=== PATIENT | female | born 1940 | race Caucasian/White ===

== ENCOUNTER 2017-04-26 15:20 | Outpatient (RCR) | payer MEDICARE ==
[2014-08-13 14:57] VITALS: Wt 98.6 kg
[2017-04-25 12:51] VITALS: BP 113/75
[2017-04-25 12:59] LABS: PLATELET COUNT, AUTOMATED 240 K/uL (150-450)
[~2017-04-26 15:20] MED LIST: ALPH50TA7 PO; BIPAP; BLOO-725 MC; CA P PO; CINN500C12 PO; DIPH-466 PO; DIPH25TA50 PO; EPIN0.3P14 IM; FAM20 PO; FAMO-67 PO; FLU180SY9 IM; FLU45SYR17 IM; FLU45SYR25 IM ONLY; FUR20 PO; FURO-45 PO; GLIM4TAB49 PO; GLIP1TAB PO; GLY5 PO; GLYB-108 PO; INSU100V24 SQ; LANC-648 MC; LEVI SQ; LEVI SUBQ; LIS10 PO; LIS20 PO; LISI-374 PO; LISI2.5T60 PO; LISI5TAB25 PO; LORA10TA2 PO; LOVA20TA99 PO; MULT-1124 PO; NOVOLOG SUBQ; NPH,100V12 SQ; NPH,100V2 SQ; OMEP-125 PO; OMEP-153 PO; PNEU0.5D3 IM; PRE5 PO; PREVACID; SITA100T PO; SITA100T9 PO; SYRI-1525 MC; TRA50 PO; TRAM-420 PO; VITA-131 PO; [UNRECOGNIZED DRUG - CODE] PO; [UNRECOGNIZED DRUG - CODE] PO; [UNRECOGNIZED DRUG - CODE] PO; [UNRECOGNIZED DRUG - CODE] PO; [UNRECOGNIZED DRUG - OTHER] SC
[2017-04-26 15:31] VITALS: BP 124/81
--- NOTE | 2017-04-26 19:25 | ONCOLOGY FOLLOW UP NOTE ---
EVENT DATE: April 26, 2017 DIAGNOSES 1. Secondary polycythemia. 2. Chronic kidney disease stage 3A. 3. Essential hypertension. 4. Type 2 diabetes. 5. Obstructive sleep apnea on BiPAP. CHIEF COMPLAINT Patient is here today for followup of her polycythemia. HEMATOLOGY HISTORY The patient is a 76-year-old female, with multiple medical problems including stage 3A chronic kidney disease likely due to hypertensive nephrosclerosis superimposed on diabetic kidney disease. She has also hypertension, type 2 diabetes, and obstructive sleep apnea on nocturnal BiPAP. The patient has been followed by Dr. Kailash Velásquez for her kidney disease, and the patient was found lately on her labs to have a hemoglobin of 20.1, hematocrit of 61.8, white count 11,000, and platelet count of 219,000. The patient denies any constitutional symptoms. Erythropoietin level is normal at 22 and JAK2 mutation analysis came back negative. HISTORY OF PRESENT ILLNESS Patient is here today for followup of her secondary polycythemia. She is doing fine currently, except for mild dry cough. Other than that she is really doing very well. PAST MEDICAL HISTORY 1. Stage 3 chronic kidney disease. 2. Hypertension. 3. Type 2 diabetes. 4. Obstructive sleep apnea. 5. Hypercholesterolemia. PAST SURGICAL HISTORY 1. Tubal ligation. 2. Appendectomy. 3. Surgical drainage for infection of the right lower extremity. FAMILY HISTORY Maternal great aunt with colon cancer. She has a granddaughter with leukemia. SOCIAL HISTORY The patient is with 4 children. 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 She has a glass of wine once a month and denies any abuse of tobacco or illicit drugs. She has never smoked. CURRENT MEDICATIONS 1. Lisinopril 5 mg daily. 2. Aspirin 81 mg daily. 3. Lasix 20 mg daily. 4. Glyburide/metformin 5/500 mg 2 tablets p.o. twice a day. 5. Insulin detemir (Levemir) 100 units injected into the skin nightly at bedtime. 6. Lovastatin 20 mg at bedtime. 7. Multivitamins. 8. Omeprazole 20 mg every morning. 9. Tramadol 50 mg p.r.n. pain as needed. ALLERGIES SHELLFISH causes anaphylaxis, and SULFA causes swelling. REVIEW OF SYSTEMS CONSTITUTIONAL: No appetite or weight change. No fever, chills or sweating. No recent infection. HEENT: Ears: No tinnitus or hearing problem. Nose: No nasal discharge or epistaxis. Throat: No sore throat or mouth ulcers. Eyes: No diplopia or visual changes. RESPIRATORY: Patient has a dry cough. CARDIOVASCULAR: No chest pain, orthopnea, or paroxysmal nocturnal dyspnea (PND) . No edema. No palpitations. GASTROINTESTINAL: No nausea or vomiting. No diarrhea or constipation. No change in bowel movements. No heartburn or swallowing difficulties. No abdominal pain. No jaundice. No hematemesis, melena or rectal bleeding. GENITOURINARY: No hematuria or dysuria. MUSCULOSKELETAL: She has pain in her hands. NEUROLOGICAL: No tingling or numbness in the hands or feet. No headaches or convulsions. HEMATOLOGIC/LYMPHATIC: No bleeding. She bruises easily. No weakness or fatigue. No enlarged lymph nodes. SKIN: No skin rash or lumps. PSYCHIATRIC: No anxiety or depression. PHYSICAL EXAMINATION GENERAL: Looks stable. Well-developed, well-nourished, and in no acute distress. VITAL SIGNS: Blood pressure 124/81, pulse 101 per minute, respirations 18 per minute, temperature 98.2, pulse ox 94% on room air. HEENT: Head: Atraumatic. No sinus tenderness to palpation. Eyes: No icterus or conjunctivitis. Mouth and throat: No oral thrush or mucositis. NECK: Supple. No cervical or supraclavicular lymphadenopathy. LUNGS: Clear to auscultation and percussion bilaterally. HEART: Regular rate and rhythm. No gallops, murmurs, clicks or rubs. ABDOMEN: Soft and lax. No tenderness. No hepatosplenomegaly. No masses. EXTREMITIES: Bilateral leg edema. LYMPHATICS: No peripheral lymphadenopathy. NEUROLOGICAL: Conscious, alert and oriented times three. No focal motor or sensory deficits. PSYCHIATRIC: Mood and affect appear normal. SKIN: No skin rash, bruise or purpuric eruption. DIAGNOSTIC DATA CBC showed a white count of 12,000, hemoglobin 19, hematocrit 57.6, platelet count 240,000. ASSESSMENT 1. Secondary erythrocytosis given the JAK2 mutation analysis for [id number] mutation and Exon 12 mutation came back negative, and her erythropoietin level was normal at 22. Patient started BiPAP machine for her sleep apnea. Her current hematocrit is 57.6. I am planning to phlebotomize 500 mL of blood today. I am planning to check her blood count every month, and I will proceed with phlebotomy if her hematocrit is above 55%. I will see her again in three months with CBC. 2. Chronic kidney disease stage 3A due to hypertension and diabetes. 3. Essential hypertension. 4. Type 2 diabetes mellitus. 5. Obstructive sleep apnea on BiPAP. PLAN 1. Phlebotomize 500 mL of blood if hematocrit is above 55%. 2. CBC to be checked monthly. 3. Patient to return in three months with CBC. 4. Patient to contact us for any new concern or complaints. ELI
[2017-05-08] MEDS ORDERED: ASPI-1471 PO (21:13)
[2017-05-08] MEDS ORDERED: TRAM-420 PO ×2 (21:13→21:56)
[2017-05-08] MEDS ORDERED: ONDA4TAB PO (21:56)
[2017-05-08] MEDS ORDERED: OXYC-865 PO (21:56)
[2017-05-14] MEDS ORDERED: CIPR-214 PO (03:04)
[2017-05-15] MEDS ORDERED: LEVI SUBQ (14:27)
[2017-05-15] MEDS ORDERED: ONDA4TAB PO (14:54)
[2017-06-05] MEDS ORDERED: FURO-45 PO (13:46)
[2017-06-05] MEDS ORDERED: PANT40TA65 PO (13:46)
[2017-06-05] MEDS ORDERED: LANI SUBQ (13:46)
[2017-06-05] MEDS ORDERED: PREPH PR (13:46)
[2017-06-05] MEDS ORDERED: MELA3TAB31 PO (13:46)
[2017-06-05] MEDS ORDERED: DIPH-464 PO (13:46)
[2017-06-05] MEDS ORDERED: ACET-2043 PO (13:46)
[2017-06-05] MEDS ORDERED: POTA20TA94 PO (13:46)
[2017-06-28] MEDS ORDERED: ACET-2007 PO (07:37)
[2017-06-28] MEDS ORDERED: INSU100I30 SUBQ (07:37)
[2017-06-28] MEDS ORDERED: FURO80TA70 PO (07:37)
[2017-06-28] MEDS ORDERED: CHOL4PAC16 PO (07:37)
[2017-06-28] MEDS ORDERED: ASPI-870 CHEW (07:37)
[2017-06-28] MEDS ORDERED: INSU100I28 SQ (07:46)
[2017-06-28] MEDS ORDERED: POTA20TA94 PO (07:46)
[2017-07-01] MEDS ORDERED: PEN1DIS. MC (12:06)
== END 2017-06-28 09:56 | disposition home or self-care (01) ==
LOC: ONC 15:20
PROVIDERS: ATTEND Internal Medicine Hematology
DX: D75.1 Secondary polycythemia (principal); I12.9 Hypertensive chronic kidney disease with stage 1 through stage 4 chronic kidney disease, or unspecified chronic kidney disease; E11.22 Type 2 diabetes mellitus with diabetic chronic kidney disease; N18.3 Chronic kidney disease, stage 3 (moderate); G47.33 Obstructive sleep apnea (adult) (pediatric); E78.00 Pure hypercholesterolemia, unspecified; Z79.4 Long term (current) use of insulin; Z79.82 Long term (current) use of aspirin; Z79.899 Other long term (current) drug therapy; Z99.89 Dependence on other enabling machines and devices; R05 Cough
CPT/HCPCS: 36415; 85025; 99195; G0463; 99212

== ENCOUNTER 2017-05-08 20:16 | Emergency (ER) | payer MEDICARE ==
[2014-08-13 14:57] VITALS: Wt 90.7 kg
[~2017-05-08 20:16] MED LIST changes: -ASPI-1471 PO; -CIPR-214 PO; -ONDA4TAB PO; -OXYC-865 PO
--- NOTE | 2017-05-08 20:21 | ER Report ---
History and Physical Time Seen By MD: 20:20 HPI/ROS CHIEF COMPLAINT: ill 5 days HISTORY OF PRESENT ILLNESS: 77-year-old female brought in by ambulance complaining of back pain, vomiting and flulike symptoms for 5 days. She describes body aches charley horses up and down her spine and around her abdomen for 5 days. She had some intermittent fevers at home. She had a dry cough. Today she began vomiting, having 2 episodes of vomiting. She denies shortness of breath or productive cough. EMS noted a pulse ox of 89% and placed her on 2 L.. Patient denies dysuria. Patient states she did receive a flu vaccine this season. She has a list of chronic medical problems. She was recently seen in oncology clinic. Patient is a type II diabetic, insulin required. She reports her sugars have been good. REVIEW OF SYSTEMS: Respiratory: No cough, no dyspnea. Cardiovascular: No chest pain, no palpitations. Gastrointestinal: As above Musculoskeletal: As above Allergies: Coded Allergies: Shellfish (Unverified Allergy, Intermediate, SWELLING WITH SHRIMP, 11/11/14 ) Sulfa (Sulfonamide Antibiotics) (Verified Allergy, Intermediate, hives, 12/16) [place] And Derivatives (Verified Allergy, Unknown, HIVES, 11/11/14) lactose (Verified Adverse Reaction, Intermediate, rash, 11/18/14) Home Meds Active Scripts Tramadol Hcl (TRAMADOL HCL) 50 Mg Tablet, 1 TAB PO Q6H Y for PAIN, #30 MG TAKE ONE TO TWO TABLETS BY MOUTH EVERY FOUR TO SIX HOURS NEEDED Prov:MINO WHEELER DO 05/08/17 Ondansetron (ZOFRAN ODT) 4 Mg Tab.rapdis, 4 MG PO every 6 hours Y for NAUSEA/ VOMITING, #10 TAB TAKE 1 TABLET BY MOUTH EVERY 12 HOURS Prov:MINO WHEELER DO 05/08/17 Oxycodone Hcl/Acetaminophen (PERCOCET 5-325 MG TABLET) 1 Each Tablet, 1 EACH PO Q4-6H Y for PAIN, #12 Prov:MINO WHEELER DO 05/08/17 Insulin NPH Human Isophane (Humulin N) 100 Unit/Ml Vial, 25 UNITS SQ QHS, #3 VIAL 3 Refills Prov:SHARIF FUENTES MD 04/24/17 Insulin Lispro (HUMALOG) 100 Unit/1 Ml Vial, 18 UNIT SQ QID, #6 VIAL 3 Refills Inject 18 units subcutaneously prior to each meal and with large snack. Prov:VON CRUZ PHARMD 04/15/17 Glimepiride (AMARYL) 4 Mg Tablet, 1 TAB PO QDAY, #90 TAB 3 Refills Prov:SHARIF FUENTES MD 10/02/16 Lisinopril (LISINOPRIL) 5 Mg Tablet, 1 TAB PO QDAY, #90 TAB 4 Refills Prov:SHARIF FUENTES MD 09/11/16 Furosemide (FUROSEMIDE) 20 Mg Tablet, 1 TAB PO DAILY, #90 TAB 4 Refills Prov:SHARIF FUENTES MD 09/11/16 Lovastatin (LOVASTATIN) 20 Mg Tablet, 1 TAB PO QDAY, #90 TAB 4 Refills Prov:SHARIF FUENTES MD 09/11/16 Blood Sugar Diagnostic (CONTOUR) 1 Each Strip, 100 EACH MC Q30D, #100 STRIP 12 Refills Use to test blood sugars twice daily Prov:SHARIF FUENTES MD 04/23/16 Syringe & Needle,Insulin,1 Ml (INSULIN SYRINGE) 1 Each Disp.syrin, 1 EACH MC DAILY, #100 11 Refills Use to inject insulin twice daily Prov:SHARIF FUENTES MD 01/10/16 Lancets (BD ULTRA-FINE) 1 Each Each, 1 EACH MC DAILY, #100 12 Refills Use twice daily for insulin injections Prov:SHARIF FUENTES MD 10/04/15 Reported Medications Tramadol Hcl (TRAMADOL HCL) 50 Mg Tablet, 50-100 MG PO TID Y for PAIN, TAB 05/08/17 Aspirin (ASPIR 81) 81 Mg Tablet.dr, 81 MG PO QDAY, TAB 05/08/17 Ca Phos/Cranberry/Milk Thistle (LIVER-KIDNEY CLEANSER CAP) 1 Each Capsule, 1 EACH PO DAILY, CAPSULE 09/28/16 Vit A,C & E/Lutein/Minerals (VISION VITAMINS TABLET) 1 Each Tablet, 1 EACH PO DAILY 09/28/16 Bipap Home (BIPAP HOME) Inha, HS 09/07/15 Diphenhydramine Hcl (DIPHENHIST) 25 Mg Tablet, 1 TAB PO BID 11/24/13 Multivitamin (DAILY VITAMIN FORMULA) 1 Each Tablet, 1 TAB PO DAILY 9/23/14 Discontinued Reported Medications Omeprazole (OMEPRAZOLE) 20 Mg Capsule., 1 CAP PO QDAY 11/24/13 Past Medical/Surgical History PAST MEDICAL HISTORY 1. Stage 3 chronic kidney disease. 2. Hypertension. 3. Type 2 diabetes. 4. Obstructive sleep apnea. 5. Hypercholesterolemia. PAST SURGICAL HISTORY 1. Tubal ligation. 2. Appendectomy. 3. Surgical drainage for infection of the right lower extremity. Reviewed Nurses Notes: Yes Old Medical Records Reviewed: Yes Hx Smoking: No Smoking Status: Never Smoker Exposure to Second Hand Smoke?: Yes Hx Substance Use Disorder: No Hx Alcohol Use: Yes Constitutional Vital Sign - Last 24 Hours 05/08/17 05/08/17 05/08/17 05/08/17 20:21 20:21 20:21 20:30 Temp 99.5 Pulse 107 Resp 16 B/P (MAP) 148/79 148/79 (102) 136/69 (91) Pulse Ox 90 O2 Delivery Nasal Cannula O2 Flow Rate 1.0 05/08/17 05/08/17 05/08/17 05/08/17 20:31 20:46 21:00 21:01 Pulse 103 102 Resp 11 38 13 B/P (MAP) 152/72 (98) Pulse Ox 95 05/08/17 05/08/17 05/08/17 05/08/17 21:16 21:30 21:31 21:36 Pulse 99 102 99 Resp 15 20 11 B/P (MAP) 149/72 (97) Pulse Ox 95 94 96 05/08/17 05/08/17 05/08/17 05/08/17 21:41 21:46 21:51 21:56 Pulse 99 101 100 101 Resp 15 14 10 14 Pulse Ox 95 95 95 93 05/08/17 05/08/17 05/08/17 05/08/17 22:00 22:01 22:06 22:11 Pulse 99 100 Resp 9 12 16 B/P (MAP) 140/82 (101) Pulse Ox 93 91 05/08/17 05/08/17 22:16 22:22 Resp 39 Pulse Ox 91 O2 Delivery Room Air Physical Exam General Appearance: The patient is alert, has no immediate need for airway protection and no current signs of toxicity. Vital signs stable, low-grade fever 99 5 HEENT: Pupils equal and round no injection. TMs normal, oropharynx with dry mucous membranes, no erythema or exudate Respiratory: Chest is non tender, lungs are clear to auscultation. No wheezing or rails Cardiac: regular rate and rhythm, no murmur Gastrointestinal: Abdomen is soft and non tender, no masses, bowel sounds normal. Musculoskeletal: Neck: Neck is supple and non tender. No lymphadenopathy, no JVD Extremities have full range of motion and are non tender. No edema, no calf tenderness Skin: No rashes or lesions. DIFFERENTIAL DIAGNOSIS: After history and physical exam differential diagnosis was considered for adult fever including but not limited to viral syndromes including influenza, urinary tract infection, pneumonia and sepsis. Medical Decision Making Data Points Result Diagram: 05/08/17204105/08/172041 Laboratory Hematology Test 05/08/17 00:00 05/08/17 20:42 05/08/17 20:56 Urine Color Camila Urine Clarity Slightly-cloudy Urine pH 5.0 pH (4.8-9.5) Urine Specific [place] 1.032 Urine Protein 100 mg/dL (NEGATIVE) Urine Glucose (UA) Negative mg/dL (NEGATIVE) Urine Ketones 80 mg/dL (NEGATIVE) Urine Blood Negative (NEGATIVE) Urine Nitrite Negative (NEGATIVE) Urine Bilirubin Small (NEGATIVE) Urine Urobilinogen 4.0 mg/dL (0.2-1.9) Urine Leukocyte Esterase Trace (NEGATIVE) Urine RBC <1 /HPF (0-2/HPF) Urine WBC 15 /HPF (0-5/HPF) Urine Squamous Epithelial Cells Many /LPF (</=FEW) Urine Bacteria Negative /HPF (NONE-FEW) Urine Hyaline Casts Many /LPF (NONE-FEW) Urine Mucus Few /HPF (NONE-FEW) Red Blood Count 5.36 M/uL (4.17-5.56) Mean Corpuscular Volume 84.7 fL (80.0-96.0) Mean Corpuscular Hemoglobin 28.7 pg (26.0-33.0) Mean Corpuscular Hemoglobin Concent 33.9 g/dL (32.0-36.0) Red Cell Distribution Width 16.0 % (11.5-14.5) Mean Platelet Volume 8.1 fL (7.2-11.1) Neutrophils (%) (Auto) 84.5 % (39.4-72.5) Lymphocytes (%) (Auto) 7.0 % (17.6-49.6) Monocytes (%) (Auto) 7.6 % (4.1-12.4) Eosinophils (%) (Auto) 0.2 % (0.4-6.7) Basophils (%) (Auto) 0.7 % (0.3-1.4) Nucleated RBC Relative Count (auto) 0.0 /100WBC Neutrophils # (Auto) 13.6 K/uL (2.0-7.4) Lymphocytes # (Auto) 1.1 K/uL (1.3-3.6) Monocytes # (Auto) 1.2 K/uL (0.3-1.0) Eosinophils # (Auto) 0.0 K/uL (0.0-0.5) Basophils # (Auto) 0.1 K/uL (0.0-0.1) Nucleated RBC Absolute Count (auto) 0.00 K/uL Sodium Level 136 mmol/L (137-145) Potassium Level 4.0 mmol/L (3.5-5.0) Chloride Level 97 mmol/L (98-107) Carbon Dioxide Level 22 mmol/L (22-31) Blood Urea Nitrogen 11 mg/dl (7-18) Creatinine 0.70 mg/dl (0.52-1.04) Glomerular Filtration Rate Calc > 60.0 Random Glucose 163 mg/dl (75-110) Lactate 1.6 mmol/L (0.7-2.1) Calcium Level 9.2 mg/dl (8.4-10.2) Total Bilirubin 1.1 mg/dl (0.2-1.3) Aspartate Amino Transf (AST/SGOT) 23 U/L (0-35) Alanine Aminotransferase (ALT/SGPT) 38 U/L (0-56) Alkaline Phosphatase 128 U/L (0-126) Troponin I < 0.012 ng/ml Total Protein 6.7 gm/dl (6.3-8.2) Albumin 3.3 g/dl (3.5-5.0) Influenza Virus Type A (PCR) Negative (NEGATIVE) Influenza Virus Type B (PCR) Negative (NEGATIVE) Chemistry Test 05/08/17 00:00 05/08/17 20:42 05/08/17 20:56 Urine Color Camila Urine Clarity Slightly-cloudy Urine pH 5.0 pH (4.8-9.5) Urine Specific [place] 1.032 Urine Protein 100 mg/dL (NEGATIVE) Urine Glucose (UA) Negative mg/dL (NEGATIVE) Urine Ketones 80 mg/dL (NEGATIVE) Urine Blood Negative (NEGATIVE) Urine Nitrite Negative (NEGATIVE) Urine Bilirubin Small (NEGATIVE) Urine Urobilinogen 4.0 mg/dL (0.2-1.9) Urine Leukocyte Esterase Trace (NEGATIVE) Urine RBC <1 /HPF (0-2/HPF) Urine WBC 15 /HPF (0-5/HPF) Urine Squamous Epithelial Cells Many /LPF (</=FEW) Urine Bacteria Negative /HPF (NONE-FEW) Urine Hyaline Casts Many /LPF (NONE-FEW) Urine Mucus Few /HPF (NONE-FEW) White Blood Count 16.1 k/uL (4.5-11.0) Red Blood Count 5.36 M/uL (4.17-5.56) Hemoglobin 15.4 g/dL (12.0-16.0) Hematocrit 45.4 % (34.0-47.0) Mean Corpuscular Volume 84.7 fL (80.0-96.0) Mean Corpuscular Hemoglobin 28.7 pg (26.0-33.0) Mean Corpuscular Hemoglobin Concent 33.9 g/dL (32.0-36.0) Red Cell Distribution Width 16.0 % (11.5-14.5) Platelet Count 254 K/uL (150-450) Mean Platelet Volume 8.1 fL (7.2-11.1) Neutrophils (%) (Auto) 84.5 % (39.4-72.5) Lymphocytes (%) (Auto) 7.0 % (17.6-49.6) Monocytes (%) (Auto) 7.6 % (4.1-12.4) Eosinophils (%) (Auto) 0.2 % (0.4-6.7) Basophils (%) (Auto) 0.7 % (0.3-1.4) Nucleated RBC Relative Count (auto) 0.0 /100WBC Neutrophils # (Auto) 13.6 K/uL (2.0-7.4) Lymphocytes # (Auto) 1.1 K/uL (1.3-3.6) Monocytes # (Auto) 1.2 K/uL (0.3-1.0) Eosinophils # (Auto) 0.0 K/uL (0.0-0.5) Basophils # (Auto) 0.1 K/uL (0.0-0.1) Nucleated RBC Absolute Count (auto) 0.00 K/uL Glomerular Filtration Rate Calc > 60.0 Lactate 1.6 mmol/L (0.7-2.1) Calcium Level 9.2 mg/dl (8.4-10.2) Total Bilirubin 1.1 mg/dl (0.2-1.3) Aspartate Amino Transf (AST/SGOT) 23 U/L (0-35) Alanine Aminotransferase (ALT/SGPT) 38 U/L (0-56) Alkaline Phosphatase 128 U/L (0-126) Troponin I < 0.012 ng/ml Total Protein 6.7 gm/dl (6.3-8.2) Albumin 3.3 g/dl (3.5-5.0) Influenza Virus Type A (PCR) Negative (NEGATIVE) Influenza Virus Type B (PCR) Negative (NEGATIVE) Urinalysis Test 05/08/17 00:00 Urine Color Camila Urine Clarity Slightly-cloudy Urine pH 5.0 pH (4.8-9.5) Urine Specific [place] 1.032 Urine Protein 100 mg/dL (NEGATIVE) Urine Glucose (UA) Negative mg/dL (NEGATIVE) Urine Ketones 80 mg/dL (NEGATIVE) Urine Blood Negative (NEGATIVE) Urine Nitrite Negative (NEGATIVE) Urine Bilirubin Small (NEGATIVE) Urine Urobilinogen 4.0 mg/dL (0.2-1.9) Urine Leukocyte Esterase Trace (NEGATIVE) Urine RBC <1 /HPF (0-2/HPF) Urine WBC 15 /HPF (0-5/HPF) Urine Squamous Epithelial Cells Many /LPF (</=FEW) Urine Bacteria Negative /HPF (NONE-FEW) Urine Hyaline Casts Many /LPF (NONE-FEW) Urine Mucus Few /HPF (NONE-FEW) Microbiology Microbiology Date/Time Source Procedure Growth Status 05/08/17 00:00 Clean Catch Midstream Ur Urine Culture - Preliminary Gram Negative Jonn Resulted EKG/Imaging EKG Interpretation 12 lead EK Rhythm: Sinus tachycardia, rate 104 [place]: Right axis deviation QRS: normal ST segments: normal, no evidence of ischemia or dysrhythmia, no old EKGs for comparison Imaging X-ray: Two-view chest x-ray was obtained. I viewed the images myself on the PACS system. My interpretation of the images is: No infiltrate, no effusion, normal mediastinum. The radiologist interpretation had no clinically significant variation from this interpretation. ED Course/Re-evaluation Clinical Indication for ER IV: Hydration, IV Access ED Course Patient was admitted to an examination room. H&P was done. The differential diagnoses was considered. Patient with vomiting after viral symptoms for 4-5 days. She is treated with IV fluids and Zofran. Her workup is negative. Chest x-ray, urinalysis shows some mild urinary tract symptoms. White blood cell counts mildly elevated. Rapid influenza was negative. Her lactate was negative, so no evidence of sepsis. Patient be discharged home on Zofran and Keflex for urinary tract infection. A urinary cultures ordered. Patient was given Percocet for back pain pain. Patient was also given a prescription for tramadol for other pain relief. She is advised to not mix the tramadol and Percocetseparated by at least 4 hours. Decision to Disposition Date: May 08, 2017 Decision to Disposition Time: 21:53 Depart Departure Latest Vital Signs Vital Signs Date Time Temp Pulse Resp B/P (MAP) Pulse Ox O2 Delivery O2 Flow Rate FiO2 05/08/17 22:22 91 Room Air 05/08/17 22:16 39 05/08/17 22:11 100 05/08/17 22:00 140/82 (101) 05/08/17 20:21 1.0 05/08/17 20:21 99.5 Impression: Primary Impression: Vomiting Additional Impressions: Urinary tract infection Leukocytosis Condition: Improved Disposition: HOME OR SELF-CARE Referrals: SHARIF FUENTES MD (PCP) New Scripts Tramadol Hcl (TRAMADOL HCL) 50 Mg Tablet 1 TAB PO Q6H Y for PAIN, #30 MG TAKE ONE TO TWO TABLETS BY MOUTH EVERY FOUR TO SIX HOURS NEEDED Prov: MINO WHEELER DO 05/08/17 Ondansetron (ZOFRAN ODT) 4 Mg Tab.rapdis 4 MG PO every 6 hours Y for NAUSEA/VOMITING, #10 TAB TAKE 1 TABLET BY MOUTH EVERY 12 HOURS Prov: MINO WHEELER DO 05/08/17 Oxycodone Hcl/Acetaminophen (PERCOCET 5-325 MG TABLET) 1 Each Tablet 1 EACH PO Q4-6H Y for PAIN, #12 Prov: MINO WHEELER DO 05/08/17 Patient Instructions: Acute Nausea and Vomiting (ED), Urinary Tract Infection in Women (ED) Additional Instructions: Follow-up with your primary care if unimproved in 2-4 days Problem Qualifiers Primary Impression: Vomiting Vomiting type: unspecified Vomiting Intractability: unspecified Nausea presence: unspecified Qualified Codes: R11.10 - Vomiting, unspecified Additional Impressions: Urinary tract infection Urinary tract infection type: acute cystitis Hematuria presence: without hematuria Qualified Codes: N30.00 - Acute cystitis without hematuria Leukocytosis Leukocytosis type: unspecified Qualified Codes: D72.829 - Elevated white blood cell count, unspecified MINO WHEELER DO May 08, 2017 20:21
[2017-05-08] MEDS ORDERED: NS(*) 0.9% 1000 ML BAG 1,000 ML IV ONE (20:45)
[2017-05-08] MEDS ORDERED: ONDANSETRON 4 MG/2 ML VIAL IVP ONE (20:45)
[2017-05-08 20:54] LABS: PLATELET COUNT, AUTOMATED 254 K/uL (150-450)
[2017-05-08] MEDS ORDERED: ASPI-1471 PO (21:13)
[2017-05-08] MEDS ORDERED: TRAM-420 PO ×2 (21:13→21:56)
[2017-05-08] MEDS ORDERED: fentaNYL CITR 100 MCG/2 ML AMP IVP ONE (21:30)
--- NOTE | 2017-05-08 21:30 | EKG ---
FACILITY: [facility] [place] PATIENT NAME: JOSE ROBERTO MARTINO : [id number] MR: [id number] V: [id number] EXAM DATE: ORDERING PHYSICIAN: MINO WHEELER TECHNOLOGIST: AUGIE Test Reason : CARDIAC Blood Pressure : / mmHG Vent. Rate : 104 BPM Atrial Rate : 104 BPM P-R Int : 194 ms QRS Dur : 108 ms QT Int : 372 ms P-R-T Axes : 014 270 063 degrees QTc Int : 489 ms Sinus tachycardia Decreased R wave progression through precordial leads Right superior axis deviation Abnormal ECG No previous ECGs available Confirmed by FAITH ORTIZ ([id number]) on 05/09/2017 6:02:30 AM Referred By: Confirmed By:FAITH ORTIZ
--- NOTE | 2017-05-08 21:37 | RADIOLOGY IMAGING REPORT ---
FACILITY: [facility] PATIENT NAME: Brandy Kathleen : 1940 MR: [id number] V: [id number] EXAM DATE: ORDERING PHYSICIAN: MINO WHEELER TECHNOLOGIST: Location: [facility] [place] Patient: Brandy Kathleen : 1940 Visit/Account:[id number] Date of Sevice: 05/08/2017 CHEST: Indication: Fever. Technique: Frontal and lateral views were obtained. Comparison: 08/12/2014 Skeletal and soft tissue structures: There are chronic degenerative changes in the shoulders. There i s a chronic compression deformity of T12 vertebral body. No acute skeletal deformity is identified. Heart and mediastinum: Within normal limits. Lung amato: Well-expanded and clear. No focal or diffuse opacities. Pleural spaces: Unremarkable. Impression: No acute process or significant change. Report Dictated By: Germán Mcclure MD at 05/08/2017 9:31 PM Report E-Signed By: Germán Mcclure MD at 05/08/2017 9:33 PM WSN:[id number]
[2017-05-08] MEDS ORDERED: ONDANSETRON 4 MG ODT TH SL ONE (21:55)
[2017-05-08] MEDS ORDERED: oxyCODONE/ACETAMIN 5/325MG TH 2 TAB/BOTTLE PO ONE (21:55)
[2017-05-08] MEDS ORDERED: CEPHALEXIN MONO 500 MG CAP PO ONE (21:55)
[2017-05-08] MEDS ORDERED: OXYC-865 PO (21:56)
[2017-05-08] MEDS ORDERED: ONDA4TAB PO (21:56)
[2017-05-08 22:00] VITALS: BP 140/82
== END 2017-05-08 22:23 | disposition home or self-care (01) ==
LOC: ER 20:28
DX: N30.00 Acute cystitis without hematuria (principal); D72.829 Elevated white blood cell count, unspecified; R00.0 Tachycardia, unspecified; R94.31 Abnormal electrocardiogram [ECG] [EKG]
CPT/HCPCS: 71046; 81001; 83605; 84484; 85025; 87088; 87502; 93005; 96361; 96374; 96375; 99284; A9270; J2405; J3010; J7030; Q0162; 82040; 82247; 82310; 82374; 82435; 82565; 82947; 84075; 84132; 84155; 84295; 84450; 84460; 84520; 87077; 87186; S0119

== ENCOUNTER → 2017-05-08 | Outpatient (CLI) | payer MEDICARE ==
[~2017-05-08] MED LIST changes: +ASPI-1471 PO; +CIPR-214 PO; +ONDA4TAB PO; +OXYC-865 PO
[2017-05-14 16:32] VITALS: BMI 31.9
== END ==
LOC: AMB 20:05
PROVIDERS: ATTEND Nurse Practitioner
DX: R06.00 Dyspnea, unspecified (principal); R09.02 Hypoxemia
CPT/HCPCS: A0425; A0429

== ENCOUNTER 2017-05-13 17:29 | Inpatient (IN) | payer MEDICARE ==
[~2017-05-13] VITALS: Ht 165.1 cm; Wt 108.0 kg
[2017-05-13] VITALS (8 sets, daily range): BP systolic 94–148; BP diastolic 69–106
[~2017-05-13 17:29] MED LIST changes: -CIPR-214 PO
--- NOTE | 2017-05-13 18:06 | ER Report ---
History and Physical Time Seen By MD: 17:58 Hx. of Stated Complaint: patient has abdominal pain, low blood sugar and pain in her lungs she has a hard time breathing HPI/ROS CHIEF COMPLAINT: Abdominal pain HISTORY OF PRESENT ILLNESS: 77-year-old female patient presents to the emergency room with complaint of abdominal pain. Patient states that she has been having pain for several days. She was seen in the emergency room approximately 5 days ago. She was told she had a urinary tract infection at that time. She is discharged home, however did not get a prescription for antibiotics. She did not because up until Saturday. She states that she has been feeling worse today, she states that her abdominal pain has worsened. She denies having any fevers or chills. She states that she's been taking the medication as prescribed. Patient denies any nausea or vomiting. REVIEW OF SYSTEMS: Respiratory: No cough, no dyspnea. Cardiovascular: No chest pain, no palpitations. Gastrointestinal: As noted above Musculoskeletal: No back pain. Allergies: Coded Allergies: Shellfish (Verified Allergy, Intermediate, SWELLING WITH SHRIMP, 05/13/17) Sulfa (Sulfonamide Antibiotics) (Verified Allergy, Intermediate, hives, 12/16) [place] And Derivatives (Verified Allergy, Unknown, HIVES, 11/11/14) lactose (Verified Adverse Reaction, Intermediate, rash, 11/18/14) Home Meds Active Scripts Tramadol Hcl (TRAMADOL HCL) 50 Mg Tablet, 1 TAB PO Q6H Y for PAIN, #30 MG TAKE ONE TO TWO TABLETS BY MOUTH EVERY FOUR TO SIX HOURS NEEDED Prov:MINO WHEELER DO 05/08/17 Ondansetron (ZOFRAN ODT) 4 Mg Tab.rapdis, 4 MG PO every 6 hours Y for NAUSEA/ VOMITING, #10 TAB TAKE 1 TABLET BY MOUTH EVERY 12 HOURS Prov:MINO WHEELER DO 05/08/17 Oxycodone Hcl/Acetaminophen (PERCOCET 5-325 MG TABLET) 1 Each Tablet, 1 EACH PO Q4-6H Y for PAIN, #12 Prov:MINO WHEELER DO 05/08/17 Insulin NPH Human Isophane (Humulin N) 100 Unit/Ml Vial, 25 UNITS SQ QHS, #3 VIAL 3 Refills Prov:SHARIF FUENTES MD 04/24/17 Insulin Lispro (HUMALOG) 100 Unit/1 Ml Vial, 18 UNIT SQ QID, #6 VIAL 3 Refills Inject 18 units subcutaneously prior to each meal and with large snack. Prov:VON CRUZ PHARMD 04/15/17 Glimepiride (AMARYL) 4 Mg Tablet, 1 TAB PO QDAY, #90 TAB 3 Refills Prov:SHARIF FUENTES MD 10/02/16 Lisinopril (LISINOPRIL) 5 Mg Tablet, 1 TAB PO QDAY, #90 TAB 4 Refills Prov:SHARIF FUENTES MD 09/11/16 Furosemide (FUROSEMIDE) 20 Mg Tablet, 1 TAB PO DAILY, #90 TAB 4 Refills Prov:SHARIF FUENTES MD 09/11/16 Lovastatin (LOVASTATIN) 20 Mg Tablet, 1 TAB PO QDAY, #90 TAB 4 Refills Prov:SHARIF FUENTES MD 09/11/16 Blood Sugar Diagnostic (CONTOUR) 1 Each Strip, 100 EACH MC Q30D, #100 STRIP 12 Refills Use to test blood sugars twice daily Prov:SHARIF FUENTES MD 04/23/16 Syringe & Needle,Insulin,1 Ml (INSULIN SYRINGE) 1 Each Disp.syrin, 1 EACH MC DAILY, #100 11 Refills Use to inject insulin twice daily Prov:SHARIF FUENTES MD 01/10/16 Lancets (BD ULTRA-FINE) 1 Each Each, 1 EACH MC DAILY, #100 12 Refills Use twice daily for insulin injections Prov:SHARIF FUENTES MD 10/04/15 Reported Medications Tramadol Hcl (TRAMADOL HCL) 50 Mg Tablet, 50-100 MG PO TID Y for PAIN, TAB 05/08/17 Aspirin (ASPIR 81) 81 Mg Tablet.dr, 81 MG PO QDAY, TAB 05/08/17 Ca Phos/Cranberry/Milk Thistle (LIVER-KIDNEY CLEANSER CAP) 1 Each Capsule, 1 EACH PO DAILY, CAPSULE 09/28/16 Vit A,C & E/Lutein/Minerals (VISION VITAMINS TABLET) 1 Each Tablet, 1 EACH PO DAILY 09/28/16 Bipap Home (BIPAP HOME) Inha, HS 09/07/15 Diphenhydramine Hcl (DIPHENHIST) 25 Mg Tablet, 1 TAB PO BID 11/24/13 Multivitamin (DAILY VITAMIN FORMULA) 1 Each Tablet, 1 TAB PO DAILY 11/24/13 Discontinued Reported Medications Omeprazole (OMEPRAZOLE) 20 Mg Capsule., 1 CAP PO QDAY 11/24/13 Past Medical/Surgical History Patient has a past medical history of phlebitis, hypertension, hyperlipidemia, reflux, frequent UTI, arthritis, diabetes, alcohol use, depression. Patient has surgical history of appendectomy, tubal ligation, carpal tunnel release, tonsillectomy, bilateral cataract surgery. Reviewed Nurses Notes: Yes Hx Smoking: No Smoking Status: Never Smoker Exposure to Second Hand Smoke?: Yes Hx Substance Use Disorder: No Hx Alcohol Use: Yes Constitutional Vital Sign - Last 24 Hours 05/13/17 05/13/17 05/13/17 05/13/17 17:29 17:30 17:32 18:00 Temp 97.6 Pulse ??? 108 Resp 18 B/P (MAP) 100/64 (76) 100/64 102/61 (75) Pulse Ox 100 O2 Delivery Nasal Cannula 05/13/17 18:30 B/P (MAP) 99/61 (74) Physical Exam General Appearance: The patient is alert, has no immediate need for airway protection and no current signs of toxicity. Patient does seem very vague with responses to questions. Respiratory: Chest is non tender, lungs are clear to auscultation. Cardiac: regular rate and rhythm Gastrointestinal: Abdomen is soft and tender in bilateral upper quadrants, lower quadrants, no masses, bowel sounds normal. Musculoskeletal: Neck: Neck is supple and non tender. Extremities have full range of motion and are non tender. Skin: No rashes or lesions. DIFFERENTIAL DIAGNOSIS: After history and physical exam differential diagnosis was considered for urinary tract infection, sepsis, ischemic bowel Medical Decision Making Data Points Result Diagram: 05/13/17 1739 05/13/17 1739 Laboratory Hematology Test 05/13/17 17:39 05/13/17 18:44 05/13/17 20:12 Red Blood Count 6.90 M/uL (4.17-5.56) Mean Corpuscular Volume 85.6 fL (80.0-96.0) Mean Corpuscular Hemoglobin 27.7 pg (26.0-33.0) Mean Corpuscular Hemoglobin Concent 32.3 g/dL (32.0-36.0) Red Cell Distribution Width 16.4 % (11.5-14.5) Mean Platelet Volume 8.3 fL (7.2-11.1) Neutrophils (%) (Auto) 86.1 % (39.4-72.5) Lymphocytes (%) (Auto) 6.9 % (17.6-49.6) Monocytes (%) (Auto) 6.7 % (4.1-12.4) Eosinophils (%) (Auto) 0.0 % (0.4-6.7) Basophils (%) (Auto) 0.3 % (0.3-1.4) Nucleated RBC Relative Count (auto) 0.4 /100WBC Neutrophils # (Auto) 16.1 K/uL (2.0-7.4) Lymphocytes # (Auto) 1.3 K/uL (1.3-3.6) Monocytes # (Auto) 1.2 K/uL (0.3-1.0) Eosinophils # (Auto) 0.0 K/uL (0.0-0.5) Basophils # (Auto) 0.1 K/uL (0.0-0.1) Nucleated RBC Absolute Count (auto) 0.07 K/uL Sodium Level 135 mmol/L (137-145) Potassium Level 5.0 mmol/L (3.5-5.0) Chloride Level 95 mmol/L (98-107) Carbon Dioxide Level 19 mmol/L (22-31) Blood Urea Nitrogen 59 mg/dl (7-18) Creatinine 2.00 mg/dl (0.52-1.04) Glomerular Filtration Rate Calc 24.0 Random Glucose 173 mg/dl (75-110) Calcium Level 9.3 mg/dl (8.4-10.2) Total Bilirubin 0.9 mg/dl (0.2-1.3) Aspartate Amino Transf (AST/SGOT) 142 U/L (0-35) Alanine Aminotransferase (ALT/SGPT) 369 U/L (0-56) Alkaline Phosphatase 193 U/L (0-126) Total Protein 6.8 gm/dl (6.3-8.2) Albumin 3.2 g/dl (3.5-5.0) Amylase Level 34 U/L (0-110) Lipase 197 U/L (23-300) Lactate 4.3 mmol/L (0.7-2.1) Chemistry Test 05/13/17 17:39 3/12/18 18:44 05/13/17 20:12 White Blood Count 18.7 k/uL (4.5-11.0) Red Blood Count 6.90 M/uL (4.17-5.56) Hemoglobin 19.1 g/dL (12.0-16.0) Hematocrit 59.1 % (34.0-47.0) Mean Corpuscular Volume 85.6 fL (80.0-96.0) Mean Corpuscular Hemoglobin 27.7 pg (26.0-33.0) Mean Corpuscular Hemoglobin Concent 32.3 g/dL (32.0-36.0) Red Cell Distribution Width 16.4 % (11.5-14.5) Platelet Count 346 K/uL (150-450) Mean Platelet Volume 8.3 fL (7.2-11.1) Neutrophils (%) (Auto) 86.1 % (39.4-72.5) Lymphocytes (%) (Auto) 6.9 % (17.6-49.6) Monocytes (%) (Auto) 6.7 % (4.1-12.4) Eosinophils (%) (Auto) 0.0 % (0.4-6.7) Basophils (%) (Auto) 0.3 % (0.3-1.4) Nucleated RBC Relative Count (auto) 0.4 /100WBC Neutrophils # (Auto) 16.1 K/uL (2.0-7.4) Lymphocytes # (Auto) 1.3 K/uL (1.3-3.6) Monocytes # (Auto) 1.2 K/uL (0.3-1.0) Eosinophils # (Auto) 0.0 K/uL (0.0-0.5) Basophils # (Auto) 0.1 K/uL (0.0-0.1) Nucleated RBC Absolute Count (auto) 0.07 K/uL Glomerular Filtration Rate Calc 24.0 Calcium Level 9.3 mg/dl (8.4-10.2) Total Bilirubin 0.9 mg/dl (0.2-1.3) Aspartate Amino Transf (AST/SGOT) 142 U/L (0-35) Alanine Aminotransferase (ALT/SGPT) 369 U/L (0-56) Alkaline Phosphatase 193 U/L (0-126) Total Protein 6.8 gm/dl (6.3-8.2) Albumin 3.2 g/dl (3.5-5.0) Amylase Level 34 U/L (0-110) Lipase 197 U/L (23-300) Lactate 4.3 mmol/L (0.7-2.1) Urinalysis Test 05/13/17 20:12 EKG/Imaging Imaging EXAMINATION: CT abdomen and pelvis without IV contrast HISTORY: Abdominal pain. TECHNIQUE: Axial CT images of the abdomen and pelvis were obtained without IV contrast, with coronal and sagittal 2D reconstructed images. One of the following dose optimization techniques was utilized in the performance of this exam: Automated exposure control; adjustment of the mA and/ or kV according to the patient's size; or use of an iterative reconstruction technique. Specific details can be referenced in the facility's radiology CT exam operational policy. COMPARISON: None. FINDINGS: Evaluation of the solid and viscus parenchymal organs is limited without the benefit of IV contrast. Image quality is also degraded by respiratory motion artifact. Liver: Grossly unremarkable by noncontrast CT imaging. Gallbladder and bile ducts: The gallbladder is distended and hydropic in appearance, measuring 5 cm in diameter and approximately 10 cm in length. There is thin curvilinear calcification along the wall of the gallbladder compatible with a "porcelain gallbladder." No bile duct dilatation. Spleen: Normal spleen size, measuring 9.5 cm in length. Pancreas: Negative. Adrenal glands: Negative. Kidneys: Normal size and morphology of both kidneys. No urinary calculi or hydronephrosis. Bowel and peritoneum: The small bowel and colon are normal in caliber. No bowel obstruction. The bowel is not well evaluated by noncontrast CT imaging. There is suggestion of possible wall thickening involving nondistended loops of small bowel in the lower abdomen and pelvis. Small volume of ascites throughout the abdomen and pelvis, with diffuse mesenteric edema. No pneumatosis or portal venous gas. No free intraperitoneal air. Small hiatal hernia. Pelvic structures: Small uterine fibroids. No large adnexal cyst in the pelvis.: Lymph node assessment: Negative. Vessels: Scattered vascular calcifications. Normal caliber abdominal aorta. Musculoskeletal: Multilevel degenerative changes throughout the spine. There is mild chronic appearing wedging of T12 and L3. No acute osseous findings. Body wall: Negative. Lung bases: Negative. IMPRESSION: 1. Technically limited exam due to the lack of IV contrast and motion artifact. 2. Small volume of ascites throughout the abdomen and pelvis, with associated mesenteric edema. 3. The small bowel and colon are normal in caliber. There is suggestion of likely wall thickening involving nondilated small bowel loops in the lower abdomen and pelvis. This is nonspecific and could be infectious, inflammatory, or ischemic in nature or could relate to underlying systemic illness or liver disease. 4. The gallbladder is significantly distended and hydropic in appearance. 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 Report Dictated By: Dima Ross MD at 05/13/2017 7:11 PM Report E-Signed By: Dima Ross MD at 05/13/2017 7:30 PM ED Course/Re-evaluation ED Course Patient was admitted to examine, history and physical were obtained. Differential diagnoses were considered. On examination patient has tenderness to the abdomen. Patient does seem vague in response to questions. A CBC, CMP, amylase, lipase, urinalysis obtained. Patient had an elevated white count of 18, 000, lactate was done which was 4.3, liver enzymes were slightly elevated. Patient had a creatinine of 2 and a BUN of 59. 5 days ago and those were checked in the emergency room she had a creatinine of 0.[address] scan of abdomen and pelvis was done without contrast which showed ascites, mesenteric edema, porcelain gallbladder. I discussed case with Dr. Mata, hospitalist. He did agree to accept the patient for admission with diagnosis of urinary tract infection sepsis. Patient's blood pressure here in the emergency room was 109/68, the last time she was seen in emergency room she was 140 over 80s. Patient will be admitted to ICU. Decision to Disposition Date: May 13, 2017 Decision to Disposition Time: 20:15 Depart Departure Latest Vital Signs Vital Signs Date Time Temp Pulse Resp B/P (MAP) Pulse Ox O2 Delivery O2 Flow Rate FiO2 05/13/17 18:30 99/61 (74) 05/13/17 17:32 97.6 108 18 100 Nasal Cannula Impression: Primary Impression: Urinary tract infection Additional Impression: Sepsis Condition: Condition Unchanged Disposition: Admitted from ER Referrals: SHARIF FUENTES MD (PCP) Problem Qualifiers Primary Impression: Urinary tract infection Urinary tract infection type: acute cystitis Hematuria presence: without hematuria Qualified Codes: N30.00 - Acute cystitis without hematuria Additional Impression: Sepsis Sepsis type: sepsis due to unspecified organism Qualified Codes: A41.9 - Sepsis, unspecified organism MARILYN SANCHEZ May 13, 2017 18:06
[2017-05-13] MEDS ORDERED: NS(*) 0.9% 500 ML BAG 500 ML IV ONE (18:21)
[2017-05-13 18:37] LABS: PLATELET COUNT, AUTOMATED 346 K/uL (150-450)
[2017-05-13] MEDS ORDERED: IOPAMIDOL 76% 100 ML INFUS BTL 0 ML ONE (18:40)
[2017-05-13] MEDS ORDERED: EMS LR(*) 1000 ML BAG 1,000 ML IV ONE (18:55)
[2017-05-13] MEDS ORDERED: fentaNYL CITR 100 MCG/2 ML AMP IVP ONE (19:25)
--- NOTE | 2017-05-13 19:35 | RADIOLOGY IMAGING REPORT ---
FACILITY: [facility] PATIENT NAME: Brandy Kathleen : 1940 MR: [id number] V: [id number] EXAM DATE: ORDERING PHYSICIAN: MARILYN SANCHEZ TECHNOLOGIST: Location: [facility] [place] Patient: Brandy Kathleen : 1940 Visit/Account:[id number] Date of Sevice: 05/13/2017 EXAMINATION: CT abdomen and pelvis without IV contrast HISTORY: Abdominal pain. TECHNIQUE: Axial CT images of the abdomen and pelvis were obtained without IV contrast, with melo l and sagittal 2D reconstructed images. One of the following dose optimization techniques was utilized in the performance of this exam: Autom ated exposure control; adjustment of the mA and/or kV according to the patient's size; or use of an i terative reconstruction technique. Specific details can be referenced in the facility's radiology C T exam operational policy. COMPARISON: None. FINDINGS: Evaluation of the solid and viscus parenchymal organs is limited without the benefit of IV contrast. Image quality is also degraded by respiratory motion artifact. Liver: Grossly unremarkable by noncontrast CT imaging. Gallbladder and bile ducts: The gallbladder is distended and hydropic in appearance, measuring 5 cm in diameter and approximately 10 cm in length. There is thin curvilinear calcification along the wall of the gallbladder compatible with a "porcelain gallbladder." No bile duct dilatation. Spleen: Normal spleen size, measuring 9.5 cm in length. Pancreas: Negative. Adrenal glands: Negative. Kidneys: Normal size and morphology of both kidneys. No urinary calculi or hydronephrosis. Bowel and peritoneum: The small bowel and colon are normal in caliber. No bowel obstruction. The bow el is not well evaluated by noncontrast CT imaging. There is suggestion of possible wall thickening i nvolving nondistended loops of small bowel in the lower abdomen and pelvis. Small volume of ascites t hroughout the abdomen and pelvis, with diffuse mesenteric edema. No pneumatosis or portal venous gas. No free intraperitoneal air. Small hiatal hernia. Pelvic structures: Small uterine fibroids. No large adnexal cyst in the pelvis.: Lymph node assessment: Negative. Vessels: Scattered vascular calcifications. Normal caliber abdominal aorta. Musculoskeletal: Multilevel degenerative changes throughout the spine. There is mild chronic appear ing wedging of T12 and L3. No acute osseous findings. Body wall: Negative. Lung bases: Negative. IMPRESSION: 1. Technically limited exam due to the lack of IV contrast and motion artifact. 2. Small volume of ascites throughout the abdomen and pelvis, with associated mesenteric edema. 3. The small bowel and colon are normal in caliber. There is suggestion of likely wall thickening inv olving nondilated small bowel loops in the lower abdomen and pelvis. This is nonspecific and could be infectious, inflammatory, or ischemic in nature or could relate to underlying systemic illness or li darian disease. 4. The gallbladder is significantly distended and hydropic in appearance. There is calcification phoebe g the gallbladder wall compatible with a "porcelain gallbladder." If there is clinical concern for ac jacky gallbladder disease, follow-up ultrasound or HIDA scan could be performed. Report Dictated By: Dima Ross MD at 05/13/2017 7:11 PM Report E-Signed By: Dima Ross MD at 05/13/2017 7:30 PM [id number]
[2017-05-13] MEDS ORDERED: HYDROCORTISONE 100 MG/2 ML IVP ONE (20:20)
[2017-05-13] MEDS ORDERED: cefTRIAXone(*) 2 GM VIAL 2 GM in NS(*) 0.9% 100 ML ADDVANT BAG 100 ML IVPB ONE (20:20)
[2017-05-13] MEDS ORDERED: FLUSH 10 ML SYR IVP PRN (21:40)
[2017-05-13] MEDS ORDERED: ACETAMINOPHEN 325 MG TAB PO PRN (21:40)
[2017-05-13] MEDS ORDERED: PROMETHAZINE 25 MG/ML 1 ML AMP IVP PRN (21:50)
[2017-05-13] MEDS: NS(*) 0.9% 1000 ML BAG 1,000 ML IV PRN (21:58)
[2017-05-13] MEDS: HYDROmorphone HCL 2 MG/ML SDV IVP PRN ×2 (21:59→23:13)
--- NOTE | 2017-05-13 22:19 | History & Physical ---
History of Present Illness Chief Complaint Abdominal pain History of Present Illness 77yo female with PMHx significant for type 2 DM, HTN, SARI on BiPAP. She reports onset of diffuse abdominal discomfort approximately a week ago. She also had dysuria, frequency, fevers, chills, sweats, poor appetite, N/V. She was evaluated in the ER and found to have an acute UTI. She was placed on oral ciprofloxacin, but had difficulty obtaining the prescription. It sounds as if she did finally get the antibiotic a few days later and took at least a couple of doses over the weekend. Her symptoms became much worse early today. Her initial urine culture has grown E. coli, which is relatively sensitive to most antibiotics. She was evaluated again in the ER and found to have elevated WBC count, elevated lactate, hypotension, dehydration, acute renal insufficiency, and ongoing UTI. She had CT scan of abdomen, which showed small volume ascites, mesenteric edema, possible intestinal wall thickening, porcelain gallbladder. She was recommended for admission. History Problems: (1) Type 2 diabetes mellitus Status: Chronic (2) Essential hypertension Onset Date: 11/18/2013 Status: Chronic (3) GERD (gastroesophageal reflux disease) Status: Chronic (4) Chronic kidney disease, stage II (mild) Status: Chronic (5) SARI treated with BiPAP Status: Chronic (6) Mixed hyperlipidemia Status: Chronic (7) Polycythemia Status: Chronic (8) History of tubal ligation Status: Resolved (9) History of appendectomy Status: Resolved (10) Recurrent urinary tract infection Status: Chronic Home Meds Active Scripts Tramadol Hcl (TRAMADOL HCL) 50 Mg Tablet, 1 TAB PO Q6H Y for PAIN, #30 MG TAKE ONE TO TWO TABLETS BY MOUTH EVERY FOUR TO SIX HOURS NEEDED Prov:MINO WHEELER DO 05/08/17 Ondansetron (ZOFRAN ODT) 4 Mg Tab.rapdis, 4 MG PO every 6 hours Y for NAUSEA/ VOMITING, #10 TAB TAKE 1 TABLET BY MOUTH EVERY 12 HOURS Prov:MINO WHEELER DO 05/08/17 Oxycodone Hcl/Acetaminophen (PERCOCET 5-325 MG TABLET) 1 Each Tablet, 1 EACH PO Q4-6H Y for PAIN, #12 Prov:MINO WHEELER DO 05/08/17 Insulin NPH Human Isophane (Humulin N) 100 Unit/Ml Vial, 25 UNITS SQ QHS, #3 VIAL 3 Refills Prov:SHARIF FUENTES MD 04/24/17 Insulin Lispro (HUMALOG) 100 Unit/1 Ml Vial, 18 UNIT SQ QID, #6 VIAL 3 Refills Inject 18 units subcutaneously prior to each meal and with large snack. Prov:VON CRUZ PHARMD 04/15/17 Glimepiride (AMARYL) 4 Mg Tablet, 1 TAB PO QDAY, #90 TAB 3 Refills Prov:SHARIF FUENTES MD 10/02/16 Lisinopril (LISINOPRIL) 5 Mg Tablet, 1 TAB PO QDAY, #90 TAB 4 Refills Prov:SHARIF FUENTES MD 09/11/16 Furosemide (FUROSEMIDE) 20 Mg Tablet, 1 TAB PO DAILY, #90 TAB 4 Refills Prov:SHARIF FUENTES MD 09/11/16 Lovastatin (LOVASTATIN) 20 Mg Tablet, 1 TAB PO QDAY, #90 TAB 4 Refills Prov:SHARIF FUENTES MD 09/11/16 Blood Sugar Diagnostic (CONTOUR) 1 Each Strip, 100 EACH MC Q30D, #100 STRIP 12 Refills Use to test blood sugars twice daily Prov:SHARIF FUENTES MD 04/23/16 Syringe & Needle,Insulin,1 Ml (INSULIN SYRINGE) 1 Each Disp.syrin, 1 EACH MC DAILY, #100 11 Refills Use to inject insulin twice daily Prov:SHARIF FUENTES MD 01/10/16 Lancets (BD ULTRA-FINE) 1 Each Each, 1 EACH MC DAILY, #100 12 Refills Use twice daily for insulin injections Prov:SHARIF FUENTES MD 10/04/15 Reported Medications Tramadol Hcl (TRAMADOL HCL) 50 Mg Tablet, 50-100 MG PO TID Y for PAIN, TAB 05/08/17 Aspirin (ASPIR 81) 81 Mg Tablet.dr, 81 MG PO QDAY, TAB 05/08/17 Ca Phos/Cranberry/Milk Thistle (LIVER-KIDNEY CLEANSER CAP) 1 Each Capsule, 1 EACH PO DAILY, CAPSULE 09/28/16 Vit A,C & E/Lutein/Minerals (VISION VITAMINS TABLET) 1 Each Tablet, 1 EACH PO DAILY 09/28/16 Bipap Home (BIPAP HOME) Inha, HS 09/07/15 Diphenhydramine Hcl (DIPHENHIST) 25 Mg Tablet, 1 TAB PO BID 11/24/13 Multivitamin (DAILY VITAMIN FORMULA) 1 Each Tablet, 1 TAB PO DAILY 11/24/13 Discontinued Reported Medications Omeprazole (OMEPRAZOLE) 20 Mg Capsule., 1 CAP PO QDAY 11/24/13 Allergies: Coded Allergies: Shellfish (Verified Allergy, Intermediate, SWELLING WITH SHRIMP, 05/13/17) Sulfa (Sulfonamide Antibiotics) (Verified Allergy, Intermediate, hives, 12/16) [place] And Derivatives (Verified Allergy, Unknown, HIVES, 11/11/14) lactose (Verified Adverse Reaction, Intermediate, rash, 11/18/14) Patient History: FH: [place] (myocardial infarction) PATERNAL GRANDFATHER (PGGF) MATERNAL UNCLE, , Age:50's - 60 BROTHER, , Age:73, Onset:72 FH: colon cancer PATERNAL AUNT, , Age:70 FH: congestive heart failure FH: coronary artery disease HALF-BROTHER, Age:64 HALF-BROTHER, Age:68 FH: diabetes mellitus BROTHER, , Age:73 FH: glaucoma MOTHER, , Age:83 FHx: stroke MOTHER, , Age:83 Pacemaker BROTHER, , Age:73 Stent HALF-BROTHER, Age:64 HALF-BROTHER, Age:68 Hx Smoking: No Smoking Status: Never Smoker Exposure to Second Hand Smoke?: Yes Caffeine Intake: Tea, Soda Caffeine/Cups Per Day: OCC-TEA, 8OZ SODA QDAY Hx Alcohol Use: Yes Hx Substance Use Disorder: No Review of Systems Constitutional: Fever, Chills Neurological: Weakness Eyes: No Vision Change ENT: No Hearing Loss Cardiovascular: No Chest Pain, No Palpitations Respiratory: Shortness of Breath Gastrointestinal: Nausea, Vomiting, No Diarrhea, No Hematemesis, No Hematochezia, No Melena, Abdominal Pain Genitourinary: Dysuria Musculoskeletal: Pain Exam Vital Signs Vital Signs Date Time Temp Pulse Resp B/P (MAP) Pulse Ox O2 Delivery O2 Flow Rate FiO2 05/13/17 20:00 109/68 (82) 05/13/17 19:50 93 100 05/13/17 17:32 97.6 18 Nasal Cannula General Appearance: Alert, Awake Neuro: Other (no focal motor deficits) Eyes: PERRLA ENT: Oropharynx Clear, Other (mucosa dry) Neck: No Masses Cardiovascular: Other (Fairly regular with distant tones no obvious murmur) Respiratory: Other (Essentially clear no rales or wheezes noted) Chest: No Tenderness GI: Other (obese/soft, but with reported tenderness diffusely/no guarding noted /BS present) : No CVA Tenderness Lymph: No Adenopathy Extremities: Warm, Perfused Integumentary: Skin Intact without Lesion / Mass Medical Decision Making Data Points Result Diagram: 05/13/17 1739 05/13/17 173 Item Value Date Time Lipase 197 U/L 05/13/17 1739 Amylase Level 34 U/L 05/13/17 1739 Albumin 3.2 g/dl L 05/13/17 1739 Total Protein 6.8 gm/dl 05/13/17 1739 Alkaline Phosphatase 193 U/L H 05/13/17 1739 Alanine Aminotransferase (ALT/SGPT) 369 U/L H 05/13/17 1739 Aspartate Amino Transf (AST/SGOT) 142 U/L H 05/13/17 1739 Total Bilirubin 0.9 mg/dl 05/13/17 1739 Calcium Level 9.3 mg/dl 05/13/17 1739 Lactate 4.3 mmol/L *H 05/13/17 1844 Urine Color Camila 05/08/17 0000 Urine Clarity Slightly-cloudy 05/08/17 0000 Urine pH 5.0 pH 05/08/17 0000 Urine Specific [place] 1.032 05/08/17 0000 Urine Protein 100 mg/dL 05/08/17 0000 Urine Glucose (UA) Negative mg/dL 05/08/17 Urine Ketones 80 mg/dL H 05/08/17 0000 Urine Blood Negative 05/08/17 Urine Nitrite Negative 05/08/17 0000 Urine Bilirubin Small 05/08/17 Urine Urobilinogen 4.0 mg/dL H 05/08/17 0000 Urine Leukocyte Esterase Trace H 05/08/17 Urine RBC <1 /HPF 05/08/17 Urine WBC 15 /HPF 05/08/17 0000 Urine Squamous Epithelial Cells Many /LPF H 05/08/17 0000 Urine Bacteria Negative /HPF 05/08/17 Urine Hyaline Casts Many /LPF H 05/08/17 Urine Mucus Few /HPF 05/08/17 0000 Urine Mucus Few /HPF 05/13/172011 Urine Hyaline Casts Many /LPF H 05/13/172011 Urine Bacteria Negative /HPF 05/13/172011 Urine Squamous Epithelial Cells Many /LPF H 05/13/172011 Urine WBC 2 /HPF 05/13/172011 Urine RBC <1 /HPF 05/13/172011 Urine Leukocyte Esterase Negative 05/13/172011 Urine Urobilinogen 2.0 mg/dL 05/13/172011 Urine Bilirubin Negative 05/13/172011 Urine Nitrite Negative 05/13/172011 Urine Blood Negative 05/13/172011 Urine Ketones Trace mg/dL 05/13/172011 Urine Glucose (UA) Negative mg/dL 05/13/172011 Urine Protein Negative mg/dL 05/13/172011 Urine Specific [place] 1.020 05/13/172011 Urine pH 5.0 pH 05/13/172011 Urine Clarity Slightly-cloudy 05/13/172011 Urine Color Yellow 05/13/172011 Influenza Virus Type B (PCR) Negative 05/08/172055 Influenza Virus Type A (PCR) Negative 05/08/17 205 White Blood Count 18.7 k/uL H 05/13/17 1739 Hemoglobin 19.1 g/dL H 05/13/17 1739 Hematocrit 59.1 % H 05/13/17 1739 Platelet Count 346 K/uL 05/13/17 1739 EKG / Imaging Imaging PATIENT NAME: Brandy Kathleen : 1940 MR: [id number] V: [id number] EXAM DATE: ORDERING PHYSICIAN: MARILYN SANCHEZ TECHNOLOGIST: [place] [facility] [place]: Brandy Kathleen : 1940 Visit/Account:[id number] Date of Sevice: 05/13/2017 EXAMINATION: CT abdomen and pelvis without IV contrast HISTORY: Abdominal pain. TECHNIQUE: Axial CT images of the abdomen and pelvis were obtained without IV contrast, with coronal and sagittal 2D reconstructed images. One of the following dose optimization techniques was utilized in the performance of this exam: Automated exposure control; adjustment of the mA and/ or kV according to the patient's size; or use of an iterative reconstruction technique. Specific details can be referenced in the facility's radiology CT exam operational policy. COMPARISON: None. FINDINGS: Evaluation of the solid and viscus parenchymal organs is limited without the benefit of IV contrast. Image quality is also degraded by respiratory motion artifact. Liver: Grossly unremarkable by noncontrast CT imaging. Gallbladder and bile ducts: The gallbladder is distended and hydropic in appearance, measuring 5 cm in diameter and approximately 10 cm in length. There is thin curvilinear calcification along the wall of the gallbladder compatible with a "porcelain gallbladder." No bile duct dilatation. Spleen: Normal spleen size, measuring 9.5 cm in length. Pancreas: Negative. Adrenal glands: Negative. Kidneys: Normal size and morphology of both kidneys. No urinary calculi or hydronephrosis. Bowel and peritoneum: The small bowel and colon are normal in caliber. No bowel obstruction. The bowel is not well evaluated by noncontrast CT imaging. There is suggestion of possible wall thickening involving nondistended loops of small bowel in the lower abdomen and pelvis. Small volume of ascites throughout the abdomen and pelvis, with diffuse mesenteric edema. No pneumatosis or portal venous gas. No free intraperitoneal air. Small hiatal hernia. Pelvic structures: Small uterine fibroids. No large adnexal cyst in the pelvis.: Lymph node assessment: Negative. Vessels: Scattered vascular calcifications. Normal caliber abdominal aorta. Musculoskeletal: Multilevel degenerative changes throughout the spine. There is mild chronic appearing wedging of T12 and L3. No acute osseous findings. Body wall: Negative. Lung bases: Negative. IMPRESSION: 1. Technically limited exam due to the lack of IV contrast and motion artifact. 2. Small volume of ascites throughout the abdomen and pelvis, with associated mesenteric edema. 3. The small bowel and colon are normal in caliber. There is suggestion of likely wall thickening involving nondilated small bowel loops in the lower abdomen and pelvis. This is nonspecific and could be infectious, inflammatory, or ischemic in nature or could relate to underlying systemic illness or liver disease. 4. The gallbladder is significantly distended and hydropic in appearance. 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 Report Dictated By: Dima Ross MD at 05/13/2017 7:11 PM Report E-Signed By: Dima Ross MD at 05/13/2017 7:30 PM WSN:[id number] PATIENT NAME: Brandy Kathleen : 1940 MR: [id number] V: [id number] EXAM DATE: ORDERING PHYSICIAN: MINO WHEELER TECHNOLOGIST: [place] [facility] [place] Patient: Brandy Kathleen : 1940 Visit/Account:[id number] Date of Sevice: 05/08/2017 CHEST: Indication: Fever. Technique: Frontal and lateral views were obtained. Comparison: 08/12/2014 Skeletal and soft tissue structures: There are chronic degenerative changes in the shoulders. There is a chronic compression deformity of T12 vertebral body. No acute skeletal deformity is identified. Heart and mediastinum: Within normal limits. Lung aamto: Well-expanded and clear. No focal or diffuse opacities. Pleural spaces: Unremarkable. Impression: No acute process or significant change. Report Dictated By: Germán Mcclure MD at 05/08/2017 9:31 PM Report E-Signed By: Germán Mcclure MD at 05/08/2017 9:33 PM WSN:[id number] Assessment and Plan Problems: (1) Urinary tract infection Status: Acute Assessment & Plan: She has an acute UTI with hypotension, acute renal insufficiency, elevation of LFTs, elevated lactate. It appears she may be septic. Will admit to the ICU. She has been started on IV Rocephin for coverage of the E. coli cultured on her last visit. Repeat cultures have been obtained. Will continue aggressive IV fluids. Will give stress dose IV steroids as well. Watch closely. (2) Type 2 diabetes mellitus Status: Chronic Assessment & Plan: ADA diet, monitor glucoses, use SSI as needed. Will hold her usual glimepiride and NPH for now. Will restart when she is eating more normally. (3) Acute renal failure Status: Acute Assessment & Plan: It appears she has a component of dehydration along with the acute infection. Will give aggressive IV fluids. Watch UOP, labs. (4) SARI treated with BiPAP Status: Chronic Assessment & Plan: Will continue her usual BiPAP. (5) Porcelain gallbladder Status: Chronic Assessment & Plan: She may have had acute/chronic cholecystitis. Will need to consider further work-up (due to slight increased risk of gallbladder malignancy ) when her other acute problems resolve. Copies to: SHARIF FUENTES MD Venous Thromboembolism Antithrombotics Is Pt On Any Antithrombotics?: Yes Exam Sepsis Risk: No Definite Risk Problem Qualifiers (1) Urinary tract infection: Urinary tract infection type: acute cystitis Hematuria presence: without hematuria Qualified Codes: N30.00 - Acute cystitis without hematuria FAITH ORTIZ MD May 13, 2017 22:19
[2017-05-13] MEDS: INSULIN HUM LISPRO 100 UN/ML 3 ML VIAL SUBQ PRN (22:47)
[2017-05-14] VITALS (69 sets, daily range): BP systolic 89–167; BP diastolic 32–107; Ht 165.1 cm; Wt 108.0 kg
[2017-05-14] MEDS: HYDROmorphone HCL 2 MG/ML SDV IVP PRN ×6 (00:48→11:48)
[2017-05-14] MEDS ORDERED: CIPR-214 PO (03:04)
[2017-05-14 05:29] LABS: PLATELET COUNT, AUTOMATED 236 K/uL (150-450)
[2017-05-14] MEDS: NS(*) 0.9% 1000 ML BAG 1,000 ML IV PRN ×3 (06:09→23:16)
--- NOTE | 2017-05-14 07:25 | RADIOLOGY IMAGING REPORT ---
[place] [facility] [place] NAME: Brandy Kathleen : 1940 MR: [id number] V: [id number] EXAM DATE: ORDERING PHYSICIAN: FAITH ORTIZ TECHNOLOGIST: Location: [facility] Patient: Brandy Kathleen : 1940 Visit/Account:[id number] Date of Sevice: 05/14/2017 ABDOMEN/PELVIS W/O CONTRAST HISTORY: Questionable ischemic/infarcted gut. TECHNIQUE: CT abdomen and pelvis without intravenous contrast. One of the following dose optimization techniques was utilized in the performance of this exam: Autom ated exposure control; adjustment of the mA and/or kV according to the patient's size; or use of an i terative reconstruction technique. Specific details can be referenced in the facility's radiology C T exam operational policy. CONTRAST: None. Please note, lack of IV contrast limits evaluation of solid organs. COMPARISON: May 13, 2017. FINDINGS: Visualized lung bases: Negative. Hepatobiliary: The gallbladder is distended, unchanged since prior exam with scattered calcification s of the gallbladder wall. No definitive cholelithiasis or gallbladder wall thickening. Spleen: Negative. Adrenals: Nonspecific thickening. Right adrenal gland is unremarkable. Of the left adrenal gland, un changed Pancreas: Negative. Kidneys/: Subserosal calcified fibroid extending posteriorly off of the uterine fundus. Additional intramural fibroid within the posterior lower uterine segment. Otherwise negative. GI: Mild descending colon diverticulosis without evidence for diverticulitis. Moderate circumferenti al wall thickening within small bowel loops of the lower abdomen with borderline dilatation, measurin g up to 3.2 cm, increased since prior exam. The terminal ileum is decompressed. No visualized pneumat osis. No abrupt transition point. Small hiatal hernia. Vessels/spaces/nodes: Moderate mesenteric edema, similar to prior exam. There is small to moderate v olume ascites, increased since prior exam. No significant calcified atherosclerosis within the mesent shaw arteries. Mild calcified atherosclerosis within the infrarenal abdominal aorta. Bones/soft tissues: Post surgical changes within the ventral abdominal midline without gross complic ation. Mild chronic appearing wedging of the T12 and L3 vertebral bodies, unchanged. IMPRESSION: 1. There is increased nonspecific small bowel wall thickening within the lower abdomen with now mild dilatation measuring up to 3.2 cm. The terminal ileum is decompressed. There is no visualized abrupt transition point. No visualized pneumatosis. Findings are nonspecific however likely infectious/infla mmatory in etiology, cannot completely exclude developing ischemic bowel however limited evaluation w ithout IV contrast. There is no significant calcified atherosclerosis within the mesenteric arteries. 2. Small to moderate volume ascites, increased since prior exam. Moderate mesenteric edema, not signi ficantly changed since prior exam. 3. Persistent gallbladder distention, grossly unchanged since prior exam, without visualized cholelit hiasis or gallbladder wall thickening. Again, if there is concern for acute gallbladder disease, foll ow-up HIDA scan could be performed. 4. Additional incidental/chronic findings, as above. Report Dictated By: Uziel Marley MD at 05/14/2017 7:09 AM Report E-Signed By: Uziel Marley MD at 05/14/2017 7:20 AM WSN:[id number]
[2017-05-14] MEDS: INSULIN HUM LISPRO 100 UN/ML 3 ML VIAL SUBQ PRN ×4 (08:37→23:49)
[2017-05-14] MEDS: HYDROCORTISONE 100 MG/2 ML IVP SCH ×4 (08:38→20:46)
--- NOTE | 2017-05-14 08:49 | EKG ---
FACILITY: [facility] - [place] PATIENT NAME: JOSE ROBERTO MARTINO : [id number] MR: [id number] V: [id number] EXAM DATE: ORDERING PHYSICIAN: TK ORTIZ TECHNOLOGIST: Zoran Test Reason : Blood Pressure : / mmHG Vent. Rate : 071 BPM Atrial Rate : 071 BPM P-R Int : 152 ms QRS Dur : 098 ms QT Int : 460 ms P-R-T Axes : 058 261 034 degrees QTc Int : 499 ms Normal sinus rhythm Extreme left axis deviation Non- specific T wave flattening throughout. Slow R wave progression probably due to lead placement. When compared with ECG of 08-MAY-2017 20:23, T wave changes are more prominent. Confirmed by ASPEN DE LA CRUZ ([id number]) on 05/14/2017 10:23:59 AM Referred By: Confirmed By:ASPEN DE LA CRUZ
[2017-05-14] MEDS ORDERED: ENOXAPARIN 40 MG/0.4ML SYR SC SCH (09:00)
--- NOTE | 2017-05-14 09:28 | RADIOLOGY IMAGING REPORT ---
FACILITY: [facility] PATIENT NAME: Brandy Kathleen : 1940 MR: [id number] V: [id number] EXAM DATE: ORDERING PHYSICIAN: TK ORTIZ TECHNOLOGIST: Location: [facility] [place] Patient: Brandy Kathleen : 1940 Visit/Account:[id number] Date of Sevice: 05/14/2017 EXAMINATION: Chest radiograph HISTORY: Preoperative COMPARISON: May 08, 2017 FINDINGS: The cardiac silhouette is normal in size. No pneumothorax. Minimal new left midlung subsegmental at electasis. Mild patchy new left basilar retrocardiac opacification. No acute osseous abnormality. IMPRESSION: Mild new left basilar retrocardiac opacification is favored to represent atelectasis. New left midlung subsegmental atelectasis. Report Dictated By: Uziel Fraia MD at 05/14/2017 9:21 AM Report E-Signed By: Uziel Faria MD at 05/14/2017 9:22 AM WSN:[id number]
[2017-05-14 09:51] LABS: INR 1.54
[2017-05-14] MEDS ORDERED: metroNIDAZOLE* 500MG/100ML BAG 100 ML IVPB SCH (10:00)
[2017-05-14] MEDS: CEFEPIME HCL 2 GM VIAL IVP SCH ×2 (10:46→20:47)
[2017-05-14] MEDS: metroNIDAZOLE* 500MG/100ML BAG 100 ML IVPB SCH ×3 (11:00→23:11)
[2017-05-14] MEDS ORDERED: NORMOSOL R SOLN(*) 1000 ML BAG 1,000 ML IV ONE (11:05)
[2017-05-14] MEDS ORDERED: fentaNYL CITR 250 MCG/5 ML AMP ONE (11:08)
[2017-05-14] MEDS ORDERED: ROPIVACAINE 0.5% 20 ML VIAL ONE (11:09)
[2017-05-14] MEDS ORDERED: MIDAZOLAM 2 MG/2 ML VIAL IVP PRN (11:10)
[2017-05-14] MEDS ORDERED: FAMOTIDINE(*) 20MG/50ML PREMIX 50 ML IVPB ONE (11:35)
[2017-05-14] MEDS ORDERED: PROPOFOL EMUL(*) 10MG/ML 20 ML 20 ML ONE (11:47)
[2017-05-14] MEDS ORDERED: LIDOCAINE MPF 1% 5 ML VIAL ONE (11:47)
--- NOTE | 2017-05-14 12:10 | General Surgery Consultation ---
History of Present Illness Requesting Physician Dr. Nidia Mata, Hospitalist Service Reason for Consult Severe abdominal pain Chief Complaint Abdominal pain History of Present Illness 77-year-old gentleman admitted to the hospitalist service in the ICU where she was thought to have a UTI with sepsis however overnight her lactate is been increasing and a repeat CT scan has revealed small bowel inflammation. Her creatinine is elevated so no IV contrast could be given. Because of the severity of her pain it is thought that she potentially has ischemic bowel, especially as her lactate increases. There is also potential concern for cholecystitis. She is unable to provide a history to me as she has received significant amounts of narcotics for pain control due to the severity of her pain. Most of this history has been obtained from the hospitalist and nursing. History Problems: (1) Type 2 diabetes mellitus Status: Chronic (2) Recurrent urinary tract infection Status: Chronic (3) Porcelain gallbladder Status: Chronic (4) Essential hypertension Onset Date: 11/18/2013 Status: Chronic (5) GERD (gastroesophageal reflux disease) Status: Chronic (6) Chronic kidney disease, stage II (mild) Status: Chronic (7) SARI treated with BiPAP Status: Chronic (8) Mixed hyperlipidemia Status: Chronic (9) Polycythemia Status: Chronic (10) History of appendectomy Status: Resolved (11) History of tubal ligation Status: Resolved (12) FH: diabetes mellitus (13) FH: glaucoma (14) FH: coronary artery disease (15) FHx: stroke (16) FH: SD (myocardial infarction) (17) Family history of pacemaker (18) Family history of stent Home Meds Active Scripts Tramadol Hcl (TRAMADOL HCL) 50 Mg Tablet, 1 TAB PO Q6H Y for PAIN, #30 MG TAKE ONE TO TWO TABLETS BY MOUTH EVERY FOUR TO SIX HOURS NEEDED Prov:MINO WHEELER DO 05/08/17 Ondansetron (ZOFRAN ODT) 4 Mg Tab.rapdis, 4 MG PO every 6 hours Y for NAUSEA/ VOMITING, #10 TAB TAKE 1 TABLET BY MOUTH EVERY 12 HOURS Prov:MINO WHEELER DO 05/08/17 Oxycodone Hcl/Acetaminophen (PERCOCET 5-325 MG TABLET) 1 Each Tablet, 1 EACH PO Q4-6H Y for PAIN, #12 Prov:MINO WHEELER DO 05/08/17 Insulin NPH Human Isophane (Humulin N) 100 Unit/Ml Vial, 25 UNITS SQ QHS, #3 VIAL 3 Refills Prov:SHARIF FUENTES MD 04/24/17 Insulin Lispro (HUMALOG) 100 Unit/1 Ml Vial, 18 UNIT SQ QID, #6 VIAL 3 Refills Inject 18 units subcutaneously prior to each meal and with large snack. Prov:VON CRUZ PHARMD 04/15/17 Glimepiride (AMARYL) 4 Mg Tablet, 1 TAB PO QDAY, #90 TAB 3 Refills Prov:SHARIF FUENTES MD 10/02/16 Lisinopril (LISINOPRIL) 5 Mg Tablet, 1 TAB PO QDAY, #90 TAB 4 Refills Prov:SHARIF FUENTES MD 09/11/16 Furosemide (FUROSEMIDE) 20 Mg Tablet, 1 TAB PO DAILY, #90 TAB 4 Refills Prov:HSARIF FUENTES MD 09/11/16 Lovastatin (LOVASTATIN) 20 Mg Tablet, 1 TAB PO QDAY, #90 TAB 4 Refills Prov:SHARIF FUENTES MD 09/11/16 Blood Sugar Diagnostic (CONTOUR) 1 Each Strip, 100 EACH MC Q30D, #100 STRIP 12 Refills Use to test blood sugars twice daily Prov:SHARIF FUENTES MD 04/23/16 Syringe & Needle,Insulin,1 Ml (INSULIN SYRINGE) 1 Each Disp.syrin, 1 EACH MC DAILY, #100 11 Refills Use to inject insulin twice daily Prov:SHARIF FUENTES MD 01/10/16 Lancets (BD ULTRA-FINE) 1 Each Each, 1 EACH MC DAILY, #100 12 Refills Use twice daily for insulin injections Prov:SHARIF FUENTES MD 10/04/15 Reported Medications Ciprofloxacin Hcl (CIPROFLOXACIN HCL) 500 Mg Tablet, PO Q12H, #14 TAB 05/14/17 Aspirin (ASPIR 81) 81 Mg Tablet.dr, 81 MG PO QDAY, TAB 05/08/17 Ca Phos/Cranberry/Milk Thistle (LIVER-KIDNEY CLEANSER CAP) 1 Each Capsule, 1 EACH PO DAILY, CAPSULE 09/28/16 Vit A,C & E/Lutein/Minerals (VISION VITAMINS TABLET) 1 Each Tablet, 1 EACH PO DAILY 09/28/16 Bipap Home (BIPAP HOME) Inha, HS 09/07/15 Diphenhydramine Hcl (DIPHENHIST) 25 Mg Tablet, 1 TAB PO BID 11/24/13 Multivitamin (DAILY VITAMIN FORMULA) 1 Each Tablet, 1 TAB PO DAILY 11/24/13 Discontinued Reported Medications Tramadol Hcl (TRAMADOL HCL) 50 Mg Tablet, 50-100 MG PO TID Y for PAIN, TAB 05/08/17 Omeprazole (OMEPRAZOLE) 20 Mg Capsule.dr, 1 CAP PO QDAY 11/24/13 Allergies: Coded Allergies: Shellfish (Verified Allergy, Intermediate, SWELLING WITH SHRIMP, 05/13/17) Sulfa (Sulfonamide Antibiotics) (Verified Allergy, Intermediate, hives, 12/16) [place] And Derivatives (Verified Allergy, Unknown, HIVES, 11/11/14) lactose (Verified Adverse Reaction, Intermediate, rash, 11/18/14) Family History: FH: SD (myocardial infarction) PATERNAL GRANDFATHER (PGGF) MATERNAL UNCLE, , Age:50's - 60 BROTHER, , Age:73, Onset:72 FH: colon cancer PATERNAL AUNT, , Age:70 FH: congestive heart failure FH: coronary artery disease HALF-BROTHER, Age:64 HALF-BROTHER, Age:68 FH: diabetes mellitus BROTHER, , Age:73 FH: glaucoma MOTHER, , Age:83 FHx: stroke MOTHER, , Age:83 Pacemaker BROTHER, , Age:73 Stent HALF-BROTHER, Age:64 HALF-BROTHER, Age:68 Review of Systems All Systems Reviewed/Normal: Yes, Except as Noted Gastrointestinal: Abdominal Pain Exam Vital Signs Vital Signs Date Time Temp Pulse Resp B/P (MAP) Pulse Ox O2 Delivery O2 Flow Rate FiO2 05/14/17 11:45 97.2 74 14 147/72 (97) 94 Nasal Cannula 1.0 General Appearance: Other (awake but somewhat sedate. Mumbles when I ask her questions, indecipherable) GI: Other (soft, mildly distended, it's hard to say if there is any tenderness to palpation because there is barely any response when I palpate even deeply.) Extremities: Warm, Perfused Medical Decision Making Data Points Result Diagram: 05/14/17 0567 05/14/17 0920 Assessment and Plan Problems: (1) Abdominal pain Assessment & Plan: 05/14/17: Patient is very ill. Apparently has very severe abdominal pain although not apparent to me today due to the amount of narcotics that she is received but her lactate is going up in spite of improving blood pressure, heart rate, and overall clinical status. She potentially has cholecystitis, ischemic or dying intestines, or both. I recommended that we start with laparoscopy to inspect her gallbladder and small intestines and then if there is obviously something to be dealt with then will convert to an open midline laparotomy incision with small intestinal resection and/or cholecystectomy. I have discussed this with her daughter who agrees with this plan. She provides consent over the telephone since the patient cannot provide consent given her current condition. The patient is DO NOT RESUSCITATE/DO NOT INTUBATE but does wish to proceed with surgery according to the hospitalist who spoke with her last night about this possibility and the daughter agrees with this as well. If she goes into cardiac arrest or has cardiac or pulmonary arrest issues after surgery then she does not wish any aggressive measures to be taken. We'll proceed with surgery this morning. (2) Sepsis Status: Acute Central Venous Access Medical Necessity for Access: Hemodynamic Monitoring, IV Access, Medication Administration Condition Critical Time Spent: < 30 min Venous Thromboembolism Antithrombotics Is Pt On Any Antithrombotics?: Yes Problem Qualifiers (1) Abdominal pain: Abdominal location: generalized Qualified Codes: R10.84 - Generalized abdominal pain (2) Sepsis: Sepsis type: sepsis due to unspecified organism Qualified Codes: A41.9 - Sepsis, unspecified organism YARY TRIPLETT MD May 14, 2017 12:09
[2017-05-14] MEDS ORDERED: NS(*) 0.9% 500 ML BAG 500 ML ONE (12:11)
[2017-05-14] MEDS ORDERED: ePHEDrine 25 MG/5 ML DISP.SYR IVP ONE (12:17)
[2017-05-14] MEDS ORDERED: PHENYLEPHRINE 10 MG/1 ML VIAL ONE (12:18)
[2017-05-14] MEDS ORDERED: IOPAMIDOL 61% 75 ML INFUS BTL 0 ML ONE (12:38)
[2017-05-14] MEDS ORDERED: ONDANSETRON 4 MG/2 ML VIAL ONE (12:54)
--- NOTE | 2017-05-14 13:56 | Hospitalist Progress Note ---
Subjective Progress Notes Subjective The patient continues to have severe abdominal pain. Physical Exam Vital Signs Date Time Temp Pulse Resp B/P (MAP) Pulse Ox O2 Delivery O2 Flow Rate FiO2 05/14/17 11:45 97.2 74 14 147/72 (97) 94 Nasal Cannula 1.0 Intake and Output 05/15/17 07:00 Intake Total 50 ml Output Total 170 ml Balance -120 ml IV Total 50 ml Output Urine Total 170 ml General Appearance: Alert, Awake, Other (In obvious pain. Can not hold still in the bed. Holding her abdomen.) Neuro: No Gross deficits Eyes: PERRLA Cardiovascular: Regular Rate and Rhythm Respiratory: Clear to Auscultation (Anteriorly.) GI: Other (Soft, nondistended. Not particularly tender to palpation. BS absent. ) Psych: Appropriate Mood & Affect Result Diagram: 05/14/1752405/14/17919 Assessment and Plan Problems: (1) Abdominal pain Status: Acute Assessment & Plan: The patient continues to have severe abdominal pain with persistent elevated lactate. CT shows small bowel wall thickening which has worsened since her initial CT and also worsening ascites. She also has a distended gallbladder. Dr. Gracia has been consulted and plans to take the patient for an exploratory laparoscopy with possible laparotomy if needed. The patient is DO NOT RESUSCITATE/DO NOT INTUBATE but does wish to proceed with surgery according to Dr. Jocelyn Ortiz who spoke with her last night about this possibility and the daughter agrees with this as well. If she goes into cardiac arrest or has cardiac or pulmonary arrest issues after surgery then she does not wish any aggressive measures to be taken. (2) Lactic acidosis Status: Acute Assessment & Plan: Persistent despite fluid resuscitation. See above. (3) Urinary tract infection Status: Acute Assessment & Plan: The patient was admitted with an acute UTI with hypotension , acute renal insufficiency, elevation of LFTs, elevated lactate. She appeared to be septic. She was admitted to the ICU. She was started on IV Rocephin for coverage of the E. coli cultured on her last visit. Repeat cultures were obtained. She was given aggressive IV fluids and stress dose IV steroids as well. Today her IV antibiotics were changed based on other comorbidities to cefepime and Flagyl. (4) Type 2 diabetes mellitus Status: Chronic Assessment & Plan: ADA diet, monitor glucoses, use SSI as needed. Will hold her usual glimepiride and NPH for now. Will restart when she is eating more normally. (5) Acute renal failure Status: Acute Assessment & Plan: It appears she has a component of dehydration along with the acute infection. Will give aggressive IV fluids. Watch UOP, labs. (6) SARI treated with BiPAP Status: Chronic Assessment & Plan: Will continue her usual BiPAP. (7) Porcelain gallbladder Status: Chronic Assessment & Plan: She may have had acute/chronic cholecystitis. Repeat CT unchanged. She does have elevation of her LFTs. Dr. Gracia has been consulted. See above. Central Venous Access Medical Necessity for Access: Hemodynamic Monitoring, IV Access, Medication Administration Time Spent on Plan of Care: < 30 min Exam Sepsis Risk: Severe Sepsis Risk Problem Qualifiers (1) Abdominal pain: Abdominal location: generalized Qualified Codes: R10.84 - Generalized abdominal pain (2) Urinary tract infection: Urinary tract infection type: acute cystitis Hematuria presence: without hematuria Qualified Codes: N30.00 - Acute cystitis without hematuria TK ORTIZ MD May 14, 2017 13:56
[2017-05-14] MEDS ORDERED: MIDAZOLAM 2 MG/2 ML VIAL ONE (14:13)
--- NOTE | 2017-05-14 16:10 | Post Operative Progress Note ---
Post Operative Progress Note Date: May 14, 2017 Time: 15:53 Surgeon: Samia Dictation number: [id number] Anesthesia: GETA by Dr. King Pre-Op Diagnosis: Ischemic enteritis on CT Porcelain gallbladder on CT Sepsis Post-Op Diagnosis: NEIL Findings: Long infarcted portion of small intestine from 100cm distal to ligament of Treitz to 15 cm proximal to terminal ileum. Very hydropic gallbladder with large stone impacted in neck Procedure(s): Exploratory laparoscopy Laparotomy Small bowel resection Cholecystectomy Central line placement Specimen Removed:(May be N/A): 1) 145cm of small intestine 2) GB and contents Complications: None Fluids: See anesthesia record Estimated Blood Loss: 100mL Date OP Note Dictated: May 14, 2017 Time OP Note Dictated: 15:56 YARY TRIPLETT MD May 14, 2017 16:10
[2017-05-14] MEDS: PROPOFOL(*)1000 MG/100 ML VIAL 100 ML IV PRN (16:18)
--- NOTE | 2017-05-14 16:39 | RADIOLOGY IMAGING REPORT ---
FACILITY: [facility] [place] PATIENT NAME: Brandy Kathleen : 1940 MR: [id number] V: [id number] EXAM DATE: ORDERING PHYSICIAN: YARY TRIPLETT TECHNOLOGIST: Location: [facility] Patient: Brandy Kathleen : 1940 Visit/Account:[id number] Date of Sevice: 05/14/2017 Exam type: CHEST SINGLE AP History: Intubated, Right IJ central line placement, laparotomy Comparison: May 14, 2017 at 8:46 AM. Findings: Is an endotracheal tube in place the distal tip projects between the clavicles and dennys. An NG/OG tube is also noted distal tip projects in the left upper quadrant abdomen. There is a right IJ vel ter the distal tip projects over the SVC/right atrium. There is increasing airspace consolidation in the left lower lobe with air bronchograms now evident. Mild blunting left costophrenic angle may be secondary to small left pleural effusion. There is no evidence of overt pulmonary edema. The cardiac silhouette appears unchanged IMPRESSION: 1. Support lines and tubes as described Increasing airspace consolidation left lower lobe with air bronchograms now evident. The findings ar e consistent with infiltrate and/or atelectasis. Report Dictated By: Aggie Felix MD at 05/14/2017 4:33 PM Report E-Signed By: Aggie Felix MD at 05/14/2017 4:36 PM WSN:[email or web address]
[2017-05-14] MEDS ORDERED: IV BOLUS 500 ML IVSOL IV ONE (16:55)
--- NOTE | 2017-05-14 17:02 | Miscellaneous Provider Note ---
Miscellaneous Provider Note Note Patient returned from surgery after resection of ischemic small bowel and gallbladder. She received 5 liters of fluid during the procedure. Currently she has good urine output. BP and HR were stable during the procedure. A central line and OG tube were placed and the patient will remain on mechanical ventilation for now. Dr. Gracia will start TPN in am. Will continue fluids at 150cc/hr. Repeat CMP and lactate at 2200. ABGs ordered for 1710. CVP measurement pending. Will place patient on propofol for sedation and adjust as needed. TK ORTIZ MD May 14, 2017 17:02
[2017-05-14] MEDS: MORPHINE 4 MG/ML SDV IVP PRN (18:13)
[2017-05-14] MEDS ORDERED: cefTRIAXone 2 GM VIAL IVP SCH (20:00)
[2017-05-14] MEDS: ORAL SUCTION/CHLORHX/SWAB KIT MT SCH (20:47)
[2017-05-15] VITALS (44 sets, daily range): BP systolic 81–156; BP diastolic 33–88
[2017-05-15] MEDS: PROPOFOL(*)1000 MG/100 ML VIAL 100 ML IV PRN (00:23)
[2017-05-15] MEDS ORDERED: IV BOLUS 500 ML IVSOL IV ONE ×2 (03:00→06:00)
[2017-05-15] MEDS: NS(*) 0.9% 1000 ML BAG 1,000 ML IV PRN ×2 (04:00→08:20)
[2017-05-15] MEDS: metroNIDAZOLE* 500MG/100ML BAG 100 ML IVPB SCH ×4 (04:25→22:44)
[2017-05-15] MEDS: MORPHINE 4 MG/ML SDV IVP PRN ×2 (04:53→08:59)
[2017-05-15 05:49] LABS: PLATELET COUNT, AUTOMATED 134 K/uL (150-450)
[2017-05-15] MEDS: INSULIN HUM LISPRO 100 UN/ML 3 ML VIAL SUBQ PRN ×4 (06:53→23:53)
--- NOTE | 2017-05-15 07:06 | General Surgery Progress Note ---
Subjective Progress Notes Subjective intubated/sedated Physical Exam Vital Signs Date Time Temp Pulse Resp B/P (MAP) Pulse Ox O2 Delivery O2 Flow Rate FiO2 05/15/17 06:00 70 05/15/17 05:55 12 05/15/17 05:55 45.0 05/15/17 05:55 95 Mechanical Ventilator 05/15/17 01:45 107/53 (71) 05/15/17 01:30 99.4 05/14/17 11:45 1.0 General Appearance: Afebrile, Other (Intubated/sedated) GI: Other (Soft) Extremities: Warm, Perfused Result Diagram: 05/15/17 0534 05/15/1734 Assessment and Plan Problems: (1) Abdominal pain Status: Acute Assessment & Plan: 05/14/17: Patient is very ill. Apparently has very severe abdominal pain although not apparent to me today due to the amount of narcotics that she is received but her lactate is going up in spite of improving blood pressure, heart rate, and overall clinical status. She potentially has cholecystitis, ischemic or dying intestines, or both. I recommended that we start with laparoscopy to inspect her gallbladder and small intestines and then if there is obviously something to be dealt with then will convert to an open midline laparotomy incision with small intestinal resection and/or cholecystectomy. I have discussed this with her daughter who agrees with this plan. She provides consent over the telephone since the patient cannot provide consent given her current condition. The patient is DO NOT RESUSCITATE/DO NOT INTUBATE but does wish to proceed with surgery according to the hospitalist who spoke with her last night about this possibility and the daughter agrees with this as well. If she goes into cardiac arrest or has cardiac or pulmonary arrest issues after surgery then she does not wish any aggressive measures to be taken. We'll proceed with surgery this morning. 05/15/17: POD#1 s/p ex lap, extensive small bowel resection (145cm; approximately 110cm remaining), cholecystectomy. Stable overnight. Labs improving. No fevers. OK to wake up today and extubate if possible. May remove NG tube at time of extubation. Will start TPN today. Hold lovenox today and resume tomorrow. Continue abx for 48 hours after surgery. 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 After she wakes up and intestinal function resumes, will advance diet and then will need to see how her nutrition is over time. She is also at high risk of anastomotic leak due to appearance of proximal bowel used in anastomosis but I could have not removed any further bowel without ensuring chronic long-term malnutrition. (2) Sepsis Status: Resolved Central Venous Access Medical Necessity for Access: Hemodynamic Monitoring, IV Access, Medication Administration Condition Critical Time Spent: < 30 min Exam Sepsis Risk: Severe Sepsis Risk Problem Qualifiers (1) Abdominal pain: Abdominal location: generalized Qualified Codes: R10.84 - Generalized abdominal pain (2) Sepsis: Sepsis type: sepsis due to unspecified organism Qualified Codes: A41.9 - Sepsis, unspecified organism YARY TRIPLETT MD May 15, 2017 07:06
[2017-05-15] MEDS: ACETAMINOPHEN(*)1000 MG/100 ML 100 ML IVPB PRN ×3 (08:18→20:02)
[2017-05-15] MEDS: HYDROCORTISONE 100 MG/2 ML IVP SCH ×2 (08:19→20:54)
[2017-05-15] MEDS: ORAL SUCTION/CHLORHX/SWAB KIT MT SCH (08:20)
[2017-05-15] MEDS: PANTOPRAZOLE SOD 40 MG IV VIAL IVP SCH (08:20)
--- NOTE | 2017-05-15 08:39 | RADIOLOGY IMAGING REPORT ---
FACILITY: [facility] PATIENT NAME: Brandy Kathleen : 1940 MR: [id number] V: [id number] EXAM DATE: [id number] ORDERING PHYSICIAN: TK ORTIZ TECHNOLOGIST: Location: [facility] [place] Patient: Brandy Kathleen : 1940 Visit/Account:[id number] Date of Sevice: 05/15/2017 Exam type: CHEST SINGLE AP History: Ventilated Comparison: May 14, 2017 at 4:04 PM. Findings: The endotracheal tube the right IJ catheter and the NG/OG tube appear unchanged. Slightly better aer ation the left lung base of the patchy airspace consolidation air bronchograms do persist. There is slight increase in patchy airspace consolidation right lung base. There is no evidence of overt pulm onary edema. The cardiac silhouette appears unchanged. IMPRESSION: 1. Support lines and tubes as described Slight improvement of the patchy airspace consolidation left lung base although some patchy consolida tion air bronchograms do persist. There is slight increase in the patchy airspace consolidation righ t lung base. These findings are consistent with infiltrates and/or atelectasis Report Dictated By: Aggie Felix MD at 05/15/2017 8:32 AM Report E-Signed By: Aggie Felix MD at 05/15/2017 8:34 AM WSN:[email or web address]
[2017-05-15] MEDS: CEFEPIME HCL 2 GM VIAL IVP SCH ×2 (09:17→20:55)
[2017-05-15] MEDS: HYDROmorphone HCL 2 MG/ML SDV IVP PRN ×6 (11:05→23:49)
[2017-05-15] MEDS ORDERED: LIDOCAINE/SOD BICARB 8.4% SYR ID ONE (11:10)
[2017-05-15] MEDS ORDERED: NORMOSOL R SOLN(*) 1000 ML BAG 1,000 ML IV PRN (11:10)
[2017-05-15] MEDS ORDERED: FAMOTIDINE 20 MG/50 ML PREMIX IVPB ONE (11:10)
--- NOTE | 2017-05-15 11:25 | Hospitalist Progress Note ---
Subjective Progress Notes Subjective This patient was admitted for sepsis and was found to have ischemic gut. She underwent bowel resection yesterday. Patient Complains of: Cardiovascular: No: Chest Pain Respiratory: No: Shortness of Breath Physical Exam Vital Signs Date Time Temp Pulse Resp B/P (MAP) Pulse Ox O2 Delivery O2 Flow Rate FiO2 05/15/17 10:49 93 Oxy Mask 6.0 05/15/17 10:48 74 05/15/17 10:34 16 05/15/17 10:30 132/66 (88) 45.0 05/15/17 09:30 98.8 Intake and Output 05/16/17 07:00 Intake Total 1525.7 ml Output Total 190 ml Balance 1335.7 ml IV Total 1525.7 ml Output Urine Total 180 ml Gastric Drainage Total 10 ml Neuro: No Gross deficits Eyes: PERRLA Cardiovascular: Regular Rate and Rhythm Respiratory: Other (Bilateral breath sounds present.) Extremities: Edema Integumentary: No Cyanosis Result Diagram: 05/15/17 0534 05/15/17 0534 Item Value Date Time Arterial Blood pH 7.41 05/15/17 0530 Arterial Blood Partial Pressure CO2 33 mmHg 05/15/17 0530 Arterial Blood Partial Pressure O2 78 mmHg 05/15/17 0530 Arterial Blood HCO3 21 mmol/L 05/15/17 0530 Item Value Date Time Blood Culture - Preliminary Resulted 05/13/171916 Blood NO GROWTH AFTER 2 DAYS, REINCUBATED Blood Culture - Preliminary Resulted 05/13/17 191 Blood NO GROWTH AFTER 2 DAYS, REINCUBATED Urine Culture - Preliminary Resulted 05/13/17 0000 Cath Urine NO GROWTH AFTER 1 DAY, REINCUBATED Imaging Chest x-ray reviewed. Assessment and Plan Problems: (1) Small bowel infarction Assessment & Plan: She was found to have an infarcted small bowel and underwent resection with Dr. Gracia on 05/14/17. Please see surgical notes for management. (2) Porcelain gallbladder Status: Chronic Assessment & Plan: Dr. Gracia performed a cholecystectomy during her surgery. (3) Urinary tract infection Status: Acute Assessment & Plan: She was admitted for a urinary infection. She was initially on treatment with ceftriaxone, but was placed on cefepime and metronidazole after surgery. Her urine culture has been negative. (4) Septic shock Assessment & Plan: She did present with hypothermia, hypotension, and an elevated WBC. She also had an elevated lactate. Her blood pressure improved with IV fluids and she has been improving after surgery. Her blood cultures have been negative. She remains on stress dose hydrocortisone. (5) Acute respiratory failure Assessment & Plan: She did remain intubated after surgery. She was able to tolerate CPAP this morning and we extubated today. (6) Acute renal failure Status: Acute Assessment & Plan: She does have an elevated creatinine, which has been stable. (7) Type 2 diabetes mellitus Status: Chronic Assessment & Plan: She is on chronic treatment with glimepiride and NPH. She is currently on sliding scale level #2. 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 Central Venous Access Medical Necessity for Access: Hemodynamic Monitoring, IV Access, Medication Administration Exam Sepsis Risk: No Definite Risk Problem Qualifiers (1) Urinary tract infection: Urinary tract infection type: acute cystitis Hematuria presence: without hematuria Qualified Codes: N30.00 - Acute cystitis without hematuria YARY RAI DO May 15, 2017 11:25
--- NOTE | 2017-05-15 12:17 | Medical Nutrition Therapy ---
Nutrition Anthropometrics Height (Inches): 65.00 Height (Calculated Centimeters: [phone] Weight (Pounds): 213 Weight (Calculated Kilograms): 96.615 BMI Calculated: 31.95 Homero Nutrition Score: Adequate Homero Nutrition Risk Score: 16 Dietary Referral Nutrition Risk Factors: Diff. Swallowing Nutrition Risk Comment: Physical Findings Physical Appearance: Obese BMI 30-39 Skin Appearance Skin Appearance: Edema Edema Location Modifier: Edema Location: Generalized Type of Edema: Degree of Edema: Gastrointestinal Symptoms GI Symtoms: Tube Present: NG Bowel Sounds: Recent Bowel Pattern: Stool Characteristics: Nutrition/Food History Decreased Appetite Nutritional Diagnosis Nutritional Risk Acuity 1: TPN/PPN, GI Obstruction Nutritional Risk Acuity 2: Sepsis Past Medical History: T2DM, GERD, CKD Nutritional Acuity: 1-High Nutrition Diagnosis: Altered GI Function Nutrition Etiology: Physiological Causes Nutrition Problem/Etiology/Sym: Altered Gastrointestinal (GI) Function related to decreased functional length of the GI tract d/t bowel resection AEB dx of infarcted portion of small intestine and possible need for oysterman TPN. Energy Requirement: 2170 ([place]-St Jeor: Actual BW X 1.5) Protein Requirement: 77 (Actual BW Kg X .8) Fluid Requirement: 2170 Diet Type: TPN/PPN Nutrition Intervention: Incr diet as tolerated, Check glucose Nutritional Support Current Enteral / Parental: TPN Rate: 75mL/hr Clinimix 4.25/25 and 250mL Intralipid 20%/day Current Calories: 1836 Current Protein: 76 Current Lipids Calories: 500 Total Current Calories: 2336 Nutrition Monitoring & Eval Nutrition Goals: Eat 50-100% Meal RD Patient Assessment Time: [address] Assessment Type: RD Assessment Patient Nutrition Acuity: 1-High Follow Up Date: May 16, 2017 Nutritional Comment: Pt admitted for abdominal pain and UTI. Underwent surgery 05/14 for extensive small bowel resection and cholecystectomy. Hopefully extubate today. TPN started with Clinimix 4.25%-25% at 75mL/hr and Intralipid 20% 250mL/day. Pt also receiving varying amounts of propofol for sedation. At current rate of TPN, pt receiving 2336 Kcal and 76 grams protein per 24 hrs. This provides 108% of estimated Kcal needs and 99% of estimated protein needs. MD notes pt may require oysterman TPN. Alb 1.6, High AST/ALT, Glu 220, High BUN/Creat. Monitor for tolerance and diet progression. BRIGIDA MARCUS May 15, 2017 12:17
[2017-05-15] MEDS ORDERED: LEVI SUBQ (14:27)
[2017-05-15] MEDS ORDERED: ONDA4TAB PO (14:54)
[2017-05-15] MEDS: FAT EMULSION 20% 250 ML BAG 250 ML IVPB SCH (15:52)
[2017-05-15] MEDS ORDERED: [UNRECOGNIZED DRUG - OTHER] IV ONE (16:00)
[2017-05-15] MEDS ORDERED: NS(*) 0.9% 1000 ML BAG 1,000 ML IV PRN (17:37)
[2017-05-15] MEDS: LORazepam 2 MG/ML VIAL IVP PRN (20:20)
[2017-05-15] MEDS ORDERED: LORazepam 2 MG/ML VIAL ONE (20:27)
--- NOTE | 2017-05-15 22:30 | OPERATIVE REPORT 1 ---
EVENT DATE: May 14, 2017 SURGEON: Ricardo Gracia MD ANESTHESIOLOGIST: Ricardo King MD ANESTHESIA: General endotracheal anesthesia. PREOPERATIVE DIAGNOSES 1. Ischemic enteritis on CT. 2. 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 3. Sepsis. POSTOPERATIVE DIAGNOSES 1. Gangrenous small bowel 2. Cholelithiasis with porcelain gallbladder 3. Sepsis. PROCEDURES PERFORMED 1. Diagnostic laparoscopy. 2. Laparotomy. 3. Small bowel resection. 4. Cholecystectomy. 5. Central line placement. COMPLICATIONS None. CONDITION Stable. BLOOD LOSS 100 mL SPECIMENS 1. Small intestine 145 cm. 2. Gallbladder and contents. INDICATIONS This is a 77-year-old female who was admitted through the hospitalist service to the intensive care unit with sepsis that initially was thought to be urosepsis. She was having increasingly worsening abdominal pain, pain out of proportion, and her lactate levels were increasing in spite of improving vital signs, including blood pressures and heart rate with resuscitation. A repeat CT scan this morning revealed segments of inflamed small intestine in addition to the repeated finding of a porcelain gallbladder with a gallstone on CT scan. I was consulted urgently and examined her and examined the CT scans, and I added her to the operating schedule for an emergent surgery. DESCRIPTION OF PROCEDURE The patient was brought to the operating room and placed supine on the operating table. General endotracheal anesthesia was administered, and her right neck, shoulder, and jawline were prepped and draped in a sterile fashion. With the patient in Trendelenburg and using the ultrasound, I identified the right internal jugular vein and was able to access it with one stick with the access needle and then threaded the wire through the needle into the internal jugular vein and removed the needle. I made a stab incision in the neck, used the dilator to dilate the track, and then threaded the triple-lumen catheter over the wire. All the ports had been previously flushed. I removed the wire and placed the buff cap on the end of one of the ports of the triple lumen. The other two ports already had the caps on them. I then aspirated blood through each port and flushed them easily with normal saline. I then sewed the catheter to the skin, cleaned and dried her skin, and placed a dressing over the skin incision where the catheter entered the skin. It was at about 16 cm at the skin. Next, her abdomen was prepped and draped in a sterile fashion. Timeout was completed. I injected 0.5% ropivacaine plain into the left subcostal skin and made a transverse 5 mm incision. I used the Veress needle hooked up to the insufflation and accessed the peritoneal cavity through this. I insufflated the peritoneal cavity to a pressure of 15 mmHg. After this was done, the camera was inserted into a 5 mm optical trocar and focused. It then was advanced through the fascia and muscle layers into the insufflated peritoneal cavity without any problems and under direct visualization. I then stuck a 5 mm , 30-degree angled scope through this port and immediately identified intestines. At this point, I removed the camera and port, anesthetized the skin in the midline, and made a vertical midline incision. I dissected through the subcutaneous fat and identified the midline fascia. I made a vertical incision in the midline fascia. I made a hole in the peritoneum with my finger and then placed my hand under the abdominal wall and opened the fascia and peritoneum along the entire length of the skin incision. I then pulled the small intestine into the wound and ran it from the ligament of Treitz to the terminal ileum. There was about 100 cm of fairly healthy-looking small intestine from the ligament of Treitz to the proximal end of the ischemic bowel. Even part of that distal 100 cm was mildly ischemic-looking, but there were palpable pulses in the mesentery, and it did pink up over time. The distal 15 cm of the ileum right before the ileocecal valve looked well perfused and normal color. I measured the ischemic and infarcted portion, that is, the portion of the small bowel that would need to be removed, and it was about 145 cm. This was most of her small intestine. I called the patient's daughter, whom I had been in contact with preoperatively, and explained the situation that I was not certain that she was going to have enough small intestine to absorb enough nutrients and could have a short bowel syndrome if she survived the surgery and recovery from surgery. After discussing the options of just making the patient comfort care versus completing the operation by resecting the infarcted and obvious ischemic portions of her bowel and seeing how she recovered, the daughter indicated that her mother, the patient, would have wanted to do everything possible and would not have wanted to make herself comfort care at this point. I got off the phone and scrubbed back in and proceeded to resect the small intestine. I used the TAMMY stapler with blue loads and identified portions proximal and distal to the infarcted and ischemic portion of the bowel. I made holes in the mesentery and then divided the bowel with the TAMMY stapler at both of these points. Again, the proximal portion was not completely pink and had serositis, but if I would have continued to where it was obviously normal small intestine, then she would have definitely not had enough small bowel to support life. After the proximal and distal portions of the small bowel were divided, I used the Harmonic scalpel and divided the mesentery and connected these areas. The small bowel was then measured again once it was ex vivo, and it was measured to be 145 cm. It was then placed in a specimen container and sent to Pathology. I then laid the two staple lines together. I used bowel clamps to prevent soilage, then made enterotomies, and then used another TAMMY stapler with a blue load and created a [id number] functional end-to-end small bowel to small bowel anastomosis. I then closed the conjoined enterotomy with running 4-0 Monocryl sutures, and then I oversewed the entire staple and suture line with interrupted 3-0 silk Lembert sutures. It appeared to be a good anastomosis. It was wide open. The proximal portion of the small bowel again was a little darker than the distal portion, but the divided small bowel and when I made the enterotomies to facilitate the anastomosis, both sides did bleed. I then placed the small bowel back in the patient's abdomen. I did extend the midline incision somewhat cephalad and palpated the gallbladder which had a large gallstone in the neck, and so I proceeded to perform a cholecystectomy. I took the gallbladder down from the gallbladder fossa from the top down and it down until I identified the infundibulum. I clamped the cystic artery and ligated it with a 3-0 silk free tie and then clamped the cystic duct proximally and distally, divided between clamps, removed the gallbladder from the abdomen, and then ligated the cystic duct with a single 2-0 silk suture. There was some oozing from the gallbladder fossa which was easily controlled with electrocautery, and then I irrigated the patient's entire abdomen including left and right upper quadrants and down in the pelvis with a total of 5 L of warm normal saline. When this was done, all of the irrigation fluid was clear, and there was no evidence of bleeding anywhere in her abdomen. I made sure I removed all the irrigation fluid from all quadrants of her abdomen. I then reinspected the anastomosis, and it laid quite naturally with no tension, but again, that proximal portion was just slightly darker in color than the distal portion of the anastomosis, but it looked like they both had good blood flow. I then placed the greater omentum overlying the viscera and then closed the midline fascia with running 0 looped PDS sutures, and then the skin was closed with christianne. I closed the little 5 mm port incision with a single staple. I then dressed her abdominal incision with a Prevena wound VAC dressing. She was then transported intubated and on the ventilator to the intensive care unit. Her vitals were stable at the end of this case with blood pressures in the 130s and 140s systolic and heart rate down in the 70s. MTDD
[2017-05-16] VITALS (48 sets, daily range): BP systolic 98–188; BP diastolic 49–100
[2017-05-16] MEDS: LORazepam 2 MG/ML VIAL IVP PRN ×4 (02:16→22:39)
[2017-05-16] MEDS: HYDROmorphone HCL 2 MG/ML SDV IVP PRN ×7 (02:17→21:26)
[2017-05-16] MEDS: metroNIDAZOLE* 500MG/100ML BAG 100 ML IVPB SCH ×4 (05:20→22:38)
[2017-05-16 05:29] LABS: PLATELET COUNT, AUTOMATED 95 K/uL (150-450)
[2017-05-16] MEDS: INSULIN HUM LISPRO 100 UN/ML 3 ML VIAL SUBQ PRN ×4 (06:28→23:51)
--- NOTE | 2017-05-16 07:17 | General Surgery Progress Note ---
Subjective Progress Notes Subjective Not answering questions, sleeping throughout interaction inspite of attempt to answer questions. Apparently very fidgety and pulling on lines/tubes overnight so given dilaudid and ativan. Physical Exam Vital Signs Date Time Temp Pulse Resp B/P (MAP) Pulse Ox O2 Delivery O2 Flow Rate FiO2 05/16/17 06:30 66 13 126/61 (82) 96 05/16/17 06:00 98.0 Oxy Mask 2.0 05/15/17 11:30 General Appearance: No Acute Distress, Afebrile GI: Other (Soft, prevena vac dressing is in place with good vacuum seal) Extremities: Warm, Perfused, Edema Result Diagram: 05/16/1751605/16/17516 Assessment and Plan Problems: (1) Abdominal pain Status: Acute Assessment & Plan: 05/14/17: Patient is very ill. Apparently has very severe abdominal pain although not apparent to me today due to the amount of narcotics that she is received but her lactate is going up in spite of improving blood pressure, heart rate, and overall clinical status. She potentially has cholecystitis, ischemic or dying intestines, or both. I recommended that we start with laparoscopy to inspect her gallbladder and small intestines and then if there is obviously something to be dealt with then will convert to an open midline laparotomy incision with small intestinal resection and/or cholecystectomy. I have discussed this with her daughter who agrees with this plan. She provides consent over the telephone since the patient cannot provide consent given her current condition. The patient is DO NOT RESUSCITATE/DO NOT INTUBATE but does wish to proceed with surgery according to the hospitalist who spoke with her last night about this possibility and the daughter agrees with this as well. If she goes into cardiac arrest or has cardiac or pulmonary arrest issues after surgery then she does not wish any aggressive measures to be taken. We'll proceed with surgery this morning. 05/15/17: POD#1 s/p ex lap, extensive small bowel resection (145cm; approximately 110cm remaining), cholecystectomy. Stable overnight. Labs improving. No fevers. OK to wake up today and extubate if possible. May remove NG tube at time of extubation. Will start TPN today. Hold lovenox today and resume tomorrow. Continue abx for 48 hours after surgery. 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 After she wakes up and intestinal function resumes, will advance diet and then will need to see how her nutrition is over time. She is also at high risk of anastomotic leak due to appearance of proximal bowel used in anastomosis but I could have not removed any further bowel without ensuring chronic long-term malnutrition. 05/16/17: POD#2. Extubated yesterday. Vitals look good, no fevers. TPN started. Will see if steroids can be stopped. Stop abx today. Will start PT/ OT today as patient tolerates. Continue NPO until signs of bowel function. (2) Sepsis Status: Resolved Central Venous Access Medical Necessity for Access: Hemodynamic Monitoring, IV Access, Medication Administration Condition Stable Time Spent: < 30 min Exam Sepsis Risk: No Definite Risk Problem Qualifiers (1) Abdominal pain: Abdominal location: generalized Qualified Codes: R10.84 - Generalized abdominal pain (2) Sepsis: Sepsis type: sepsis due to unspecified organism Qualified Codes: A41.9 - Sepsis, unspecified organism YARY TRIPLETT MD May 16, 2017 07:17
[2017-05-16] MEDS: ACETAMINOPHEN(*)1000 MG/100 ML 100 ML IVPB PRN ×3 (08:55→21:57)
[2017-05-16] MEDS: PANTOPRAZOLE SOD 40 MG IV VIAL IVP SCH (08:59)
[2017-05-16] MEDS: CEFEPIME HCL 2 GM VIAL IVP SCH ×2 (09:02→21:16)
[2017-05-16] MEDS: OLANZapine ZYDIS ODT 5MG TABDP PO PRN ×3 (09:25→21:33)
[2017-05-16] MEDS: [UNRECOGNIZED DRUG - OTHER] IV SCH (09:58)
--- NOTE | 2017-05-16 12:18 | Medical Nutrition Therapy ---
Nutrition Anthropometrics Height (Inches): 65.00 Height (Calculated Centimeters: 165.245886 Weight (Pounds): 226 Weight (Calculated Kilograms): 102.654 BMI Calculated: 31.95 Homero Nutrition Score: Adequate Homero Nutrition Risk Score: 15 Dietary Referral Nutrition Risk Factors: Diff. Swallowing Nutrition Risk Comment: Physical Findings Physical Appearance: Obese BMI 30-39 Skin Appearance Skin Appearance: Edema Edema Location Modifier: Edema Location: Generalized Type of Edema: Degree of Edema: Gastrointestinal Symptoms GI Symtoms: Tube Present: NG Bowel Sounds: Recent Bowel Pattern: Stool Characteristics: Nutritional Diagnosis Nutritional Risk Acuity 1: TPN/PPN, GI Obstruction Past Medical History: T2DM, GERD, CKD Nutritional Acuity: 1-High Nutrition Diagnosis: Altered GI Function Nutrition Etiology: Physiological Causes Nutrition Problem/Etiology/Sym: Altered Gastrointestinal (GI) Function related to decreased functional length of the GI tract d/t bowel resection AEB dx of infarcted portion of small intestine and possible need for snf TPN. Energy Requirement: 2170 (Duval-St Jeor: Actual BW X 1.5) Protein Requirement: 77 (Actual BW Kg X .8) Fluid Requirement: 2170 Diet Type: TPN/PPN Nutrition Intervention: Incr diet as tolerated, Check glucose Nutritional Support Current Enteral / Parental: TPN Rate: 75mL/hr Clinimix 4.25/25 and 250mL Intralipid 20%/day Current Calories: 1836 Current Protein: 76 Current Lipids Calories: 275 Total Current Calories: 2111 Nutrition Monitoring & Eval RD Patient Assessment Time: [address] Assessment Type: RD Re-Assessment Patient Nutrition Acuity: 1-High Follow Up Date: May 19, 2017 Nutritional Comment: Pt admitted for abdominal pain and UTI. Underwent surgery 05/14 for extensive small bowel resection and cholecystectomy. Hopefully extubate today. TPN started with Clinimix 4.25%-25% at 75mL/hr and Intralipid 20% 250mL/day. Pt also receiving varying amounts of propofol for sedation. At current rate of TPN, pt receiving 2336 Kcal and 76 grams protein per 24 hrs. This provides 108% of estimated Kcal needs and 99% of estimated protein needs. notes pt may require snf TPN. Alb 1.6, High AST/ALT, Glu 220, High BUN/Creat. Monitor for tolerance and diet progression. 05/16 Pt cont on TPN at 75ml/hr plus 12 hrs interlipid which provided 275 kcal. Recalculated kcal intake. TPN is meeting 97% est kcal, 100% est protein needs. Pt is no longer on propofol. BG cont elevated 200-300's. Alb 1.9. Will cont to monitor. ANGIE FARRELL May 16, 2017 12:18
--- NOTE | 2017-05-16 12:58 | Hospitalist Progress Note ---
Subjective Progress Notes Subjective Not following commands for staff, but gets periodically agitated. Ativan helped o/n. Physical Exam Vital Signs Date Time Temp Pulse Resp B/P (MAP) Pulse Ox O2 Delivery O2 Flow Rate FiO2 05/16/17 11:52 100 Oxy Mask 4.0 05/16/17 11:49 62 05/16/17 11:30 8 139/73 (95) 05/16/17 11:00 98.2 05/15/17 11:30 Intake and Output 05/17/17 07:00 Intake Total 257 ml Output Total 445 ml Balance -188 ml IV Total 257 ml Output Urine Total 445 ml General Appearance: Other (Eyes closed. Periodically groaning. Breathing comfortably.) Neuro: Other (Not following commands. Opens eyes to voice.) Cardiovascular: Regular Rate and Rhythm Respiratory: Clear to Auscultation GI: Other (BS normal. soft) Result Diagram: 05/16/1751605/16/17 0517 Assessment and Plan Problems: (1) Septic shock Status: Acute Assessment & Plan: She did present with hypothermia, hypotension, and an elevated WBC. She also had an elevated lactate. Her blood pressure improved with IV fluids and she has been improving after surgery. Her blood cultures have been negative. Will stop stress dose hydrocortisone. She is diffusely edematous secondary to volume resuscitation. Will diuresis when BP stable. (2) Small bowel infarction Assessment & Plan: She was found to have an infarcted small bowel and underwent resection with Dr. Gracia on 05/14/17. Please see surgical notes for management. On TPN and lipids. (3) Porcelain gallbladder Status: Chronic Assessment & Plan: Dr. Gracia performed a cholecystectomy during her surgery. (4) Urinary tract infection Status: Acute Assessment & Plan: She was admitted for a urinary infection. She was initially on treatment with ceftriaxone, but was placed on cefepime and metronidazole after surgery. Her urine culture has been negative. (5) Acute respiratory failure Assessment & Plan: She did remain intubated after surgery and was extubated successfully on 05/15. (6) Acute renal failure Status: Acute Assessment & Plan: She presented with an elevated creatinine, which has been steadily decreasing. (7) Type 2 diabetes mellitus Status: Chronic Assessment & Plan: She is on chronic treatment with glimepiride and NPH. She is currently on sliding scale level #2. 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 Central Venous Access Medical Necessity for Access: Hemodynamic Monitoring, IV Access, Medication Administration Exam Sepsis Risk: No Definite Risk Problem Qualifiers (1) Urinary tract infection: Urinary tract infection type: acute cystitis Hematuria presence: without hematuria Qualified Codes: N30.00 - Acute cystitis without hematuria KAILEE GARCIA MD May 16, 2017 12:58
[2017-05-16] MEDS: FAT EMULSION 20% 250 ML BAG 250 ML IVPB SCH (15:15)
[2017-05-16] MEDS ORDERED: [UNRECOGNIZED DRUG - OTHER] IV SCH (16:00)
[2017-05-17] VITALS (48 sets, daily range): BP systolic 119–224; BP diastolic 59–104
[2017-05-17] MEDS: [UNRECOGNIZED DRUG - OTHER] IV SCH (01:38)
[2017-05-17] MEDS: HYDROmorphone HCL 2 MG/ML SDV IVP PRN ×8 (02:49→23:32)
[2017-05-17] MEDS: LORazepam 2 MG/ML VIAL IVP PRN ×2 (03:20→22:34)
[2017-05-17] MEDS: metroNIDAZOLE* 500MG/100ML BAG 100 ML IVPB SCH ×4 (04:37→22:25)
[2017-05-17 05:51] LABS: PLATELET COUNT, AUTOMATED 74 K/uL (150-450)
[2017-05-17] MEDS: INSULIN HUM LISPRO 100 UN/ML 3 ML VIAL SUBQ PRN ×4 (06:17→23:32)
[2017-05-17] MEDS: ACETAMINOPHEN(*)1000 MG/100 ML 100 ML IVPB PRN (06:44)
--- NOTE | 2017-05-17 08:00 | General Surgery Progress Note ---
Subjective Progress Notes Subjective Pt dilerius. Won't answer questions; only moans. Physical Exam Vital Signs Date Time Temp Pulse Resp B/P (MAP) Pulse Ox O2 Delivery O2 Flow Rate FiO2 05/17/17 06:00 97.9 66 12 119/64 (82) 98 Oxy Mask 2.0 05/15/17 11:30 General Appearance: Awake, Afebrile GI: Other (Soft, prevena vac is in place with good vacuum seal.) Extremities: Warm, Perfused Result Diagram: 05/17/17 0535 05/17/17 0535 Assessment and Plan Problems: (1) Abdominal pain Status: Acute Assessment & Plan: 05/14/17: Patient is very ill. Apparently has very severe abdominal pain although not apparent to me today due to the amount of narcotics that she is received but her lactate is going up in spite of improving blood pressure, heart rate, and overall clinical status. She potentially has cholecystitis, ischemic or dying intestines, or both. I recommended that we start with laparoscopy to inspect her gallbladder and small intestines and then if there is obviously something to be dealt with then will convert to an open midline laparotomy incision with small intestinal resection and/or cholecystectomy. I have discussed this with her daughter who agrees with this plan. She provides consent over the telephone since the patient cannot provide consent given her current condition. The patient is DO NOT RESUSCITATE/DO NOT INTUBATE but does wish to proceed with surgery according to the hospitalist who spoke with her last night about this possibility and the daughter agrees with this as well. If she goes into cardiac arrest or has cardiac or pulmonary arrest issues after surgery then she does not wish any aggressive measures to be taken. We'll proceed with surgery this morning. 05/15/17: POD#1 s/p ex lap, extensive small bowel resection (145cm; approximately 110cm remaining), cholecystectomy. Stable overnight. Labs improving. No fevers. OK to wake up today and extubate if possible. May remove NG tube at time of extubation. Will start TPN today. Hold lovenox today and resume tomorrow. Continue abx for 48 hours after surgery. 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 After she wakes up and intestinal function resumes, will advance diet and then will need to see how her nutrition is over time. She is also at high risk of anastomotic leak due to appearance of proximal bowel used in anastomosis but I could have not removed any further bowel without ensuring chronic long-term malnutrition. 05/16/17: POD#2. Extubated yesterday. Vitals look good, no fevers. TPN started. Will see if steroids can be stopped. Stop abx today. Will start PT/ OT today as patient tolerates. Continue NPO until signs of bowel function. 05/17/17: POD#3. Stable. Vitals and labs all look good. Pt delirius. Continue TPN until bowel function returns. Will increase insulin in TPN. (2) Sepsis Status: Resolved Central Venous Access Medical Necessity for Access: Hemodynamic Monitoring, IV Access, Medication Administration Condition Stable. Time Spent: < 30 min Exam Sepsis Risk: No Definite Risk Problem Qualifiers (1) Abdominal pain: Abdominal location: generalized Qualified Codes: R10.84 - Generalized abdominal pain (2) Sepsis: Sepsis type: sepsis due to unspecified organism Qualified Codes: A41.9 - Sepsis, unspecified organism YARY TRIPLETT MD May 17, 2017 08:00
--- NOTE | 2017-05-17 09:26 | Hospitalist Progress Note ---
Subjective Progress Notes Subjective She moans almost continuously. She does not respond to verbal stimuli. She does not follow any commands. No fever. BPs stable. Physical Exam Vital Signs Date Time Temp Pulse Resp B/P (MAP) Pulse Ox O2 Delivery O2 Flow Rate FiO2 05/17/17 07:15 95 Oxy Mask 3.0 05/17/17 06:00 97.9 66 12 119/64 (82) 05/15/17 11:30 General Appearance: Other (she moans frequently, especially to any stimuli) Neuro: Other (she does move all four extremities) Eyes: Other (she prefers to keep eyes closed) Cardiovascular: Other (Regular with distant tones) Respiratory: Other (poor effort, but fairly clear) GI: Other (slightly distended, but fairly soft with active BS) Extremities: Warm, Perfused, Edema Result Diagram: 05/17/17 0535 05/17/17 0535 Assessment and Plan Problems: (1) Septic shock Status: Acute Assessment & Plan: She did present with hypothermia, hypotension, and an elevated WBC. She also had an elevated lactate. Her blood pressure improved with IV fluids and she has been improving after surgery. Her blood cultures have been negative. We did stop stress dose hydrocortisone. She is diffusely edematous secondary to volume resuscitation. May try diuresis as her BP tolerates. Her mental status has not improved following surgery. Will get CT scan of her brain to see if any abnormalities. Will try to limit any [employer] affecting medications. (2) Small bowel infarction Assessment & Plan: She was found to have an infarcted small bowel and underwent resection with Dr. Gracia on 05/14/17. Please see surgical notes for management. She is currently on TPN and lipids. (3) Porcelain gallbladder Status: Chronic Assessment & Plan: Dr. Gracia performed a cholecystectomy during her surgery. (4) Urinary tract infection Status: Acute Assessment & Plan: She was admitted for a urinary infection. She was initially on treatment with ceftriaxone, but was placed on cefepime and metronidazole after surgery. Her urine culture on this admission has been negative. The culture done on 05/08/17 is growing a fairly sensitive E. coli. (5) Acute respiratory failure Assessment & Plan: She did remain intubated after surgery and was extubated successfully on 05/15. (6) Acute renal failure Status: Acute Assessment & Plan: She presented with an elevated creatinine, which has been steadily decreasing. (7) Type 2 diabetes mellitus Status: Chronic Assessment & Plan: She is on chronic treatment with glimepiride and NPH (which are on hold). She is currently on sliding scale level #2. 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 Central Venous Access Medical Necessity for Access: Hemodynamic Monitoring, IV Access, Medication Administration Exam Sepsis Risk: No Definite Risk Problem Qualifiers (1) Urinary tract infection: Urinary tract infection type: acute cystitis Hematuria presence: without hematuria Qualified Codes: N30.00 - Acute cystitis without hematuria FAITH ORTIZ MD May 17, 2017 09:26
[2017-05-17] MEDS: CEFEPIME HCL 2 GM VIAL IVP SCH ×2 (09:31→20:35)
[2017-05-17] MEDS: PANTOPRAZOLE SOD 40 MG IV VIAL IVP SCH (09:46)
[2017-05-17] MEDS: [UNRECOGNIZED DRUG - OTHER] IV SCH (11:15)
--- NOTE | 2017-05-17 11:28 | RADIOLOGY IMAGING REPORT ---
FACILITY: [facility] PATIENT NAME: Brandy Kathleen : 1940 MR: [id number] V: [id number] EXAM DATE: ORDERING PHYSICIAN: FAITH ORTIZ TECHNOLOGIST: Location: [facility] [place] Patient: Brandy Kathleen : 1940 Visit/Account:[id number] Date of Sevice: 05/17/2017 EXAMINATION: Head CT without intravenous contrast HISTORY: Mental status change TECHNIQUE: Contiguous axial images were obtained from the skull base to the vertex without intraven ous contrast. Sagittal and coronal reformatted images are also submitted. COMPARISON: Head CT August 12, 2014 FINDINGS: Brain volume: There is moderate diffuse central and cortical atrophy present Ventricles: As above Acute ischemic changes: None. Hemorrhage: None. Masses / edema: None. Estrada-white: Negative. White matter: Normal. Vessels: There are calcifications in the carotid siphon and in both vertebral arteries Extra-axial: Negative. Calvarium / scalp: Negative. Skull base / visualized face: Negative. Visualized sinuses / orbits: Negative. IMPRESSION: There is moderate diffuse central cortical atrophy Calcifications in the carotid siphons and both vertebral arteries If patient's symptoms persist MR the brain may be helpful Report Dictated By: Aggie Felix MD at 05/17/2017 11:19 AM Report E-Signed By: Aggie Felix MD at 05/17/2017 11:24 AM WSN:[id number]
[2017-05-17] MEDS: NS(*) 0.9% 1000 ML BAG 1,000 ML IV PRN (12:55)
[2017-05-17] MEDS: FAT EMULSION 20% 250 ML BAG 250 ML IVPB SCH (16:06)
[2017-05-18] VITALS (46 sets, daily range): BP systolic 94–212; BP diastolic 48–178
[2017-05-18] MEDS: [UNRECOGNIZED DRUG - OTHER] IV SCH ×2 (00:40→14:14)
[2017-05-18] MEDS: HYDROmorphone HCL 2 MG/ML SDV IVP PRN ×6 (03:18→19:46)
[2017-05-18] MEDS: LORazepam 2 MG/ML VIAL IVP PRN ×2 (03:28→21:35)
[2017-05-18] MEDS: metroNIDAZOLE* 500MG/100ML BAG 100 ML IVPB SCH ×4 (04:21→22:37)
[2017-05-18] MEDS: ACETAMINOPHEN(*)1000 MG/100 ML 100 ML IVPB PRN ×2 (05:25→21:22)
[2017-05-18 05:35] LABS: PLATELET COUNT, AUTOMATED 67 K/uL (150-450)
[2017-05-18] MEDS: INSULIN HUM LISPRO 100 UN/ML 3 ML VIAL SUBQ PRN ×3 (06:00→18:13)
--- NOTE | 2017-05-18 07:58 | Hospitalist Progress Note ---
Subjective Progress Notes Subjective Still requiring Ativan for agitation with Dilaudid for perceived pain. Not having much affect with groaning. Didn't sleep last night. Physical Exam Vital Signs Date Time Temp Pulse Resp B/P (MAP) Pulse Ox O2 Delivery O2 Flow Rate FiO2 05/18/17 06:00 98.8 80 11 170/71 (104) 98 Oxy Mask 2.0 05/15/17 11:30 General Appearance: Other (Groaning, breathing comfortably) Neuro: Other (Not following commands. Eyes closed.) Cardiovascular: Regular Rate and Rhythm Respiratory: Clear to Auscultation GI: Other (Soft, BS present, wound vac in place) Extremities: Edema (Trace pitting in hands and ankles) Result Diagram: 05/18/17 0453 05/18/17 0453 Assessment and Plan Problems: (1) Septic shock Status: Acute Assessment & Plan: She did present with hypothermia, hypotension, and an elevated WBC. She also had an elevated lactate. Her blood pressure improved with IV fluids and she has been improving after surgery. Her blood cultures have been negative. We did stop stress dose hydrocortisone. She is diffusely edematous secondary to volume resuscitation. Starting scheduled Lasix. Giving one dose of KCL. (2) Delirium Status: Acute Assessment & Plan: Her mental status has not improved following surgery. CT scan of her brain without any obvious abnormalities. Will try to limit Ativan. Will give a dose of Zyprexa and repeat once today, if needed. Try to get her to sleep tonight. 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 Gracia on 05/14/17. Please see surgical notes for management. She is currently on TPN and lipids. (4) Porcelain gallbladder Status: Chronic Assessment & Plan: Dr. Gracia performed a cholecystectomy during her surgery. (5) Urinary tract infection Status: Acute Assessment & Plan: She was admitted for a urinary infection. She was initially on treatment with ceftriaxone, but was placed on cefepime and metronidazole after surgery. Her urine culture on this admission has been negative. The culture done on 05/08/17 is growing a fairly sensitive E. coli. (6) Acute respiratory failure Assessment & Plan: She did remain intubated after surgery and was extubated successfully on 05/15. (7) Acute renal failure Status: Acute Assessment & Plan: She presented with an elevated creatinine, which has been steadily decreasing. (8) Type 2 diabetes mellitus Status: Chronic Assessment & Plan: She is on chronic treatment with glimepiride and NPH (which are on hold). Glucose high secondary to the TPN so will add Lantus. She is currently on sliding scale level #3. 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 Central Venous Access Medical Necessity for Access: Hemodynamic Monitoring, IV Access, Medication Administration Exam Sepsis Risk: No Definite Risk Problem Qualifiers (1) Urinary tract infection: Urinary tract infection type: acute cystitis Hematuria presence: without hematuria Qualified Codes: N30.00 - Acute cystitis without hematuria KAILEE GARCIA MD May 18, 2017 07:58
--- NOTE | 2017-05-18 08:23 | General Surgery Progress Note ---
Subjective Progress Notes Subjective moaning delirious no fevers Patient Complains of: Neurological: Confusion Physical Exam Vital Signs Date Time Temp Pulse Resp B/P (MAP) Pulse Ox O2 Delivery O2 Flow Rate FiO2 05/18/17 06:00 98.8 80 11 170/71 (104) 98 Oxy Mask 2.0 05/15/17 11:30 General Appearance: Other (oriented x0) Cardiovascular: Regular Rate and Rhythm Respiratory: No Respiratory Distress GI: Other (Provena dressing in place, soft, mild tenderness, no guarding or rebound. ) : Other (kapoor) Extremities: Warm, Edema Result Diagram: 05/18/17 0453 05/18/17 0453 Monitor Interpretation: Normal Sinus Rhythm Assessment and Plan Problems: (1) Abdominal pain Status: Acute Assessment & Plan: 05/14/17: Patient is very ill. Apparently has very severe abdominal pain although not apparent to me today due to the amount of narcotics that she is received but her lactate is going up in spite of improving blood pressure, heart rate, and overall clinical status. She potentially has cholecystitis, ischemic or dying intestines, or both. I recommended that we start with laparoscopy to inspect her gallbladder and small intestines and then if there is obviously something to be dealt with then will convert to an open midline laparotomy incision with small intestinal resection and/or cholecystectomy. I have discussed this with her daughter who agrees with this plan. She provides consent over the telephone since the patient cannot provide consent given her current condition. The patient is DO NOT RESUSCITATE/DO NOT INTUBATE but does wish to proceed with surgery according to the hospitalist who spoke with her last night about this possibility and the daughter agrees with this as well. If she goes into cardiac arrest or has cardiac or pulmonary arrest issues after surgery then she does not wish any aggressive measures to be taken. We'll proceed with surgery this morning. 05/15/17: POD#1 s/p ex lap, extensive small bowel resection (145cm; approximately 110cm remaining), cholecystectomy. Stable overnight. Labs improving. No fevers. OK to wake up today and extubate if possible. May remove NG tube at time of extubation. Will start TPN today. Hold lovenox today and resume tomorrow. Continue abx for 48 hours after surgery. 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 After she wakes up and intestinal function resumes, will advance diet and then will need to see how her nutrition is over time. She is also at high risk of anastomotic leak due to appearance of proximal bowel used in anastomosis but I could have not removed any further bowel without ensuring chronic long-term malnutrition. 05/16/17: POD#2. Extubated yesterday. Vitals look good, no fevers. TPN started. Will see if steroids can be stopped. Stop abx today. Will start PT/ OT today as patient tolerates. Continue NPO until signs of bowel function. 05/17/17: POD#3. Stable. Vitals and labs all look good. Pt delirius. Continue TPN until bowel function returns. Will increase insulin in TPN. 05/18/17: POD#4. Delirium persists. She does not sleep but moans all night. Discussed measures to mitigate ICU delirium with ICU nurse and Dr. Membreno ( minimize benzos, zyprexa at night, open windows during day and quiet at night, treat pain with non-narcotic measures). Vitals OK, afebrile. Her WBC increased to 13k. Her abx (flagyl and cefepime) continue. Possible sources of infection include intraabdominal abscess vs. PICC line infection. Will send blood cultures if fever spike. Will scan abd tomorrow if WBC continues to rise. Had small bm yesterday, but with delirium we will not be able to start diet. Continue TPN. Adding lantus for hyperglycemia. Pt remains in ICU. (2) Sepsis Status: Resolved Central Venous Access Medical Necessity for Access: Hemodynamic Monitoring, IV Access, Medication Administration Time Spent: < 30 min Exam Sepsis Risk: No Definite Risk Problem Qualifiers (1) Abdominal pain: Abdominal location: generalized Qualified Codes: R10.84 - Generalized abdominal pain (2) Sepsis: Sepsis type: sepsis due to unspecified organism Qualified Codes: A41.9 - Sepsis, unspecified organism MISAEL OROSCO MD May 18, 2017 08:22
[2017-05-18] MEDS ORDERED: OLANZapine ZYDIS ODT 5MG TABDP PO ONE ×2 (08:30→10:45)
[2017-05-18] MEDS: FUROSEMIDE 20 MG/2 ML VIAL IVP SCH ×2 (08:33→16:17)
[2017-05-18] MEDS: PANTOPRAZOLE SOD 40 MG IV VIAL IVP SCH (08:37)
[2017-05-18] MEDS: KCL (*) 20 MEQ/100 ML PREMIX 100 ML IV SCH ×2 (08:51→10:58)
[2017-05-18] MEDS: CEFEPIME HCL 2 GM VIAL IVP SCH ×2 (08:52→20:36)
[2017-05-18] MEDS ORDERED: INSULIN GLARGINE 100 U/ML 3 ML PEN SUBQ SCH (09:00)
[2017-05-18] MEDS: DEXMEDETOMIDINE IN 0.9 % NACL 100 ML IV PRN ×2 (13:02→22:38)
[2017-05-18] MEDS: FAT EMULSION 20% 250 ML BAG 250 ML IVPB SCH (16:13)
--- NOTE | 2017-05-18 23:37 | Miscellaneous Provider Note ---
Miscellaneous Provider Note Note 2 doses of Zyprexa a 5mg each didn't affect the patient's agitation. Precedex drip was started and for most of the day it seemed to minimize the groaning and agitation. However, tonight she was very restless and non directable. She was given a dose of Ativan. Will continue the Precedex and Dilaudid. KAILEE GARCIA MD May 18, 2017 23:37
[2017-05-19] VITALS (48 sets, daily range): BP systolic 107–226; BP diastolic 50–104
[2017-05-19] MEDS: INSULIN GLARGINE 100 U/ML 3 ML PEN SUBQ SCH ×3 (00:11→20:57)
[2017-05-19] MEDS: INSULIN HUM LISPRO 100 UN/ML 3 ML VIAL SUBQ PRN ×5 (00:14→23:44)
[2017-05-19] MEDS: HYDROmorphone HCL 2 MG/ML SDV IVP PRN ×4 (03:45→16:18)
[2017-05-19] MEDS: NS(*) 0.9% 1000 ML BAG 1,000 ML IV PRN (03:48)
[2017-05-19] MEDS: [UNRECOGNIZED DRUG - OTHER] IV SCH (03:48)
[2017-05-19] MEDS: metroNIDAZOLE* 500MG/100ML BAG 100 ML IVPB SCH (04:44)
[2017-05-19 05:48] LABS: PLATELET COUNT, AUTOMATED 64 K/uL (150-450)
[2017-05-19] MEDS: DEXMEDETOMIDINE IN 0.9 % NACL 100 ML IV PRN ×2 (05:57→12:29)
[2017-05-19] MEDS: FUROSEMIDE 20 MG/2 ML VIAL IVP SCH ×2 (08:39→14:02)
[2017-05-19] MEDS: PANTOPRAZOLE SOD 40 MG IV VIAL IVP SCH (08:43)
--- NOTE | 2017-05-19 09:00 | General Surgery Progress Note ---
Subjective Progress Notes Subjective delirium continues, now on precedex gtt had large BM yesterday no fevers Physical Exam Vital Signs Date Time Temp Pulse Resp B/P (MAP) Pulse Ox O2 Delivery O2 Flow Rate FiO2 05/19/17 06:00 97.6 76 8 167/76 (106) 96 Room Air 05/19/17 04:00 2.0 05/15/17 11:30 General Appearance: Other (sedated) Cardiovascular: Regular Rate and Rhythm Respiratory: No Respiratory Distress GI: Soft and Non-Tender, Other (Provena dressing in place) Extremities: Soft and Non Tender, Warm, Edema Result Diagram: 05/19/1751705/19/17517 Monitor Interpretation: Normal Sinus Rhythm Assessment and Plan Problems: (1) Abdominal pain Status: Acute Assessment & Plan: 05/14/17: Patient is very ill. Apparently has very severe abdominal pain although not apparent to me today due to the amount of narcotics that she is received but her lactate is going up in spite of improving blood pressure, heart rate, and overall clinical status. She potentially has cholecystitis, ischemic or dying intestines, or both. I recommended that we start with laparoscopy to inspect her gallbladder and small intestines and then if there is obviously something to be dealt with then will convert to an open midline laparotomy incision with small intestinal resection and/or cholecystectomy. I have discussed this with her daughter who agrees with this plan. She provides consent over the telephone since the patient cannot provide consent given her current condition. The patient is DO NOT RESUSCITATE/DO NOT INTUBATE but does wish to proceed with surgery according to the hospitalist who spoke with her last night about this possibility and the daughter agrees with this as well. If she goes into cardiac arrest or has cardiac or pulmonary arrest issues after surgery then she does not wish any aggressive measures to be taken. We'll proceed with surgery this morning. 05/15/17: POD#1 s/p ex lap, extensive small bowel resection (145cm; approximately 110cm remaining), cholecystectomy. Stable overnight. Labs improving. No fevers. OK to wake up today and extubate if possible. May remove NG tube at time of extubation. Will start TPN today. Hold lovenox today and resume tomorrow. Continue abx for 48 hours after surgery. 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 After she wakes up and intestinal function resumes, will advance diet and then will need to see how her nutrition is over time. She is also at high risk of anastomotic leak due to appearance of proximal bowel used in anastomosis but I could have not removed any further bowel without ensuring chronic long-term malnutrition. 05/16/17: POD#2. Extubated yesterday. Vitals look good, no fevers. TPN started. Will see if steroids can be stopped. Stop abx today. Will start PT/ OT today as patient tolerates. Continue NPO until signs of bowel function. 18: POD#3. Stable. Vitals and labs all look good. Pt delirius. Continue TPN until bowel function returns. Will increase insulin in TPN. 05/18/17: POD#4. Delirium persists. She does not sleep but moans all night. Discussed measures to mitigate ICU delirium with ICU nurse and Dr. Membreno ( minimize benzos, zyprexa at night, open windows during day and quiet at night, treat pain with non-narcotic measures). Vitals OK, afebrile. Her WBC increased to 13k. Her abx (flagyl and cefepime) continue. Possible sources of infection include intraabdominal abscess vs. PICC line infection. Will send blood cultures if fever spike. Will scan abd tomorrow if WBC continues to rise. Had small bm yesterday, but with delirium we will not be able to start diet. Continue TPN. Adding lantus for hyperglycemia. Pt remains in ICU. 05/19/17: POD#5 Delirium not responsive to Olanzipine, was on Precedex gtt overnight. She does not respond to external stimuli. Vitals good, afebrile, having bowel movements. Her WBC drifted down to 11.5k. Rest of her labs are ok. Stopped abx. No obvious source of infections to be driving delirium. Would recommend culturing blood if spikes fevers as she has a PICC in place with TPN. Continue ongoing care in ICU. (2) Sepsis Status: Resolved Central Venous Access Medical Necessity for Access: Hemodynamic Monitoring, IV Access, Medication Administration Time Spent: < 30 min Exam Sepsis Risk: No Definite Risk Problem Qualifiers (1) Abdominal pain: Abdominal location: generalized Qualified Codes: R10.84 - Generalized abdominal pain (2) Sepsis: Sepsis type: sepsis due to unspecified organism Qualified Codes: A41.9 - Sepsis, unspecified organism MISAEL OROSCO MD May 19, 2017 09:00
--- NOTE | 2017-05-19 10:39 | Medical Nutrition Therapy ---
Nutrition Anthropometrics Height (Inches): 65.00 Height (Calculated Centimeters: 165.861448 Weight (Pounds): 226 Weight (Calculated Kilograms): 102.512 BMI Calculated: 31.95 Homero Nutrition Score: Adequate Homero Nutrition Risk Score: 13 Dietary Referral Nutrition Risk Factors: Diff. Swallowing Nutrition Risk Comment: Nutritional Diagnosis Nutritional Risk Acuity 1: TPN/PPN, GI Obstruction Past Medical History: T2DM, GERD, CKD Nutritional Acuity: 1-High Nutrition Diagnosis: Altered GI Function Nutrition Etiology: Physiological Causes Nutrition Problem/Etiology/Sym: Altered Gastrointestinal (GI) Function related to decreased functional length of the GI tract d/t bowel resection AEB dx of infarcted portion of small intestine and possible need for fpc TPN. Energy Requirement: 2170 (Frio-St Jeor: Actual BW X 1.5) Protein Requirement: 77 (Actual BW Kg X .8) Fluid Requirement: 2170 Diet Type: TPN/PPN Nutrition Intervention: Incr diet as tolerated, Check glucose Nutritional Support Current Enteral / Parental: TPN Rate: 75mL/hr Clinimix 4.25/25 and 250mL Intralipid 20%/day Current Calories: 1836 Current Protein: 76 Current Lipids Calories: 275 Total Current Calories: 2111 Nutrition Monitoring & Eval RD Patient Assessment Time: [address] Assessment Type: RD Re-Assessment Patient Nutrition Acuity: 1-High Follow Up Date: May 22, 2017 Nutritional Comment: Pt admitted for abdominal pain and UTI. Underwent surgery 05/14 for extensive small bowel resection and cholecystectomy. Hopefully extubate today. TPN started with Clinimix 4.25%-25% at 75mL/hr and Intralipid 20% 250mL/day. Pt also receiving varying amounts of propofol for sedation. At current rate of TPN, pt receiving 2336 Kcal and 76 grams protein per 24 hrs. This provides 108% of estimated Kcal needs and 99% of estimated protein needs. MD notes pt may require fpc TPN. Alb 1.6, High AST/ALT, Glu 220, High BUN/Creat. Monitor for tolerance and diet progression. 05/16 Pt cont on TPN at 75ml/hr plus 12 hrs interlipid which provided 275 kcal. Recalculated kcal intake. TPN is meeting 97% est kcal, 100% est protein needs. Pt is no longer on propofol. BG cont elevated 200-300's. Alb 1.9. Will cont to monitor. 05/18 Pt cont on TPN which is meeting nutr needs. BG cont elevated in 300's. Alb 1.7. Wt stabilzed at 226# past 3 days. Up 34# from admit. Will cont to monitor ANGIE FARRELL May 19, 2017 10:39
--- NOTE | 2017-05-19 10:50 | Hospitalist Progress Note ---
Subjective Progress Notes Subjective This patient underwent bowel resection and cholecystectomy last week. She has remained semi conscious since. Patient Complains of: Cardiovascular: No: Chest Pain Respiratory: No: Shortness of Breath Physical Exam Vital Signs Date Time Temp Pulse Resp B/P (MAP) Pulse Ox O2 Delivery O2 Flow Rate FiO2 05/19/17 07:40 95 Oxy Mask 2.0 05/19/17 06:00 97.6 76 8 167/76 (106) 05/15/17 11:30 Intake and Output 05/20/17 07:00 Output Total 250 ml Balance -250 ml Output Urine Total 250 ml Neuro: No Gross deficits Eyes: PERRLA Cardiovascular: Regular Rate and Rhythm Respiratory: Clear to Auscultation GI: Soft and Non-Tender Extremities: Edema Integumentary: No Cyanosis Result Diagram: 05/19/1751705/19/17517 Item Value Date Time Blood Culture - Final Complete 05/13/171916 Blood NO GROWTH AFTER FIVE DAYS. ONLY PEDIA... Blood Culture - Final Complete 05/13/171911 Blood NO GROWTH AFTER 5 DAYS IN BOTH THE AE... Urine Culture - Final Complete 05/13/17 0000 Cath Urine NO GROWTH AFTER 2 DAYS Monitor Interpretation: Normal Sinus Rhythm Assessment and Plan Problems: (1) Septic shock Status: Acute Assessment & Plan: She did present with hypothermia, hypotension, and an elevated WBC. She also had an elevated lactate. Her blood pressure improved with IV fluids and she has been improving after surgery. Her blood cultures have been negative. We did stop stress dose hydrocortisone. She is diffusely edematous and her weight remains elevated secondary to volume resuscitation. She has been started on scheduled Lasix. (2) Delirium Status: Acute Assessment & Plan: Her mental status has not improved following surgery. CT scan of her brain is without any obvious abnormalities. She is currently receiving a Precedex infusion and lorazepam. 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 Gracia on 05/14/17. Please see surgical notes for management. She is currently on TPN and lipids. (4) Porcelain gallbladder Status: Chronic Assessment & Plan: Dr. Gracia performed a cholecystectomy during her surgery. (5) Urinary tract infection Status: Acute Assessment & Plan: She was admitted for a urinary infection. She was initially on treatment with ceftriaxone, but was placed on cefepime and metronidazole after surgery. Her urine culture on this admission has been negative. The culture done on 05/08/17 is growing a fairly sensitive E. coli. (6) Acute respiratory failure Assessment & Plan: She did remain intubated after surgery and was extubated successfully on 05/15. (7) Acute renal failure Status: Acute Assessment & Plan: She presented with an elevated creatinine, which has now returned to normal. (8) Type 2 diabetes mellitus Status: Chronic Assessment & Plan: She is on chronic treatment with glimepiride and NPH (which are on hold). Her glucose has been high secondary to the TPN . Lantus has been started and the insulin has been increased in her TPN. She is also on sliding scale level #3. 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 Central Venous Access Medical Necessity for Access: Hemodynamic Monitoring, IV Access, Medication Administration Exam Sepsis Risk: No Definite Risk Problem Qualifiers (1) Urinary tract infection: Urinary tract infection type: acute cystitis Hematuria presence: without hematuria Qualified Codes: N30.00 - Acute cystitis without hematuria YARY RAI DO May 19, 2017 10:50
[2017-05-19] MEDS: [UNRECOGNIZED DRUG - OTHER] IV SCH (16:18)
[2017-05-19] MEDS: FAT EMULSION 20% 250 ML BAG 250 ML IVPB SCH (16:18)
[2017-05-19] MEDS: ACETAMINOPHEN(*)1000 MG/100 ML 100 ML IVPB PRN ×2 (16:41→22:35)
[2017-05-19] MEDS: LORazepam 2 MG/ML VIAL IVP PRN ×3 (17:22→19:50)
[2017-05-19] MEDS ORDERED: HALOPERIDOL LACT 5 MG/ML VIAL IM ONE ×4 (20:10→21:40)
[2017-05-20] VITALS (44 sets, daily range): BP systolic 96–232; BP diastolic 42–117
[2017-05-20] MEDS ORDERED: HALOPERIDOL LACT 5 MG/ML VIAL IM SCH ×3 (04:00→10:00)
[2017-05-20 05:06] LABS: PLATELET COUNT, AUTOMATED 99 K/uL (150-450)
[2017-05-20] MEDS: INSULIN HUM LISPRO 100 UN/ML 3 ML VIAL SUBQ PRN ×3 (05:45→18:15)
[2017-05-20] MEDS: [UNRECOGNIZED DRUG - OTHER] IV SCH ×2 (05:45→19:42)
[2017-05-20] MEDS: HYDROmorphone HCL 2 MG/ML SDV IVP PRN ×7 (07:30→21:36)
[2017-05-20] MEDS ORDERED: KCL (*) 20 MEQ/100 ML PREMIX 100 ML IV ONE (08:00)
--- NOTE | 2017-05-20 08:42 | General Surgery Progress Note ---
Subjective Progress Notes Subjective Pt moans, incoherent, no speech, I cannot elicit any complaints. Physical Exam Vital Signs Date Time Temp Pulse Resp B/P (MAP) Pulse Ox O2 Delivery O2 Flow Rate FiO2 05/20/17 05:35 101 05/20/17 04:04 91 Room Air 05/20/17 04:00 99.6 67 211/93 (132) 05/19/17 18:00 1.0 Intake and Output 05/21/17 07:00 Intake Total 23.4 ml Balance 23.4 ml IV Total 23.4 ml General Appearance: Other (Doesn't respond to questions, just constant moaning , doesn't localize) GI: Other (Soft, prevena vac dressing removed, incision looks good, no erythema or drainage. I can't tell if she has an TTP, she just moans without any increase to palpation anywhere.) Extremities: Warm, Perfused Result Diagram: 05/20/17 0450 05/20/17 0450 Monitor Interpretation: Normal Sinus Rhythm Assessment and Plan Problems: (1) Abdominal pain Status: Acute Assessment & Plan: 05/14/17: Patient is very ill. Apparently has very severe abdominal pain although not apparent to me today due to the amount of narcotics that she is received but her lactate is going up in spite of improving blood pressure, heart rate, and overall clinical status. She potentially has cholecystitis, ischemic or dying intestines, or both. I recommended that we start with laparoscopy to inspect her gallbladder and small intestines and then if there is obviously something to be dealt with then will convert to an open midline laparotomy incision with small intestinal resection and/or cholecystectomy. I have discussed this with her daughter who agrees with this plan. She provides consent over the telephone since the patient cannot provide consent given her current condition. The patient is DO NOT RESUSCITATE/DO NOT INTUBATE but does wish to proceed with surgery according to the hospitalist who spoke with her last night about this possibility and the daughter agrees with this as well. If she goes into cardiac arrest or has cardiac or pulmonary arrest issues after surgery then she does not wish any aggressive measures to be taken. We'll proceed with surgery this morning. 05/15/17: POD#1 s/p ex lap, extensive small bowel resection (145cm; approximately 110cm remaining), cholecystectomy. Stable overnight. Labs improving. No fevers. OK to wake up today and extubate if possible. May remove NG tube at time of extubation. Will start TPN today. Hold lovenox today and resume tomorrow. Continue abx for 48 hours after surgery. 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 After she wakes up and intestinal function resumes, will advance diet and then will need to see how her nutrition is over time. She is also at high risk of anastomotic leak due to appearance of proximal bowel used in anastomosis but I could have not removed any further bowel without ensuring chronic long-term malnutrition. 05/16/17: POD#2. Extubated yesterday. Vitals look good, no fevers. TPN started. Will see if steroids can be stopped. Stop abx today. Will start PT/ OT today as patient tolerates. Continue NPO until signs of bowel function. 05/17/17: POD#3. Stable. Vitals and labs all look good. Pt delirius. Continue TPN until bowel function returns. Will increase insulin in TPN. 05/18/17: POD#4. Delirium persists. She does not sleep but moans all night. Discussed measures to mitigate ICU delirium with ICU nurse and Dr. Membreno ( minimize benzos, zyprexa at night, open windows during day and quiet at night, treat pain with non-narcotic measures). Vitals OK, afebrile. Her WBC increased to 13k. Her abx (flagyl and cefepime) continue. Possible sources of infection include intraabdominal abscess vs. PICC line infection. Will send blood cultures if fever spike. Will scan abd tomorrow if WBC continues to rise. Had small bm yesterday, but with delirium we will not be able to start diet. Continue TPN. Adding lantus for hyperglycemia. Pt remains in ICU. 05/19/17: POD#5 Delirium not responsive to Olanzipine, was on Precedex gtt overnight. She does not respond to external stimuli. Vitals good, afebrile, having bowel movements. Her WBC drifted down to 11.5k. Rest of her labs are ok. Stopped abx. No obvious source of infections to be driving delirium. Would recommend culturing blood if spikes fevers as she has a PICC in place with TPN. Continue ongoing care in ICU. 05/20/17: POD#6. Continued delirium. Now having mild fevers and WBC is increasing. Blood and urine cx pending. If no other source, will need to repeat CT of abdomen/pelvis. Pt is at risk for further ischemic small bowel and anastomotic leak. Abx stopped yesterday. Will check cultures later today, if no source of infection identified will get CT abd/pelvis later today vs tomorrow. (2) Sepsis Status: Resolved Central Venous Access Medical Necessity for Access: Hemodynamic Monitoring, IV Access, Medication Administration Condition Critical Time Spent: < 30 min Exam Sepsis Risk: No Definite Risk Problem Qualifiers (1) Abdominal pain: Abdominal location: generalized Qualified Codes: R10.84 - Generalized abdominal pain (2) Sepsis: Sepsis type: sepsis due to unspecified organism Qualified Codes: A41.9 - Sepsis, unspecified organism YARY TRIPLETT MD May 20, 2017 08:42
[2017-05-20] MEDS: PANTOPRAZOLE SOD 40 MG IV VIAL IVP SCH (09:14)
[2017-05-20] MEDS: INSULIN GLARGINE 100 U/ML 3 ML PEN SUBQ SCH ×2 (09:34→21:13)
[2017-05-20] MEDS: HALOPERIDOL LACT 5 MG/ML VIAL IM SCH ×3 (10:55→22:00)
--- NOTE | 2017-05-20 12:23 | Hospitalist Progress Note ---
Subjective Progress Notes Subjective The patient continues to moan. She does state she is having abdominal pain. She says the pain medication helps some. Physical Exam Vital Signs Date Time Temp Pulse Resp B/P (MAP) Pulse Ox O2 Delivery O2 Flow Rate FiO2 05/20/17 05:35 101 05/20/17 04:04 91 Room Air 05/20/17 04:00 99.6 67 211/93 (132) 05/19/17 18:00 1.0 Intake and Output 05/21/17 07:00 Intake Total 123.4 ml Output Total 440 ml Balance -316.6 ml IV Total 123.4 ml Output Urine Total 440 ml General Appearance: Awake, Other (Constantly moaning.) Neuro: Other (Able to answer questions appropriately.) Cardiovascular: Regular Rate and Rhythm Respiratory: Clear to Auscultation (L lung. R lung with decreased BS in the base.) GI: Other (Soft, BS+. Tender R mid abdomen with some guarding. Wound vac in place over incision.) Extremities: Warm, Perfused Psych: Other (Difficult to assess. ) Result Diagram: 05/20/17 0450 05/20/17 0450 Monitor Interpretation: Normal Sinus Rhythm Assessment and Plan Problems: (1) Septic shock Status: Acute Assessment & Plan: She did present with hypothermia, hypotension, and an elevated WBC. She also had an elevated lactate. Her blood pressure improved with IV fluids and she has been improving after surgery. Her blood cultures have been negative. We did stop stress dose hydrocortisone. She is diffusely edematous and her weight remains elevated secondary to volume resuscitation. She was started on scheduled Lasix. Her sodium is elevated today and her BUN is increasing. Will hold Lasix today and monitor. She has developed low grade fever overnight with an increase in her WBC today. Will repeat blood cultures, UA and CXR. (2) Delirium Status: Acute Assessment & Plan: Her mental status has not improved following surgery. CT scan of her brain is without any obvious abnormalities. She is currently receiving lorazepam prn. She was started on Haldol as well. 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 Gracia on 05/14/17. Please see surgical notes for management. She is currently on TPN and lipids. Dr. Gracia plans to repeat CT of abdomen/pelvis if other labs/CXR do not reveal a cause for her increased WBC and fever. (4) Porcelain gallbladder Status: Chronic Assessment & Plan: Dr. Gracia performed a cholecystectomy during her surgery. (5) Urinary tract infection Status: Acute Assessment & Plan: She was admitted for a urinary infection. She was initially on treatment with ceftriaxone, but was placed on cefepime and metronidazole after surgery. Her urine culture on this admission has been negative. The culture done on 05/08/17 is growing a fairly sensitive E. coli. (6) Acute respiratory failure Assessment & Plan: She did remain intubated after surgery and was extubated successfully on 05/15. (7) Acute renal failure Status: Acute Assessment & Plan: She presented with an elevated creatinine, which has now returned to normal. (8) Type 2 diabetes mellitus Status: Chronic Assessment & Plan: She is on chronic treatment with glimepiride and NPH (which are on hold). Her glucose has been high secondary to the TPN . Lantus has been started and the insulin has been increased in her TPN. She is also on sliding scale level #3. 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 Central Venous Access Medical Necessity for Access: Hemodynamic Monitoring, IV Access, Medication Administration Time Spent on Plan of Care: < 30 min Exam Sepsis Risk: No Definite Risk Problem Qualifiers (1) Urinary tract infection: Urinary tract infection type: acute cystitis Hematuria presence: without hematuria Qualified Codes: N30.00 - Acute cystitis without hematuria TK ORTIZ MD May 20, 2017 12:22
--- NOTE | 2017-05-20 13:11 | RADIOLOGY IMAGING REPORT ---
FACILITY: [facility] PATIENT NAME: Brandy Kathleen : 1940 MR: [id number] V: [id number] EXAM DATE: ORDERING PHYSICIAN: TK ORTIZ TECHNOLOGIST: Location: [facility] [place] Patient: Brandy Kathleen : 1940 Visit/Account:[id number] Date of Sevice: 05/20/2017 CHEST SINGLE AP Indication: Tear. Comparison: 05/15/2017 Findings: In the interval, the patient has been extubated. Nasogastric tube has been removed. Right internal jugular central line has been placed. There are bilateral perihilar and infrahilar interstitial and airspace opacities seen. These are inc reasing on the right when compared to the prior study. These are marginally improved on the left whe n compared to the prior. Superimposed pneumonia/infection cannot be excluded. No pneumothorax or pleural effusion. Heart size is borderline enlarged. Atherosclerotic calcifications seen within the aortic arch. IMPRESSION: 1. Bilateral perihilar and infrahilar interstitial and airspace opacities mildly increased on the ri ght and minimally improved on the left. Possibility of evolving right-sided pneumonia should be cons idered. 2. Atherosclerotic aorta. Report Dictated By: Yoshi Roque at 05/20/2017 12:59 PM Report E-Signed By: Yoshi Roque at 05/20/2017 1:06 PM WSN:[email or web address]
[2017-05-20] MEDS: FAT EMULSION 20% 250 ML BAG 250 ML IVPB SCH (15:58)
[2017-05-20] MEDS: NS(*) 0.9% 1000 ML BAG 1,000 ML IV PRN (15:58)
--- NOTE | 2017-05-20 19:44 | Miscellaneous Provider Note ---
Miscellaneous Provider Note Note CXR shows worsening R sided perihilar infiltrate compared with previous CXR. Radiologist states possible evolving R sided pneumonia. She had been on cefepime and Flagyl until yesterday. Will place her on Zosyn to cover potential Pseudomonas. TK ORTIZ MD May 20, 2017 19:44
[2017-05-20] MEDS: PIPERACILLIN/TAZO*3.375GM VIAL 3.375 GM in NS(*) 0.9% 100 ML ADDVANT BAG 100 ML IVPB SCH (20:54)
[2017-05-20] MEDS: ACETAMINOPHEN(*)1000 MG/100 ML 100 ML IVPB PRN (22:41)
[2017-05-21] VITALS (24 sets, daily range): BP systolic 90–181; BP diastolic 44–158
[2017-05-21] MEDS: INSULIN HUM LISPRO 100 UN/ML 3 ML VIAL SUBQ PRN ×3 (00:20→17:59)
[2017-05-21] MEDS: HYDROmorphone HCL 2 MG/ML SDV IVP PRN ×8 (00:20→23:55)
[2017-05-21] MEDS: PIPERACILLIN/TAZO*3.375GM VIAL 3.375 GM in NS(*) 0.9% 100 ML ADDVANT BAG 100 ML IVPB SCH ×4 (02:03→19:25)
[2017-05-21] MEDS: HALOPERIDOL LACT 5 MG/ML VIAL IM SCH (04:00)
[2017-05-21 05:11] LABS: PLATELET COUNT, AUTOMATED 116 K/uL (150-450)
[2017-05-21] MEDS: ACETAMINOPHEN(*)1000 MG/100 ML 100 ML IVPB PRN ×2 (05:41→23:54)
[2017-05-21] MEDS ORDERED: DEXTROSE 10% IV SCH (06:45)
--- NOTE | 2017-05-21 08:31 | General Surgery Progress Note ---
Subjective Progress Notes Subjective Pt without complaints this morning. Her mental status has cleared up remarkably over the last 24 hours. No pain at the moment. She did pull out her central line overnight. She knows she's in the [facility] ICU and that she had surgery. Physical Exam Vital Signs Date Time Temp Pulse Resp B/P (MAP) Pulse Ox O2 Delivery O2 Flow Rate FiO2 05/21/17 08:00 99.0 92 17 141/67 (91) 92 Oxy Mask 2.0 Intake and Output 05/22/17 07:00 Output Total 80 ml Balance -80 ml Output Urine Total 80 ml General Appearance: Alert, Awake, No Acute Distress, Afebrile GI: Soft and Non-Tender (Benign abdominal exam. Midline incision looks good, no erythema or drainage.) Extremities: Warm, Perfused Result Diagram: 05/21/17 0455 05/21/17 045 Monitor Interpretation: Normal Sinus Rhythm Assessment and Plan Problems: (1) Abdominal pain Status: Acute Assessment & Plan: 05/14/17: Patient is very ill. Apparently has very severe abdominal pain although not apparent to me today due to the amount of narcotics that she is received but her lactate is going up in spite of improving blood pressure, heart rate, and overall clinical status. She potentially has cholecystitis, ischemic or dying intestines, or both. I recommended that we start with laparoscopy to inspect her gallbladder and small intestines and then if there is obviously something to be dealt with then will convert to an open midline laparotomy incision with small intestinal resection and/or cholecystectomy. I have discussed this with her daughter who agrees with this plan. She provides consent over the telephone since the patient cannot provide consent given her current condition. The patient is DO NOT RESUSCITATE/DO NOT INTUBATE but does wish to proceed with surgery according to the hospitalist who spoke with her last night about this possibility and the daughter agrees with this as well. If she goes into cardiac arrest or has cardiac or pulmonary arrest issues after surgery then she does not wish any aggressive measures to be taken. We'll proceed with surgery this morning. 05/15/17: POD#1 s/p ex lap, extensive small bowel resection (145cm; approximately 110cm remaining), cholecystectomy. Stable overnight. Labs improving. No fevers. OK to wake up today and extubate if possible. May remove NG tube at time of extubation. Will start TPN today. Hold lovenox today and resume tomorrow. Continue abx for 48 hours after surgery. 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 After she wakes up and intestinal function resumes, will advance diet and then will need to see how her nutrition is over time. She is also at high risk of anastomotic leak due to appearance of proximal bowel used in anastomosis but I could have not removed any further bowel without ensuring chronic long-term malnutrition. 05/16/17: POD#2. Extubated yesterday. Vitals look good, no fevers. TPN started. Will see if steroids can be stopped. Stop abx today. Will start PT/ OT today as patient tolerates. Continue NPO until signs of bowel function. 05/17/17: POD#3. Stable. Vitals and labs all look good. Pt delirius. Continue TPN until bowel function returns. Will increase insulin in TPN. 05/18/17: POD#4. Delirium persists. She does not sleep but moans all night. Discussed measures to mitigate ICU delirium with ICU nurse and Dr. Membreno ( minimize benzos, zyprexa at night, open windows during day and quiet at night, treat pain with non-narcotic measures). Vitals OK, afebrile. Her WBC increased to 13k. Her abx (flagyl and cefepime) continue. Possible sources of infection include intraabdominal abscess vs. PICC line infection. Will send blood cultures if fever spike. Will scan abd tomorrow if WBC continues to rise. Had small bm yesterday, but with delirium we will not be able to start diet. Continue TPN. Adding lantus for hyperglycemia. Pt remains in ICU. 05/19/17: POD#5 Delirium not responsive to Olanzipine, was on Precedex gtt overnight. She does not respond to external stimuli. Vitals good, afebrile, having bowel movements. Her WBC drifted down to 11.5k. Rest of her labs are ok. Stopped abx. No obvious source of infections to be driving delirium. Would recommend culturing blood if spikes fevers as she has a PICC in place with TPN. Continue ongoing care in ICU. 05/20/17: POD#6. Continued delirium. Now having mild fevers and WBC is increasing. Blood and urine cx pending. If no other source, will need to repeat CT of abdomen/pelvis. Pt is at risk for further ischemic small bowel and anastomotic leak. Abx stopped yesterday. Will check cultures later today, if no source of infection identified will get CT abd/pelvis later today vs tomorrow. 05/21/17: POD#7. Delirium is much better this morning. Abdominal exam is benign. WBC is coming down on IV abx. Still with mild fevers to 99F. Will need to reestablish IV access today. Will stop TPN and get a swallow eval and, if OK, start clear diet today. (2) Sepsis Status: Resolved Central Venous Access Medical Necessity for Access: Hemodynamic Monitoring, IV Access, Medication Administration Condition Stable. Time Spent: < 30 min Exam Sepsis Risk: No Definite Risk Problem Qualifiers (1) Abdominal pain: Abdominal location: generalized Qualified Codes: R10.84 - Generalized abdominal pain (2) Sepsis: Sepsis type: sepsis due to unspecified organism Qualified Codes: A41.9 - Sepsis, unspecified organism YARY TRIPLETT MD May 21, 2017 08:31
--- NOTE | 2017-05-21 09:07 | Procedure Note ---
Central Line Procedure Note Indication for Central Line: IV medications Consent Signed: Yes Central Line Lumen: Triple Central Line Procedure: Chlorhexidine Prep, Sterile Drapes Applied, Sterile Dressing Applied Central Line Position: L Internal Jugular Anesthesia Used: 1% Lidocaine CC's of Anesthesia: 5 Complications: None Central Line Post Position: Sutured, Confirmed Blood Return, Position Confirmed w/CXR YARY TRIPLETT MD May 21, 2017 09:07
--- NOTE | 2017-05-21 09:31 | RADIOLOGY IMAGING REPORT ---
FACILITY: [facility] - [place] PATIENT NAME: Brandy Kathleen : 1940 MR: [id number] V: [id number] EXAM DATE: ORDERING PHYSICIAN: YARY TRIPLETT TECHNOLOGIST: Location: [facility] - [place] Patient: Brandy Kathleen : 1940 Visit/Account:[id number] Date of Sevice: 05/21/2017 Technique: CHEST SINGLE AP HISTORY: central line placement Comparison studies: Chest radiograph May 20, 2017 FINDINGS: Present is a left-sided central venous catheter with the tip overlying the right atrium. N o pneumothorax. There remains central vascular congestion and low lung volumes. The cardiac silhoue tte is unchanged. IMPRESSION: 1. Left-sided central venous catheter tip overlying the right atrium. 2. No significant change otherwise allowing for degree of inspiration. Report Dictated By: Cesar Ron DO at 05/21/2017 9:24 AM Report E-Signed By: Cesar Ron DO at 05/21/2017 9:27 AM WSN:[email or web address]
[2017-05-21] MEDS: PANTOPRAZOLE SOD 40 MG IV VIAL IVP SCH (09:42)
[2017-05-21] MEDS ORDERED: [UNRECOGNIZED DRUG - OTHER] IV ONE (10:00)
--- NOTE | 2017-05-21 10:06 | RADIOLOGY IMAGING REPORT ---
FACILITY: [facility] - [place] PATIENT NAME: Brandy Kathleen : 1940 MR: [id number] V: [id number] EXAM DATE: ORDERING PHYSICIAN: YARY TRIPLETT TECHNOLOGIST: Location: [facility] [place] Patient: Brandy Kathleen : 1940 Visit/Account:[id number] Date of Sevice: 05/21/2017 Technique: CHEST SINGLE AP HISTORY: Repositioning of the central venous catheter Comparison studies: Chest radiograph 05/21/2017 FINDINGS: The left-sided central venous catheter tip overlies the cavoatrial junction. Central vascu lar congestion and left midlung opacities are unchanged. No pneumothorax. The cardiac silhouette is unchanged. IMPRESSION: 1. Left-sided central venous catheter tip overlying the cavoatrial junction. No pneumothorax. 2. No significant change otherwise. Report Dictated By: Cesar Ron DO at 05/21/2017 10:00 AM Report E-Signed By: Cesar Ron DO at 05/21/2017 10:01 AM WSN:[email or web address]
[2017-05-21] MEDS ORDERED: HALOPERIDOL LACT 5 MG/ML VIAL IM PRN (12:00)
--- NOTE | 2017-05-21 12:39 | SWALLOW EVALUATION ---
SPEECH THERAPY ASSESSMENT Type of Assessment: Initial Swallow Post Intubation Patient: Brandy Kathleen : 1940 Evaluation Date: 05-21-17 PREVIOUS LEVEL OF FUNCTION Primary Medical Diagnosis: Abdominal Pain Prior Level of Function: NICK Medical Complications/Past Medical History: GERD, See chart for details Pain Scale (0-10): 0 with swallow COGNITION/COMMUNICATION LOC: conscious, somnolent Cognitive-Linguistic Deficits: responds to 1step verbal commands Cognitive- Linguistic deficits impact swallow function/safety, or response to therapy: No Functional Communication Deficits: medical status Functional Communication Deficits impact swallow function/safety, or response to therapy: Yes COMMUNICATIVE TASKS -intact communication modes: speech, gestures -written: not yes assessed Responds to his/her name Y Communicates about pain or discomfort Y Communicates hunger or thirst Y SPEECH Largely intact VOICE Hoarse DYSPHAGIA Pt has TPN Dysphagia Risk Evaluation Protocol (DREP): Liquids: Thin liquids by spoon approx 1/2 tsp: Passed. Foods: Pureed Foods by spoon approx 1/2 tsp: : Passed Mechanical Soft: Fail. Pt level of consciousness increases risk with this consistency. Will reassess Functional Oral Intake Scale (FOIS) : Level 4: Total oral intake of a single consistency ASSESSMENT SUMMARY: Dysphagia Risk Evaluation Protocol (DREP): Liquids: Thin liquids by spoon approx 1/2 tsp: Passed. Foods: Pureed Foods by spoon approx 1/2 tsp: : Passed Mechanical Soft: Fail. Pt level of consciousness increases risk with this consistency. Will reassess Functional Oral Intake Scale (FOIS) : Level 4: Total oral intake of a single consistency RECOMMENDATION Diet Modification: Thin liquids from spoon and dysphagia 1 diet. Precautions: Limit bolus size to 1/2tsp ST will reassess for diet upgrade PLAN OF CARE Short Term Goals 1. Pt. will receive diet/liquid consistency trials to advance diet to regular food consistency & thin liquids without s/s of dysphagia. Long-Term Goals The patient consume regular food and liquid diet without s/s of dysphagia. Prognosis: very good. No previous dysphagia Thank you for this referral. Please call [phone] (inpatient rehab) or [phone] (outpatient rehab) to contact the [facility]. Yahaira Mahoney M.S., [facility] Speech Therapist [place]
--- NOTE | 2017-05-21 13:12 | Hospitalist Progress Note ---
Subjective Progress Notes Subjective The patient is without complaints. She accidently removed her central line overnight. Physical Exam Vital Signs Date Time Temp Pulse Resp B/P (MAP) Pulse Ox O2 Delivery O2 Flow Rate FiO2 05/21/17 12:38 87 05/21/17 12:00 27 129/65 (86) 96 Nasal Cannula 2.0 05/21/17 11:00 99.5 Intake and Output 05/22/17 07:00 Intake Total 120 ml Output Total 250 ml Balance -130 ml IV Total 120 ml Output Urine Total 250 ml General Appearance: Alert, Awake, No Acute Distress Neuro: No Gross deficits (But confused to place and events.) Cardiovascular: Regular Rate and Rhythm Respiratory: Clear to Auscultation Extremities: Edema (2+ pitting in arms/legs/feet/hands) Result Diagram: 05/21/17 0455 05/21/17 0455 Monitor Interpretation: Normal Sinus Rhythm Assessment and Plan Problems: (1) Septic shock Status: Acute Assessment & Plan: She did present with hypothermia, hypotension, and an elevated WBC. She also had an elevated lactate. Her blood pressure improved with IV fluids and she has been improving after surgery. Her blood cultures have been negative. We did stop stress dose hydrocortisone. She is diffusely edematous and her weight remains elevated secondary to volume resuscitation. She was started on scheduled Lasix. Her sodium is elevated today and her BUN is increasing. Will continue to hold Lasix today and monitor. She has developed low grade fever with an increase in her WBC, so Zosyn started. CXR with a possible right sided pneumonia. UA with hematuria. Repeat blood cultures pending. (2) Delirium Status: Acute Assessment & Plan: Her mental status is starting to improve after surgery. She had a prolonged intractable delirium. CT scan of her brain was without any obvious abnormalities. She was started on Haldol and now will be prn. Will place on melatonin. 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 Gracia on 05/14/17. Please see surgical notes for management. She is currently on TPN and lipids. Dr. Gracia plans to repeat CT of abdomen/pelvis if other labs/CXR do not reveal a cause for her increased WBC and fever. (4) Porcelain gallbladder Status: Chronic Assessment & Plan: Dr. Gracia performed a cholecystectomy during her surgery. (5) Urinary tract infection Status: Resolved Assessment & Plan: She was admitted for a urinary infection. She was initially on treatment with ceftriaxone, but was placed on cefepime and metronidazole after surgery. Her urine culture on this admission has been negative. The culture done on 05/08/17 is growing a fairly sensitive E. coli. (6) Acute respiratory failure Assessment & Plan: She did remain intubated after surgery and was extubated successfully on 05/15. (7) Acute renal failure Status: Acute Assessment & Plan: She presented with an elevated creatinine, which has now returned to normal. (8) Type 2 diabetes mellitus Status: Chronic Assessment & Plan: She is on chronic treatment with glimepiride and NPH (which are on hold). Her glucose has been high secondary to the TPN . Lantus was started and the insulin had been increased in her TPN. Lantus stopped now that TPN is stopped. She is also on sliding scale level #3. 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 Central Venous Access Medical Necessity for Access: Hemodynamic Monitoring, IV Access, Medication Administration Exam Sepsis Risk: No Definite Risk Problem Qualifiers (1) Urinary tract infection: Urinary tract infection type: acute cystitis Hematuria presence: without hematuria Qualified Codes: N30.00 - Acute cystitis without hematuria KAILEE GARCIA MD May 21, 2017 13:12
[2017-05-21] MEDS ORDERED: KETOROLAC 30 MG/ML VIAL IVP PRN (15:20)
[2017-05-21] MEDS: KETOROLAC 15 MG/ML VIAL IVP PRN (19:36)
[2017-05-21] MEDS: MELATONIN 3 MG TAB PO SCH (20:31)
[2017-05-22] VITALS (24 sets, daily range): BP systolic 74–147; BP diastolic 44–88
[2017-05-22] MEDS: INSULIN HUM LISPRO 100 UN/ML 3 ML VIAL SUBQ PRN ×5 (01:10→20:29)
[2017-05-22] MEDS: PIPERACILLIN/TAZO*3.375GM VIAL 3.375 GM in NS(*) 0.9% 100 ML ADDVANT BAG 100 ML IVPB SCH ×4 (01:16→20:29)
[2017-05-22] MEDS: KETOROLAC 15 MG/ML VIAL IVP PRN (03:39)
[2017-05-22 05:45] LABS: PLATELET COUNT, AUTOMATED 126 K/uL (150-450)
--- NOTE | 2017-05-22 07:26 | General Surgery Progress Note ---
Subjective Progress Notes Subjective No complaints right now. No pain. Much more alert and communicative this morning. Physical Exam Vital Signs Date Time Temp Pulse Resp B/P (MAP) Pulse Ox O2 Delivery O2 Flow Rate FiO2 05/22/17 07:17 99 Nasal Cannula 2.0 05/22/17 07:13 83 05/22/17 07:00 99.4 23 103/53 (70) Intake and Output 05/23/17 07:00 Output Total 50 ml Balance -50 ml Output Urine Total 50 ml General Appearance: Alert, Awake, No Acute Distress, Afebrile GI: Soft and Non-Tender (Incision is healing well without erythema or drainage) Extremities: Warm, Perfused Result Diagram: 05/22/1751705/22/17517 Monitor Interpretation: Normal Sinus Rhythm Assessment and Plan Problems: (1) Abdominal pain Status: Acute Assessment & Plan: 05/14/17: Patient is very ill. Apparently has very severe abdominal pain although not apparent to me today due to the amount of narcotics that she is received but her lactate is going up in spite of improving blood pressure, heart rate, and overall clinical status. She potentially has cholecystitis, ischemic or dying intestines, or both. I recommended that we start with laparoscopy to inspect her gallbladder and small intestines and then if there is obviously something to be dealt with then will convert to an open midline laparotomy incision with small intestinal resection and/or cholecystectomy. I have discussed this with her daughter who agrees with this plan. She provides consent over the telephone since the patient cannot provide consent given her current condition. The patient is DO NOT RESUSCITATE/DO NOT INTUBATE but does wish to proceed with surgery according to the hospitalist who spoke with her last night about this possibility and the daughter agrees with this as well. If she goes into cardiac arrest or has cardiac or pulmonary arrest issues after surgery then she does not wish any aggressive measures to be taken. We'll proceed with surgery this morning. 05/15/17: POD#1 s/p ex lap, extensive small bowel resection (145cm; approximately 110cm remaining), cholecystectomy. Stable overnight. Labs improving. No fevers. OK to wake up today and extubate if possible. May remove NG tube at time of extubation. Will start TPN today. Hold lovenox today and resume tomorrow. Continue abx for 48 hours after surgery. 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 After she wakes up and intestinal function resumes, will advance diet and then will need to see how her nutrition is over time. She is also at high risk of anastomotic leak due to appearance of proximal bowel used in anastomosis but I could have not removed any further bowel without ensuring chronic long-term malnutrition. 05/16/17: POD#2. Extubated yesterday. Vitals look good, no fevers. TPN started. Will see if steroids can be stopped. Stop abx today. Will start PT/ OT today as patient tolerates. Continue NPO until signs of bowel function. 05/17/17: POD#3. Stable. Vitals and labs all look good. Pt delirius. Continue TPN until bowel function returns. Will increase insulin in TPN. 05/18/17: POD#4. Delirium persists. She does not sleep but moans all night. Discussed measures to mitigate ICU delirium with ICU nurse and Dr. Membreno ( minimize benzos, zyprexa at night, open windows during day and quiet at night, treat pain with non-narcotic measures). Vitals OK, afebrile. Her WBC increased to 13k. Her abx (flagyl and cefepime) continue. Possible sources of infection include intraabdominal abscess vs. PICC line infection. Will send blood cultures if fever spike. Will scan abd tomorrow if WBC continues to rise. Had small bm yesterday, but with delirium we will not be able to start diet. Continue TPN. Adding lantus for hyperglycemia. Pt remains in ICU. 05/19/17: POD#5 Delirium not responsive to Olanzipine, was on Precedex gtt overnight. She does not respond to external stimuli. Vitals good, afebrile, having bowel movements. Her WBC drifted down to 11.5k. Rest of her labs are ok. Stopped abx. No obvious source of infections to be driving delirium. Would recommend culturing blood if spikes fevers as she has a PICC in place with TPN. Continue ongoing care in ICU. 05/20/17: POD#6. Continued delirium. Now having mild fevers and WBC is increasing. Blood and urine cx pending. If no other source, will need to repeat CT of abdomen/pelvis. Pt is at risk for further ischemic small bowel and anastomotic leak. Abx stopped yesterday. Will check cultures later today, if no source of infection identified will get CT abd/pelvis later today vs tomorrow. 05/21/17: POD#7. Delirium is much better this morning. Abdominal exam is benign. WBC is coming down on IV abx. Still with mild fevers to 99F. Will need to reestablish IV access today. Will stop TPN and get a swallow eval and, if OK, start clear diet today. 05/22/17: POD#8. Much more lucid. Seems comfortable. Abdominal exam is benign. WBC continues to decline on Zosyn. Still having mild temps to 99F. Will start dysphagia 1 diet today. Will likely develop diarrhea and so may need to make efforts at slowing down bowels if becomes significant. (2) Sepsis Status: Resolved Central Venous Access Medical Necessity for Access: Hemodynamic Monitoring, IV Access, Medication Administration Condition Guarded Time Spent: < 30 min Exam Sepsis Risk: Severe Sepsis Risk Problem Qualifiers (1) Abdominal pain: Abdominal location: generalized Qualified Codes: R10.84 - Generalized abdominal pain (2) Sepsis: Sepsis type: sepsis due to unspecified organism Qualified Codes: A41.9 - Sepsis, unspecified organism YARY TRIPLETT MD May 22, 2017 07:26
--- NOTE | 2017-05-22 08:53 | Hospitalist Progress Note ---
Subjective Progress Notes Subjective She reports pain is improved. She states she is hungry and has an appetite. Physical Exam Vital Signs Date Time Temp Pulse Resp B/P (MAP) Pulse Ox O2 Delivery O2 Flow Rate FiO2 05/22/17 07:17 99 Nasal Cannula 2.0 05/22/17 07:13 83 05/22/17 07:00 99.4 23 103/53 (70) Intake and Output 05/23/17 07:00 Intake Total 250 ml Output Total 50 ml Balance 200 ml Intake Oral 250 ml Output Urine Total 50 ml General Appearance: Alert, Awake Cardiovascular: Regular Rate and Rhythm Respiratory: Clear to Auscultation GI: Other (Soft/incision appears to be healing well/BS present) Extremities: Warm, Perfused, Edema (1+ dependent) Result Diagram: 05/22/17 0518 05/22/17 0518 Monitor Interpretation: Normal Sinus Rhythm Assessment and Plan Problems: (1) Septic shock Status: Acute Assessment & Plan: She did present with hypothermia, hypotension, and an elevated WBC. She also had an elevated lactate. Her blood pressure improved with IV fluids and she has been improving after surgery. Her blood cultures have been negative. We did stop stress dose hydrocortisone. She is diffusely edematous and her weight remains elevated secondary to volume resuscitation. She was started on scheduled Lasix. Her sodium is elevated today and her BUN is increasing. Will continue to hold Lasix today and monitor. She developed low grade fever with an increase in her WBC, so Zosyn was started. CXR with a possible right sided pneumonia. UA with hematuria. Repeat blood cultures negative thus far. (2) Delirium Status: Acute Assessment & Plan: Her mental status is much improved. She had a prolonged intractable delirium. CT scan of her brain was without any obvious abnormalities. Will try to minimize all medications. 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 Gracia on 05/14/17. Please see surgical notes for management. She is currently on TPN and lipids. Dr. Gracia is following closely. (4) Porcelain gallbladder Status: Chronic Assessment & Plan: Dr. Gracia performed a cholecystectomy during her surgery. (5) Urinary tract infection Status: Resolved Assessment & Plan: She was admitted for a urinary infection. She was initially on treatment with ceftriaxone, but was placed on cefepime and metronidazole after surgery. Her urine culture on this admission has been negative. The culture done on 05/08/17 did grow a fairly sensitive E. coli. (6) Acute respiratory failure Assessment & Plan: She did remain intubated after surgery and was extubated successfully on 05/15. (7) Acute renal failure Status: Acute Assessment & Plan: She presented with an elevated creatinine, which has now returned to normal. (8) Type 2 diabetes mellitus Status: Chronic Assessment & Plan: She is on chronic treatment with glimepiride and NPH (which are on hold). Her glucose has been high secondary to the TPN. She is also on sliding scale level #3. 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 Central Venous Access Medical Necessity for Access: Hemodynamic Monitoring, IV Access, Medication Administration Exam Sepsis Risk: Severe Sepsis Risk Problem Qualifiers (1) Urinary tract infection: Urinary tract infection type: acute cystitis Hematuria presence: without hematuria Qualified Codes: N30.00 - Acute cystitis without hematuria FAITH ORTIZ MD May 22, 2017 08:53
[2017-05-22] MEDS: PANTOPRAZOLE SOD 40 MG TABEC PO SCH (09:10)
[2017-05-22] MEDS ORDERED: [UNRECOGNIZED DRUG - OTHER] IV SCH (10:00)
--- NOTE | 2017-05-22 11:13 | Medical Nutrition Therapy ---
Nutrition Anthropometrics Height (Inches): 65.00 Height (Calculated Centimeters: 165.509629 Weight (Pounds): 235 Weight (Calculated Kilograms): 106.679 BMI Calculated: 31.95 Homero Nutrition Score: Adequate Homero Nutrition Risk Score: 15 Dietary Referral Nutrition Risk Factors: Diff. Swallowing Nutrition Risk Comment: Nutritional Diagnosis Nutritional Risk Acuity 2: GI Malabsorption (most of small bowel removed) Past Medical History: T2DM, GERD, CKD Nutritional Acuity: 2-Moderate Nutrition Diagnosis: Altered GI Function Nutrition Etiology: Physiological Causes Nutrition Problem/Etiology/Sym: Altered Gastrointestinal (GI) Function related to decreased functional length of the GI tract d/t bowel resection AEB dx of infarcted portion of small intestine and possible need for alf TPN. Energy Requirement: 2170 ([place]-St Jeor: Actual BW X 1.5) Protein Requirement: 77 (Actual BW Kg X .8) Fluid Requirement: 2170 Diet Type: TPN/PPN Nutrition Intervention: Incr diet as tolerated, Check glucose Nutrition Monitoring & Eval Nutrition Goals: Eat 50-100% Meal RD Patient Assessment Time: [address] Assessment Type: RD Re-Assessment Patient Nutrition Acuity: 1-High Follow Up Date: May 24, 2017 Nutritional Comment: Pt admitted for abdominal pain and UTI. Underwent surgery 05/14 for extensive small bowel resection and cholecystectomy. Hopefully extubate today. TPN started with Clinimix 4.25%-25% at 75mL/hr and Intralipid 20% 250mL/day. Pt also receiving varying amounts of propofol for sedation. At current rate of TPN, pt receiving 2336 Kcal and 76 grams protein per 24 hrs. This provides 108% of estimated Kcal needs and 99% of estimated protein needs. notes pt may require intermediate frame tender TPN. Alb 1.6, High AST/ALT, Glu 220, High BUN/Creat. Monitor for tolerance and diet progression. 05/16 Pt cont on TPN at 75ml/hr plus 12 hrs interlipid which provided 275 kcal. Recalculated kcal intake. TPN is meeting 97% est kcal, 100% est protein needs. Pt is no longer on propofol. BG cont elevated 200-300's. Alb 1.9. Will cont to monitor. 05/18 Pt cont on TPN which is meeting nutr needs. BG cont elevated in 300's. Alb 1.7. Wt stabilzed at 226# past 3 days. Up 34# from admit. Will cont to monitor 05/22 TPN d/mac[address]. ST provided evaluation and recommend Dyspagia 1 diet with thin liquid not larger that 1/2 tsp per bolus. Concerned that pt will get tired and not be able to eat enough kcal to meet nutr needs. Dr Gracia expressed concerns with possible diarrhea r/t short gut. Pt may need an elemental enteral product to meet nutr needs. Will monitor intake to determine if intake adequate. ANGIE FARRELL May 22, 2017 11:13
[2017-05-22] MEDS: ACETAMINOPHEN(*)1000 MG/100 ML 100 ML IVPB PRN (11:45)
--- NOTE | 2017-05-22 13:06 | RADIOLOGY IMAGING REPORT ---
FACILITY: [facility] PATIENT NAME: Brandy Kathleen : 1940 MR: [id number] V: [id number] EXAM DATE: ORDERING PHYSICIAN: FAITH ORTIZ TECHNOLOGIST: Location: [facility] Patient: Brandy Kathleen : 1940 Visit/Account:[id number] Date of Sevice: 05/22/2017 Single view of the chest Indication: Increased shortness of breath, tachypnea. Comparison: X-ray examination chest May 21, 2017 Findings: There are low volumes. Heart is enlarged. Central vascular crowding is noted. Findings indicative of venous congestion and mild interstitial edema. No definite effusion. Linear type atelectasis is noted within the vibha bilaterally. Stable appearance left-sided central line terminating in central aspect superior vena cava. IMPRESSION: 1. Low volumes with perihilar atelectasis. 2. No significant change with cardiomegaly and mild CHF Report Dictated By: Ty Fierro MD at 05/22/2017 1:00 PM Report E-Signed By: Ty Fierro MD at 05/22/2017 1:02 PM WSN:[id number]
[2017-05-22] MEDS: MELATONIN 3 MG TAB PO SCH (20:29)
[2017-05-23] VITALS (24 sets, daily range): BP systolic 86–142; BP diastolic 42–96
[2017-05-23] MEDS: HYDROmorphone HCL 2 MG/ML SDV IVP PRN (00:50)
[2017-05-23] MEDS: PIPERACILLIN/TAZO*3.375GM VIAL 3.375 GM in NS(*) 0.9% 100 ML ADDVANT BAG 100 ML IVPB SCH ×4 (01:30→20:35)
[2017-05-23 05:48] LABS: PLATELET COUNT, AUTOMATED 142 K/uL (150-450)
--- NOTE | 2017-05-23 07:13 | General Surgery Progress Note ---
Subjective Progress Notes Subjective Pt without complaints. No pain. Seems to be tolerating dysphagia 3 diet. Physical Exam Vital Signs Date Time Temp Pulse Resp B/P (MAP) Pulse Ox O2 Delivery O2 Flow Rate FiO2 05/23/17 06:00 97.8 76 20 112/57 (75) 97 Nasal Cannula 1.0 General Appearance: Alert, Awake, No Acute Distress, Afebrile GI: Soft and Non-Tender (incision looks good without erythema or drainage.) Extremities: Warm, Perfused Result Diagram: 05/23/17 0530 05/23/17 0530 Monitor Interpretation: Normal Sinus Rhythm Assessment and Plan Problems: (1) Abdominal pain Status: Acute Assessment & Plan: 05/14/17: Patient is very ill. Apparently has very severe abdominal pain although not apparent to me today due to the amount of narcotics that she is received but her lactate is going up in spite of improving blood pressure, heart rate, and overall clinical status. She potentially has cholecystitis, ischemic or dying intestines, or both. I recommended that we start with laparoscopy to inspect her gallbladder and small intestines and then if there is obviously something to be dealt with then will convert to an open midline laparotomy incision with small intestinal resection and/or cholecystectomy. I have discussed this with her daughter who agrees with this plan. She provides consent over the telephone since the patient cannot provide consent given her current condition. The patient is DO NOT RESUSCITATE/DO NOT INTUBATE but does wish to proceed with surgery according to the hospitalist who spoke with her last night about this possibility and the daughter agrees with this as well. If she goes into cardiac arrest or has cardiac or pulmonary arrest issues after surgery then she does not wish any aggressive measures to be taken. We'll proceed with surgery this morning. 05/15/17: POD#1 s/p ex lap, extensive small bowel resection (145cm; approximately 110cm remaining), cholecystectomy. Stable overnight. Labs improving. No fevers. OK to wake up today and extubate if possible. May remove NG tube at time of extubation. Will start TPN today. Hold lovenox today and resume tomorrow. Continue abx for 48 hours after surgery. 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 After she wakes up and intestinal function resumes, will advance diet and then will need to see how her nutrition is over time. She is also at high risk of anastomotic leak due to appearance of proximal bowel used in anastomosis but I could have not removed any further bowel without ensuring chronic long-term malnutrition. 05/16/17: POD#2. Extubated yesterday. Vitals look good, no fevers. TPN started. Will see if steroids can be stopped. Stop abx today. Will start PT/ OT today as patient tolerates. Continue NPO until signs of bowel function. 05/17/17: POD#3. Stable. Vitals and labs all look good. Pt delirius. Continue TPN until bowel function returns. Will increase insulin in TPN. 05/18/17: POD#4. Delirium persists. She does not sleep but moans all night. Discussed measures to mitigate ICU delirium with ICU nurse and Dr. Membreno ( minimize benzos, zyprexa at night, open windows during day and quiet at night, treat pain with non-narcotic measures). Vitals OK, afebrile. Her WBC increased to 13k. Her abx (flagyl and cefepime) continue. Possible sources of infection include intraabdominal abscess vs. PICC line infection. Will send blood cultures if fever spike. Will scan abd tomorrow if WBC continues to rise. Had small bm yesterday, but with delirium we will not be able to start diet. Continue TPN. Adding lantus for hyperglycemia. Pt remains in ICU. 05/19/17: POD#5 Delirium not responsive to Olanzipine, was on Precedex gtt overnight. She does not respond to external stimuli. Vitals good, afebrile, having bowel movements. Her WBC drifted down to 11.5k. Rest of her labs are ok. Stopped abx. No obvious source of infections to be driving delirium. Would recommend culturing blood if spikes fevers as she has a PICC in place with TPN. Continue ongoing care in ICU. 05/20/17: POD#6. Continued delirium. Now having mild fevers and WBC is increasing. Blood and urine cx pending. If no other source, will need to repeat CT of abdomen/pelvis. Pt is at risk for further ischemic small bowel and anastomotic leak. Abx stopped yesterday. Will check cultures later today, if no source of infection identified will get CT abd/pelvis later today vs tomorrow. 05/21/17: POD#7. Delirium is much better this morning. Abdominal exam is benign. WBC is coming down on IV abx. Still with mild fevers to 99F. Will need to reestablish IV access today. Will stop TPN and get a swallow eval and, if OK, start clear diet today. 05/22/17: POD#8. Much more lucid. Seems comfortable. Abdominal exam is benign. WBC continues to decline on Zosyn. Still having mild temps to 99F. Will start dysphagia 1 diet today. Will likely develop diarrhea and so may need to make efforts at slowing down bowels if becomes significant. 05/23/17: POD#9. Doing well. WBC coming down. Abdominal exam is benign. Afebrile. Continue with dysphagia 3 diet. Will follow BMs, if too extreme then will make efforts to slow them down. Pt seems to be improving. (2) Sepsis Status: Resolved Central Venous Access Medical Necessity for Access: Hemodynamic Monitoring, IV Access, Medication Administration Condition Stable. Time Spent: < 30 min Exam Sepsis Risk: Severe Sepsis Risk Problem Qualifiers (1) Abdominal pain: Abdominal location: generalized Qualified Codes: R10.84 - Generalized abdominal pain (2) Sepsis: Sepsis type: sepsis due to unspecified organism Qualified Codes: A41.9 - Sepsis, unspecified organism YARY TRIPLETT MD May 23, 2017 07:13
[2017-05-23] MEDS: INSULIN HUM LISPRO 100 UN/ML 3 ML VIAL SUBQ PRN ×4 (08:03→21:24)
[2017-05-23] MEDS: PANTOPRAZOLE SOD 40 MG TABEC PO SCH (09:19)
--- NOTE | 2017-05-23 10:36 | Hospitalist Progress Note ---
Subjective Progress Notes Subjective This patient was admitted for bowel infarction and porcelain gallbladder. She had no acute events overnight. Patient Complains of: Cardiovascular: No: Chest Pain Respiratory: No: Shortness of Breath Physical Exam Vital Signs Date Time Temp Pulse Resp B/P (MAP) Pulse Ox O2 Delivery O2 Flow Rate FiO2 05/23/17 10:00 99.4 28 90/50 (63) 97 Nasal Cannula 1.0 05/23/17 09:41 90 Intake and Output 05/24/17 07:00 Intake Total 500 ml Output Total 160 ml Balance 340 ml Intake Oral 500 ml Output Urine Total 160 ml # Bowel Movements 1 Neuro: No Gross deficits Cardiovascular: Regular Rate and Rhythm, Other (IJ easily compressible by ultrasound.) Respiratory: Clear to Auscultation Extremities: Edema Integumentary: No Cyanosis Result Diagram: 05/23/17 0530 05/23/17 0530 Monitor Interpretation: Normal Sinus Rhythm Assessment and Plan Problems: (1) Septic shock Status: Acute Assessment & Plan: She did present with hypothermia, hypotension, and an elevated WBC. She also had an elevated lactate. Her blood pressure improved with IV fluids and she has been improving after surgery. Her blood cultures have been negative. We did stop stress dose hydrocortisone. (2) Delirium Status: Acute Assessment & Plan: She had a prolonged intractable delirium. A CT scan of her brain was without any obvious abnormalities. Her mental status is much improved. 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 Gracia on 05/14/17. Please see surgical notes for management. (4) Porcelain gallbladder Status: Chronic Assessment & Plan: Dr. Gracia performed a cholecystectomy during her surgery. (5) Urinary tract infection Status: Resolved Assessment & Plan: She was admitted for a urinary infection. She was initially on treatment with ceftriaxone, but was placed on cefepime and metronidazole after surgery. Her urine culture on this admission has been negative. The culture done on 05/08/17 did grow a fairly sensitive E. coli. (6) Acute respiratory failure Assessment & Plan: She did remain intubated after surgery and was extubated successfully on 05/15. (7) Acute renal failure Status: Acute Assessment & Plan: She presented with an elevated creatinine, which has now returned to normal. (8) Type 2 diabetes mellitus Status: Chronic Assessment & Plan: She is on chronic treatment with glimepiride and NPH (which are on hold). Her glucose has been under better control since stopping the TPN. She does remain on sliding scale level #3. 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 Central Venous Access Medical Necessity for Access: Hemodynamic Monitoring, IV Access, Medication Administration Exam Sepsis Risk: No Definite Risk Problem Qualifiers (1) Urinary tract infection: Urinary tract infection type: acute cystitis Hematuria presence: without hematuria Qualified Codes: N30.00 - Acute cystitis without hematuria YARY RAI DO May 23, 2017 10:36
--- NOTE | 2017-05-23 11:08 | Medical Nutrition Therapy ---
Nutrition Anthropometrics Height (Inches): 65.00 Height (Calculated Centimeters: 165.272518 Weight (Pounds): 242 Weight (Calculated Kilograms): 109.769 BMI Calculated: 31.95 Homero Nutrition Score: Adequate Homero Nutrition Risk Score: 16 Dietary Referral Nutrition Risk Factors: Diff. Swallowing Nutrition Risk Comment: Physical Findings Physical Appearance: Obese BMI 30-39 Skin Appearance Skin Appearance: Edema Edema Location Modifier: Both Edema Location: Arm Type of Edema: Degree of Edema: 2+ Gastrointestinal Symptoms GI Symtoms: Tube Present: Bowel Sounds: Recent Bowel Pattern: Stool Characteristics: Nutritional Diagnosis Nutritional Risk Acuity 2: GI Malabsorption (most of small bowel removed) Past Medical History: T2DM, GERD, CKD Nutritional Acuity: 2-Moderate Nutrition Diagnosis: Altered GI Function Nutrition Etiology: Physiological Causes Nutrition Problem/Etiology/Sym: Altered Gastrointestinal (GI) Function related to decreased functional length of the GI tract d/t bowel resection AEB dx of infarcted portion of small intestine and possible need for group home TPN. Energy Requirement: 2170 (Rozet-St Jeor: Actual BW X 1.5) Protein Requirement: 77 (Actual BW Kg X .8) Fluid Requirement: 2170 Diet Type: Dysphagia Stage 3 Nutrition Intervention: Cont diet as ordered, Encourage intake Additional Diet Restrictions: CHOP MEAT, PROVIDE SOFT, MOIST FOODS Nutritional Support Current Enteral / Parental: TPN Rate: 75mL/hr Clinimix 4.25/25 and 250mL Intralipid 20%/day Current Calories: 1836 Current Protein: 76 Current Lipids Calories: 275 Total Current Calories: 2111 Recommended Enteral / Parental: Tube Feeding Recommended Tube Feeding Formu: Specialty Formula (Vivonex 1 giuseppe) Recommended Rate: final rate of 90ml/hr Recommended Duration: 24 Recommended Calories: 2160 Recommended Protein: 83 Nutrition Monitoring & Eval Nutrition Follow-Up: Fair Intake RD Patient Assessment Time: [address] Assessment Type: RD Re-Assessment Patient Nutrition Acuity: 2-Moderate Follow Up Date: May 27, 2017 Nutritional Comment: Pt admitted for abdominal pain and UTI. Underwent surgery 05/14 for extensive small bowel resection and cholecystectomy. Hopefully extubate today. TPN started with Clinimix 4.25%-25% at 75mL/hr and Intralipid 20% 250mL/day. Pt also receiving varying amounts of propofol for sedation. At current rate of TPN, pt receiving 2336 Kcal and 76 grams protein per 24 hrs. This provides 108% of estimated Kcal needs and 99% of estimated protein needs. notes pt may require intermediate frame tender TPN. Alb 1.6, High AST/ALT, Glu 220, High BUN/Creat. Monitor for tolerance and diet progression. 05/16 Pt cont on TPN at 75ml/hr plus 12 hrs interlipid which provided 275 kcal. Recalculated kcal intake. TPN is meeting 97% est kcal, 100% est protein needs. Pt is no longer on propofol. BG cont elevated 200-300's. Alb 1.9. Will cont to monitor. 05/18 Pt cont on TPN which is meeting nutr needs. BG cont elevated in 300's. Alb 1.7. Wt stabilzed at 226# past 3 days. Up 34# from admit. Will cont to monitor 05/22 TPN d/macie. ST provided evaluation and recommend Dyspagia 1 diet with thin liquid not larger that 1/2 tsp per bolus. Concerned that pt will get tired and not be able to eat enough kcal to meet nutr needs. Dr Triplett expressed concerns with possible diarrhea r/t short gut. Pt may need an elemental enteral product to meet nutr needs. Will monitor intake to determine if intake adequate. 05/23 Diet advanced to Dysphagia 3 which pt ate 100% this morning. Pt cont loose/liquid stools. Concern if pt is absorbing nutritents in foods. Recommend elemental enteral nutriton product if pt will accept it and if pt cont loose stools. Vivonex 1 giuseppe at 90ml/hr will meet 100% of nutr needs. Recommend initiate at a slow rate r/t osmolality of 630. Will cont to monitor Copies To Copies to: YARY TRIPLETT MD, BETH May 23, 2017 11:08
[2017-05-23] MEDS ORDERED: valACYclovir HCL 500 MG TAB PO SCH (13:30)
[2017-05-23] MEDS: valACYclovir HCL 500 MG TAB PO SCH ×2 (13:36→21:23)
[2017-05-23] MEDS ORDERED: NS(*) 0.9% 500 ML BAG 500 ML ONE (14:08)
--- NOTE | 2017-05-23 17:35 | SLP DISCHARGE NOTE ---
SPEECH THERAPY DISCHARGE SUMMARY Discharge from ST 05-23-2017 CURRENT DIET: Recommend Advance diet to NICK SPEECH THERAPY NEED: No further ST recommended at this time. DYSPHAGIA/SWALLOW Swallow Function: Patient has functional and safe swallow. Patient successful with NICK Pills: Pills as tolerated Self-Feed: Patient can self-feed . MTDD
--- NOTE | 2017-05-23 17:46 | SLP PLAN OF CARE ---
charting error. Please disregard MTDD
[2017-05-23] MEDS: MELATONIN 3 MG TAB PO SCH (21:23)
[2017-05-23] MEDS: KETOROLAC 15 MG/ML VIAL IVP PRN (23:14)
[2017-05-24] VITALS (15 sets, daily range): BP systolic 92–132; BP diastolic 39–80
[2017-05-24] MEDS: PIPERACILLIN/TAZO*3.375GM VIAL 3.375 GM in NS(*) 0.9% 100 ML ADDVANT BAG 100 ML IVPB SCH ×3 (01:35→13:36)
[2017-05-24] MEDS: valACYclovir HCL 500 MG TAB PO SCH ×2 (06:13→13:36)
[2017-05-24 06:28] LABS: PLATELET COUNT, AUTOMATED 149 K/uL (150-450)
[2017-05-24] MEDS: INSULIN HUM LISPRO 100 UN/ML 3 ML VIAL SUBQ PRN ×2 (08:02→12:03)
--- NOTE | 2017-05-24 08:03 | General Surgery Progress Note ---
Subjective Progress Notes Subjective No complaints. No pain. Tolerating diet. Seems very happy this morning. Physical Exam Vital Signs Date Time Temp Pulse Resp B/P (MAP) Pulse Ox O2 Delivery O2 Flow Rate FiO2 05/24/17 07:15 96 Nasal Cannula 1.0 05/24/17 07:00 83 24 95/80 (85) 05/24/17 04:00 98.2 General Appearance: Alert, Awake, No Acute Distress, Afebrile Neuro: No Gross deficits Eyes: PERRLA GI: Soft and Non-Tender (Incision looks good, no erythema or drainage.) Extremities: Warm, Perfused Result Diagram: 05/24/1752505/24/17525 Monitor Interpretation: Normal Sinus Rhythm Assessment and Plan Problems: (1) Abdominal pain Status: Acute Assessment & Plan: 05/14/17: Patient is very ill. Apparently has very severe abdominal pain although not apparent to me today due to the amount of narcotics that she is received but her lactate is going up in spite of improving blood pressure, heart rate, and overall clinical status. She potentially has cholecystitis, ischemic or dying intestines, or both. I recommended that we start with laparoscopy to inspect her gallbladder and small intestines and then if there is obviously something to be dealt with then will convert to an open midline laparotomy incision with small intestinal resection and/or cholecystectomy. I have discussed this with her daughter who agrees with this plan. She provides consent over the telephone since the patient cannot provide consent given her current condition. The patient is DO NOT RESUSCITATE/DO NOT INTUBATE but does wish to proceed with surgery according to the hospitalist who spoke with her last night about this possibility and the daughter agrees with this as well. If she goes into cardiac arrest or has cardiac or pulmonary arrest issues after surgery then she does not wish any aggressive measures to be taken. We'll proceed with surgery this morning. 05/15/17: POD#1 s/p ex lap, extensive small bowel resection (145cm; approximately 110cm remaining), cholecystectomy. Stable overnight. Labs improving. No fevers. OK to wake up today and extubate if possible. May remove NG tube at time of extubation. Will start TPN today. Hold lovenox today and resume tomorrow. Continue abx for 48 hours after surgery. 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 After she wakes up and intestinal function resumes, will advance diet and then will need to see how her nutrition is over time. She is also at high risk of anastomotic leak due to appearance of proximal bowel used in anastomosis but I could have not removed any further bowel without ensuring chronic long-term malnutrition. 05/16/17: POD#2. Extubated yesterday. Vitals look good, no fevers. TPN started. Will see if steroids can be stopped. Stop abx today. Will start PT/ OT today as patient tolerates. Continue NPO until signs of bowel function. 05/17/17: POD#3. Stable. Vitals and labs all look good. Pt delirius. Continue TPN until bowel function returns. Will increase insulin in TPN. 05/18/17: POD#4. Delirium persists. She does not sleep but moans all night. Discussed measures to mitigate ICU delirium with ICU nurse and Dr. Membreno ( minimize benzos, zyprexa at night, open windows during day and quiet at night, treat pain with non-narcotic measures). Vitals OK, afebrile. Her WBC increased to 13k. Her abx (flagyl and cefepime) continue. Possible sources of infection include intraabdominal abscess vs. PICC line infection. Will send blood cultures if fever spike. Will scan abd tomorrow if WBC continues to rise. Had small bm yesterday, but with delirium we will not be able to start diet. Continue TPN. Adding lantus for hyperglycemia. Pt remains in ICU. 05/19/17: POD#5 Delirium not responsive to Olanzipine, was on Precedex gtt overnight. She does not respond to external stimuli. Vitals good, afebrile, having bowel movements. Her WBC drifted down to 11.5k. Rest of her labs are ok. Stopped abx. No obvious source of infections to be driving delirium. Would recommend culturing blood if spikes fevers as she has a PICC in place with TPN. Continue ongoing care in ICU. 05/20/17: POD#6. Continued delirium. Now having mild fevers and WBC is increasing. Blood and urine cx pending. If no other source, will need to repeat CT of abdomen/pelvis. Pt is at risk for further ischemic small bowel and anastomotic leak. Abx stopped yesterday. Will check cultures later today, if no source of infection identified will get CT abd/pelvis later today vs tomorrow. 05/21/17: POD#7. Delirium is much better this morning. Abdominal exam is benign. WBC is coming down on IV abx. Still with mild fevers to 99F. Will need to reestablish IV access today. Will stop TPN and get a swallow eval and, if OK, start clear diet today. 05/22/17: POD#8. Much more lucid. Seems comfortable. Abdominal exam is benign. WBC continues to decline on Zosyn. Still having mild temps to 99F. Will start dysphagia 1 diet today. Will likely develop diarrhea and so may need to make efforts at slowing down bowels if becomes significant. 05/23/17: POD#9. Doing well. WBC coming down. Abdominal exam is benign. Afebrile. Continue with dysphagia 3 diet. Will follow BMs, if too extreme then will make efforts to slow them down. Pt seems to be improving. 05/24/17: POD#10. Doing well. Tolerating regular diet. Afebrile. WBC normal this morning. Abdominal exam is benign. Continue diet, follow BMs. OK to transfer to Med/Surg from surgical standpoint. Continue PT/OT, pulmonary hygiene, etc. (2) Sepsis Status: Resolved Central Venous Access Medical Necessity for Access: Hemodynamic Monitoring, IV Access, Medication Administration Condition Stable. Time Spent: < 30 min Exam Sepsis Risk: No Definite Risk Problem Qualifiers (1) Abdominal pain: Abdominal location: generalized Qualified Codes: R10.84 - Generalized abdominal pain (2) Sepsis: Sepsis type: sepsis due to unspecified organism Qualified Codes: A41.9 - Sepsis, unspecified organism YARY TRIPLETT MD May 24, 2017 08:03
[2017-05-24] MEDS: PANTOPRAZOLE SOD 40 MG TABEC PO SCH (09:17)
--- NOTE | 2017-05-24 13:17 | Hospitalist Depart ---
Discharge Summary Reason for Hosp/Final Diag: (1) Septic shock Status: Acute Hospital Course & Plan: She did present with hypothermia, hypotension, and an elevated WBC. She also had an elevated lactate. She was found to have ischemic bowel. Her blood pressure improved with IV fluids and she improved after surgery. She was treated with IV hydrocortisone which was later discontinued. Her blood cultures were negative. (2) Ischemia, bowel Status: Acute Hospital Course & Plan: The patient continued to have elevation of her lactate and abdominal pain after starting treatment for her UTI. Dr. Gracia performed an exploratory laparotomy and found ischemic small bowel which was resected. (3) Delirium Status: Acute Hospital Course & Plan: She had a prolonged intractable delirium. A CT scan of her brain was without any obvious abnormalities. Her mental status normalized. (4) Small bowel infarction Hospital Course & Plan: She was found to have an infarcted small bowel and underwent resection with Dr. Gracia on 05/14/17. Please see surgical notes for management. (5) Porcelain gallbladder Status: Chronic Hospital Course & Plan: Dr. Gracia performed a cholecystectomy. (6) Urinary tract infection Status: Resolved Hospital Course & Plan: She was admitted for a urinary infection. She was initially on treatment with ceftriaxone, but was placed on cefepime and metronidazole after it was discovered that she also had ischemic gut. The culture done on 05/08/17 (as an outpatient) did grow a fairly sensitive E. coli. (7) Acute respiratory failure Hospital Course & Plan: She did remain intubated after surgery and was extubated successfully on 05/15. (8) Acute renal failure Status: Acute Hospital Course & Plan: She presented with an elevated creatinine, which normalized. (9) Type 2 diabetes mellitus Status: Chronic Hospital Course & Plan: She was on chronic treatment with glimepiride and NPH and these were held. She required multiple dosing while on sliding scale 3 and Lantus was added. (10) SARI treated with BiPAP Status: Chronic Hospital Course & Plan: She was placed on BiPAP at night. Departure Weight (Pounds): 238 Weight (Ounces): 3.0 Result Diagram: 05/24/1752505/24/17525 Item Value Date Time Lactate 4.3 mmol/L *H 05/13/17 1844 Lactate 4.9 mmol/L *H 3/12/18 2208 Lactate 5.9 mmol/L *H 05/14/17 0130 Lactate 6.1 mmol/L *H 05/14/17 0525 Lactate 4.3 mmol/L *H 05/14/17 0920 Lactate 1.7 mmol/L 05/14/17 2200 Amylase Level 34 U/L 05/13/17 1739 Lipase 197 U/L 05/13/17 1739 Sodium Level 135 mmol/L L 05/13/17 1739 Potassium Level 5.0 mmol/L 05/13/17 1739 Chloride Level 95 mmol/L L 05/13/17 1739 Carbon Dioxide Level 19 mmol/L L 05/13/17 1739 Blood Urea Nitrogen 59 mg/dl H 05/13/17 1739 Creatinine 2.00 mg/dl H 05/13/17 1739 Glomerular Filtration Rate Calc 24.0 05/13/17 1739 Random Glucose 173 mg/dl H 05/13/17 1739 Calcium Level 9.3 mg/dl 05/13/17 1739 Total Bilirubin 0.9 mg/dl 05/13/17 1739 Aspartate Amino Transf (AST/SGOT) 142 U/L H 05/13/17 1739 Alanine Aminotransferase (ALT/SGPT) 369 U/L H 05/13/17 1739 Alkaline Phosphatase 193 U/L H 05/13/17 1739 Total Protein 6.8 gm/dl 05/13/17 1739 Albumin 3.2 g/dl L 05/13/17 1739 White Blood Count 18.7 k/uL H 05/13/17 1739 Red Blood Count 6.90 M/uL H 05/13/17 1739 Hemoglobin 19.1 g/dL H 05/13/17 1739 Hematocrit 59.1 % H 05/13/17 1739 Mean Corpuscular Volume 85.6 fL 05/13/17 1739 Mean Corpuscular Hemoglobin 27.7 pg 05/13/17 1739 Mean Corpuscular Hemoglobin Concent 32.3 g/dL 05/13/17 1739 Red Cell Distribution Width 16.4 % H 05/13/17 1739 Platelet Count 346 K/uL 05/13/17 1739 Mean Platelet Volume 8.3 fL 05/13/17 1739 Neutrophils (%) (Auto) 86.1 % H 05/13/17 1739 Lymphocytes (%) (Auto) 6.9 % L 05/13/17 1739 Monocytes (%) (Auto) 6.7 % 05/13/17 1739 Eosinophils (%) (Auto) 0.0 % L 05/13/17 1739 Basophils (%) (Auto) 0.3 % 05/13/17 1739 Nucleated RBC Relative Count (auto) 0.4 /100WBC 05/13/17 1739 Neutrophils # (Auto) 16.1 K/uL H 05/13/17 1739 Lymphocytes # (Auto) 1.3 K/uL 05/13/17 1739 Monocytes # (Auto) 1.2 K/uL H 05/13/17 1739 Eosinophils # (Auto) 0.0 K/uL 05/13/17 1739 Basophils # (Auto) 0.1 K/uL 05/13/17 1739 Nucleated RBC Absolute Count (auto) 0.07 K/uL 05/13/17 1739 Urine Color Yellow 05/13/172011 Urine Clarity Slightly-cloudy 05/13/172011 Urine pH 5.0 pH 05/13/172011 Urine Specific [place] 1.020 05/13/172011 Urine Protein Negative mg/dL 05/13/172011 Urine Glucose (UA) Negative mg/dL 05/13/172011 Urine Ketones Trace mg/dL 05/13/172011 Urine Blood Negative 05/13/172011 Urine Nitrite Negative 05/13/172011 Urine Bilirubin Negative 05/13/172011 Urine Urobilinogen 2.0 mg/dL 05/13/172011 Urine Leukocyte Esterase Negative 05/13/172011 Urine RBC <1 /HPF 05/13/172011 Urine WBC 2 /HPF 05/13/17 2012 Urine Squamous Epithelial Cells Many /LPF H 05/13/172011 Urine Bacteria Negative /HPF 05/13/172011 Urine Hyaline Casts Many /LPF H 05/13/172011 Urine Mucus Few /HPF 05/13/172011 All urine and blood cultures obtained on the medical floor were negative. Imaging FACILITY: [facility] [place] PATIENT NAME: Brandy Kathleen : 1940 MR: [id number] V: [id number] EXAM DATE: ORDERING PHYSICIAN: FAITH ORTIZ TECHNOLOGIST: [place] [facility] [place] Patient: Brandy Kathleen : 1940 Visit/Account:[id number] Date of Sevice: 05/14/2017 ABDOMEN/PELVIS W/O CONTRAST HISTORY: Questionable ischemic/infarcted gut. TECHNIQUE: CT abdomen and pelvis without intravenous contrast. One of the following dose optimization techniques was utilized in the performance of this exam: Automated exposure control; adjustment of the mA and/ or kV according to the patient's size; or use of an iterative reconstruction technique. Specific details can be referenced in the facility's radiology CT exam operational policy. CONTRAST: None. Please note, lack of IV contrast limits evaluation of solid organs. COMPARISON: May 13, 2017. FINDINGS: Visualized lung bases: Negative. Hepatobiliary: The gallbladder is distended, unchanged since prior exam with scattered calcifications of the gallbladder wall. No definitive cholelithiasis or gallbladder wall thickening. Spleen: Negative. Adrenals: Nonspecific thickening. Right adrenal gland is unremarkable. Of the left adrenal gland, unchanged Pancreas: Negative. Kidneys/: Subserosal calcified fibroid extending posteriorly off of the uterine fundus. Additional intramural fibroid within the posterior lower uterine segment. Otherwise negative. GI: Mild descending colon diverticulosis without evidence for diverticulitis. Moderate circumferential wall thickening within small bowel loops of the lower abdomen with borderline dilatation, measuring up to 3.2 cm, increased since prior exam. The terminal ileum is decompressed. No visualized pneumatosis. No abrupt transition point. Small hiatal hernia. Vessels/spaces/nodes: Moderate mesenteric edema, similar to prior exam. There is small to moderate volume ascites, increased since prior exam. No significant calcified atherosclerosis within the mesenteric arteries. Mild calcified atherosclerosis within the infrarenal abdominal aorta. Bones/soft tissues: Post surgical changes within the ventral abdominal midline without gross complication. Mild chronic appearing wedging of the T12 and L3 vertebral bodies, unchanged. IMPRESSION: 1. There is increased nonspecific small bowel wall thickening within the lower abdomen with now mild dilatation measuring up to 3.2 cm. The terminal ileum is decompressed. There is no visualized abrupt transition point. No visualized pneumatosis. Findings are nonspecific however likely infectious/inflammatory in etiology, cannot completely exclude developing ischemic bowel however limited evaluation without IV contrast. There is no significant calcified atherosclerosis within the mesenteric arteries. 2. Small to moderate volume ascites, increased since prior exam. Moderate mesenteric edema, not significantly changed since prior exam. 3. Persistent gallbladder distention, grossly unchanged since prior exam, without visualized cholelithiasis or gallbladder wall thickening. Again, if there is concern for acute gallbladder disease, follow-up HIDA scan could be performed. 4. Additional incidental/chronic findings, as above. Report Dictated By: Uziel Marley MD at 05/14/2017 7:09 AM Report E-Signed By: Uziel Marley MD at 05/14/2017 7:20 AM WSN:[id number] FACILITY: [facility] [place] PATIENT NAME: Brandy Kathleen : 1940 MR: [id number] V: [id number] EXAM DATE: [id number] ORDERING PHYSICIAN: FAITH ORTIZ TECHNOLOGIST: Location[place] [facility] [place] Patient: Brandy Kathleen : 1940 Visit/Account:[id number] Date of Sevice: 05/17/2017 EXAMINATION: Head CT without intravenous contrast HISTORY: Mental status change TECHNIQUE: Contiguous axial images were obtained from the skull base to the vertex without intravenous contrast. Sagittal and coronal reformatted images are also submitted. COMPARISON: Head CT August 12, 2014 FINDINGS: Brain volume: There is moderate diffuse central and cortical atrophy present Ventricles: As above Acute ischemic changes: None. Hemorrhage: None. Masses / edema: None. Estrada-white: Negative. White matter: Normal. Vessels: There are calcifications in the carotid siphon and in both vertebral arteries Extra-axial: Negative. Calvarium / scalp: Negative. Skull base / visualized face: Negative. Visualized sinuses / orbits: Negative. IMPRESSION: There is moderate diffuse central cortical atrophy Calcifications in the carotid siphons and both vertebral arteries If patient's symptoms persist MR the brain may be helpful Report Dictated By: Aggie Felix MD at 05/17/2017 11:19 AM Report E-Signed By: Aggie Felix MD at 05/17/2017 11:24 AM WSN:[email or web address] FACILITY: [facility] [place] PATIENT NAME: Brandy Kathleen : 1940 MR: [id number] V: [id number] EXAM DATE: [id number] ORDERING PHYSICIAN: FAITH ORTIZ TECHNOLOGIST: Location: [facility] [place] Patient: Brandy Kathleen : 1940 Visit/Account:[id number] Date of Sevice: 05/22/2017 Single view of the chest Indication: Increased shortness of breath, tachypnea. Comparison: X-ray examination chest May 21, 2017 Findings: There are low volumes. Heart is enlarged. Central vascular crowding is noted. Findings indicative of venous congestion and mild interstitial edema. No definite effusion. Linear type atelectasis is noted within the vibha bilaterally. Stable appearance left-sided central line terminating in central aspect superior vena cava. IMPRESSION: 1. Low volumes with perihilar atelectasis. 2. No significant change with cardiomegaly and mild CHF Report Dictated By: Ty Fierro MD at 05/22/2017 1:00 PM Report E-Signed By: Ty Fierro MD at 05/22/2017 1:02 PM WSN:[id number] Condition: Improved Discharge: [facility] PT/OT Follow Up For: PT Evaluation and Treat, OT Evaluation and Treat Time Spent: < 30 min Discharge Instructions Home Meds Active Scripts Tramadol Hcl (TRAMADOL HCL) 50 Mg Tablet, 1 TAB PO Q6H Y for PAIN, #30 MG TAKE ONE TO TWO TABLETS BY MOUTH EVERY FOUR TO SIX HOURS NEEDED Prov:MINO WHEELER DO 05/08/17 Oxycodone Hcl/Acetaminophen (PERCOCET 5-325 MG TABLET) 1 Each Tablet, 1 EACH PO Q4-6H Y for PAIN, #12 Prov:MINO WHEELER DO 05/08/17 Insulin NPH Human Isophane (Humulin N) 100 Unit/Ml Vial, 25 UNITS SQ QHS, #3 VIAL 3 Refills Prov:SHARIF FUENTES MD 04/24/17 Insulin Lispro (HUMALOG) 100 Unit/1 Ml Vial, 18 UNIT SQ QID, #6 VIAL 3 Refills Inject 18 units subcutaneously prior to each meal and with large snack. Prov:VON CRUZ PHARMD 04/15/17 Glimepiride (AMARYL) 4 Mg Tablet, 1 TAB PO QDAY, #90 TAB 3 Refills Prov:SHARIF FUENTES MD 10/02/16 Lisinopril (LISINOPRIL) 5 Mg Tablet, 1 TAB PO QDAY, #90 TAB 4 Refills Prov:SHARIF FUENTES MD 09/11/16 Furosemide (FUROSEMIDE) 20 Mg Tablet, 1 TAB PO DAILY, #90 TAB 4 Refills Prov:SHARIF FUENTES MD 09/11/16 Lovastatin (LOVASTATIN) 20 Mg Tablet, 1 TAB PO QDAY, #90 TAB 4 Refills Prov:SHARIF FUENTES MD 09/11/16 Blood Sugar Diagnostic (CONTOUR) 1 Each Strip, 100 EACH MC Q30D, #100 STRIP 12 Refills Use to test blood sugars twice daily Prov:SHARIF FUENTES MD 04/23/16 Syringe & Needle,Insulin,1 Ml (INSULIN SYRINGE) 1 Each Disp.syrin, 1 EACH MC DAILY, #100 11 Refills Use to inject insulin twice daily Prov:SHARIF FUENTES MD 01/10/16 Lancets (BD ULTRA-FINE) 1 Each Each, 1 EACH MC DAILY, #100 12 Refills Use twice daily for insulin injections Prov:SHARIF FUENTES MD 10/04/15 Reported Medications Ondansetron (ZOFRAN ODT) 4 Mg Tab.rapdis, 4 MG PO Q12H Y for NAUSEA, TAB.MARQUIS 05/15/17 Ciprofloxacin Hcl (CIPROFLOXACIN HCL) 500 Mg Tablet, 500 MG PO Q12H, #14 TAB 05/14/17 Aspirin (ASPIR 81) 81 Mg Tablet.dr, 81 MG PO QDAY, TAB 05/08/17 Ca Phos/Cranberry/Milk Thistle (LIVER-KIDNEY CLEANSER CAP) 1 Each Capsule, 1 EACH PO DAILY, CAPSULE 09/28/16 Vit A,C & E/Lutein/Minerals (VISION VITAMINS TABLET) 1 Each Tablet, 1 EACH PO DAILY 09/28/16 Bipap Home (BIPAP HOME) Inha, HS 09/07/15 Diphenhydramine Hcl (DIPHENHIST) 25 Mg Tablet, 1 TAB PO BID 11/24/13 Multivitamin (DAILY VITAMIN FORMULA) 1 Each Tablet, 1 TAB PO DAILY 11/24/13 Diet: Diabetic Activity: As Tolerated Copies to: SHARIF FUENTES MD Venous Thromboembolism Antithrombotics Is Pt On Any Antithrombotics?: Yes Problem Qualifiers (1) Urinary tract infection: Urinary tract infection type: acute cystitis Hematuria presence: without hematuria Qualified Codes: N30.00 - Acute cystitis without hematuria TK ORTIZ MD May 24, 2017 13:16
[2017-05-24] MEDS ORDERED: INSULIN GLARGINE 100 U/ML 3 ML PEN SUBQ SCH (21:00)
== END 2017-05-24 13:50 | DRG 853 ==
LOC: ER 17:40 → ICU 20:28
PROVIDERS: ADMIT Internal Medicine; ATTEND Internal Medicine
PROC: 5A0935Z Assistance with Respiratory Ventilation, Less than 24 Consecutive Hours (ICD-10-PCS; 2017-05-14)
PROC: 0DB80ZZ Excision of Small Intestine, Open Approach (ICD-10-PCS; principal; 2017-05-14 12:07)
PROC: 0FT40ZZ Resection of Gallbladder, Open Approach (ICD-10-PCS; 2017-05-14 12:07)
PROC: 02HV33Z Insertion of Infusion Device into Superior Vena Cava, Percutaneous Approach (ICD-10-PCS; 2017-05-14 12:07)
PROC: B548ZZA Ultrasonography of Superior Vena Cava, Guidance (ICD-10-PCS; 2017-05-14 12:07)
PROC: 02HV33Z Insertion of Infusion Device into Superior Vena Cava, Percutaneous Approach (ICD-10-PCS; 2017-05-21)
DX: A41.9 Sepsis, unspecified organism (principal); R65.21 Severe sepsis with septic shock; K55.022 Diffuse acute infarction of small intestine; J96.00 Acute respiratory failure, unspecified whether with hypoxia or hypercapnia; N30.00 Acute cystitis without hematuria; N17.9 Acute kidney failure, unspecified; F05 Delirium due to known physiological condition; K80.20 Calculus of gallbladder without cholecystitis without obstruction; B96.20 Unspecified Escherichia coli [E. coli] as the cause of diseases classified elsewhere; G47.33 Obstructive sleep apnea (adult) (pediatric); E73.9 Lactose intolerance, unspecified; K21.9 Gastro-esophageal reflux disease without esophagitis; F32.9 Major depressive disorder, single episode, unspecified; E11.22 Type 2 diabetes mellitus with diabetic chronic kidney disease; I12.9 Hypertensive chronic kidney disease with stage 1 through stage 4 chronic kidney disease, or unspecified chronic kidney disease; N18.2 Chronic kidney disease, stage 2 (mild); E78.2 Mixed hyperlipidemia; D75.1 Secondary polycythemia; Z88.2 Allergy status to sulfonamides; Z91.013 Allergy to seafood; Z79.4 Long term (current) use of insulin; Z99.81 Dependence on supplemental oxygen; Z66 Do not resuscitate
CPT/HCPCS: 36415; 36416; 36600; 70450; 71045; 74176; 76942; 81001; 82040; 82150; 82247; 82248; 82310; 82374; 82435; 82565; 82803; 82947; 82948; 83605; 83690; 84075; 84132; 84155; 84295; 84450; 84460; 84520; 85025; 85610; 85730; 86850; 86900; 86901; 87040; 87088; 88304; 88307; 93005; 94002; 94003; 94770; 96361; 96365; 96375; 97162; 97166; 99285; A4353; B4164; C9113; J0131; J0692; J0696; J1170; J1630; J1644; J1650; J1720; J1815; J1885; J1940; J2001; J2060; J2250; J2270; J2370; J2405; J2543; J2704; J2795; J3010; J3480; J3490; J7030; J7040; J7050; J7120; Q9967

== ENCOUNTER → 2017-05-13 | Outpatient (CLI) | payer MEDICARE ==
[~2017-05-13] MED LIST changes: +ASPI-1471 PO; +CIPR-214 PO; +ONDA4TAB PO; +OXYC-865 PO
[2017-05-14 16:32] VITALS: BMI 31.9
== END ==
LOC: AMB 17:03
PROVIDERS: ATTEND Nurse Practitioner
DX: R07.9 Chest pain, unspecified (principal); R41.0 Disorientation, unspecified; R60.0 Localized edema; R06.00 Dyspnea, unspecified
CPT/HCPCS: A0425; A0427

== ENCOUNTER 2017-05-24 15:03 | Inpatient (IN) | payer MEDICARE ==
[~2017-05-24] VITALS: Ht 165.1 cm; Wt 112.3 kg
[~2017-05-24 15:03] MED LIST changes: +CIPR-214 PO
[2017-05-24] MEDS ORDERED: FLUSH 10 ML SYR IVP PRN (15:20)
[2017-05-24] MEDS ORDERED: HYDROmorphone HCL 2 MG/ML SDV IVP PRN (15:20)
[2017-05-24] MEDS ORDERED: KETOROLAC 15 MG/ML VIAL IVP PRN (15:20)
--- NOTE | 2017-05-24 16:00 | OT ECF NOTE ---
Type of Note: Initial Note Primary Medical Diagnosis: Generalized Weakness s/p hospital admission for UTI and bowel resection 05/14/17. Occupational Therapy Evaluation Date: 05/24/17 SUBJECTIVE: Prior Hospitalization: [facility] 05/13/17 thru 05/24/17 Prior Level of Function: Independent with all ADLs/IADLs. 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 Psychosocial Support: Supportive family Pain Scale (0-10): None reported at time of evaluation OBJECTIVE: Strength: MMT: Right Left Shoulder Flexion 4/5 4/5 Elbow Flexion 4/5 4/5 Wrist Extension 4/5 4/5 Eyeglass Lens Grinder 4/5 4/5 (5= normal, 4= good, 3= fair, 2= poor, 1= trace) ROM: Both upper extremities, Minimally limited Functional Transfer: Assistive Device: Front wheeled walker, Gait belt Transfer Ability: CGA ADL: Upper body dressing: Assistive device: Upper body dressing ability: Lower body dressing: Assistive device: Will benefit from LB AE education Lower body dressing ability: Moderate assistance Toileting: Assistive device: Toileting ability: N/T Grooming/hygiene: Assistive device: Grooming ability: N/T Bathing: Assistive device: Pt reports she has a special way that she climbs into the bathtub for baths. Will benefit from addressing this transfer prior to d/c home. Bathing ability: N/T Standardized Assessment: Jeannette Index of Activities of Daily Livin/20 at initial evaluation () ASSESSMENT: Aimee presents to [facility] requiring CGA for ambulation and assist for ADLs secondary to decreased activity tolerance and recent hospital admission. At [facility], she was (I) with all ADLs/IADLs. She will benefit from skilled OT services to improve activity tolerance and (I) with ADLs/IADLs. Problem List/Current Limitations: Decreased activity tolerance Decreased strength Generalized weakness Short Term Goals: 1) Pt will be Mod (I) UB/LB dressing. 2) Pt will be Mod (I) bathing. 3) Pt will be Mod (I) toileting. 4) Pt will be Independent grooming/hygiene. 5) Pt Jeannette Index of ADLs score will improve by 2 points. Jail Goals: Return home with services Patient Goals: Return home Rehabilitation Prognosis: Good Barriers to Discharge: None at this time PLAN: The patient will benefit from skilled occupational therapy services 5 times per week for 2 weeks including: Ther ex ADL training Safety training Ther act IADL training Transfer training Adaptive equip training Bed mobility Energy conservation Thank you for this referral. If you have any questions, concerns, or comments about this report or plan, please contact me at . Kay Allen MS, OTR/L Occupational Therapist [facility]
[2017-05-24 16:11] VITALS: BP 145/68
--- NOTE | 2017-05-24 16:22 | Consultant Pharmacy Review ---
Software Development Test Engineer Review Medication Review Do All Mecications have a Diag: No (Unable to find indication for Valtrex) Beers Criteria Medication 2015 Sliding Scale Insulin: Slidin Scale Insulin (Diabetes) Proton Pump Inhibitors: Pantoprazole (GERD) Other General Cautions Lexicomp Interaction Analysis A = No known interaction C = Monitor therapy X = Avoid combination B = No action needed D = Consider therapy modification Drugs in this analysis: Acetaminophen; Dilaudid; HumaLOG; Lantus; Melatonin; Protonix; Valtrex; Zosyn * Drug-Drug Interactions C HumaLOG (Hypoglycemia-Associated Agents) Lantus (Antidiabetic Agents) C HumaLOG (Hypoglycemia-Associated Agents) Lantus (Hypoglycemia-Associated Agents) B Acetaminophen Dilaudid (Opioid Analgesics) Pneumococcal Vaccine HX Pneumo Vac (Taeczyl12): Yes (73) Comments Regarding the Review Patient is a candidate for the Pneumovax 23 vaccine. Please re-evaluate Dilaudid use in 2 weeks. URSZULA VALDIVIA May 24, 2017 16:22
[2017-05-24] MEDS: INSULIN HUM LISPRO 100 UN/ML 3 ML VIAL SUBQ PRN ×2 (16:59→20:30)
[2017-05-24 19:20] VITALS: Ht 165.1 cm; Wt 112.3 kg
--- NOTE | 2017-05-24 19:34 | Medical Nutrition Therapy ---
Nutrition Anthropometrics Height (Inches): 65.00 Height (Calculated Centimeters: 165.751547 Weight (Pounds): 238 Weight (Calculated Kilograms): 108.040 BMI Calculated: 39.60 Homero Nutrition Score: Homero Nutrition Risk Score: Dietary Referral Nutrition Risk Factors: Diff. Swallowing Nutrition Risk Comment: Physical Findings Physical Appearance: Obese BMI 30-39 Skin Appearance Skin Appearance: Edema Edema Location Modifier: Both Edema Location: Upper Extremity Type of Edema: Degree of Edema: 2+ Gastrointestinal Symptoms GI Symtoms: Bloating Tube Present: Bowel Sounds: Recent Bowel Pattern: Stool Characteristics: Nutrition/Food History TPN/PPN Prior to Admit Nutritional Diagnosis Nutritional Risk Acuity 2: GI Malabsorption Nutritional Risk Acuity 3: Fair Appetite Past Medical History: T2DM, GERD, CKD Nutritional Acuity: 2-Moderate Nutrition Diagnosis: Altered GI Function Nutrition Etiology: Physiological Causes Nutrition Problem/Etiology/Sym: Altered Gastrointestinal (GI) Function related to decreased functional length of the GI tract d/t bowel resection AEB dx of infarcted portion of small intestine and possible malabsorption. Energy Requirement: 2024 ([place]-St Jeor: Actual BW X 1.53) Protein Requirement: 86 (Actual BW Kg X .8) Fluid Requirement: 2014 Diet Type: Diabetic Nutrition Intervention: Cont diet as ordered, Check glucose Nutrition Monitoring & Eval Nutrition Goals: Eat 75-100% Meal RD Patient Assessment Time: [address] Assessment Type: RD Assessment Patient Nutrition Acuity: 2-Moderate Follow Up Date: May 26, 2017 Nutritional Comment: Pt originally admitted 05/14/17 for abdominal pain and underwent surgery for extensive small bowel resection and cholecystectomy. Transferred to ECF for weakness and continued rehab. get tired and not be able to eat enough kcal to meet nutr needs. Since PO diet introduced on 05/22, concerns of diarrhea r/t short gut and possible need for elemental enteral product to meet nutr needs. Glu 250, Low H/H, Alb 1.9, Lipase 681. Lantus 15u q HS, Lispro SSI. Receiving NICK and consumed 50% of dinner meal in ECF this PM. Encourage intake, follow clinical progress, etc. BRIGIDA MARCUS May 24, 2017 19:34
[2017-05-24] MEDS: PIPERACILLIN/TAZO*3.375GM VIAL 3.375 GM in NS(*) 0.9% 100 ML ADDVANT BAG 100 ML IVPB SCH (20:00)
[2017-05-24] MEDS ORDERED: NS(*) 0.9% 500 ML BAG 500 ML IV PRN (20:05)
[2017-05-24] MEDS: INSULIN GLARGINE 100 U/ML 3 ML PEN SUBQ SCH (20:44)
[2017-05-24] MEDS: MELATONIN 3 MG TAB PO SCH (20:44)
[2017-05-24] MEDS: valACYclovir HCL 500 MG TAB PO SCH (22:00)
[2017-05-25] MEDS: PIPERACILLIN/TAZO*3.375GM VIAL 3.375 GM in NS(*) 0.9% 100 ML ADDVANT BAG 100 ML IVPB SCH ×4 (01:35→20:05)
[2017-05-25] MEDS: valACYclovir HCL 500 MG TAB PO SCH ×3 (05:36→22:00)
[2017-05-25 08:00] VITALS: BP 119/57
[2017-05-25] MEDS: PANTOPRAZOLE SOD 40 MG TABEC PO SCH (08:47)
[2017-05-25] MEDS: INSULIN HUM LISPRO 100 UN/ML 3 ML VIAL SUBQ PRN ×3 (08:48→20:52)
[2017-05-25] MEDS: diphenhydrAMINE 25 MG CAP PO SCH ×2 (10:30→20:51)
[2017-05-25] MEDS: PREPARATION H CREAM 27 GM TUBE PR PRN ×2 (10:30→19:09)
[2017-05-25 17:35] VITALS: BP 117/71
[2017-05-25] MEDS: MELATONIN 3 MG TAB PO SCH (20:51)
[2017-05-25] MEDS: INSULIN GLARGINE 100 U/ML 3 ML PEN SUBQ SCH (20:52)
[2017-05-26] MEDS: PREPARATION H CREAM 27 GM TUBE PR PRN ×3 (00:04→20:53)
[2017-05-26] MEDS: PIPERACILLIN/TAZO*3.375GM VIAL 3.375 GM in NS(*) 0.9% 100 ML ADDVANT BAG 100 ML IVPB SCH ×4 (02:30→19:24)
[2017-05-26] MEDS: valACYclovir HCL 500 MG TAB PO SCH ×3 (06:25→21:39)
[2017-05-26] MEDS ORDERED: WATER FOR INJ,STERILE 20 ML IVP ONE (09:00)
[2017-05-26] MEDS ORDERED: ALTEPLASE RECOMB 2 MG VIAL IVP ONE (09:00)
[2017-05-26 09:25] VITALS: BP 110/63
[2017-05-26] MEDS: PANTOPRAZOLE SOD 40 MG TABEC PO SCH (09:28)
[2017-05-26] MEDS: diphenhydrAMINE 25 MG CAP PO SCH ×2 (09:28→20:48)
[2017-05-26] MEDS: INSULIN HUM LISPRO 100 UN/ML 3 ML VIAL SUBQ PRN ×3 (09:30→20:48)
--- NOTE | 2017-05-26 11:40 | Medical Nutrition Therapy ---
Nutrition Anthropometrics Height (Inches): 65.00 Height (Calculated Centimeters: 165.669007 Weight (Pounds): 238 Weight (Calculated Kilograms): 108.040 BMI Calculated: 39.60 Homero Nutrition Score: Homero Nutrition Risk Score: Dietary Referral Nutrition Risk Factors: Diff. Swallowing Nutrition Risk Comment: Physical Findings Physical Appearance: Obese BMI 30-39 Skin Appearance Skin Appearance: Edema Edema Location Modifier: Both Edema Location: Upper Extremity Type of Edema: Degree of Edema: 1+ Gastrointestinal Symptoms GI Symtoms: Bloating, Change in Bowel Pattern Tube Present: Bowel Sounds: Recent Bowel Pattern: Stool Characteristics: Nutrition/Food History TPN/PPN Prior to Admit Nutritional Diagnosis Nutritional Risk Acuity 2: Pr Appetite > 3d, GI Malabsorption Nutritional Risk Acuity 3: Morbid Obesity Past Medical History: T2DM, GERD, CKD Nutritional Acuity: 2-Moderate Nutrition Diagnosis: Altered GI Function Nutrition Etiology: Physiological Causes Nutrition Problem/Etiology/Sym: Altered Gastrointestinal (GI) Function related to decreased functional length of the GI tract d/t bowel resection AEB dx of infarcted portion of small intestine and possible malabsorption. Energy Requirement: 2024 ([place]-St Jeor: Actual BW X 1.53) Protein Requirement: 86 (Actual BW Kg X .8) Fluid Requirement: 2015 Diet Type: Diabetic Nutrition Intervention: Cont diet as ordered, Check glucose Nutrition Monitoring & Eval RD Patient Assessment Time: [address] Assessment Type: RD Re-Assessment Patient Nutrition Acuity: 2-Moderate Follow Up Date: May 28, 2017 Nutritional Comment: Pt originally admitted 05/14/17 for abdominal pain and underwent surgery for extensive small bowel resection and cholecystectomy. Transferred to F for weakness and continued rehab. Since PO diet introduced on 05/22, concerns of diarrhea r/t short gut and possible need for elemental enteral product to meet nutr needs. Glu 250, Low H/H, Alb 1.9, Lipase 681. Lantus 15u q HS, Lispro SSI. Receiving NICK and consumed 50% of dinner meal in ECF this PM. Encourage intake, follow clinical progress, etc. 05/26 Glu 151. Appetite and intake decreased. Consumed 17% of meals on 05/25/17. May need to consider nutrition support if poor intake continues. Follow labs, intake, etc. BRIGIDA MARCUS May 26, 2017 11:40
[2017-05-26 16:45] VITALS: BP 128/55
[2017-05-26] MEDS: INSULIN GLARGINE 100 U/ML 3 ML PEN SUBQ SCH (20:47)
[2017-05-26] MEDS: MELATONIN 3 MG TAB PO SCH (20:48)
[2017-05-27] MEDS: PIPERACILLIN/TAZO*3.375GM VIAL 3.375 GM in NS(*) 0.9% 100 ML ADDVANT BAG 100 ML IVPB SCH ×4 (02:13→20:36)
[2017-05-27] MEDS: valACYclovir HCL 500 MG TAB PO SCH ×3 (05:34→21:23)
[2017-05-27] MEDS: ACETAMINOPHEN 500 MG TAB PO PRN (05:34)
[2017-05-27 07:40] VITALS: BP 139/68
--- NOTE | 2017-05-27 08:11 | General Surgery Progress Note ---
Subjective Progress Notes Subjective No complaints. No pain. Tolerating regular diet. Physical Exam Vital Signs Date Time Temp Pulse Resp B/P (MAP) Pulse Ox O2 Delivery O2 Flow Rate FiO2 05/26/17 21:39 Bi-PAP 05/26/17 16:45 97.4 86 20 128/55 (79) 95 2.0 General Appearance: Alert, Awake, No Acute Distress, Afebrile GI: Soft and Non-Tender (incision is healing well without erythema or drainage. [place] removed and steristrips applied to incision.) Extremities: Warm, Perfused Assessment and Plan Problems: (1) Small bowel infarction Status: Resolved Assessment & Plan: 05/27/17: POD#13 s/p ex-lap, small bowel resection, cholecystectomy. Pt is doing great. Vitals look good. Incision looks good. [place] removed today and steristrips applied to the incision. GI function seems to be good and BMs haven't been problematic in terms of frequency or consistency. Continue diet, PT/OT. (2) Porcelain gallbladder Status: Resolved Central Venous Access Medical Necessity for Access: Hemodynamic Monitoring, IV Access, Medication Administration Condition Stable. Time Spent: < 30 min YARY TRIPLETT MD May 27, 2017 08:11
[2017-05-27] MEDS: diphenhydrAMINE 25 MG CAP PO SCH ×2 (08:29→20:36)
[2017-05-27] MEDS: PANTOPRAZOLE SOD 40 MG TABEC PO SCH (08:29)
[2017-05-27] MEDS: PREPARATION H CREAM 27 GM TUBE PR PRN ×2 (09:27→19:40)
--- NOTE | 2017-05-27 12:04 | Miscellaneous Provider Note ---
Miscellaneous Provider Note Note Pt experienced serous drainage from lower abdominal incision when up and ambulating. Wound inspected, incision opened for about a cm. Fascia seems to be intact. Wound packed with 2x2 guaze. Will initiate wound care. Packing and overlying dressing to be changed daily, more often if needed. YARY TRIPLETT MD May 27, 2017 12:04
[2017-05-27 17:06] VITALS: BP 151/61
[2017-05-27] MEDS: INSULIN HUM LISPRO 100 UN/ML 3 ML VIAL SUBQ PRN (20:36)
[2017-05-27] MEDS: MELATONIN 3 MG TAB PO SCH (20:36)
[2017-05-27] MEDS: INSULIN GLARGINE 100 U/ML 3 ML PEN SUBQ SCH (20:37)
[2017-05-28] MEDS: PIPERACILLIN/TAZO*3.375GM VIAL 3.375 GM in NS(*) 0.9% 100 ML ADDVANT BAG 100 ML IVPB SCH ×4 (02:04→19:33)
[2017-05-28] MEDS: valACYclovir HCL 500 MG TAB PO SCH ×3 (06:34→21:17)
[2017-05-28 07:30] VITALS: BP 157/76
--- NOTE | 2017-05-28 09:12 | Medical Nutrition Therapy ---
Nutrition Anthropometrics Height (Inches): 65.00 Height (Calculated Centimeters: 165.028691 Weight (Pounds): 240 Weight (Calculated Kilograms): 108.862 BMI Calculated: 39.60 Homero Nutrition Score: Homero Nutrition Risk Score: Dietary Referral Nutrition Risk Factors: Diff. Swallowing Nutrition Risk Comment: Physical Findings Physical Appearance: Obese BMI 30-39 Skin Appearance Skin Appearance: Edema Edema Location Modifier: Both Edema Location: Upper Extremity Type of Edema: Degree of Edema: 1+ Gastrointestinal Symptoms GI Symtoms: Bloating, Change in Bowel Pattern Tube Present: Bowel Sounds: Recent Bowel Pattern: Stool Characteristics: Nutritional Diagnosis Nutritional Risk Acuity 2: Pr Appetite > 3d, GI Malabsorption Nutritional Risk Acuity 3: Morbid Obesity Past Medical History: T2DM, GERD, CKD Nutritional Acuity: 2-Moderate Nutrition Diagnosis: Altered GI Function Nutrition Etiology: Physiological Causes Nutrition Problem/Etiology/Sym: Altered Gastrointestinal (GI) Function related to decreased functional length of the GI tract d/t bowel resection AEB dx of infarcted portion of small intestine and possible malabsorption. Energy Requirement: 2024 ([place]-St Jeor: Actual BW X 1.53) Protein Requirement: 86 (Actual BW Kg X .8) Fluid Requirement: 2014 Diet Type: Diabetic Nutrition Intervention: Cont diet as ordered, Check glucose Nutrition Monitoring & Eval Nutrition Goals: Eat 75-100% Meal Nutrition Follow-Up: Fair Intake RD Patient Assessment Time: [address] Assessment Type: RD Re-Assessment Patient Nutrition Acuity: 2-Moderate Follow Up Date: Jun 04, 2017 Nutritional Comment: Pt originally admitted 05/14/17 for abdominal pain and underwent surgery for extensive small bowel resection and cholecystectomy. Transferred to [facility] for weakness and continued rehab. Since PO diet introduced on 05/22, concerns of diarrhea r/t short gut and possible need for elemental enteral product to meet nutr needs. Glu 250, Low H/H, Alb 1.9, Lipase 681. Lantus 15u q HS, Lispro SSI. Receiving NICK and consumed 50% of dinner meal in ECF this PM. Encourage intake, follow clinical progress, etc. 05/26 Glu 151. Appetite and intake decreased. Consumed 17% of meals on 05/25/17. May need to consider nutrition support if poor intake continues. Follow labs, intake, etc. 05/28 Pt eating 50% of small portions. BM are reported as loose to soft. BG 98- 168. Will cont to monitor and encourage intake. ANGIE FARRELL May 28, 2017 09:12
[2017-05-28] MEDS: diphenhydrAMINE 25 MG CAP PO SCH ×2 (09:18→21:13)
[2017-05-28] MEDS: PANTOPRAZOLE SOD 40 MG TABEC PO SCH (09:18)
[2017-05-28] MEDS: ACETAMINOPHEN 500 MG TAB PO PRN (09:18)
--- NOTE | 2017-05-28 09:47 | General Surgery Progress Note ---
Subjective Progress Notes Subjective Nursing staff from [facility] called me this morning and reported that the trying to remove the packing and were unable to, they felt like it was stuck in the wound. They changed it last night due to drainage. Drainage has been only serous. Patient has no complaints. Physical Exam Vital Signs Date Time Temp Pulse Resp B/P (MAP) Pulse Ox O2 Delivery O2 Flow Rate FiO2 05/28/17 07:30 93 Room Air 2.0 05/28/17 07:30 98.2 76 20 157/76 (103) Intake and Output 05/29/17 07:00 Intake Total 140 ml Balance 140 ml IV Total 140 ml General Appearance: Alert, Awake, No Acute Distress, Afebrile GI: Soft and Non-Tender (the incision is healing well for the most part. There is the 1 cm section on the infraumbilical portion that I opened yesterday. I remove the packing. There was some resistance but not too much. It came out with no problems. I repacked it with a fresh, clean, 2 x 2 but not tightly. It was then covered with 4x4 gauze and an ABD pad.) Extremities: Warm, Perfused Assessment and Plan Problems: (1) Small bowel infarction Status: Resolved Assessment & Plan: 05/27/17: POD#13 s/p ex-lap, small bowel resection, cholecystectomy. Pt is doing great. Vitals look good. Incision looks good. Karina removed today and steristrips applied to the incision. GI function seems to be good and BMs haven't been problematic in terms of frequency or consistency. Continue diet, PT/OT. 05/28/17: POD#14. Doing well. Had a seroma on the him from periumbilical portion of her wound which drained yesterday. Will continue wound care. Nursing instructed on how to pack it and to not pack it too tightly. Continue PT/OT, etc. path revealed necrotic small bowel but no other unexpected findings such as neoplasm. (2) Porcelain gallbladder Status: Resolved Assessment & Plan: Path revealed chronic cholecystitis but no evidence of neoplasm. Central Venous Access Medical Necessity for Access: Hemodynamic Monitoring, IV Access, Medication Administration Condition Stable. Time Spent: < 30 min YARY TRIPLETT MD May 28, 2017 09:47
[2017-05-28] MEDS ORDERED: NS(*) 0.9% 250 ML BAG 250 ML IVPB PRN (14:00)
--- NOTE | 2017-05-28 16:00 | PT ECF NOTE ---
Type of Note: Initial Note Primary Medical Diagnosis: Generalized Weakness s/p hospital admission for UTI and extensive small bowel resection 05/14/17. Physical Therapy Evaluation Date: 05/27/17 SUBJECTIVE: Prior Hospitalization: [facility] 05/13/17 thru 05/24/17 Prior Level of Function: Independent with all ADLs/IADLs. Has a cat "Nissa" Prior Living Status: Senior housing, Alone Community Services: No known needs Home Accessibility: Elevator, All needs on one level, Tub/shower combination Equipment Owned: None Medical Complications/Past Medical History: Type 2 DM, HTN, SARI-on Bipap Psychosocial Support: Supportive family Pain Scale (0-10): None reported at time of evaluation OBJECTIVE: Strength: Functional mobility indicates 4-/5 overall for B) LE with pt noting fatigue in LE's after ambulation x 160'. ROM: (please note any abnormalities) No limitations with B) LEs; recommending prevention of trunk rotation and abdominal strain, thus using log roll technique, in order to protect healing abdominal wall. Sensation: (please note any abnormalities) No paresthesias reported Other Neuro findings: n/a Bed Mobility: [id number] verbal cues to complete log roll technique to prevent dehiscence of wound; Nursing noted earlier today, after staple removal, that pt did experience a quick increase in serosanguinous drainage at distal wound. Assistive device: Bed rail Transfers: Verbal cues, SBA, CGA Assistive Device: Front wheeled walker Gait: Verbal cues, SBA, CGA Assistive device: Front wheeled walker Stairs: Not yet addressed; pt has elevator to access apartment, but would like to address platform step to simulate a curb in her environment. Assistive device: Timed Up and Go (>12 seconds indicated increased risk for falls): Not yet tested 10 meter walk test (0.6m/second cannot function independently): n/a Other Objective Measures: None at this time ASSESSMENT: Pt demos ability to complete greater distance with ambulation, as compared to medical unit, but continues to fatigue easily and requires encouragement to participate in increased mobility throughout the day. Pt would benefit from regular therapy intervention to address improved safety and abdominal protection strategies for bed mobility and transfer, while abdominal wall is healing. Additionally, pt will need to return to prior level of function in order to be able to return safely to her indep home environment. Abdominal binder applied today per Dr. Gracia's recommendation. Largest size currently available in-house is XXL, which is just barely large enough. Will order a XXL and hope to apply this later in the week as a more effective measure of protection. Problem List/Current Limitations: Decreased activity najma, Decreased strength , Decreased balance, Generalized weakness Short Term Goals: 1. Pt to demo proper log roll technique with indep for bed mobility 2. Pt to be modified indep for sit to/from stand transfers from a variety of surfaces 3. Pt to najma ambulation x 300' with least restrictive device, in order to return to community mobility of prior level of function 4. Pt to najma up/down one platform step with Modified indep to simulate curb in environment. Shop Foreman Goals: Pt to return to prior living environment with additional assistance as indicated Patient Goals: To return home to senior housing as before Rehabilitation Prognosis: Good Barriers for Discharge: Pt requires motivation to participate in mobility and is also experiencing some new drainage from abdominal wound. Protection of this healing area is paramount to efficient and safe discharge. PLAN: The patient will benefit from skilled physical therapy services 5 times per week for 2 weeks including: Therapeutic Activities Transfer Training, Gait Training, Stair Training, ADL's, Safety Training, Pt/ Caregiver Training, Bed Mobility Thank you for this referral. If you have any questions, concerns, or comments about this report or plan, please contact me at . H. Lucy Meehan, PT, MPT MTDD
[2017-05-28 17:35] VITALS: BP 145/75
[2017-05-28] MEDS: MELATONIN 3 MG TAB PO SCH (21:13)
[2017-05-28] MEDS: INSULIN GLARGINE 100 U/ML 3 ML PEN SUBQ SCH (21:14)
[2017-05-29] MEDS: PIPERACILLIN/TAZO*3.375GM VIAL 3.375 GM in NS(*) 0.9% 100 ML ADDVANT BAG 100 ML IVPB SCH ×4 (02:19→20:20)
[2017-05-29] MEDS: valACYclovir HCL 500 MG TAB PO SCH ×3 (06:16→21:18)
[2017-05-29] MEDS: ACETAMINOPHEN 500 MG TAB PO PRN (06:16)
[2017-05-29 07:30] VITALS: BP 146/64
[2017-05-29] MEDS: diphenhydrAMINE 25 MG CAP PO SCH ×2 (08:25→20:21)
[2017-05-29] MEDS: PANTOPRAZOLE SOD 40 MG TABEC PO SCH (08:25)
--- NOTE | 2017-05-29 10:13 | Hospitalist Progress Note ---
Physical Exam Vital Signs Date Time Temp Pulse Resp B/P (MAP) Pulse Ox O2 Delivery O2 Flow Rate FiO2 05/29/17 07:30 97.7 70 24 146/64 (91) 94 Nasal Cannula 1.5 Intake and Output 05/30/17 07:00 # Bowel Movements 1 Assessment and Plan Problems: (1) Generalized weakness Status: Acute Assessment & Plan: The patient was generally weak after her bout with sepsis and surgery for ischemic small bowel. She was transferred to [facility] for rehabilitation. She is working with PT and OT. (2) Ischemia, bowel Status: Acute Assessment & Plan: The patient was admitted with sepsis due to ischemic small bowel and UTI. She underwent resection of a large portion of her small bowel. Her sepsis resolved. She improved and was transferred to [facility] for ongoing rehabilitation. (3) Shingles Status: Acute Assessment & Plan: cleft. Improved. On valacyclovir. (4) Type 2 diabetes mellitus with hyperglycemia, with long-term current use of insulin Status: Chronic Assessment & Plan: She was on chronic treatment with glimepiride and NPH and these were held on admission. She required multiple dosing while on sliding scale 3 and Lantus was added. She is currently on Lantus 15u at HS plus SSI. She has had a few low am BS. Will decrease Lantus to 13u at HS. 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 (6) GERD (gastroesophageal reflux disease) Status: Chronic Assessment & Plan: Continue pantoprazole here. (7) Essential hypertension Onset Date: 11/18/2013 Status: Chronic Assessment & Plan: Currently on no treatment. Continue to monitor BPs. Central Venous Access Medical Necessity for Access: Hemodynamic Monitoring, IV Access, Medication Administration Time Spent on Plan of Care: < 30 min TK ORTIZ MD May 29, 2017 10:13
[2017-05-29 17:15] VITALS: BP 132/60
[2017-05-29] MEDS: MELATONIN 3 MG TAB PO SCH (20:21)
[2017-05-29] MEDS: INSULIN GLARGINE 100 U/ML 3 ML PEN SUBQ SCH (20:22)
[2017-05-30] MEDS: PIPERACILLIN/TAZO*3.375GM VIAL 3.375 GM in NS(*) 0.9% 100 ML ADDVANT BAG 100 ML IVPB SCH ×4 (02:02→19:34)
[2017-05-30] MEDS: ACETAMINOPHEN 500 MG TAB PO PRN (04:09)
[2017-05-30] MEDS: valACYclovir HCL 500 MG TAB PO SCH (06:09)
[2017-05-30 06:23] LABS: PLATELET COUNT, AUTOMATED 184 K/uL (150-450)
[2017-05-30 07:26] VITALS: BP 151/66
[2017-05-30] MEDS: PANTOPRAZOLE SOD 40 MG TABEC PO SCH (08:46)
[2017-05-30] MEDS: diphenhydrAMINE 25 MG CAP PO SCH ×2 (08:46→20:35)
[2017-05-30] MEDS: KCL (*) 20 MEQ/100 ML PREMIX 100 ML IV SCH ×2 (08:46→10:54)
[2017-05-30] MEDS: INSULIN HUM LISPRO 100 UN/ML 3 ML VIAL SUBQ PRN ×2 (12:19→20:41)
[2017-05-30 15:55] VITALS: BP 125/65
[2017-05-30] MEDS: MELATONIN 3 MG TAB PO SCH (20:35)
[2017-05-30] MEDS: INSULIN GLARGINE 100 U/ML 3 ML PEN SUBQ SCH (20:35)
[2017-05-31] MEDS: ACETAMINOPHEN 500 MG TAB PO PRN (01:32)
[2017-05-31] MEDS: PIPERACILLIN/TAZO*3.375GM VIAL 3.375 GM in NS(*) 0.9% 100 ML ADDVANT BAG 100 ML IVPB SCH ×4 (01:33→19:36)
[2017-05-31 07:30] VITALS: BP 148/72
[2017-05-31] MEDS: diphenhydrAMINE 25 MG CAP PO SCH ×2 (09:15→20:41)
[2017-05-31] MEDS: PANTOPRAZOLE SOD 40 MG TABEC PO SCH (09:15)
[2017-05-31] MEDS: INSULIN HUM LISPRO 100 UN/ML 3 ML VIAL SUBQ PRN ×3 (12:31→20:42)
[2017-05-31 15:55] VITALS: BP 154/82
[2017-05-31] MEDS: MELATONIN 3 MG TAB PO SCH (20:41)
[2017-05-31] MEDS: INSULIN GLARGINE 100 U/ML 3 ML PEN SUBQ SCH (20:41)
[2017-06-01 07:35] VITALS: BP 141/71
[2017-06-01] MEDS: diphenhydrAMINE 25 MG CAP PO SCH ×2 (08:26→20:42)
[2017-06-01] MEDS: PANTOPRAZOLE SOD 40 MG TABEC PO SCH (08:26)
[2017-06-01] MEDS: INSULIN HUM LISPRO 100 UN/ML 3 ML VIAL SUBQ PRN ×3 (08:26→20:43)
[2017-06-01] MEDS ORDERED: KCL (*) 20 MEQ/100 ML PREMIX 100 ML IV SCH ×2 (12:25→13:15)
[2017-06-01 16:52] VITALS: BP 125/75
[2017-06-01] MEDS: POTASSIUM CHL 20 MEQ TABCR PO SCH (17:12)
[2017-06-01] MEDS: MELATONIN 3 MG TAB PO SCH (20:42)
[2017-06-01] MEDS: INSULIN GLARGINE 100 U/ML 3 ML PEN SUBQ SCH (20:43)
[2017-06-02] MEDS: PREPARATION H CREAM 27 GM TUBE PR PRN (06:20)
[2017-06-02 07:30] VITALS: BP 140/70
[2017-06-02] MEDS: PANTOPRAZOLE SOD 40 MG TABEC PO SCH (08:38)
[2017-06-02] MEDS: POTASSIUM CHL 20 MEQ TABCR PO SCH ×2 (08:38→17:33)
[2017-06-02] MEDS: diphenhydrAMINE 25 MG CAP PO SCH ×2 (08:38→20:45)
[2017-06-02] MEDS: INSULIN HUM LISPRO 100 UN/ML 3 ML VIAL SUBQ PRN ×3 (12:19→20:46)
[2017-06-02 15:32] VITALS: BP 141/75
[2017-06-02] MEDS: MELATONIN 3 MG TAB PO SCH (20:45)
[2017-06-02] MEDS: INSULIN GLARGINE 100 U/ML 3 ML PEN SUBQ SCH (20:45)
[2017-06-02] MEDS: ACETAMINOPHEN 500 MG TAB PO PRN (23:52)
[2017-06-03 07:33] VITALS: BP 135/80
[2017-06-03] MEDS: PANTOPRAZOLE SOD 40 MG TABEC PO SCH (08:27)
[2017-06-03] MEDS: POTASSIUM CHL 20 MEQ TABCR PO SCH ×2 (08:27→17:50)
[2017-06-03] MEDS: diphenhydrAMINE 25 MG CAP PO SCH ×2 (08:27→20:37)
[2017-06-03] MEDS: FUROSEMIDE 20 MG TAB PO SCH (12:13)
[2017-06-03] MEDS: INSULIN HUM LISPRO 100 UN/ML 3 ML VIAL SUBQ PRN ×2 (12:13→20:38)
[2017-06-03 16:50] VITALS: BP 140/74
[2017-06-03] MEDS: MELATONIN 3 MG TAB PO SCH (20:37)
[2017-06-03] MEDS: INSULIN GLARGINE 100 U/ML 3 ML PEN SUBQ SCH (20:38)
[2017-06-04 08:45] VITALS: BP 138/60
[2017-06-04] MEDS: ACETAMINOPHEN 500 MG TAB PO PRN (08:47)
[2017-06-04] MEDS: POTASSIUM CHL 20 MEQ TABCR PO SCH ×2 (08:47→17:23)
--- NOTE | 2017-06-04 09:17 | Medical Nutrition Therapy ---
Nutrition Anthropometrics Height (Inches): 65.00 Height (Calculated Centimeters: 165.369762 Weight (Pounds): 247 Weight (Calculated Kilograms): 112.037 BMI Calculated: 39.60 Homero Nutrition Score: Homero Nutrition Risk Score: Dietary Referral Nutrition Risk Factors: Diff. Swallowing Nutrition Risk Comment: Nutritional Diagnosis Nutritional Risk Acuity 2: Pr Appetite > 3d, GI Malabsorption Nutritional Risk Acuity 3: Morbid Obesity Past Medical History: T2DM, GERD, CKD Nutritional Acuity: 2-Moderate Nutrition Diagnosis: Altered GI Function Nutrition Etiology: Physiological Causes Nutrition Problem/Etiology/Sym: Altered Gastrointestinal (GI) Function related to decreased functional length of the GI tract d/t bowel resection AEB dx of infarcted portion of small intestine and possible malabsorption. Energy Requirement: 2024 ([place]-St Jeor: Actual BW X 1.53) Protein Requirement: 86 (Actual BW Kg X .8) Fluid Requirement: 2014 Diet Type: Diabetic Nutrition Intervention: Cont diet as ordered, Check glucose Food Likes: switched to LS chicken noodle Additional Diet Restrictions: PUT PROTEIN POWDER IN APPROPRIATE FOODS& OFFER SF BOOST OR GLUCERNA Diet Comment To RSA: ALLERGIC: CIT[place]US, SHELLFISH, LACTOSE INTOLERANT Nutrition Monitoring & Eval Nutrition Goals: Eat 75-100% Meal Nutrition Follow-Up: Poor Intake RD Patient Assessment Time: [address] Assessment Type: RD Re-Assessment Patient Nutrition Acuity: 2-Moderate Follow Up Date: Jun 11, 2017 Nutritional Comment: Pt originally admitted 05/14/17 for abdominal pain and underwent surgery for extensive small bowel resection and cholecystectomy. Transferred to ECF for weakness and continued rehab. Since PO diet introduced on 05/22, concerns of diarrhea r/t short gut and possible need for elemental enteral product to meet nutr needs. Glu 250, Low H/H, Alb 1.9, Lipase 681. Lantus 15u q HS, Lispro SSI. Receiving NICK and consumed 50% of dinner meal in ECF this PM. Encourage intake, follow clinical progress, etc. 05/26 Glu 151. Appetite and intake decreased. Consumed 17% of meals on 05/25/17. May need to consider nutrition support if poor intake continues. Follow labs, intake, etc. 05/28 Pt eating 50% of small portions. BM are reported as loose to soft. BG 98- 168. Will cont to monitor and encourage intake. 4/3 Intake averaged 30% of small portions past 3 days. Wt is up 3.5% ( 9#) but pt having 2+ LE and 1+ UE edema. Nursing reporting loose stools. Pt may not be absorbing nuttrients of foods consumed. Pt currently has shingles which may be affecting intake. Will offer lactose free nutr supplments and put protein powder in appropriate foods. ANGIE FARRELL Jun 04, 2017 09:17
[2017-06-04] MEDS: PANTOPRAZOLE SOD 40 MG TABEC PO SCH (10:01)
[2017-06-04] MEDS: FUROSEMIDE 20 MG TAB PO SCH (10:01)
[2017-06-04] MEDS: diphenhydrAMINE 25 MG CAP PO SCH ×2 (10:01→20:49)
[2017-06-04] MEDS: INSULIN HUM LISPRO 100 UN/ML 3 ML VIAL SUBQ PRN (12:20)
[2017-06-04 16:10] VITALS: BP 137/68
[2017-06-04] MEDS: MELATONIN 3 MG TAB PO SCH (20:47)
[2017-06-04] MEDS: INSULIN GLARGINE 100 U/ML 3 ML PEN SUBQ SCH (20:50)
[2017-06-05] MEDS: diphenhydrAMINE 25 MG CAP PO SCH ×2 (08:50→20:43)
[2017-06-05] MEDS: POTASSIUM CHL 20 MEQ TABCR PO SCH ×2 (08:50→17:06)
[2017-06-05] MEDS: FUROSEMIDE 20 MG TAB PO SCH (08:50)
[2017-06-05] MEDS: PANTOPRAZOLE SOD 40 MG TABEC PO SCH (08:50)
[2017-06-05 10:05] VITALS: BP 132/69
--- NOTE | 2017-06-05 11:21 | General Surgery Progress Note ---
Subjective Progress Notes Subjective No complaints. No pain. Tolerating regular diet. No problems with diarrhea. Wound vac dressing changes occurring without problems. Physical Exam Vital Signs Date Time Temp Pulse Resp B/P (MAP) Pulse Ox O2 Delivery O2 Flow Rate FiO2 06/05/17 10:05 98.2 92 24 132/69 (90) 91 06/05/17 09:20 Nasal Cannula 2.0 Intake and Output 06/06/17 07:00 Intake Total 120 ml Balance 120 ml Intake Oral 120 ml General Appearance: Alert, Awake, No Acute Distress, Afebrile GI: Soft and Non-Tender (Wound vac is in place with good seal. Rest of incision looks good.) Extremities: Warm, Perfused Result Diagram: 06/02/17 0626 Assessment and Plan Problems: (1) Small bowel infarction Status: Resolved Assessment & Plan: 05/27/17: POD#13 s/p ex-lap, small bowel resection, cholecystectomy. Pt is doing great. Vitals look good. Incision looks good. [place] removed today and steristrips applied to the incision. GI function seems to be good and BMs haven't been problematic in terms of frequency or consistency. Continue diet, PT/OT. 05/28/17: POD#14. Doing well. Had a seroma on the him from periumbilical portion of her wound which drained yesterday. Will continue wound care. Nursing instructed on how to pack it and to not pack it too tightly. Continue PT/OT, etc. path revealed necrotic small bowel but no other unexpected findings such as neoplasm. 06/05/17: POD#22. Doing well. Plan is for d/c to home in 2 days with home health nursing for wound vac changes. Surgically, she is doing well and ready for d/c. I will see her back in my office on 06/17/17, at 9:30am. (2) Porcelain gallbladder Status: Resolved Assessment & Plan: Path revealed chronic cholecystitis but no evidence of neoplasm. Central Venous Access Medical Necessity for Access: Hemodynamic Monitoring, IV Access, Medication Administration Condition Stable Time Spent: < 30 min YARY TRIPLETT MD Jun 05, 2017 11:21
[2017-06-05] MEDS: INSULIN HUM LISPRO 100 UN/ML 3 ML VIAL SUBQ PRN ×3 (12:24→20:43)
[2017-06-05 13:43] LABS: PLATELET COUNT, AUTOMATED 179 K/uL (150-450)
[2017-06-05] MEDS ORDERED: ACET-2043 PO (13:46)
[2017-06-05] MEDS ORDERED: PREPH PR (13:46)
[2017-06-05] MEDS ORDERED: FURO-45 PO (13:46)
[2017-06-05] MEDS ORDERED: MELA3TAB31 PO (13:46)
[2017-06-05] MEDS ORDERED: PANT40TA65 PO (13:46)
[2017-06-05] MEDS ORDERED: LANI SUBQ (13:46)
[2017-06-05] MEDS ORDERED: POTA20TA94 PO (13:46)
[2017-06-05] MEDS ORDERED: DIPH-464 PO (13:46)
--- NOTE | 2017-06-05 13:51 | Hospitalist Depart ---
TK ORTIZ MD 06/05/17 4729: Discharge Summary Reason for Hosp/Final Diag: (1) Generalized weakness Status: Acute Hospital Course & Plan: The patient was generally weak after her bout with sepsis and surgery for ischemic small bowel. She was transferred to [facility] for rehabilitation. She worked with PT and OT. She was discharged with Home Health and ongoing PT. (2) Ischemia, bowel Status: Acute Hospital Course & Plan: The patient was admitted with sepsis due to ischemic small bowel and UTI. She underwent resection of a large portion of her small bowel. Her sepsis resolved. She improved and was transferred to [facility] for ongoing rehabilitation. She worked with PT and OT. She was discharged with ongoing therapy through Home Health. (3) Shingles Status: Acute Hospital Course & Plan: Ayanna cleft. Treated with valacyclovir and resolved. (4) Type 2 diabetes mellitus with hyperglycemia, with long-term current use of insulin Status: Chronic Hospital Course & Plan: She was on chronic treatment with glimepiride and NPH and these were discontinued on admission. She required multiple dosing while on sliding scale 3 and Lantus was added. She was discharged on Lantus 13u at . She will likely need to have her dose adjusted as an outpatient. (5) SARI treated with BiPAP Status: Chronic Hospital Course & Plan: She was continued on BiPAP at night. (6) GERD (gastroesophageal reflux disease) Status: Chronic Hospital Course & Plan: She was placed on pantoprazole 40mg daily. (7) Essential hypertension Onset Date: 11/18/2013 Status: Chronic Hospital Course & Plan: Blood pressures were reasonable off of lisinopril during her stay on ECF. She will be discharge on no medication. She may need to restart a small dose of CARROLL-I for renal protection at some point. (8) Hypokalemia Status: Acute Hospital Course & Plan: Potassium replaced orally (20meq bid). Will continue at discharge. (9) Hypomagnesemia Status: Acute Hospital Course & Plan: Given IV replacement while on ECF. Will need to be followed closely at least initially as an outpatient. Will repeat labs on Saturday , June 10. Departure Weight (Pounds): 247 Weight (Ounces): 7.0 Result Diagram: 06/05/17 1331 06/02/17 0626 Condition: Improved PT/OT Follow Up For: PT For Strengthening Home Health RN Follow Up For: Nursing Assessment Home Health SUPERVISOR SAMPLE Follow Up For: ADL Assistance Discharge Code Status: Full Code Time Spent: < 30 min Discharge Instructions Home Meds Active Scripts Potassium Chloride (POTASSIUM CHLORIDE) 20 Meq Tab.er.prt, 20 MEQ PO BIDBS, #60 TAB Prov:TK ORTIZ MD 06/05/17 Phe/Shark Liver Oil/Glycer/Pet (PREPARATION H CREAM) 27 Gm Cr, 0 GM FL PRN Y for HEMORRHOIDS, #1 TUBE Prov:TK ORTIZ MD 06/05/17 Pantoprazole Sodium (PANTOPRAZOLE SODIUM) 40 Mg Tablet.dr, 40 MG PO QDAY, #30 TAB Prov:TK ORTIZ MD 06/05/17 Melatonin (MELATONIN) 3 Mg Tablet, 3 MG PO QHS, #30 TAB Prov:TK ORTIZ MD 06/05/17 Insulin Glargine (LANTUS) 100 Unit/Ml Soln, 13 UNIT SUBQ HS, #1 VIAL 8 Refills Prov:TK ORTIZ MD 06/05/17 Furosemide (FUROSEMIDE) 20 Mg Tablet, 20 MG PO QDAY, #30 TAB Prov:TK ORTIZ MD 06/05/17 Diphenhydramine Hcl (DIPHENHYDRAMINE HCL) 25 Mg Capsule, 50 MG PO BID, #120 CAPSULE Prov:TK ORTIZ MD 06/05/17 Acetaminophen (ACETAMINOPHEN) 500 Mg Tablet, 500-1000 MG PO Q6H Y for FEVER/PAIN , #100 TAB Prov:TK ORTIZ MD 06/05/17 Furosemide (FUROSEMIDE) 20 Mg Tablet, 1 TAB PO DAILY, #90 TAB 4 Refills Prov:GEOVANNY NAPIER MD 09/11/16 Blood Sugar Diagnostic (CONTOUR) 1 Each Strip, 100 EACH MC Q30D, #100 STRIP 12 Refills Use to test blood sugars twice daily Prov:GEOVANNY NAPIER MD 04/23/16 Syringe & Needle,Insulin,1 Ml (INSULIN SYRINGE) 1 Each Disp.syrin, 1 EACH MC DAILY, #100 11 Refills Use to inject insulin twice daily Prov:GEOVANNY NAPIER MD 01/10/16 Lancets (BD ULTRA-FINE) 1 Each Each, 1 EACH MC DAILY, #100 12 Refills Use twice daily for insulin injections Prov:GEOVANNY NAPIER MD 10/04/15 Reported Medications Aspirin (ASPIR 81) 81 Mg Tablet.dr, 81 MG PO QDAY, TAB 05/08/17 Bipap Home (BIPAP HOME) Inha, HS 09/07/15 Discontinued Reported Medications Ondansetron (ZOFRAN ODT) 4 Mg Tab.rapdis, 4 MG PO Q12H Y for NAUSEA, TAB.MARQUIS 05/15/17 Ciprofloxacin Hcl (CIPROFLOXACIN HCL) 500 Mg Tablet, 500 MG PO Q12H, #14 TAB 05/14/17 Ca Phos/Cranberry/Milk Thistle (LIVER-KIDNEY CLEANSER CAP) 1 Each Capsule, 1 EACH PO DAILY, CAPSULE 09/28/16 Vit A,C & E/Lutein/Minerals (VISION VITAMINS TABLET) 1 Each Tablet, 1 EACH PO DAILY 09/28/16 Diphenhydramine Hcl (DIPHENHIST) 25 Mg Tablet, 1 TAB PO BID 11/24/13 Multivitamin (DAILY VITAMIN FORMULA) 1 Each Tablet, 1 TAB PO DAILY 11/24/13 Discontinued Scripts Tramadol Hcl (TRAMADOL HCL) 50 Mg Tablet, 1 TAB PO Q6H Y for PAIN, #30 MG TAKE ONE TO TWO TABLETS BY MOUTH EVERY FOUR TO SIX HOURS NEEDED Prov:MINO WHEELER DO 05/08/17 Oxycodone Hcl/Acetaminophen (PERCOCET 5-325 MG TABLET) 1 Each Tablet, 1 EACH PO Q4-6H Y for PAIN, #12 Prov:MINO WHEELER DO 05/08/17 Insulin NPH Human Isophane (Humulin N) 100 Unit/Ml Vial, 25 UNITS SQ QHS, #3 VIAL 3 Refills Prov:GEOVANNY NAPIER MD 04/24/17 Insulin Lispro 100 Un/Ml Vial (HUMALOG 100 U/ML VIAL) 100 Unit/1 Ml Vial, 18 UNIT SQ QID, #6 VIAL 3 Refills Inject 18 units subcutaneously prior to each meal and with large snack. Prov:VON CRUZ PHARMD 04/15/17 Glimepiride (AMARYL) 4 Mg Tablet, 1 TAB PO QDAY, #90 TAB 3 Refills Prov:GEOVANNY NAPIER MD 10/02/16 Lisinopril (LISINOPRIL) 5 Mg Tablet, 1 TAB PO QDAY, #90 TAB 4 Refills Prov:GEOVANNY NAPIER MD 09/11/16 Lovastatin (LOVASTATIN) 20 Mg Tablet, 1 TAB PO QDAY, #90 TAB 4 Refills Prov:GEOVANNY NAPIER MD 09/11/16 Follow up Referrals: General Surgery - In One Week @ Surgery, General with Yary Triplett Md Internal Medicine - In Two Weeks @ [facility]-Primary with Geovanny Napier Md Diet: Diabetic Special Instructions: Follow up with Dr. Triplett Saturday06/17/17 at 9:30am. To follow up with Dr. Napier the week of June 24. Copies to: GEOVANNY NAPIER MD; YARY TRIPLETT MD [id number] Certification Face to Face Home Health Certification Institutional Provider conducted the [id number] encounter. Electronic Undersigning Physician Certifies Home Health. I certify that the patient has been under my care and that I had a [id number] encounter that meets the physician [id number] encounter requirements with this patient. This patient is home-bound due to safety issues and continues to require assistance with ADL's. I certify that based on my findings, that Nursing, Aides and the following Home Health services are medically necessary: PT, OT Medical Necessity: Nursing, Rehab Date Face to Face Conducted: Jun 05, 2017 YARY RAI DO 06/09/17 1108: Discharge Summary Reason for Hosp/Final Diag: (1) Hypervolemia Hospital Course & Plan: She has developed increased edema and shortness of breath. She will be transferred to the medical floor for further evaluation. Departure Result Diagram: 06/05/17 1331 06/02/17 0626 Condition: No Change Discharge: Other Facility Discharge Instructions Home Meds Active Scripts Potassium Chloride (POTASSIUM CHLORIDE) 20 Meq Tab.er.prt, 20 MEQ PO BIDBS, #60 TAB Prov:TK ORTIZ MD 06/05/17 Phe/Shark Liver Oil/Glycer/Pet (PREPARATION H CREAM) 27 Gm Cr, 0 GM FL PRN Y for HEMORRHOIDS, #1 TUBE Prov:TK ORTIZ MD 06/05/17 Pantoprazole Sodium (PANTOPRAZOLE SODIUM) 40 Mg Tablet., 40 MG PO QDAY, #30 TAB Prov:TK ORTIZ MD 06/05/17 Melatonin (MELATONIN) 3 Mg Tablet, 3 MG PO QHS, #30 TAB Prov:TK ORTIZ MD 06/05/17 Insulin Glargine (LANTUS) 100 Unit/Ml Soln, 13 UNIT SUBQ HS, #1 VIAL 8 Refills Prov:TK ORTIZ MD 06/05/17 Furosemide (FUROSEMIDE) 20 Mg Tablet, 20 MG PO QDAY, #30 TAB Prov:TK ORTIZ MD 06/05/17 Diphenhydramine Hcl (DIPHENHYDRAMINE HCL) 25 Mg Capsule, 50 MG PO BID, #120 CAPSULE Prov:TK ORTIZ MD 06/05/17 Acetaminophen (ACETAMINOPHEN) 500 Mg Tablet, 500-1000 MG PO Q6H Y for FEVER/PAIN , #100 TAB Prov:TK ORTIZ MD 06/05/17 Furosemide (FUROSEMIDE) 20 Mg Tablet, 1 TAB PO DAILY, #90 TAB 4 Refills Prov:GEOVANNY NAPIER MD 09/11/16 Blood Sugar Diagnostic (CONTOUR) 1 Each Strip, 100 EACH MC Q30D, #100 STRIP 12 Refills Use to test blood sugars twice daily Prov:GEOVANNY NAPIER MD 04/23/16 Syringe & Needle,Insulin,1 Ml (INSULIN SYRINGE) 1 Each Disp.syrin, 1 EACH MC DAILY, #100 11 Refills Use to inject insulin twice daily Prov:GEOVANNY NAPIER MD 01/10/16 Lancets (BD ULTRA-FINE) 1 Each Each, 1 EACH MC DAILY, #100 12 Refills Use twice daily for insulin injections Prov:GEOVANNY NAPIER MD 10/04/15 Reported Medications Aspirin (ASPIR 81) 81 Mg Tablet.dr, 81 MG PO QDAY, TAB 05/08/17 Bipap Home (BIPAP HOME) Inha, HS 09/07/15 Discontinued Reported Medications Ondansetron (ZOFRAN ODT) 4 Mg Tab.rapdis, 4 MG PO Q12H Y for NAUSEA, TAB.MARQUIS 05/15/17 Ciprofloxacin Hcl (CIPROFLOXACIN HCL) 500 Mg Tablet, 500 MG PO Q12H, #14 TAB 05/14/17 Ca Phos/Cranberry/Milk Thistle (LIVER-KIDNEY CLEANSER CAP) 1 Each Capsule, 1 EACH PO DAILY, CAPSULE 09/28/16 Vit A,C & E/Lutein/Minerals (VISION VITAMINS TABLET) 1 Each Tablet, 1 EACH PO DAILY 09/28/16 Diphenhydramine Hcl (DIPHENHIST) 25 Mg Tablet, 1 TAB PO BID 11/24/13 Multivitamin (DAILY VITAMIN FORMULA) 1 Each Tablet, 1 TAB PO DAILY 11/24/13 Discontinued Scripts Tramadol Hcl (TRAMADOL HCL) 50 Mg Tablet, 1 TAB PO Q6H Y for PAIN, #30 MG TAKE ONE TO TWO TABLETS BY MOUTH EVERY FOUR TO SIX HOURS NEEDED Prov:MINO WHEELER DO 05/08/17 Oxycodone Hcl/Acetaminophen (PERCOCET 5-325 MG TABLET) 1 Each Tablet, 1 EACH PO Q4-6H Y for PAIN, #12 Prov:YUDITH WHEELERTaylor Barker DO 05/08/17 Insulin NPH Human Isophane (Humulin N) 100 Unit/Ml Vial, 25 UNITS SQ QHS, #3 VIAL 3 Refills Prov:GEOVANNY NAPIER MD 04/24/17 Insulin Lispro 100 Un/Ml Vial (HUMALOG 100 U/ML VIAL) 100 Unit/1 Ml Vial, 18 UNIT SQ QID, #6 VIAL 3 Refills Inject 18 units subcutaneously prior to each meal and with large snack. Prov:VON CRUZ PHARMD 04/15/17 Glimepiride (AMARYL) 4 Mg Tablet, 1 TAB PO QDAY, #90 TAB 3 Refills Prov:GEOVANNY NAPIER MD 10/02/16 Lisinopril (LISINOPRIL) 5 Mg Tablet, 1 TAB PO QDAY, #90 TAB 4 Refills Prov:GEOVANNY NAPIER MD 09/11/16 Lovastatin (LOVASTATIN) 20 Mg Tablet, 1 TAB PO QDAY, #90 TAB 4 Refills Prov:GEOVANNY NAPIER MD 09/11/16 Follow up Referrals: General Surgery - In One Week @ Surgery, General with Yary Triplett Md Internal Medicine - In Two Weeks @ [facility]-Primary with Geovanny Napier Md Diet: Regular Activity: As Tolerated Copies to: GEOVANNY NAPIER MD; YARY TRIPLETT MD Venous Thromboembolism Antithrombotics Is Pt On Any Antithrombotics?: No TK ORTIZ MD Jun 05, 2017 13:51 YARY RAI DO Jun 09, 2017 11:08
--- NOTE | 2017-06-05 13:56 | Hospitalist Progress Note ---
Subjective Progress Notes Subjective The patient is doing well. She has had some gas/bloating. Physical Exam Vital Signs Date Time Temp Pulse Resp B/P (MAP) Pulse Ox O2 Delivery O2 Flow Rate FiO2 06/05/17 10:05 98.2 92 24 132/69 (90) 91 06/05/17 09:20 Nasal Cannula 2.0 Intake and Output 06/06/17 07:00 Intake Total 120 ml Balance 120 ml Intake Oral 120 ml # Voids 1 General Appearance: Alert, Awake, No Acute Distress Neuro: No Gross deficits Eyes: PERRLA Neck: Other (Jugular line site healing well without redness or drainage.) Cardiovascular: Regular Rate and Rhythm Respiratory: Clear to Auscultation GI: Other (Distended, soft, nontender. Midline surgical wound with wound vac in place. Healing well.) Extremities: Warm, Perfused, Edema (2+) Integumentary: Other (Midline abdominal wound as above.) Psych: Alert & Oriented X3, Appropriate Mood & Affect Result Diagram: 06/05/17 1331 06/02/17 0626 Assessment and Plan Problems: (1) Generalized weakness Status: Acute Assessment & Plan: The patient was generally weak after her bout with sepsis and surgery for ischemic small bowel. She was transferred to [facility] for rehabilitation. She worked with PT and OT. She will tnetatively be discharged with Home Health and ongoing PT at the end of the week. (2) Ischemia, bowel Status: Acute Assessment & Plan: The patient was admitted with sepsis due to ischemic small bowel and UTI. She underwent resection of a large portion of her small bowel. Her sepsis resolved. She improved and was transferred to [facility] for ongoing rehabilitation. (3) Shingles Status: Acute Assessment & Plan: cleft. Treated with valacyclovir and resolved. (4) Type 2 diabetes mellitus with hyperglycemia, with long-term current use of insulin Status: Chronic Assessment & Plan: She was on chronic treatment with glimepiride and NPH and these were discontinued on admission. She required multiple dosing while on sliding scale 3 and Lantus was added. She is currently on Lantus 13u at plus SSI. 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 (6) GERD (gastroesophageal reflux disease) Status: Chronic Assessment & Plan: Continue pantoprazole here. (7) Essential hypertension Onset Date: 11/18/2013 Status: Chronic Assessment & Plan: Currently on no treatment. Continue to monitor BPs. (8) Hypomagnesemia Status: Acute Assessment & Plan: Magnesium low. Will recheck today and replace as needed. (9) Hypokalemia Status: Acute Assessment & Plan: Improved (3.5). Will repeat labs today. Central Venous Access Medical Necessity for Access: Hemodynamic Monitoring, IV Access, Medication Administration Time Spent on Plan of Care: < 30 min TK ORTIZ MD Jun 05, 2017 13:56
[2017-06-05] MEDS ORDERED: MAGNESIUM SUL* 4 GM/100 ML BAG 100 ML IVPB ONE (14:30)
[2017-06-05 19:35] VITALS: BP 140/72
[2017-06-05] MEDS: INSULIN GLARGINE 100 U/ML 3 ML PEN SUBQ SCH (20:42)
[2017-06-05] MEDS: MELATONIN 3 MG TAB PO SCH (20:43)
[2017-06-06 08:30] VITALS: BP 138/75
[2017-06-06] MEDS: diphenhydrAMINE 25 MG CAP PO SCH ×2 (08:40→20:45)
[2017-06-06] MEDS: POTASSIUM CHL 20 MEQ TABCR PO SCH ×3 (08:41→16:59)
[2017-06-06] MEDS: FUROSEMIDE 20 MG TAB PO SCH (08:41)
[2017-06-06] MEDS: PANTOPRAZOLE SOD 40 MG TABEC PO SCH (08:41)
[2017-06-06] MEDS ORDERED: MAGNESIUM SUL* 4 GM/100 ML BAG 100 ML IVPB ONE (09:00)
[2017-06-06] MEDS: INSULIN HUM LISPRO 100 UN/ML 3 ML VIAL SUBQ PRN ×3 (12:32→20:45)
[2017-06-06] MEDS: CALCIUM CARBONATE/VITAMIN D3 PO SCH (16:59)
[2017-06-06 18:01] VITALS: BP 144/80
[2017-06-06] MEDS: INSULIN GLARGINE 100 U/ML 3 ML PEN SUBQ SCH (20:45)
[2017-06-06] MEDS: MELATONIN 3 MG TAB PO SCH (20:45)
[2017-06-07] MEDS ORDERED: MAGNESIUM SUL* 4 GM/100 ML BAG 100 ML IVPB ONE (06:35)
[2017-06-07 08:30] VITALS: BP 149/72
[2017-06-07] MEDS: diphenhydrAMINE 25 MG CAP PO SCH ×2 (08:41→21:11)
[2017-06-07] MEDS: POTASSIUM CHL 20 MEQ TABCR PO SCH ×3 (08:41→16:35)
[2017-06-07] MEDS: PANTOPRAZOLE SOD 40 MG TABEC PO SCH (08:41)
[2017-06-07] MEDS: CALCIUM CARBONATE/VITAMIN D3 PO SCH ×2 (08:41→16:35)
[2017-06-07] MEDS: FUROSEMIDE 20 MG TAB PO SCH (08:42)
[2017-06-07] MEDS ORDERED: MAGNESIUM OXIDE 400 MG TAB PO ONE (09:40)
[2017-06-07] MEDS: INSULIN HUM LISPRO 100 UN/ML 3 ML VIAL SUBQ PRN ×3 (12:39→21:13)
[2017-06-07 15:34] VITALS: BP 145/80
[2017-06-07] MEDS: MELATONIN 3 MG TAB PO SCH (21:10)
[2017-06-07] MEDS: INSULIN GLARGINE 100 U/ML 3 ML PEN SUBQ SCH (21:12)
[2017-06-07 21:15] VITALS: BP 119/64
[2017-06-07] MEDS: ACETAMINOPHEN 500 MG TAB PO PRN (21:37)
[2017-06-07] MEDS ORDERED: NS(*) 0.9% 1000 ML BAG 1,000 ML IV PRN (22:20)
--- NOTE | 2017-06-07 22:25 | Miscellaneous Provider Note ---
Miscellaneous Provider Note Note Ms. Kathleen developed fever, cough, tachycardia, increased O2 requirement. Her exam is rather unremarkable other than tachycardia. Lungs are clear. Abdomen is somewhat distended, but soft with fairly normal bowel sounds. I suspect she could have another UTI vs. possible pneumonia. Will check lab (including CBC and UA with culture), CXR. Will start gentle IV fluids and IV Rocephin. Watch closely. FAITH ORTIZ MD Jun 07, 2017 22:24
--- NOTE | 2017-06-07 22:39 | RADIOLOGY IMAGING REPORT ---
FACILITY: [facility] [place] PATIENT NAME: Brandy Kathleen : 1940 MR: [id number] V: [id number] EXAM DATE: ORDERING PHYSICIAN: FAITH ORTIZ TECHNOLOGIST: Location: [facility] Patient: Brandy Kathleen : 1940 Visit/Account:[id number] Date of Sevice: 06/07/2017 CHEST SINGLE AP 06/07/2017 21:49 hours. HISTORY: Cough. Shortness of breath. Fever. COMPARISON: 05/22/2017 and studies dating to 08/12/2014. TECHNIQUE: Portable AP view of the chest. FINDINGS: Tubes/lines/hardware: None. Pulmonary: There is new right parahilar and right upper lobe patchy opacity. Left parahilar opacities have resolved. There is no pneumothorax or pleural effusion. There is stable mild elevation the righ t hemidiaphragm. Cardiomediastinal: Cardiac and mediastinal silhouettes are within normal limits. Bones/soft tissues: No acute osseous abnormality. There is mild degenerative change of the spine. The re is mild to moderate degenerative change of the acromioclavicular joints. There is mild degenerativ e change of the glenohumeral joints. The visible abdomen is normal. IMPRESSION: 1. New right upper lobe and right perihilar opacity, suspicious for pneumonia. Report Dictated By: Lisandra Flor at 06/07/2017 10:30 PM Report E-Signed By: Lisandra Flor at 06/07/2017 10:33 PM [id number]
[2017-06-07 22:54] LABS: PLATELET COUNT, AUTOMATED 152 K/uL (150-450)
[2017-06-07] MEDS: cefTRIAXone 1 GM VIAL IVP SCH (23:00)
[2017-06-08 02:00] VITALS: BP 118/72
[2017-06-08] MEDS: ACETAMINOPHEN 500 MG TAB PO PRN (03:47)
[2017-06-08 05:50] LABS: PLATELET COUNT, AUTOMATED 122 K/uL (150-450)
[2017-06-08] MEDS ORDERED: MAGNESIUM SUL* 4 GM/100 ML BAG 100 ML IVPB ONE (06:15)
[2017-06-08 07:45] VITALS: BP 118/66
[2017-06-08] MEDS: diphenhydrAMINE 25 MG CAP PO SCH ×2 (08:23→20:54)
[2017-06-08] MEDS: FUROSEMIDE 20 MG TAB PO SCH (08:23)
[2017-06-08] MEDS: CALCIUM CARBONATE/VITAMIN D3 PO SCH ×2 (08:23→17:10)
[2017-06-08] MEDS: PANTOPRAZOLE SOD 40 MG TABEC PO SCH (08:24)
[2017-06-08] MEDS: POTASSIUM CHL 20 MEQ TABCR PO SCH ×3 (08:24→17:10)
[2017-06-08 10:55] VITALS: BP 119/65
[2017-06-08 15:44] VITALS: BP 135/68
[2017-06-08] MEDS: INSULIN HUM LISPRO 100 UN/ML 3 ML VIAL SUBQ PRN ×2 (17:11→20:55)
[2017-06-08] MEDS ORDERED: NS(*) 0.9% 1000 ML BAG 1,000 ML IV ONE (19:00)
[2017-06-08] MEDS: MELATONIN 3 MG TAB PO SCH (20:54)
[2017-06-08] MEDS: INSULIN GLARGINE 100 U/ML 3 ML PEN SUBQ SCH (20:55)
[2017-06-08] MEDS: cefTRIAXone 1 GM VIAL IVP SCH (22:39)
[2017-06-09] MEDS: ACETAMINOPHEN 500 MG TAB PO PRN (05:59)
[2017-06-09 06:02] LABS: PLATELET COUNT, AUTOMATED 102 K/uL (150-450)
[2017-06-09] MEDS ORDERED: MAGNESIUM SUL* 4 GM/100 ML BAG 100 ML IVPB ONE ×2 (07:00→09:00)
[2017-06-09 07:25] VITALS: BP 109/62
[2017-06-09] MEDS ORDERED: POTASSIUM CHL 20 MEQ TABCR PO SCH (08:00)
[2017-06-09] MEDS: PANTOPRAZOLE SOD 40 MG TABEC PO SCH (08:31)
[2017-06-09] MEDS: FUROSEMIDE 20 MG TAB PO SCH (08:31)
[2017-06-09] MEDS: diphenhydrAMINE 25 MG CAP PO SCH (08:31)
[2017-06-09] MEDS: CALCIUM CARBONATE/VITAMIN D3 PO SCH (08:31)
[2017-06-09] MEDS: INSULIN HUM LISPRO 100 UN/ML 3 ML VIAL SUBQ PRN (08:32)
[2017-06-09 10:30] VITALS: BP 112/62
[2017-06-09] MEDS ORDERED: cefTRIAXone(*) 1 GM VIAL 1 GM in NS(*) 0.9% 100 ML ADDVANT BAG 100 ML IVP SCH (23:00)
--- NOTE | 2017-06-10 08:33 | OT ECF NOTE ---
Type of Note: Discharge Note Primary Medical Diagnosis: Generalized Weakness s/p hospital admission for UTI and bowel resection 05/14/17. Occupational Therapy Evaluation Date: 05/24/17 SUBJECTIVE: Prior Hospitalization: [facility] 05/13/17 thru 05/24/17 Prior Level of Function: Independent with all ADLs/IADLs. 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 Psychosocial Support: Supportive family Pain Scale (0-10): None reported at time of evaluation OBJECTIVE: Strength: MMT: Right Left Shoulder Flexion 4/5 4/5 Elbow Flexion 4/5 4/5 Wrist Extension 4/5 4/5 Development Writer 4/5 4/5 (5= normal, 4= good, 3= fair, 2= poor, 1= trace) ROM: Both upper extremities, Minimally limited Functional Transfer: Assistive Device: Front wheeled walker, Gait belt Transfer Ability: CGA ADL: Upper body dressing: Assistive device: Upper body dressing ability: Lower body dressing: Assistive device: Will benefit from LB AE education Lower body dressing ability: Moderate assistance Toileting: Assistive device: Toileting ability: N/T Grooming/hygiene: Assistive device: Grooming ability: N/T Bathing: Assistive device: Pt reports she has a special way that she climbs into the bathtub for baths. Will benefit from addressing this transfer prior to d/c home. Bathing ability: N/T Standardized Assessment: Jeannette Index of Activities of Daily Livin/20 at initial evaluation () ASSESSMENT: Aimee presented to [facility] requiring CGA for ambulation and assist for ADLs secondary to decreased activity tolerance and recent hospital admission. She was transferred to med/surg on 06/09/17 for skilled medical care. Problem List/Current Limitations: Decreased activity tolerance Decreased strength Generalized weakness Short Term Goals: 1) Pt will be Mod (I) UB/LB dressing. Progressing towards. 2) Pt will be Mod (I) bathing. Progressing towards. 3) Pt will be Mod (I) toileting. Progressing towards. 4) Pt will be Independent grooming/hygiene. Progressing towards. 5) Pt Jeannette Index of ADLs score will improve by 2 points. Progressing towards. [facility] Goals: Return home with services Patient Goals: Return home Rehabilitation Prognosis: Good Barriers to Discharge: None at this time PLAN: The patient was transferred to med/surg on 06/09/17 for skilled medical care. Thank you for this referral. If you have any questions, concerns, or comments about this report or plan, please contact me at . Kay Allen MS, OTR/L Occupational Therapist [facility]
--- NOTE | 2017-06-10 11:48 | PT ECF NOTE ---
Type of Note: Discharge Summary Primary Medical Diagnosis: Generalized Weakness s/p hospital admission for UTI and extensive small bowel resection 05/14/17. Physical Therapy Evaluation Date: 05/27/17 Physical Therapy Discharge Date: 06/10/17 SUBJECTIVE: Prior Hospitalization: [facility] 05/13/17 thru 05/24/17 Prior Level of Function: Independent with all ADLs/IADLs. 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 She demonstrated the ability to manage O2 and wound vac tubing with minimal verbal cues. She did continue to fatigue quickly, but demonstrated the ability to use 4WW as a seat, safely. She was transferred from [facility] to [facility] medical/surgical floor on 06/09/17 d/t acute medical needs. Her wound vac dressing was changed on with good granulation tissue present and a decrease in wound size. PT services were discharged upon transfer. Problem List/Current Limitations: Decreased activity najma, Decreased strength , Decreased balance, Generalized weakness Short Term Goals: (partially met) 1. Pt to demo proper log roll technique with indep for bed mobility 2. Pt to be modified indep for sit to/from stand transfers from a variety of surfaces 3. Pt to najma ambulation x 300' with least restrictive device, in order to return to community mobility of prior level of function 4. Pt to najma up/down one platform step with Modified indep to simulate curb in environment. Wool Sampler Goals: Pt to return to prior living environment with additional assistance as indicated Patient Goals: To return home to senior housing as before Rehabilitation Prognosis: Good PLAN: The patient was transferred from [facility] to [facility] medical/surgical floor d/t acute medical needs. Thank you for this referral. If you have any questions, concerns, or comments about this report or plan, please contact me at . Eryn King, PT, DPT [facility]
== END 2017-06-09 11:30 | disposition short-term general hospital (02) | DRG 949 ==
LOC: ECF 15:03
PROVIDERS: ADMIT Internal Medicine; ATTEND Internal Medicine
PROC: 5A09357 Assistance with Respiratory Ventilation, Less than 24 Consecutive Hours, Continuous Positive Airway Pressure (ICD-10-PCS; principal; 2017-05-24)
DX: Z48.815 Encounter for surgical aftercare following surgery on the digestive system (principal); L76.34 Postprocedural seroma of skin and subcutaneous tissue following other procedure; B02.9 Zoster without complications; E11.65 Type 2 diabetes mellitus with hyperglycemia; G47.33 Obstructive sleep apnea (adult) (pediatric); K21.9 Gastro-esophageal reflux disease without esophagitis; I10 Essential (primary) hypertension; R53.1 Weakness; E87.6 Hypokalemia; E83.42 Hypomagnesemia; Z97.4 Presence of external hearing-aid; E87.70 Fluid overload, unspecified; E73.9 Lactose intolerance, unspecified; R00.0 Tachycardia, unspecified; Z66 Do not resuscitate; Y83.8 Other surgical procedures as the cause of abnormal reaction of the patient, or of later complication, without mention of misadventure at the time of the procedure; Y73.3 Surgical instruments, materials and gastroenterology and urology devices (including sutures) associated with adverse incidents; Z91.040 Latex allergy status; Z91.013 Allergy to seafood
CPT/HCPCS: 36415; 36416; 71045; 81001; 82040; 82247; 82310; 82374; 82435; 82565; 82947; 82948; 83735; 84075; 84100; 84132; 84155; 84295; 84450; 84460; 84520; 85025; 87077; 87088; 87186; 97161; 97165; 97605; J0696; J1815; J2543; J2997; J3475; J3480; J7030; J7050; Q0163

== ENCOUNTER 2017-06-09 11:30 | Inpatient (IN) | payer MEDICARE ==
[2017-05-24 19:20] VITALS: Ht 165.1 cm; Wt 114.3 kg
[~2017-06-09] VITALS: Ht 165.1 cm; Wt 114.3 kg
[~2017-06-09 11:30] MED LIST changes: +ACET-2043 PO; +DIPH-464 PO; +LANI SUBQ; +MELA3TAB31 PO; +PANT40TA65 PO; +POTA20TA94 PO; +PREPH PR
[2017-06-09] MEDS ORDERED: INFLUENZA VIRUS VAC 0.5 ML SYR IM ONLY ONE (12:20)
[2017-06-09 12:22] VITALS: BP 117/72
[2017-06-09] MEDS ORDERED: FUROSEMIDE 40 MG/4 ML VIAL IVP ONE (12:45)
--- NOTE | 2017-06-09 13:07 | RADIOLOGY IMAGING REPORT ---
FACILITY: [facility] - [place], [place] PATIENT NAME: Brandy Kathleen : 1940 MR: [id number] V: [id number] EXAM DATE: ORDERING PHYSICIAN: YARY RAI TECHNOLOGIST: Location: [facility] Patient: Brandy Kathleen : 1940 Visit/Account:[id number] Date of Sevice: 06/09/2017 CHEST SINGLE AP History: Follow-up pneumonia FINDINGS: Comparison studies: 06/07/2017 Tubes and Lines: None. Lungs and pleura: Again seen are interstitial opacities in the right upper lobe which do not appear significantly changed. Interval development of streaky discoid opacities left lung base. Mediastinum: normal. Cardiac silhouette: normal . Osseous structures: Unremarkable for age . IMPRESSION: Right upper lobe pneumonia unchanged. Developing left basilar atelectasis favored although very early left lower lobe pneumonic process not excluded. Report Dictated By: Eulalio Mckeon MD at 06/09/2017 1:01 PM Report E-Signed By: Eulalio Mckeon MD at 06/09/2017 1:03 PM [id number]
--- NOTE | 2017-06-09 13:11 | History & Physical ---
History of Present Illness Chief Complaint Shortness of breath History of Present Illness This patient was on extended care recovering from a bowel resection and cholecystectomy. She has been complaining of increased shortness of breath and edema. History Problems: (1) Type 2 diabetes mellitus Status: Chronic (2) Acute respiratory failure (3) Septic shock Status: Acute (4) Shingles Status: Chronic (5) Ischemia, bowel Status: Chronic (6) Obstructive sleep apnea Status: Chronic (7) Essential hypertension Onset Date: 11/18/2013 Status: Chronic (8) History of appendectomy Status: Resolved (9) History of tubal ligation Status: Resolved Home Meds Active Scripts Potassium Chloride (POTASSIUM CHLORIDE) 20 Meq Tab.er.prt, 20 MEQ PO BIDBS, #60 TAB Prov:TK ORTIZ MD 06/05/17 Phe/Shark Liver Oil/Glycer/Pet (PREPARATION H CREAM) 27 Gm Cr, 0 GM OR PRN Y for HEMORRHOIDS, #1 TUBE Prov:TK ORTIZ MD 06/05/17 Pantoprazole Sodium (PANTOPRAZOLE SODIUM) 40 Mg Tablet.dr, 40 MG PO QDAY, #30 TAB Prov:TK ORTIZ MD 06/05/17 Melatonin (MELATONIN) 3 Mg Tablet, 3 MG PO QHS, #30 TAB Prov:KT ORTIZ MD 06/05/17 Insulin Glargine (LANTUS) 100 Unit/Ml Soln, 13 UNIT SUBQ HS, #1 VIAL 8 Refills Prov:TK ORTIZ MD 06/05/17 Furosemide (FUROSEMIDE) 20 Mg Tablet, 20 MG PO QDAY, #30 TAB Prov:TK ORTIZ MD 06/05/17 Diphenhydramine Hcl (DIPHENHYDRAMINE HCL) 25 Mg Capsule, 50 MG PO BID, #120 CAPSULE Prov:TK ORTIZ MD 06/05/17 Acetaminophen (ACETAMINOPHEN) 500 Mg Tablet, 500-1000 MG PO Q6H Y for FEVER/PAIN , #100 TAB Prov:TK ORTIZ MD 06/05/17 Furosemide (FUROSEMIDE) 20 Mg Tablet, 1 TAB PO DAILY, #90 TAB 4 Refills Prov:SHARIF FUENTES MD 09/11/16 Blood Sugar Diagnostic (CONTOUR) 1 Each Strip, 100 EACH MC Q30D, #100 STRIP 12 Refills Use to test blood sugars twice daily Prov:SHARIF FUENTES MD 04/23/16 Syringe & Needle,Insulin,1 Ml (INSULIN SYRINGE) 1 Each Disp.syrin, 1 EACH MC DAILY, #100 11 Refills Use to inject insulin twice daily Prov:SHARIF FUENTES MD 01/10/16 Lancets (BD ULTRA-FINE) 1 Each Each, 1 EACH MC DAILY, #100 12 Refills Use twice daily for insulin injections Prov:SHARIF FUENTES MD 10/04/15 Reported Medications Aspirin (ASPIR 81) 81 Mg Tablet.dr, 81 MG PO QDAY, TAB 05/08/17 Bipap Home (BIPAP HOME) Inha, HS 09/07/15 Discontinued Reported Medications Ondansetron (ZOFRAN ODT) 4 Mg Tab.rapdis, 4 MG PO Q12H Y for NAUSEA, TAB.MARQUIS 05/15/17 Ciprofloxacin Hcl (CIPROFLOXACIN HCL) 500 Mg Tablet, 500 MG PO Q12H, #14 TAB 05/14/17 Ca Phos/Cranberry/Milk Thistle (LIVER-KIDNEY CLEANSER CAP) 1 Each Capsule, 1 EACH PO DAILY, CAPSULE 09/28/16 Vit A,C & E/Lutein/Minerals (VISION VITAMINS TABLET) 1 Each Tablet, 1 EACH PO DAILY 09/28/16 Diphenhydramine Hcl (DIPHENHIST) 25 Mg Tablet, 1 TAB PO BID 11/24/13 Multivitamin (DAILY VITAMIN FORMULA) 1 Each Tablet, 1 TAB PO DAILY 11/24/13 Discontinued Scripts Tramadol Hcl (TRAMADOL HCL) 50 Mg Tablet, 1 TAB PO Q6H Y for PAIN, #30 MG TAKE ONE TO TWO TABLETS BY MOUTH EVERY FOUR TO SIX HOURS NEEDED Prov:MINO WHEELER DO 05/08/17 Oxycodone Hcl/Acetaminophen (PERCOCET 5-325 MG TABLET) 1 Each Tablet, 1 EACH PO Q4-6H Y for PAIN, #12 Prov:MINO WHEELER DO 05/08/17 Insulin NPH Human Isophane (Humulin N) 100 Unit/Ml Vial, 25 UNITS SQ QHS, #3 VIAL 3 Refills Prov:SHARIF FUENTES MD 04/24/17 Insulin Lispro 100 Un/Ml Vial (HUMALOG 100 U/ML VIAL) 100 Unit/1 Ml Vial, 18 UNIT SQ QID, #6 VIAL 3 Refills Inject 18 units subcutaneously prior to each meal and with large snack. Prov:VON CRUZD 04/15/17 Glimepiride (AMARYL) 4 Mg Tablet, 1 TAB PO QDAY, #90 TAB 3 Refills Prov:SHARIF FUENTES MD 10/02/16 Lisinopril (LISINOPRIL) 5 Mg Tablet, 1 TAB PO QDAY, #90 TAB 4 Refills Prov:SHARIF FUENTES MD 09/11/16 Lovastatin (LOVASTATIN) 20 Mg Tablet, 1 TAB PO QDAY, #90 TAB 4 Refills Prov:SHARIF FUENTES MD 09/11/16 Allergies: Coded Allergies: Shellfish (Verified Allergy, Intermediate, SWELLING WITH SHRIMP, 05/13/17) Sulfa (Sulfonamide Antibiotics) (Verified Allergy, Intermediate, hives, 12/16) Greenbrier And Derivatives (Verified Allergy, Unknown, HIVES, 11/11/14) lactose (Verified Adverse Reaction, Intermediate, rash, 11/18/14) Patient History: FH: HI (myocardial infarction) PATERNAL GRANDFATHER (PGGF) MATERNAL UNCLE, , Age:50's - 60 BROTHER, , Age:73, Onset:72 FH: colon cancer PATERNAL AUNT, , Age:70 FH: congestive heart failure FH: coronary artery disease HALF-BROTHER, Age:64 HALF-BROTHER, Age:68 FH: diabetes mellitus BROTHER, , Age:73 FH: glaucoma MOTHER, , Age:83 FHx: stroke MOTHER, , Age:83 Pacemaker BROTHER, , Age:73 Stent HALF-BROTHER, Age:64 HALF-BROTHER, Age:68 Hx Smoking: No Smoking Status: Never Smoker Exposure to Second Hand Smoke?: Yes Caffeine Intake: Tea, Soda Caffeine/Cups Per Day: OCC-TEA, 8OZ SODA QDAY Hx Alcohol Use: No Hx Substance Use Disorder: No Review of Systems All Systems Reviewed/Normal: Yes, Except as Noted Respiratory: Shortness of Breath Exam Vital Signs Vital Signs Date Time Temp Pulse Resp B/P (MAP) Pulse Ox O2 Delivery O2 Flow Rate FiO2 06/09/17 12:22 98.7 84 16 117/72 (87) 97 Nasal Cannula 3.5 Neuro: No Gross deficits Eyes: PERRLA Cardiovascular: Regular Rate and Rhythm, Other (Tense edema in lower extremities.) Respiratory: Clear to Auscultation Extremities: Edema Integumentary: No Cyanosis Medical Decision Making EKG / Imaging Imaging Chest x-ray reviewed. Assessment and Plan Problems: (1) Hypervolemia Assessment & Plan: She did complain of increased shortness of breath and edema while on extended care. Her records indicate that she has had 22Kg of weight gain since her initial admission. She also has tense pitting edema to the lower extremities. Her last echocardiogram showed a preserved ejection fraction , but dates back to 2006. She has been started on IV Lasix. A repeat echocardiogram and daily weights have been ordered. (2) Type 2 diabetes mellitus Status: Chronic Assessment & Plan: She is on chronic treatment with Lantus and sliding scale level #3. (3) Bacterial pneumonia Assessment & Plan: She had a low grade temperature on 06/07 and her x-ray suggested a right upper lobe infiltrate. She was started on ceftriaxone for this. She has since been afebrile and her WBC has been normal. Cultures are not available. The ceftriaxone has been discontinued. (4) Asymptomatic bacteriuria Assessment & Plan: Her urinalysis from 06/07 was negative for leukocytes and was contaminated. The culture is growing a gram negative jayne, but this is likely contamination. Ceftriaxone has been discontinued as above. Central Venous Access Medical Necessity for Access: Hemodynamic Monitoring, IV Access, Medication Administration Venous Thromboembolism Antithrombotics Is Pt On Any Antithrombotics?: No Exam Sepsis Risk: No Definite Risk YARY RAI DO Jun 09, 2017 13:11
[2017-06-09 15:07] VITALS: BP 127/80
[2017-06-09] MEDS: INSULIN HUM LISPRO 100 UN/ML 3 ML VIAL SUBQ PRN ×2 (17:01→21:31)
[2017-06-09 19:28] VITALS: BP 122/59
[2017-06-09] MEDS: INSULIN GLARGINE 100 U/ML 3 ML PEN SUBQ SCH (21:31)
[2017-06-10 02:42] VITALS: BP 130/68
[2017-06-10 06:39] LABS: PLATELET COUNT, AUTOMATED 101 K/uL (150-450)
[2017-06-10 07:08] VITALS: BP 138/76
[2017-06-10] MEDS: ACETAMINOPHEN 325 MG TAB PO PRN ×2 (07:14→20:20)
[2017-06-10] MEDS: INSULIN HUM LISPRO 100 UN/ML 3 ML VIAL SUBQ PRN ×4 (07:15→20:18)
[2017-06-10] MEDS: POTASSIUM CHL 20 MEQ TABCR PO SCH (08:15)
[2017-06-10] MEDS ORDERED: NS(*) 0.9% 250 ML BAG 250 ML ONE (10:18)
[2017-06-10] MEDS: cefTRIAXone(*) 1 GM VIAL 1 GM in NS(*) 0.9% 100 ML ADDVANT BAG 100 ML IVPB SCH (10:20)
[2017-06-10 10:42] VITALS: BP 140/64
[2017-06-10 15:03] VITALS: BP 126/67
[2017-06-10] MEDS ORDERED: MAGNESIUM SUL* 4 GM/100 ML BAG 100 ML IVPB ONE (16:55)
--- NOTE | 2017-06-10 17:09 | Hospitalist Progress Note ---
Subjective Progress Notes Subjective The patient denies new complaints. She continues to have a cough. Physical Exam Vital Signs Date Time Temp Pulse Resp B/P (MAP) Pulse Ox O2 Delivery O2 Flow Rate FiO2 06/10/17 15:03 98.3 97 16 126/67 (86) 96 Nasal Cannula 3.5 Intake and Output 06/11/17 07:00 Intake Total 460 ml Balance 460 ml Intake Oral 360 ml IV Total 100 ml # Voids 1 # Bowel Movements 1 General Appearance: Alert, Awake, No Acute Distress, Afebrile Neuro: No Gross deficits Eyes: PERRLA Cardiovascular: Regular Rate and Rhythm Respiratory: Clear to Auscultation (Anteriorly.) GI: Soft and Non-Tender, Other (Wound vac in place lower abdomen.) Extremities: Warm, Perfused, Edema (Skin is tense due to edema. No obvious breakdown.) Integumentary: Other (Midline abdominal wound.) Psych: Alert & Oriented X3, Appropriate Mood & Affect Result Diagram: 06/10/1763206/10/17632 Item Value Date Time Calcium Level 7.8 mg/dl L 06/10/17632 Magnesium Level 1.4 mg/dl L 06/10/17632 Assessment and Plan Problems: (1) Hypervolemia Assessment & Plan: She did complain of increased shortness of breath and edema while on extended care. Her records indicate that she has had 22Kg of weight gain since her initial admission. She also has tense pitting edema to the lower extremities. Her last echocardiogram showed a preserved ejection fraction , but dates back to 2006. She has been started on IV Lasix. A repeat echocardiogram and daily weights have been ordered. She has an extremely low albumin and a prealbumin has been ordered. (2) Type 2 diabetes mellitus Status: Chronic Assessment & Plan: She is on chronic treatment with Lantus and sliding scale level #3. (3) Bacterial pneumonia Assessment & Plan: She had a low grade temperature on 06/07 and her x-ray suggested a right upper lobe infiltrate. Her oxygen requirements also increased. She was started on ceftriaxone for this. She has since been afebrile and her WBC has been normal. Cultures are not available. CXR today continues to show a right upper lobe pneumonia and she is still coughing with increased O2 requirements. Will continue ceftriaxone. (4) Asymptomatic bacteriuria Assessment & Plan: Her urinalysis from 06/07 was negative for leukocytes and was contaminated. The culture is growing a gram negative jayne, but this is likely contamination as it is less than 100,000 colonies per HPF. (5) Protein malnutrition Status: Acute Assessment & Plan: Due to ischemic bowel and removal of nearly her entire small bowel. A prealbumin has been ordered. (6) Hypomagnesemia Status: Acute Assessment & Plan: She is likely not absorbing magnesium from her diet due to removal of most of her small bowel. Will continue to monitor and replace as needed. (7) Hypokalemia Status: Acute Assessment & Plan: She is doing well on oral potassium replacement. Will continue. Central Venous Access Medical Necessity for Access: Hemodynamic Monitoring, IV Access, Medication Administration Exam Sepsis Risk: No Definite Risk TK ORTIZ MD Jun 10, 2017 17:09
[2017-06-10 18:33] VITALS: BP 170/80
[2017-06-10] MEDS: INSULIN GLARGINE 100 U/ML 3 ML PEN SUBQ SCH (20:18)
[2017-06-11] VITALS (9 sets, daily range): BP systolic 108–155; BP diastolic 62–90
[2017-06-11] MEDS ORDERED: DILTIAZEM HCL* 100 MG ADDVIAL 100 MG in NS(*) 0.9% 100 ML ADDVANT BAG 100 ML IV SCH (02:10)
[2017-06-11] MEDS ORDERED: DILTIAZEM 5 MG/ML 5ML IVPUSH IVP ONE (02:10)
--- NOTE | 2017-06-11 02:20 | EKG ---
FACILITY: [facility] PATIENT NAME: JOSE ROBERTO MARTINO : [id number] MR: [id number] V: [id number] EXAM DATE: ORDERING PHYSICIAN: MOISES DE LA CRUZ TECHNOLOGIST: AUGIE Test Reason : IRR. H.R. Blood Pressure : / mmHG Vent. Rate : 156 BPM Atrial Rate : 150 BPM P-R Int : 000 ms QRS Dur : 094 ms QT Int : 258 ms P-R-T Axes : 000 -53 089 degrees QTc Int : 415 ms Atrial fibrillation with RVR Left axis deviation Abnormal ECG Confirmed by ASPEN DE LA CRUZ ([id number]) on 06/11/2017 6:10:54 AM Referred By: Confirmed By:ASPEN DE LA CRUZ
[2017-06-11] MEDS ORDERED: NS(*) 0.9% 500 ML BAG 500 ML ONE (02:23)
[2017-06-11] MEDS ORDERED: NS(*) 0.9% 100 ML ADDVANT BAG 100 ML ONE (02:25)
[2017-06-11] MEDS ORDERED: DILTIAZEM HCL 100 MG ONE (02:25)
[2017-06-11] MEDS: ACETAMINOPHEN 325 MG TAB PO PRN ×3 (03:26→20:28)
[2017-06-11 06:29] LABS: PLATELET COUNT, AUTOMATED 107 K/uL (150-450)
[2017-06-11] MEDS ORDERED: cefTRIAXone(*) 1 GM VIAL 1 GM in NS(*) 0.9% 100 ML ADDVANT BAG 100 ML IVPB SCH (09:00)
[2017-06-11] MEDS: POTASSIUM CHL 20 MEQ TABCR PO SCH (09:26)
[2017-06-11] MEDS ORDERED: MAGNESIUM SUL* 4 GM/100 ML BAG 100 ML IVPB ONE (10:30)
[2017-06-11] MEDS ORDERED: LIDOCAINE/SOD BICARB 8.4% SYR ID ONE (10:50)
[2017-06-11] MEDS: cefTRIAXone(*) 1 GM VIAL 1 GM in NS(*) 0.9% 100 ML ADDVANT BAG 100 ML IVPB SCH (11:17)
--- NOTE | 2017-06-11 11:47 | Hospitalist Progress Note ---
Subjective Progress Notes Subjective She reports "OK". No fever. WBC count normal. Physical Exam Vital Signs Date Time Temp Pulse Resp B/P (MAP) Pulse Ox O2 Delivery O2 Flow Rate FiO2 06/11/17 10:59 91 06/11/17 07:25 93 Nasal Cannula 3.5 06/11/17 07:24 98.2 17 133/69 (90) Intake and Output 06/12/17 07:00 Intake Total 213.4 ml Balance 213.4 ml IV Total 213.4 ml General Appearance: Alert, Awake Cardiovascular: Regular Rate and Rhythm Respiratory: Other (fairly clear) GI: Other (obese/soft/wound vac in place) Extremities: Warm, Perfused, Edema (diffusely) Psych: Alert & Oriented X3 Result Diagram: 06/11/17 0622 06/11/17 0534 Item Value Date Time Albumin 1.8 g/dl L 06/11/17 0534 Total Protein 4.5 gm/dl L 06/11/17 0534 Alkaline Phosphatase 96 U/L 06/11/17 0534 Alanine Aminotransferase (ALT/SGPT) 23 U/L 06/11/17 0534 Aspartate Amino Transf (AST/SGOT) 20 U/L 06/11/17 0534 Total Bilirubin 0.4 mg/dl 06/11/17 0534 Magnesium Level 1.6 mg/dl L 06/11/17 0534 Calcium Level 8.1 mg/dl L 06/11/17 0534 Assessment and Plan Problems: (1) Hypervolemia Assessment & Plan: She did complain of increased shortness of breath and edema while on extended care. Her records indicate that she has had 22Kg of weight gain since her initial admission. She also has tense pitting edema to the lower extremities. Her last echocardiogram showed a preserved ejection fraction , but dates back to 2006. She has been started on IV Lasix. Repeat echocardiogram (preliminary) shows preserved EF. She has an extremely low albumin/total protein, which is most likely the cause of the anasarca. A prealbumin has been ordered. We will work with dietary on increasing her protein intake to see if we can support her nutrition. We could use TPN, but this would entail quite a bit of fluid to get decent protein amounts. (2) Type 2 diabetes mellitus Status: Chronic Assessment & Plan: She is on chronic treatment with Lantus and sliding scale level #3. (3) Bacterial pneumonia Assessment & Plan: She had a low grade temperature on 06/07 and her x-ray suggested a right upper lobe infiltrate. Her oxygen requirements also increased. She was started on ceftriaxone for this. She has since been afebrile and her WBC has been normal. Cultures are not available. CXR continues to show a right upper lobe pneumonia and she is still coughing with increased O2 requirements. Will continue ceftriaxone. (4) Asymptomatic bacteriuria Assessment & Plan: Her urinalysis from 06/07 was negative for leukocytes and was contaminated. The culture is growing Klebsiella, but this may be contamination as it is less than 100,000 colonies per HPF. It is sensitive to the Rocephin. (5) Protein malnutrition Status: Acute Assessment & Plan: Due to ischemic bowel and removal of nearly her entire small bowel. A prealbumin has been ordered. Working with dietary on protein intake. (6) Hypomagnesemia Status: Acute Assessment & Plan: She is likely not absorbing magnesium from her diet due to removal of most of her small bowel. Will continue to monitor and replace as needed. (7) Hypokalemia Status: Acute Assessment & Plan: She is doing well on oral potassium replacement. Will continue. Central Venous Access Medical Necessity for Access: Hemodynamic Monitoring, IV Access, Medication Administration Exam Sepsis Risk: No Definite Risk FAITH ORTIZ MD Jun 11, 2017 11:47
[2017-06-11] MEDS: INSULIN HUM LISPRO 100 UN/ML 3 ML VIAL SUBQ PRN ×3 (12:26→20:27)
--- NOTE | 2017-06-11 14:51 | Medical Nutrition Therapy ---
Nutrition Anthropometrics Height (Inches): 65 Weight (Pounds): 257 Weight (Calculated Kilograms): 116.573 BMI Calculated: 39.60 Hx Weight Gain: Yes (Wt on 05/13/17 was 192 lbs ) Homero Nutrition Score: Probably Inadequate Homero Nutrition Risk Score: 15 Dietary Referral Nutrition Risk Factors: Diff. Swallowing Nutrition Risk Comment: Nutritional Diagnosis Nutritional Risk Acuity 2: GI Malabsorption Nutritional Risk Acuity 3: Morbid Obesity Past Medical History: T2DM, GERD, CKD Nutritional Acuity: 2-Moderate Nutrition Diagnosis: Increased Nutrient Needs Nutrition Etiology: Malabsorption/Intolerance Nutrition Problem/Etiology/Sym: decreased length of GI tract causing decreased ability to absorb nutrients. Energy Requirement: 1940 (kcal/day (22 kcal/kg) - Miffln St. Jeor AF 1.2, IF 1.2 calculted with usua body weight of 87 kg) Protein Requirement: 104 (g protein/day (1.2 g/kg of usual body weight of 87 kg )) Fluid Requirement: 2175 (mL/day (30 mL/kg of usual body weight of 87 kg)) Diet Type: Diabetic Nutrition Intervention: Cont diet as ordered, Encourage intake Additional Diet Restrictions: NEEDS SOFT MOIST FOODS Diet Comment To RSA: ENCOURAGE PROTEIN INTAKE. PROVIDE NUTRITION SUPPLEMENT ON EACH TRAY. Nutrition Monitoring & Eval Nutrition Goals: Eat 75-100% Meal Nutrition Follow-Up: Fair Intake Nutrition Monitoring: Increased protein intake to meet 75-100% of estimated need. RD Patient Assessment Time: [address] Assessment Type: RD Assessment Patient Nutrition Acuity: 2-Moderate Follow Up Date: Jun 13, 2017 Nutritional Comment: 06/11 Pt admitted with hypervolemia and bacterial pneumonia. During rounding physician encouraged pt to increase protein intake in order to increase albumin levels. RD and medical underwriter reviewed high protein options with patient. Linoleum Layer Apprentice performed nutrtion focused physicial exam on pt. Pt does not qualify for malnutrition diagnosis though pt has some temporal wasting with significant edema. RD ordered a supplement on each meal tray. Pt ammenable to consume protein supplement as well as ordering a protein on each tray. Linoleum Layer Apprentice and RD provided physician information on elemental tube feeding option possible to increase protein intake. Tube feed not appropriate at this time. Tube feed likely not a viable option due to the need for placement of NG tube with limited acceptance by pt. Monitor and encourage increased protein intake. Linoleum Layer Apprentice and RD remain available PRN. WILLARD KIM Jun 11, 2017 11:22
[2017-06-11] MEDS: INSULIN GLARGINE 100 U/ML 3 ML PEN SUBQ SCH (20:27)
--- NOTE | 2017-06-11 21:21 | RADIOLOGY IMAGING REPORT ---
FACILITY: [facility] PATIENT NAME: JOSE ROBERTO MARTINO : [id number] MR: [id number] V: [id number] EXAM DATE: ORDERING PHYSICIAN: YARY RAI TECHNOLOGIST: Maryjo Mora EXAMINATION:TWO-DIMENSIONAL ECHOCARDIOGRAPH REASON:EDEMA 2D Measurements (normal values in centimeters) LV endLV endRV endVent.LV PostAorticLeftPercent DiastolicSystolicDiastolicSeptumWallRootAtriumShortening (3.5-5.7)(0.9-2.6)(0.6-1.1)(0.6-1.1)(2.0-3.7)(1.9-4.0)(25-35%) [id number]% STROKE VOLUME: 61 ESTIMATED EJECTION FRACTION:67% PARASTERNAL LONG AXIS: Overall left ventricular systolic function appears to be normal. Right ventricle appears to be borderline enlarged. Chamber sizes appear to be normal. Right ventricle appears to contract normally with a TAPSE measured at 1.8. The aortic valve & mitral valve both appear to open normally. Color examination revealed a trace of mitral insufficiency in this view. Color examination of the aortic valve was unremarkable. Borderline left ventricular thickening is noted. Mild prolapse of the posterior leaflet of the mitral valve is noted. Color examination of the tricuspid valve reveals a mild amount of tricuspid insufficiency. PARASTERNAL SHORT AXIS: Overall left ventricular systolic function appears to be normal. No specific wall motion abnormalities are noted. Borderline left ventricular thickening is noted. Aortic valve is trileaflet in configuration & appears to open normally. Trace of pulmonic insufficiency is noted. Incidental note is made of a pleural effusion as well as ascites. APICAL FOUR AND TWO CHAMBER: Normal left ventricular ejection fraction. Aortic valve area & mitral valve area both calculated within normal ranges at 2.7 & 4.9cm2 respectively. The left atrial & right atrial volumes are measured within normal ranges at 19 & 11ml/m2. The tricuspid regurgitation Vmax measured 2.63 m/sec. Doppler examination of the mitral valve in diastole does reveal the A wave > E wave. The IVC is enlarged at 2.07cm. SUBCOSTAL VIEW: OVERALL IMPRESSION: 1. Normal left ventricular ejection fraction of 67% with a mild decrease in diastolic function. 2. Borderline enlargement of the right ventricle with the other chamber sizes being normal. There is borderline concentric left ventricular thickening noted. No evidence for any outflow tract obstruction. No specific wall motion abnormalities are noted. 3. A trileaflet aortic valve with no abnormalities. 4. Very small prolapse of the posterior leaflet of the mitral valve with a trace of mitral insufficiency & no mitral stenosis. 5. A mild amount of tricuspid insufficiency with estimated right ventricular systolic pressures of 43mm Hg which does include an estimated right atrial pressure of 15mm Hg which is elevated. 6. A trace of pulmonic insufficiency present. 7. There is incidental note made of a pleural effusion as well as ascites. 8. There is minimal mitral annular calcification. 9. Report was called to Hospitalist. Dictated by: Daisy Gutiérrez M.D. on 06/11/2017 at 8:35 Transcribed by: JEN on 06/11/2017 at 11:44 Approved by: Daisy Gutiérrez M.D. on 06/11/2017 at 21:20 [facility]
[2017-06-12 06:13] LABS: PLATELET COUNT, AUTOMATED 103 K/uL (150-450)
[2017-06-12 07:44] VITALS: BP 139/68
[2017-06-12] MEDS: POTASSIUM CHL 20 MEQ TABCR PO SCH (08:31)
[2017-06-12] MEDS: INSULIN HUM LISPRO 100 UN/ML 3 ML VIAL SUBQ PRN ×4 (08:32→20:59)
[2017-06-12] MEDS: cefTRIAXone(*) 1 GM VIAL 1 GM in NS(*) 0.9% 100 ML ADDVANT BAG 100 ML IVPB SCH (10:11)
[2017-06-12] MEDS: FUROSEMIDE 40 MG/4 ML VIAL IVP SCH ×3 (10:13→18:22)
--- NOTE | 2017-06-12 11:16 | Hospitalist Progress Note ---
Subjective Progress Notes Subjective This patient was admitted for hypervolemia. She had no acute changes overnight. Patient Complains of: Cardiovascular: No: Chest Pain Respiratory: Shortness of Breath Physical Exam Vital Signs Date Time Temp Pulse Resp B/P (MAP) Pulse Ox O2 Delivery O2 Flow Rate FiO2 06/12/17 07:44 98.0 85 20 139/68 (91) 94 Nasal Cannula 06/12/17 07:38 4.0 Intake and Output 06/13/17 07:00 # Voids 1 # Bowel Movements 1 Cardiovascular: Regular Rate and Rhythm Respiratory: Clear to Auscultation Extremities: Edema Result Diagram: 06/12/1760706/12/17607 Assessment and Plan Problems: (1) Hypervolemia Assessment & Plan: She did complain of increased shortness of breath and edema while on extended care. Her records indicated that she has had 22Kg of weight gain since her initial admission. She also has tense pitting edema to the lower extremities. An echocardiogram has shown a preserved ejection fraction at 67%. Her weight gain has now increased to nearly 30kg. We are starting aggressive diuresis and have also encourage higher protein intake. (2) Type 2 diabetes mellitus Status: Chronic Assessment & Plan: She is on chronic treatment with Lantus and sliding scale level #3. (3) Bacterial pneumonia Assessment & Plan: She had a low grade temperature on 06/07 and her x-ray suggested a right upper lobe infiltrate. She is on ceftriaxone for this. (4) Asymptomatic bacteriuria Assessment & Plan: Her urinalysis from 06/07 was negative for leukocytes and was contaminated. The culture is growing Klebsiella, but this may be contamination as it is less than 100,000 colonies per HPF. It is sensitive to the Rocephin. (5) Protein malnutrition Status: Acute Assessment & Plan: Due to ischemic bowel and removal of nearly her entire small bowel. A prealbumin has been ordered. Working with dietary on protein intake. (6) Hypomagnesemia Status: Acute Assessment & Plan: She is likely not absorbing magnesium from her diet due to removal of most of her small bowel. Will continue to monitor and replace as needed. (7) Hypokalemia Status: Acute Assessment & Plan: She is doing well on oral potassium replacement. Will continue. Central Venous Access Medical Necessity for Access: Hemodynamic Monitoring, IV Access, Medication Administration Exam Sepsis Risk: No Definite Risk YARY RAI DO Jun 12, 2017 11:16
[2017-06-12 11:19] VITALS: BP 152/77
[2017-06-12 19:22] VITALS: BP 144/77
[2017-06-12] MEDS: INSULIN GLARGINE 100 U/ML 3 ML PEN SUBQ SCH (20:59)
[2017-06-13] VITALS (7 sets, daily range): BP systolic 127–152; BP diastolic 71–94
[2017-06-13] MEDS: INSULIN HUM LISPRO 100 UN/ML 3 ML VIAL SUBQ PRN ×4 (08:01→20:53)
[2017-06-13] MEDS ORDERED: FUROSEMIDE 40 MG/4 ML VIAL IVP SCH ×2 (09:45→14:00)
[2017-06-13] MEDS: POTASSIUM CHL 20 MEQ TABCR PO SCH ×3 (09:48→20:52)
[2017-06-13] MEDS ORDERED: MAGNESIUM SUL* 4 GM/100 ML BAG 100 ML IVPB ONE ×2 (10:00→10:30)
[2017-06-13] MEDS: cefTRIAXone(*) 1 GM VIAL 1 GM in NS(*) 0.9% 100 ML ADDVANT BAG 100 ML IVPB SCH (10:47)
--- NOTE | 2017-06-13 13:42 | Medical Nutrition Therapy ---
Nutrition Anthropometrics Height (Inches): 65 Weight (Pounds): 253 Weight (Calculated Kilograms): 114.872 BMI Calculated: 39.60 Hx Weight Gain: Yes (Wt on 05/13/17 was 192 lbs ) Homero Nutrition Score: Probably Inadequate Homero Nutrition Risk Score: 15 Dietary Referral Nutrition Risk Factors: Diff. Swallowing Nutrition Risk Comment: Nutritional Diagnosis Nutritional Risk Acuity 2: GI Malabsorption Nutritional Risk Acuity 3: Morbid Obesity Past Medical History: T2DM, GERD, CKD Nutritional Acuity: 2-Moderate Nutrition Diagnosis: Increased Nutrient Needs Nutrition Etiology: Malabsorption/Intolerance Nutrition Problem/Etiology/Sym: decreased length of GI tract causing decreased ability to absorb nutrients. Energy Requirement: 1940 (kcal/day (22 kcal/kg) - Miffln St. Jeor AF 1.2, IF 1.2 calculted with usua body weight of 87 kg) Protein Requirement: 104 (g protein/day (1.2 g/kg of usual body weight of 87 kg )) Fluid Requirement: 2175 (mL/day (30 mL/kg of usual body weight of 87 kg)) Diet Type: Diabetic Nutrition Intervention: Cont diet as ordered, Encourage intake Additional Diet Restrictions: NEEDS SOFT MOIST FOODS Diet Comment To RSA: ENCOURAGE PROTEIN INTAKE. PROVIDE NUTRITION SUPPLEMENT ON EACH TRAY. Nutrition Monitoring & Eval Nutrition Goals: Eat 90-100% Meal Nutrition Follow-Up: Fair Intake RD Patient Assessment Time: [address] Assessment Type: RD Re-Assessment Patient Nutrition Acuity: 2-Moderate Follow Up Date: Jun 16, 2017 Nutritional Comment: 06/11 Pt admitted with hypervolemia and bacterial pneumonia. During rounding physician encouraged pt to increase protein intake in order to increase albumin levels. RD and senior copywriter reviewed high protein options with patient. Spray Gunner performed nutrtion focused physicial exam on pt. Pt does not qualify for malnutrition diagnosis though pt has some temporal wasting with significant edema. RD ordered a supplement on each meal tray. Pt ammenable to consume protein supplement as well as ordering a protein on each tray. Spray Gunner and RD provided physician information on elemental tube feeding option possible to increase protein intake. Tube feed not appropriate at this time. Tube feed likely not a viable option due to the need for placement of NG tube with limited acceptance by pt. Monitor and encourage increased protein intake. Spray Gunner and RD remain available PRN. 06/13 Pt states that she has been trying to consume more protein at meals and is drinking a nutrition supplement with each meal. Per EMR pt consuming 50 - 100% of most meals. Pt verbally recalled diet recommendations to senior copywriter that were previously provided to pt at prior assessment. Continue to monitor and encourage increased protein intake. WILLARD KIM Jun 13, 2017 12:24
[2017-06-13] MEDS ORDERED: POTASSIUM CHL 20 MEQ TABCR PO SCH (14:00)
[2017-06-13] MEDS ORDERED: FUROSEMIDE 40 MG/4 ML VIAL IVP ONE (14:05)
--- NOTE | 2017-06-13 15:25 | Hospitalist Progress Note ---
Subjective Progress Notes Subjective The patient states she feels better today. Physical Exam Vital Signs Date Time Temp Pulse Resp B/P (MAP) Pulse Ox O2 Delivery O2 Flow Rate FiO2 06/13/17 10:58 98.3 94 16 127/73 (91) 94 Nasal Cannula 4.0 Intake and Output 06/14/17 06:59 Intake Total 230 ml Balance 230 ml Intake Oral 120 ml IV Total 110 ml # Voids 1 General Appearance: Alert, Awake, No Acute Distress Neuro: No Gross deficits Eyes: PERRLA Cardiovascular: Regular Rate and Rhythm Respiratory: Other (Crackles on the right anteriorly.) GI: Other (Abdominal corsett in place.) Extremities: Warm, Perfused, Other (2-3+ edema.) Integumentary: Other (Midline abdominal wound.) Psych: Alert & Oriented X3, Appropriate Mood & Affect Result Diagram: 06/12/17 0608 06/13/17 0510 Assessment and Plan Problems: (1) Hypervolemia Assessment & Plan: She did complain of increased shortness of breath and edema while on extended care. Her records indicated that she has had 22Kg of weight gain since her initial admission. She also has tense pitting edema to the lower extremities. An echocardiogram has shown a preserved ejection fraction at 67%. Her weight gain has now increased to nearly 30kg. We are starting aggressive diuresis and have also encourage higher protein intake. (2) Type 2 diabetes mellitus Status: Chronic Assessment & Plan: She is on chronic treatment with Lantus and sliding scale level #3. (3) Bacterial pneumonia Assessment & Plan: She had a low grade temperature on 06/07 and her x-ray suggested a right upper lobe infiltrate. She is on ceftriaxone for this. (4) Asymptomatic bacteriuria Assessment & Plan: Her urinalysis from 06/07 was negative for leukocytes and was contaminated. The culture is growing Klebsiella, but this may be contamination as it is less than 100,000 colonies per HPF. It is sensitive to the Rocephin. (5) Protein malnutrition Status: Acute Assessment & Plan: Due to ischemic bowel and removal of over half of her entire small bowel. A prealbumin is low at 4.8. Working with dietary on protein intake. (6) Hypomagnesemia Status: Acute Assessment & Plan: She is likely not absorbing magnesium from her diet due to removal of over half of her small bowel. Will continue to monitor and replace as needed. (7) Hypokalemia Status: Acute Assessment & Plan: She is doing well on oral potassium replacement. Will continue. Central Venous Access Medical Necessity for Access: Hemodynamic Monitoring, IV Access, Medication Administration Time Spent on Plan of Care: < 30 min Exam Sepsis Risk: No Definite Risk TK ORTIZ MD Jun 13, 2017 15:25
[2017-06-13] MEDS: INSULIN GLARGINE 100 U/ML 3 ML PEN SUBQ SCH (20:53)
[2017-06-13] MEDS: ACETAMINOPHEN 325 MG TAB PO PRN (23:15)
[2017-06-14 03:37] VITALS: BP 142/84
[2017-06-14 06:10] LABS: PLATELET COUNT, AUTOMATED 129 K/uL (150-450)
--- NOTE | 2017-06-14 06:56 | RADIOLOGY IMAGING REPORT ---
FACILITY: [facility] [place] PATIENT NAME: Brandy Kathleen : 1940 MR: [id number] V: [id number] EXAM DATE: ORDERING PHYSICIAN: TK ORTIZ TECHNOLOGIST: Location: [facility] Patient: Brandy Kathleen : 1940 Visit/Account:[id number] Date of Sevice: 06/14/2017 PORTABLE CHEST: Indication: Pneumonia follow-up. Technique: A single frontal film was obtained. Comparison: 06/19/2017 Skeletal and soft tissue structures: Intact and unremarkable. Heart and mediastinum: Within normal limits. Lung amato: There is persistent parenchymal opacity in the right upper lobe, with increased consolid ation. Linear opacities at the left base appear unchanged. No new focal findings are identified. Pleural spaces: No evidence of effusion. Impression: Persistent bilateral parenchymal opacities. No new focal findings. Report Dictated By: Germán Mcclure MD at 06/14/2017 6:49 AM Report E-Signed By: Germán Mcclure MD at 06/14/2017 6:51 AM WSN:[id number]
[2017-06-14 07:40] VITALS: BP 143/71
[2017-06-14] MEDS ORDERED: MAGNESIUM SUL* 4 GM/100 ML BAG 100 ML IVPB ONE (08:00)
[2017-06-14] MEDS: INSULIN HUM LISPRO 100 UN/ML 3 ML VIAL SUBQ PRN ×4 (08:04→21:04)
[2017-06-14] MEDS ORDERED: NS(*) 0.9% 250 ML BAG 250 ML ONE (08:38)
[2017-06-14] MEDS: POTASSIUM CHL 20 MEQ TABCR PO SCH ×3 (09:31→21:03)
[2017-06-14] MEDS: FUROSEMIDE 40 MG/4 ML VIAL IVP SCH ×2 (09:31→14:34)
[2017-06-14] MEDS: cefTRIAXone(*) 1 GM VIAL 1 GM in NS(*) 0.9% 100 ML ADDVANT BAG 100 ML IVPB SCH ×3 (10:42→12:15)
[2017-06-14 11:57] VITALS: BP 143/68
--- NOTE | 2017-06-14 12:10 | Hospitalist Progress Note ---
Subjective Progress Notes Subjective She reports that overall she is feeling well. She is doing well with therapy. Her appetite is still low. Physical Exam Vital Signs Date Time Temp Pulse Resp B/P (MAP) Pulse Ox O2 Delivery O2 Flow Rate FiO2 06/14/17 09:31 95 Nasal Cannula 3.5 06/14/17 07:40 98.4 84 16 143/71 (95) Intake and Output 06/15/17 07:00 # Voids 1 # Bowel Movements 1 General Appearance: Alert, Awake, No Acute Distress Extremities: Edema (2+ pitting in shins bilaterally) Result Diagram: 06/14/1751906/14/17519 Assessment and Plan Problems: (1) Hypervolemia Assessment & Plan: She did complain of increased shortness of breath and edema while on extended care. Her records indicated that she has had 22Kg of weight gain since her initial admission. She also has tense pitting edema to the lower extremities. An echocardiogram has shown a preserved ejection fraction at 67%. Her weight gain has now increased to nearly 30kg. We are starting aggressive diuresis and have also encourage higher protein intake. (2) Bacterial pneumonia Assessment & Plan: She had a low grade temperature on 06/07 and her x-ray suggested a right upper lobe infiltrate. She is on ceftriaxone for this. (3) Protein malnutrition Status: Acute Assessment & Plan: Due to ischemic bowel and removal of over half of her entire small bowel. A prealbumin is low at 4.8 from 06/11. Working with dietary on protein intake. Recheck on 06/15. She might need an appetite stimulant and/ or TPN. (4) Hypomagnesemia Status: Acute Assessment & Plan: She is likely not absorbing magnesium from her diet due to removal of over half of her small bowel. Will continue to monitor and replace as needed. She is getting a PICC line today, so that she can get IV replacement as an outpatient. (5) Hypokalemia Status: Acute Assessment & Plan: She is doing well on oral potassium replacement. Will continue. (6) Type 2 diabetes mellitus Status: Chronic Assessment & Plan: She is on chronic treatment with Lantus and sliding scale level #3. (7) Asymptomatic bacteriuria Assessment & Plan: Her urinalysis from 06/07 was negative for leukocytes and was contaminated. The culture is growing Klebsiella, but this may be contamination as it is less than 100,000 colonies per HPF. It is sensitive to the Rocephin. Central Venous Access Medical Necessity for Access: Hemodynamic Monitoring, IV Access, Medication Administration Exam Sepsis Risk: No Definite Risk KAILEE GARCIA MD Jun 14, 2017 12:10
--- NOTE | 2017-06-14 13:49 | RADIOLOGY IMAGING REPORT ---
FACILITY: [facility] PATIENT NAME: Brandy Kathleen : 1940 MR: [id number] V: [id number] EXAM DATE: ORDERING PHYSICIAN: KAILEE GARCIA [place]CHNOLOGIST: [place] [facility] [place] Brandy [place] : 1940 Visit/Account:[id number] Date of Sevice: 06/14/2017 Exam type: PICC LINE INSERTION, PICC LINE PLACEMENT History: IV ACCESS, ELECTROLYTE INFUSION Comparison: None. Findings: Informed consent was obtained. The patient's right arm was prepped and draped in usual sterile fashi on. Local anesthesia was accomplished with 1% lidocaine. Under sonographic guidance and fluoroscopi c guidance a 34 cm long trimmed 5 [place] double lumen power PICC was inserted via the patent right ba silic vein with the distal tip resting in superior vena cava at the aortocaval junction. Both lumens of power PICC were flushed with 5 mL of saline flush. Proximal portion PICC line was adhered the pa tient's arm the sterile dressing. The sonographic images were saved to PACS. The procedure was acco mplished without apparent complication. The fluoroscopy dose area product was 125.51 micro-Estrada per meter squared. IMPRESSION: 1. Successful placement of a 34 cm long trimmed 5 [place] Citizen double lumen power PICC inserted via the pa tent right basilic vein with the distal tip resting in superior vena cava at the aortocaval junction. Report Dictated By: Aggie Felix MD at 06/14/2017 1:42 PM Report E-Signed By: Aggie Felix MD at 06/14/2017 1:45 PM WSN:[email or web address]
--- NOTE | 2017-06-14 13:49 | RADIOLOGY IMAGING REPORT ---
[facility] PATIENT NAME: Brandy Kathleen : 1940 MR: [id number] V: [id number] EXAM DATE: ORDERING PHYSICIAN: KAILEE GARCIA TECHNOLOGIST: Location: [facility] Patient: Brandy Kathleen : 1940 Visit/Account:[id number] Date of Sevice: 06/14/2017 Exam type: PICC LINE INSERTION, PICC LINE PLACEMENT History: IV ACCESS, ELECTROLYTE INFUSION Comparison: None. Findings: Informed consent was obtained. The patient's right arm was prepped and draped in usual sterile fashi on. Local anesthesia was accomplished with 1% lidocaine. Under sonographic guidance and fluoroscopi c guidance a 34 cm long trimmed 5 [place] double lumen power PICC was inserted via the patent right ba silic vein with the distal tip resting in superior vena cava at the aortocaval junction. Both lumens of power PICC were flushed with 5 mL of saline flush. Proximal portion PICC line was adhered the pa tient's arm the sterile dressing. The sonographic images were saved to PACS. The procedure was acco mplished without apparent complication. The fluoroscopy dose area product was 125.51 micro-Estrada per meter squared. IMPRESSION: 1. Successful placement of a 34 cm long trimmed 5 [place] double lumen power PICC inserted via the pa tent right basilic vein with the distal tip resting in superior vena cava at the aortocaval junction. Report Dictated By: Aggie Felix MD at 06/14/2017 1:42 PM Report E-Signed By: Aggie Felix MD at 06/14/2017 1:45 PM WSN:[email or web address]
[2017-06-14 14:25] VITALS: BP 126/71
[2017-06-14 20:34] VITALS: BP 146/74
[2017-06-14] MEDS: INSULIN GLARGINE 100 U/ML 3 ML PEN SUBQ SCH (21:03)
[2017-06-14] MEDS: ACETAMINOPHEN 325 MG TAB PO PRN (21:03)
[2017-06-15 00:44] VITALS: BP 141/72
[2017-06-15 05:24] VITALS: BP 156/73
[2017-06-15 06:37] LABS: PLATELET COUNT, AUTOMATED 149 K/uL (150-450)
[2017-06-15 07:40] VITALS: BP 154/83
[2017-06-15] MEDS ORDERED: MAGNESIUM SUL* 2 GM/50 ML IVPB 50 ML IVPB ONE (08:20)
[2017-06-15] MEDS ORDERED: FUROSEMIDE 80 MG TAB PO SCH (09:00)
[2017-06-15] MEDS: POTASSIUM CHL 20 MEQ TABCR PO SCH (09:07)
[2017-06-15] MEDS: INSULIN HUM LISPRO 100 UN/ML 3 ML VIAL SUBQ PRN ×2 (09:08→12:22)
--- NOTE | 2017-06-15 10:26 | Hospitalist Depart ---
Discharge Summary Reason for Hosp/Final Diag: (1) Hypervolemia Hospital Course & Plan: She did complain of increased shortness of breath and edema. Her records indicated that she had 22Kg of weight gain since her initial admission. She also had tense pitting edema to the lower extremities. An echocardiogram has shown a preserved ejection fraction at 67%. We treated her aggressively with Lasix, and she has now started to respond. We will discharge her back to extended care on an increased dose of oral Lasix. (2) Bacterial pneumonia Hospital Course & Plan: She had a low grade temperature on 06/07 and her x-ray suggested a right upper lobe infiltrate. She has now completed a full course of ceftriaxone. (3) Protein malnutrition Status: Acute Hospital Course & Plan: Due to ischemic bowel and removal of over half of her entire small bowel. A prealbumin is low at 4.8 from 06/11. She is working with dietary on protein intake. (4) Hypomagnesemia Status: Acute Hospital Course & Plan: She is likely not absorbing magnesium from her diet due to removal of over half of her small bowel. She will get another dose of IV magnesium prior to discharge, but will need ongoing monitoring on extended care. (5) Hypokalemia Status: Acute Hospital Course & Plan: She is doing well on oral potassium replacement. (6) Type 2 diabetes mellitus Status: Chronic Hospital Course & Plan: She is on chronic treatment with Lantus and sliding scale level #3. (7) Asymptomatic bacteriuria Hospital Course & Plan: Her urinalysis from 06/07 was negative for leukocytes and was contaminated. The culture grew Klebsiella, but this may be contamination as it is less than 100,000 colonies per HPF. Departure Latest Vital Signs Vital Signs 06/15/17 07:40 Temp 98.1 Pulse 85 Resp 16 B/P (MAP) 154/83 (106) Pulse Ox 97 O2 Delivery Nasal Cannula O2 Flow Rate 3.5 Weight (Pounds): 252 Weight (Ounces): 7.0 Result Diagram: 06/15/1752606/15/17519 Condition: Improved Discharge: [facility] ECF PT/OT Follow Up For: PT For Strengthening Home Health RN Follow Up For: Nursing Assessment, Wound Custodial Health MANAGER INTERFACE Follow Up For: ADL Assistance Discharge Instructions Home Meds Active Scripts Potassium Chloride (POTASSIUM CHLORIDE) 20 Meq Tab.er.prt, 20 MEQ PO BIDBS, #60 TAB Prov:TK ORTIZ MD 06/05/17 Phe/Shark Liver Oil/Glycer/Pet (PREPARATION H CREAM) 27 Gm Cr, 0 GM SC PRN Y for HEMORRHOIDS, #1 TUBE Prov:TK ORTIZ MD 06/05/17 Pantoprazole Sodium (PANTOPRAZOLE SODIUM) 40 Mg Tablet.dr, 40 MG PO QDAY, #30 TAB Prov:TK ORTIZ MD 06/05/17 Melatonin (MELATONIN) 3 Mg Tablet, 3 MG PO QHS, #30 TAB Prov:TK ORTIZ MD 06/05/17 Insulin Glargine (LANTUS) 100 Unit/Ml Soln, 13 UNIT SUBQ HS, #1 VIAL 8 Refills Prov:TK ORTIZ MD 06/05/17 Diphenhydramine Hcl (DIPHENHYDRAMINE HCL) 25 Mg Capsule, 50 MG PO BID, #120 CAPSULE Prov:TK ORTIZ MD 06/05/17 Acetaminophen (ACETAMINOPHEN) 500 Mg Tablet, 500-1000 MG PO Q6H Y for FEVER/PAIN , #100 TAB Prov:TK ORTIZ MD 06/05/17 Furosemide (FUROSEMIDE) 20 Mg Tablet, 1 TAB PO DAILY, #90 TAB 4 Refills Prov:SHARIF FUENTES MD 09/11/16 Blood Sugar Diagnostic (CONTOUR) 1 Each Strip, 100 EACH MC Q30D, #100 STRIP 12 Refills Use to test blood sugars twice daily Prov:SHARIF FUENTES MD 04/23/16 Syringe & Needle,Insulin,1 Ml (INSULIN SYRINGE) 1 Each Disp.syrin, 1 EACH MC DAILY, #100 11 Refills Use to inject insulin twice daily Prov:SHARIF FUENTES MD 01/10/16 Lancets (BD ULTRA-FINE) 1 Each Each, 1 EACH MC DAILY, #100 12 Refills Use twice daily for insulin injections Prov:SHARIF FUENTES MD 10/04/15 Reported Medications Aspirin (ASPIR 81) 81 Mg Tablet.dr, 81 MG PO QDAY, TAB 05/08/17 Bipap Home (BIPAP HOME) Inha, HS 09/07/15 Discontinued Scripts Furosemide (FUROSEMIDE) 20 Mg Tablet, 20 MG PO QDAY, #30 TAB Prov:TK ORTIZ MD 06/05/17 Diet: Regular Activity: As Tolerated Copies to: SHARIF FUENTES MD Venous Thromboembolism Antithrombotics Is Pt On Any Antithrombotics?: No YARY RAI DO Jun 15, 2017 10:26
[2017-06-15 10:48] VITALS: BP 134/72
== END 2017-06-15 13:30 | DRG 391 ==
LOC: MED 11:30 → UNDOADMOB 11:30 → INTOOBSV 11:30 → MED 11:30 → OBSVTOIN 06-11 → INTOOBSV 06-11
PROVIDERS: ADMIT Family Medicine; ATTEND Family Medicine
PROC: 0JD83ZZ Extraction of Abdomen Subcutaneous Tissue and Fascia, Percutaneous Approach (ICD-10-PCS; 2017-06-11)
PROC: 02HV33Z Insertion of Infusion Device into Superior Vena Cava, Percutaneous Approach (ICD-10-PCS; principal; 2017-06-14)
PROC: B518YZA Fluoroscopy of Superior Vena Cava using Other Contrast, Guidance (ICD-10-PCS; 2017-06-14)
PROC: 0JD83ZZ Extraction of Abdomen Subcutaneous Tissue and Fascia, Percutaneous Approach (ICD-10-PCS; 2017-06-15)
DX: K91.2 Postsurgical malabsorption, not elsewhere classified (principal); J15.9 Unspecified bacterial pneumonia; T81.32XA Disruption of internal operation (surgical) wound, not elsewhere classified, initial encounter; E46 Unspecified protein-calorie malnutrition; E87.70 Fluid overload, unspecified; E83.42 Hypomagnesemia; E87.6 Hypokalemia; E11.9 Type 2 diabetes mellitus without complications; R82.71 Bacteriuria; G47.33 Obstructive sleep apnea (adult) (pediatric); I10 Essential (primary) hypertension; E78.00 Pure hypercholesterolemia, unspecified; K21.9 Gastro-esophageal reflux disease without esophagitis; E66.9 Obesity, unspecified; M16.12 Unilateral primary osteoarthritis, left hip; Z79.4 Long term (current) use of insulin; Z90.49 Acquired absence of other specified parts of digestive tract; Z90.89 Acquired absence of other organs; Z98.51 Tubal ligation status; Z91.013 Allergy to seafood; Z88.2 Allergy status to sulfonamides; Z91.018 Allergy to other foods; Z91.011 Allergy to milk products; Z87.09 Personal history of other diseases of the respiratory system; Z68.39 Body mass index [BMI] 39.0-39.9, adult
CPT/HCPCS: 36415; 36416; 36569; 71045; 76937; 82040; 82247; 82310; 82374; 82435; 82565; 82947; 82948; 83735; 84075; 84132; 84134; 84155; 84295; 84450; 84460; 84520; 85025; 93005; 93306; 97161; 97165; 97605; C1751; G0378; G0379; J0696; J1940; J3475; J3490; J7050

== ENCOUNTER 2017-06-15 13:30 | Inpatient (IN) | payer MEDICARE ==
[2017-05-24 19:20] VITALS: Ht 165.1 cm; Wt 113.4 kg
[~2017-06-15] VITALS: Ht 165.1 cm; Wt 113.4 kg
[2017-06-15] MEDS ORDERED: POTASSIUM CHL 20 MEQ TABCR PO SCH (14:20)
--- NOTE | 2017-06-15 14:33 | Consultant Pharmacy Review ---
Magnetic Resonance Imaging Director Review Medication Review Do All Mecications have a Diag: Yes Beers Criteria Medication 2015 Sliding Scale Insulin: Slidin Scale Insulin (HUMALOG) Other General Cautions Lexicomp Interaction Analysis A = No known interaction C = Monitor therapy X = Avoid combination B = No action needed D = Consider therapy modification Drugs in this analysis: Acetaminophen; Aspirin; Insulin Glargine; Insulin Lispro ; Lasix; Potassium Chloride * Drug-Drug Interactions * C Aspirin (Salicylates) Insulin Glargine (Blood Glucose Lowering Agents) Depends on Dose C Aspirin (Salicylates) Insulin Lispro (Blood Glucose Lowering Agents) Depends on Dose C Aspirin (Salicylates) Lasix (Loop Diuretics) C Insulin Glargine (Antidiabetic Agents) Insulin Lispro (Hypoglycemia- Associated Agents) C Insulin Glargine (Antidiabetic Agents) Lasix (Hyperglycemia-Associated Agents) C Insulin Glargine (Hypoglycemia-Associated Agents) Insulin Lispro ( Hypoglycemia-Associated Agents) C Insulin Lispro (Antidiabetic Agents) Lasix (Hyperglycemia-Associated Agents ) Pneumococcal Vaccine HX Pneumo Vac (Aapffmd58): Yes (73) Comments Regarding the Review Labs: Periodic electrolyte levels, HgbA1c TK SMALL Jun 15, 2017 14:33
[2017-06-15] MEDS ORDERED: POTASSIUM CHL 20 MEQ TABCR PO ONE (14:45)
[2017-06-15] MEDS ORDERED: FUROSEMIDE 80 MG TAB PO ONE (14:45)
[2017-06-15 15:52] VITALS: BP 155/72
[2017-06-15] MEDS: POTASSIUM CHL 20 MEQ TABCR PO SCH (17:27)
[2017-06-15] MEDS: INSULIN HUM LISPRO 100 UN/ML 3 ML VIAL SUBQ PRN ×2 (17:39→20:21)
[2017-06-15] MEDS: INSULIN GLARGINE 100 U/ML 3 ML PEN SUBQ SCH (20:20)
[2017-06-16 07:48] VITALS: BP 112/71
[2017-06-16] MEDS: ASPIRIN 81 MG CHEW CHEW SCH (08:21)
[2017-06-16] MEDS: FUROSEMIDE 80 MG TAB PO SCH ×2 (08:21→13:17)
[2017-06-16] MEDS: POTASSIUM CHL 20 MEQ TABCR PO SCH ×3 (08:21→17:24)
[2017-06-16] MEDS: INSULIN HUM LISPRO 100 UN/ML 3 ML VIAL SUBQ PRN ×4 (08:22→20:14)
--- NOTE | 2017-06-16 11:33 | Medical Nutrition Therapy ---
Nutrition Anthropometrics Weight (Pounds): 251 Weight (Calculated Kilograms): 114.050 BMI Calculated: 39.60 Homero Nutrition Score: Probably Inadequate Homero Nutrition Risk Score: 15 Dietary Referral Nutrition Risk Factors: Diff. Swallowing Nutrition Risk Comment: Nutritional Diagnosis Nutritional Risk Acuity 2: GI Malabsorption Nutritional Risk Acuity 3: Morbid Obesity Past Medical History: T2DM, GERD, CKD Nutrition Diagnosis: Increased Nutrient Needs Nutrition Etiology: Physiological Causes Nutrition Problem/Etiology/Sym: Increased protein needs related to physiological causes as evidenced by prealbumin 4.8, alb 1.9 and total pro 4.6. Adjusted Energy Requirement Re: 1914 (as per previous calculation using usual BW of 87kg. (22 kcal/kg)) Protein Requirement: 104 (1.2 g/kg (usual BW of 87kg)) Fluid Requirement: 2175 (25 ml/kg (usual BW)) Diet Type: Diet as Tolerated NICK/REG Nutrition Intervention: Cont diet as ordered, Encourage intake Drug: Diuretics Drug/Nutrition Recommendations: Check Serum K+ Additional Diet Restrictions: NO citrus, shellfish or lactose Diet Comment To RSA: ADD PRO POWDER TO APPROPRIATE FOODS, OFFER SF NUTR SUPPL Nutrition Monitoring & Eval RD Patient Assessment Time: [address] Assessment Type: RD Assessment Patient Nutrition Acuity: 2-Moderate Follow Up Date: Jun 25, 2017 Nutritional Comment: 06/16 Pt transferred to ECF unit following pneumonia and recent bowel resection and cholecystectomy. PMH of T2DM. Noting significant edema and allergies to citrus, shellfish and lactose. Notable labs include glc 220, Na 134, Mg 1.3, prealbumin 4.8, alb 1.9 and tot pro 4.6. Pt recieved diet education on increasing protein needs. No intake to report on ECF unit. Will cont to monitor and encourage intake. MARCK RHODES Jun 16, 2017 11:33
[2017-06-16 16:48] VITALS: BP 138/71
[2017-06-16] MEDS: INSULIN GLARGINE 100 U/ML 3 ML PEN SUBQ SCH (20:15)
[2017-06-17] MEDS ORDERED: MAGNESIUM SUL* 4 GM/100 ML BAG 100 ML IVPB ONE (07:15)
[2017-06-17] MEDS ORDERED: NS 0.9% 250 ML VISIV BAG IV PRN (07:45)
[2017-06-17 08:00] VITALS: BP 137/64
[2017-06-17] MEDS: NS(*) 0.9% 250 ML BAG 250 ML IVPB PRN (08:08)
[2017-06-17] MEDS: INSULIN HUM LISPRO 100 UN/ML 3 ML VIAL SUBQ PRN ×4 (08:50→20:33)
[2017-06-17] MEDS: POTASSIUM CHL 20 MEQ TABCR PO SCH ×3 (08:50→17:28)
[2017-06-17] MEDS: ASPIRIN 81 MG CHEW CHEW SCH (08:50)
[2017-06-17] MEDS: FUROSEMIDE 80 MG TAB PO SCH ×2 (08:50→13:36)
--- NOTE | 2017-06-17 10:26 | PT ECF NOTE ---
Type of Note: Initial Note Primary Medical Diagnosis: Hypervolemia, s/p small bowel resection on 05/14/17 Physical Therapy Evaluation Date: 06/17/17 SUBJECTIVE: Prior Hospitalization: [facility] med/surg 05/13/17-05/24/17, [facility] ECF 05/24/17-06/09/17, [facility] med/surg 06/09/17-06/15/17 Prior Level of Function: I) with no AD Prior Living Status: Senior housing, Alone Community Services: Independent, No known needs Home Accessibility: All needs on one level Equipment Owned: Rollator-- pt will borrow a 4WW from a friend upon d/c she reports Medical Complications/Past Medical History: See EMR for details Psychosocial Support: Daughter in [place] and daughter in [place] Pain Scale (0-10): "Tightness" reported d/t abdominal binder during evaluation OBJECTIVE: Strength: Right Lower Extremity: DF: 4/5 Knee flexion: 4/5 Knee extension: 4/5 Hip flexion: <3/5 (pt lacks full AROM against gravity) Left Lower Extremity: DF: 4/5 Knee flexion: 4/5 Knee extension: 4/5 Hip flexion: <3/5 (pt lacks full AROM against gravity) ROM: pt lacks full AROM against gravity of bilateral hip flexion, PROM is limited by tissue approximation in seated Sensation: WNL Other Neuro findings: none noted Bed Mobility: SBA with bed rail Transfers: SBA with 4WW Gait: SBA 2x150' with 4WW Stairs: NT 10 meter walk test (0.6m/second cannot function independently): 0.71 m/sec ASSESSMENT: PT ECF eval complete. PT provided step by step verbal cues for log roll, pt has difficulty using momentum from LEs dropping out of bed to assist to seated position. Pt was able to transition to a seated position with SBA with increased time.Pt with difficulty rising from low toilet seat, toilet riser placed at end of session, all transfers completed with SBA. Pt ambulates with a gait speed of 0.71 m/sec indicating a need for fall risk intervention. She demonstrates fair tolerance to ambulation, but SpO2 did drop to low 80s on 2L O2, this returned to WNL with 3L O2 and cues for deep breathing. Pt will benefit from skilled PT in order to increase independence with functional mobility and decrease need of assistance from others prior to d/c home alone. Problem List/Current Limitations: Decreased activity najma Decreased strength Decreased balance Generalized weakness Short Term Goals: 1: Pt to complete bed mobility with García and HOB flat 2: Pt to complete transfers with García from a variety of surfaces with least restrictive AD 3: Pt to ambulate 400' with García and least restrictive AD with appropriate use of seated rest break as needed 4: Pt to asc/desc a platform step with García to simulate community mobility. 5: Pt to improve gait speed to 0.8 m/sec to demonstrate improved functional mobility. 6: Pt to be I) with seated and standing LE HEP 7: Pt to demonstrate independence with managing wound vac and O2 tubing during functional mobility Satellite Specialist Goals: Pt to discharge home with decreased need of assistance from others and appropriate services in place Patient Goals: "To see my cat Nissa" Rehabilitation Prognosis: Good Barriers for Discharge: Medical needs PLAN: The patient will benefit from skilled physical therapy services 5 times per week for 2 weeks including: Therapeutic Exercise Therapeutic Activities Transfer Training Gait Training Stair Training Manual Therapy Safety Training Neuromuscular Re-educ. Pt/Caregiver Training Bed Mobility Thank you for this referral. If you have any questions, concerns, or comments about this report or plan, please contact me at . Eryn King, PT, DPT MTDD
--- NOTE | 2017-06-17 15:05 | OT ECF NOTE ---
Type of Note: Initial Note Primary Medical Diagnosis: Generalized weakness s/p bowel resection (05/14/17) and hypervolemia Occupational Therapy Evaluation Date: 06/17/17 SUBJECTIVE: Prior Hospitalization: [facility] med/surg 05/13/17-05/24/17, [facility] ECF 05/24/17-06/09/17, [facility] med/surg 06/09/17-06/15/17 Prior Level of Function: Independent with all ADLs/IADLs. Has a cat "Nissa" Prior Living Status: Senior housing, Alone Community Services: Support adequate Home health care Meals on Wheels No known needs Home Accessibility: All needs on one level Tub/shower combination Equipment Owned: Rollator Toilet riser Tub/shower chair Extended tub bench Toilet aide Sockaide/head packager Bed cane Medical Complications/Past Medical History: Extensive, please refer to EMR Psychosocial Support: Daughter in [place] and daughter in [place] Pain Scale (0-10): None reported at time of evaluation OBJECTIVE: Strength: MMT: Right Left Shoulder Flexion WFL WFL Elbow Flexion WFL WFL Wrist Extension WFL WFL Dandy Tender WFL WFL (5= normal, 4= good, 3= fair, 2= poor, 1= trace) ROM: Both upper extremities, Minimally limited Functional Transfer: Assistive Device: Rollator Transfer Ability: SBA. Occasional assist to safely manage wound vac and O2 tubing. O2 2L at rest. 3L with activity to maintain SpO2 WNL. ADL: Upper body dressing: Assistive device: Upper body dressing ability: Independent donning abdominal binder Lower body dressing: Assistive device: Lower body dressing ability: Declined Toileting: Assistive device: Toileting ability: N/T Grooming/hygiene: Assistive device: Grooming ability: N/T Bathing: Assistive device: Bathing ability: N/T Standardized Assessment: Jeannette Index of Activities of Daily Livin/20 upon initial evaluation (). ASSESSMENT: Aimee presents to [facility] with decreased activity tolerance s/p extensive hospitalization limiting independent engagement in ADLs/IADLs. She will benefit from skilled OT services to improve activity tolerance and optimize (I) for ADLs/IADLs prior to discharge home alone. Problem List/Current Limitations: Decreased activity tolerance Generalized weakness Short Term Goals: 1) Pt will be Mod (I) UB/LB dressing. 2) Pt will be Mod (I) toileting. 3) Pt will be Independent grooming/hygiene. 4) Pt Jeannette Index of ADLs score will improve by 2 points. 5) Pt will be SBA with good tolerance and safety during light meal prep task. Jail Goals: Return home with services Patient Goals: "Return home to [facility]" Pt reports her daughter from [place] will be in town -Saturday. Aimee hopes to progress her activity tolerance and possibly discharge home with daughter if medically appropriate. Rehabilitation Prognosis: Good Barriers to Discharge: Medical history PLAN: The patient will benefit from skilled occupational therapy services 5 times per week for 2 weeks including: Ther ex ADL training Safety training Ther act IADL training Transfer training Adaptive equip training Bed mobility Energy conservation Thank you for this referral. If you have any questions, concerns, or comments about this report or plan, please contact me at . Kay Allen MS, OTR/L Occupational Therapist ELI
[2017-06-17 16:30] VITALS: BP 125/68
[2017-06-17] MEDS: INSULIN GLARGINE 100 U/ML 3 ML PEN SUBQ SCH (20:33)
[2017-06-18 08:00] VITALS: BP 134/57
--- NOTE | 2017-06-18 08:32 | General Surgery Progress Note ---
Subjective Progress Notes Subjective Patient without complaints today. She does have diarrhea but only 2-4 bowel movements a day. There have been problems with low magnesium and she has been requiring repeated replacement. No abdominal pain. She is eating without problems. Overall she seems to be feeling well. She was admitted last week to the hospital from [facility] for pneumonia but has markedly improved from this. Physical Exam Vital Signs Date Time Temp Pulse Resp B/P (MAP) Pulse Ox O2 Delivery O2 Flow Rate FiO2 06/17/17 20:32 91 Nasal Cannula 2.0 06/17/17 16:30 99.2 85 20 125/68 (87) General Appearance: Alert, Awake, No Acute Distress, Afebrile GI: Soft and Non-Tender (her abdominal wounds are clean and dry. No erythema. They are getting smaller with negative pressure wound therapy.) Extremities: Warm, Perfused Result Diagram: 06/18/17 0651 Assessment and Plan Problems: (1) Open abdominal wall wound Status: Chronic Assessment & Plan: 06/18/17: Patient is doing well. We'll continue negative pressure wound therapy for her abdominal wounds. We will try cholestyramine for her diarrhea but will start with just one dose a day and see how she responds to this. This may help in absorption of nutrients and magnesium. (2) Small bowel infarction Status: Resolved Central Venous Access Medical Necessity for Access: Hemodynamic Monitoring, IV Access, Medication Administration Condition Stable Time Spent: < 30 min Problem Qualifiers (1) Open abdominal wall wound: Encounter type: subsequent encounter Qualified Codes: S31.109D - Unspecified open wound of abdominal wall, unspecified quadrant without penetration into peritoneal cavity, subsequent encounter YARY TRIPLETT MD Jun 18, 2017 08:32
[2017-06-18] MEDS ORDERED: MAGNESIUM SUL* 4 GM/100 ML BAG 100 ML IVPB ONE (09:15)
[2017-06-18] MEDS: INSULIN HUM LISPRO 100 UN/ML 3 ML VIAL SUBQ PRN ×4 (09:18→21:41)
[2017-06-18] MEDS: POTASSIUM CHL 20 MEQ TABCR PO SCH ×3 (09:19→17:34)
[2017-06-18] MEDS: ASPIRIN 81 MG CHEW CHEW SCH (09:19)
[2017-06-18] MEDS: FUROSEMIDE 80 MG TAB PO SCH ×2 (09:20→13:35)
[2017-06-18] MEDS: CHOLESTYRAMINE 4 GM POWD PO SCH (09:21)
[2017-06-18 16:20] VITALS: BP 130/74
[2017-06-18] MEDS: INSULIN GLARGINE 100 U/ML 3 ML PEN SUBQ SCH (21:42)
[2017-06-19] MEDS: ACETAMINOPHEN 325 MG TAB PO PRN (02:53)
[2017-06-19] MEDS: INSULIN HUM LISPRO 100 UN/ML 3 ML VIAL SUBQ PRN ×4 (08:41→20:30)
[2017-06-19] MEDS: ASPIRIN 81 MG CHEW CHEW SCH (08:41)
[2017-06-19] MEDS: POTASSIUM CHL 20 MEQ TABCR PO SCH ×3 (08:41→17:13)
[2017-06-19] MEDS: FUROSEMIDE 80 MG TAB PO SCH ×2 (08:41→13:29)
[2017-06-19] MEDS: CHOLESTYRAMINE 4 GM POWD PO SCH ×2 (08:44→20:30)
[2017-06-19 08:45] VITALS: BP 125/74
--- NOTE | 2017-06-19 13:26 | Hospitalist Progress Note ---
Subjective Progress Notes Subjective No new complaints. Dr. Gracia started cholestyramine yesterday to help with malabsorption. Physical Exam Vital Signs Date Time Temp Pulse Resp B/P (MAP) Pulse Ox O2 Delivery O2 Flow Rate FiO2 06/19/17 09:17 93 Nasal Cannula 2.0 06/19/17 08:45 97.2 91 22 125/74 (91) Intake and Output 06/20/17 07:00 Intake Total 360 ml Balance 360 ml Intake Oral 360 ml General Appearance: Alert, Awake, No Acute Distress, Afebrile Neuro: No Gross deficits Eyes: PERRLA Cardiovascular: Regular Rate and Rhythm Respiratory: Clear to Auscultation GI: Other (Distended, BS+, nontender.) Extremities: Warm, Perfused, Edema (2-3+) Psych: Alert & Oriented X3, Appropriate Mood & Affect Result Diagram: 06/19/17 0607 Assessment and Plan Problems: (1) Protein malnutrition Status: Chronic Assessment & Plan: Due to resection of more than half of her small intestine which was ischemic. Her prealbumin was initially 4.8 and has increased to 9.2 with a high protein diet. She continues to have significant edema with this. (2) Hypervolemia Status: Acute Assessment & Plan: Due to fluid resuscitation with her ischemic bowel, sepsis and surgery. She has protein malnutrition (see above). Her weight is gradually decreasing with twice daily Lasix. (3) Hypomagnesemia Status: Acute Assessment & Plan: Due to malabsorption. She has received a total of 54 grams of IV magnesium and today is the first day her magnesium level is in the normal range at 1.7. She will likely be unable to tolerate oral magnesium due to her loose stools. She may not absorb oral magnesium efficiently as well. She will need to remain on oral Lasix for now which will also affect her level. She will need ongoing close monitoring. Will repeat labs in the am. (4) Type 2 diabetes mellitus with hyperglycemia, with long-term current use of insulin Status: Chronic Assessment & Plan: Blood sugars continue to run a bit high. Will increase Lantus to 17u at HS. (5) Edema Status: Acute Assessment & Plan: Her weight is slowing decreasing. Will continue Lasix 80mg bid with close monitoring of her electrolytes and renal function. (6) SARI treated with BiPAP Status: Chronic (7) Chronic kidney disease, stage II (mild) Status: Chronic Assessment & Plan: Creatinine is currently 0.6. (8) Essential hypertension Onset Date: 11/18/2013 Status: Chronic Assessment & Plan: BP is controlled with Lasix. (9) Ischemia, bowel Status: Chronic Assessment & Plan: The patient had more than half of her small bowel removed due to ischemia. Central Venous Access Medical Necessity for Access: Hemodynamic Monitoring, IV Access, Medication Administration Time Spent on Plan of Care: < 30 min TK ORTIZ MD Jun 19, 2017 13:26
[2017-06-19 16:30] VITALS: BP 130/74
[2017-06-19] MEDS: INSULIN GLARGINE 100 U/ML 3 ML PEN SUBQ SCH (20:31)
[2017-06-20 06:16] LABS: PLATELET COUNT, AUTOMATED 212 K/uL (150-450)
[2017-06-20] MEDS ORDERED: MAGNESIUM SUL* 2 GM/50 ML IVPB 50 ML IVPB ONE (07:15)
[2017-06-20 08:00] VITALS: BP 148/64
[2017-06-20] MEDS: CHOLESTYRAMINE 4 GM POWD PO SCH ×2 (08:18→20:22)
[2017-06-20] MEDS: ASPIRIN 81 MG CHEW CHEW SCH (08:18)
[2017-06-20] MEDS: FUROSEMIDE 80 MG TAB PO SCH ×2 (08:18→13:33)
[2017-06-20] MEDS: POTASSIUM CHL 20 MEQ TABCR PO SCH ×3 (08:18→17:01)
[2017-06-20] MEDS: INSULIN HUM LISPRO 100 UN/ML 3 ML VIAL SUBQ PRN ×4 (08:18→20:22)
[2017-06-20] MEDS: ACETAMINOPHEN 325 MG TAB PO PRN ×2 (08:27→20:22)
[2017-06-20 17:30] VITALS: BP 146/81
[2017-06-20] MEDS: INSULIN GLARGINE 100 U/ML 3 ML PEN SUBQ SCH (20:23)
[2017-06-21 08:06] VITALS: BP 126/56
[2017-06-21] MEDS: INSULIN HUM LISPRO 100 UN/ML 3 ML VIAL SUBQ PRN ×4 (08:30→20:23)
[2017-06-21] MEDS: CHOLESTYRAMINE 4 GM POWD PO SCH ×2 (08:30→20:19)
[2017-06-21] MEDS: ASPIRIN 81 MG CHEW CHEW SCH (08:30)
[2017-06-21] MEDS: FUROSEMIDE 80 MG TAB PO SCH ×2 (08:30→13:32)
[2017-06-21] MEDS: POTASSIUM CHL 20 MEQ TABCR PO SCH ×3 (08:30→17:17)
--- NOTE | 2017-06-21 09:53 | ECF H&P BLANK ---
[facility] H&P UPDATE History of Present Illness Chief Complaint Shortness of breath History of Present Illness This patient was on extended care recovering from a bowel resection and cholecystectomy. She has been complaining of increased shortness of breath and edema. History Problems: (1) Type 2 diabetes mellitus Status: Chronic (2) Acute respiratory failure (3) Septic shock Status: Acute (4) Shingles Status: Chronic (5) Ischemia, bowel Status: Chronic (6) Obstructive sleep apnea Status: Chronic (7) Essential hypertension Onset Date: 11/18/2013 Status: Chronic (8) History of appendectomy Status: Resolved (9) History of tubal ligation Status: Resolved Home Meds Active Scripts Potassium Chloride (POTASSIUM CHLORIDE) 20 Meq Tab.er.prt, 20 MEQ PO BIDBS, #60 TAB Prov:TK ORTIZ MD 06/05/17 Phe/Shark Liver Oil/Glycer/Pet (PREPARATION H CREAM) 27 Gm Cr, 0 GM AK PRN Y for HEMORRHOIDS, #1 TUBE Prov:TK ORTIZ MD 06/05/17 Pantoprazole Sodium (PANTOPRAZOLE SODIUM) 40 Mg Tablet.dr, 40 MG PO QDAY, #30 TAB Prov:TK ORTIZ MD 06/05/17 Melatonin (MELATONIN) 3 Mg Tablet, 3 MG PO QHS, #30 TAB Prov:TK ORTIZ MD 06/05/17 Insulin Glargine (LANTUS) 100 Unit/Ml Soln, 13 UNIT SUBQ HS, #1 VIAL 8 Refills Prov:TK ORTIZ MD 06/05/17 Furosemide (FUROSEMIDE) 20 Mg Tablet, 20 MG PO QDAY, #30 TAB Prov:TK ORTIZ MD 06/05/17 Diphenhydramine Hcl (DIPHENHYDRAMINE HCL) 25 Mg Capsule, 50 MG PO BID, #120 CAPSULE Prov:TK ORTIZ MD 06/05/17 Acetaminophen (ACETAMINOPHEN) 500 Mg Tablet, 500-1000 MG PO Q6H Y for FEVER/PAIN , #100 TAB Prov:TK ORTIZ MD 06/05/17 Furosemide (FUROSEMIDE) 20 Mg Tablet, 1 TAB PO DAILY, #90 TAB 4 Refills Prov:SHARIF FUENTES MD 09/11/16 Blood Sugar Diagnostic (CONTOUR) 1 Each Strip, 100 EACH MC Q30D, #100 STRIP 12 Refills Use to test blood sugars twice daily Prov:SHARIF FUENTES MD 04/23/16 Syringe & Needle,Insulin,1 Ml (INSULIN SYRINGE) 1 Each Disp.syrin, 1 EACH MC DAILY, #100 11 Refills Use to inject insulin twice daily Prov:SHARIF FUENTES MD 01/10/16 Lancets (BD ULTRA-FINE) 1 Each Each, 1 EACH MC DAILY, #100 12 Refills Use twice daily for insulin injections Prov:SHARIF FUENTES MD 10/04/15 Reported Medications Aspirin (ASPIR 81) 81 Mg Tablet.dr, 81 MG PO QDAY, TAB 05/08/17 Bipap Home (BIPAP HOME) Inha, HS 09/07/15 Discontinued Reported Medications Ondansetron (ZOFRAN ODT) 4 Mg Tab.rapdis, 4 MG PO Q12H Y for NAUSEA, TAB.MARQUIS 05/15/17 Ciprofloxacin Hcl (CIPROFLOXACIN HCL) 500 Mg Tablet, 500 MG PO Q12H, #14 TAB 05/14/17 Ca Phos/Cranberry/Milk Thistle (LIVER-KIDNEY CLEANSER CAP) 1 Each Capsule, 1 EACH PO DAILY, CAPSULE 09/28/16 Vit A,C & E/Lutein/Minerals (VISION VITAMINS TABLET) 1 Each Tablet, 1 EACH PO DAILY 09/28/16 Diphenhydramine Hcl (DIPHENHIST) 25 Mg Tablet, 1 TAB PO BID 11/24/13 Multivitamin (DAILY VITAMIN FORMULA) 1 Each Tablet, 1 TAB PO DAILY 11/24/13 Discontinued Scripts Tramadol Hcl (TRAMADOL HCL) 50 Mg Tablet, 1 TAB PO Q6H Y for PAIN, #30 MG TAKE ONE TO TWO TABLETS BY MOUTH EVERY FOUR TO SIX HOURS NEEDED Prov:MINO WHEELER DO 05/08/17 Oxycodone Hcl/Acetaminophen (PERCOCET 5-325 MG TABLET) 1 Each Tablet, 1 EACH PO Q4-6H Y for PAIN, #12 Prov:MINO WHEELER DO 05/08/17 Insulin NPH Human Isophane (Humulin N) 100 Unit/Ml Vial, 25 UNITS SQ QHS, #3 VIAL 3 Refills Prov:SHARIF FUENTES MD 04/24/17 Insulin Lispro 100 Un/Ml Vial (HUMALOG 100 U/ML VIAL) 100 Unit/1 Ml Vial, 18 UNIT SQ QID, #6 VIAL 3 Refills Inject 18 units subcutaneously prior to each meal and with large snack. Prov:VON CRUZ PHARMD 04/15/17 Glimepiride (AMARYL) 4 Mg Tablet, 1 TAB PO QDAY, #90 TAB 3 Refills Prov:SHARIF FUENTES MD 10/02/16 Lisinopril (LISINOPRIL) 5 Mg Tablet, 1 TAB PO QDAY, #90 TAB 4 Refills Prov:SHARIF FUENTES MD 09/11/16 Lovastatin (LOVASTATIN) 20 Mg Tablet, 1 TAB PO QDAY, #90 TAB 4 Refills Prov:SHARIF FUENTES MD 09/11/16 Allergies: Coded Allergies: Shellfish (Verified Allergy, Intermediate, SWELLING WITH SHRIMP, 05/13/17) Sulfa (Sulfonamide Antibiotics) (Verified Allergy, Intermediate, hives, 12/16) [place] And Derivatives (Verified Allergy, Unknown, HIVES, 11/11/14) lactose (Verified Adverse Reaction, Intermediate, rash, 11/18/14) Patient History: FH: MS (myocardial infarction) PATERNAL GRANDFATHER (PGGF) MATERNAL UNCLE, , Age:50's - 60 BROTHER, , Age:73, Onset:72 FH: colon cancer PATERNAL AUNT, , Age:70 FH: congestive heart failure FH: coronary artery disease HALF-BROTHER, Age:64 HALF-BROTHER, Age:68 FH: diabetes mellitus BROTHER, , Age:73 FH: glaucoma MOTHER, , Age:83 FHx: stroke MOTHER, , Age:83 Pacemaker BROTHER, , Age:73 Stent HALF-BROTHER, Age:64 HALF-BROTHER, Age:68 Hx Smoking: No Smoking Status: Never Smoker Exposure to Second Hand Smoke?: Yes Caffeine Intake: Tea, Soda Caffeine/Cups Per Day: OCC-TEA, 8OZ SODA QDAY Hx Alcohol Use: No Hx Substance Use Disorder: No Review of Systems All Systems Reviewed/Normal: Yes, Except as Noted Respiratory: Shortness of Breath Exam Vital Signs Vital Signs Date Time Temp Pulse Resp B/P (MAP) Pulse Ox O2 Delivery O2 Flow Rate FiO2 06/09/17 12:22 98.7 84 16 117/72 (87) 97 Nasal Cannula 3.5 Neuro: No Gross deficits Eyes: PERRLA Cardiovascular: Regular Rate and Rhythm, Other (Tense edema in lower extremities.) Respiratory: Clear to Auscultation Extremities: Edema Integumentary: No Cyanosis Medical Decision Making EKG / Imaging Imaging Chest x-ray reviewed. Assessment and Plan Problems: (1) Hypervolemia Assessment & Plan: She did complain of increased shortness of breath and edema while on extended care. Her records indicate that she has had 22Kg of weight gain since her initial admission. She also has tense pitting edema to the lower extremities. Her last echocardiogram showed a preserved ejection fraction , but dates back to 2006. She has been started on IV Lasix. A repeat echocardiogram and daily weights have been ordered. (2) Type 2 diabetes mellitus Status: Chronic Assessment & Plan: She is on chronic treatment with Lantus and sliding scale level #3. (3) Bacterial pneumonia Assessment & Plan: She had a low grade temperature on 06/07 and her x-ray suggested a right upper lobe infiltrate. She was started on ceftriaxone for this. She has since been afebrile and her WBC has been normal. Cultures are not available. The ceftriaxone has been discontinued. (4) Asymptomatic bacteriuria Assessment & Plan: Her urinalysis from 06/07 was negative for leukocytes and was contaminated. The culture is growing a gram negative jayne, but this is likely contamination. Ceftriaxone has been discontinued as above. Central Venous Access Medical Necessity for Access: Hemodynamic Monitoring, IV Access, Medication Administration Venous Thromboembolism Antithrombotics Is Pt On Any Antithrombotics?: No Exam Sepsis Risk: No Definite Risk YARY RAI DO Jun 09, 2017 13:11 <Electronically signed by YARY RAI DO> D/ 1311 [id number] 131 TERRENCE/DEEPIKA CC: The above acute care issues are resolving and/or stable. Patient requires long-term and/or skilled rehabilitation and is ready for admission to Extended Care. Any change in condition is described below. Central Line Progress Note Medical Necessity for Central: Hemodynamic Monitoring, IV Access, Medication Administration YARY RAI DO Jun 21, 2017 09:53
[2017-06-21] MEDS ORDERED: MAGNESIUM SUL* 2 GM/50 ML IVPB 50 ML IVPB ONE (11:55)
[2017-06-21 14:00] VITALS: BP 133/69
[2017-06-21 16:02] VITALS: BP 130/78
[2017-06-21] MEDS: INSULIN GLARGINE 100 U/ML 3 ML PEN SUBQ SCH (20:24)
[2017-06-22 06:14] LABS: PLATELET COUNT, AUTOMATED 229 K/uL (150-450)
[2017-06-22 07:15] VITALS: BP 136/74
[2017-06-22] MEDS: CHOLESTYRAMINE 4 GM POWD PO SCH ×4 (08:29→21:34)
[2017-06-22] MEDS: ASPIRIN 81 MG CHEW CHEW SCH (08:29)
[2017-06-22] MEDS: POTASSIUM CHL 20 MEQ TABCR PO SCH ×3 (08:29→17:30)
[2017-06-22] MEDS: FUROSEMIDE 80 MG TAB PO SCH ×2 (08:29→13:40)
[2017-06-22] MEDS: INSULIN HUM LISPRO 100 UN/ML 3 ML VIAL SUBQ PRN ×3 (12:25→21:35)
[2017-06-22 15:25] VITALS: BP 134/78
[2017-06-22] MEDS: INSULIN GLARGINE 100 U/ML 3 ML PEN SUBQ SCH (21:34)
[2017-06-23] MEDS: CHOLESTYRAMINE 4 GM POWD PO SCH ×4 (07:45→21:08)
[2017-06-23 08:00] VITALS: BP 138/79
[2017-06-23] MEDS: ASPIRIN 81 MG CHEW CHEW SCH (08:55)
[2017-06-23] MEDS: POTASSIUM CHL 20 MEQ TABCR PO SCH ×3 (08:55→17:17)
[2017-06-23] MEDS: FUROSEMIDE 80 MG TAB PO SCH ×2 (08:55→13:20)
[2017-06-23] MEDS: INSULIN HUM LISPRO 100 UN/ML 3 ML VIAL SUBQ PRN ×3 (11:40→21:08)
[2017-06-23 16:40] VITALS: BP 132/74
[2017-06-23] MEDS: INSULIN GLARGINE 100 U/ML 3 ML PEN SUBQ SCH (21:08)
[2017-06-24] MEDS: CHOLESTYRAMINE 4 GM POWD PO SCH ×4 (05:50→21:21)
[2017-06-24 07:20] VITALS: BP 147/77
[2017-06-24] MEDS: POTASSIUM CHL 20 MEQ TABCR PO SCH ×3 (08:42→17:30)
[2017-06-24] MEDS: ASPIRIN 81 MG CHEW CHEW SCH (08:43)
[2017-06-24] MEDS: FUROSEMIDE 80 MG TAB PO SCH ×2 (08:43→14:50)
--- NOTE | 2017-06-24 13:00 | Medical Nutrition Therapy ---
Nutrition Anthropometrics Height (Inches): 65.00 Height (Calculated Centimeters: [phone] Weight (Pounds): 248 Weight (Calculated Kilograms): 112.746 BMI Calculated: 39.60 Homero Nutrition Score: Probably Inadequate Homero Nutrition Risk Score: 16 Dietary Referral Nutrition Risk Factors: Diff. Swallowing Nutrition Risk Comment: Physical Findings Physical Appearance: Obese BMI 30-39 Skin Appearance Skin Appearance: Edema Edema Location Modifier: Left Edema Location: Lower Extremity Type of Edema: Degree of Edema: 2+ Gastrointestinal Symptoms GI Symtoms: Bloating, Weight Changes Tube Present: Bowel Sounds: Recent Bowel Pattern: Diarrhea Stool Characteristics: Nutritional Diagnosis Nutritional Risk Acuity 1: Malnutrition (s/p 1/2 small intestine removal) Nutritional Risk Acuity 2: GI Malabsorption Past Medical History: T2DM, GERD, CKD Nutritional Acuity: 4-Low Nutrition Diagnosis: Increased Nutrient Needs, Altered GI Function Nutrition Etiology: Physiological Causes Nutrition Problem/Etiology/Sym: Increased protein/altered GI function needs related to 1/2 small intestine removeal as evidenced by prealbumin 4.8, alb and total pro 4.6. Adjusted Energy Requirement Re: 1914 (as per previous calculation using usual BW of 87kg. (22 kcal/kg)) Protein Requirement: 104 (1.2 g/kg (usual BW of 87kg)) Fluid Requirement: 2175 (25 ml/kg (usual BW)) Diet Type: Diet as Tolerated NICK/REG Nutrition Intervention: Cont diet as ordered, Encourage intake, Between meal supplement Drug: Diuretics Drug/Nutrition Recommendations: Check Serum K+ Food Likes: pt states she is not allergic to citrus Additional Diet Restrictions: NO citrus, shellfish or lactose Diet Comment To RSA: ADD PRO POWDER TO APPROPRIATE FOODS, OFFER SF NUTR SUPPL Nutrition Monitoring & Eval Nutrition Goals: Eat 75-100% Meal Nutrition Follow-Up: Fair Intake RD Patient Assessment Time: [address] Assessment Type: RD Re-Assessment Patient Nutrition Acuity: 1-High Follow Up Date: July 02, 2017 Nutritional Comment: 06/16 Pt transferred to ECF unit following pneumonia and recent bowel resection and cholecystectomy. PMH of T2DM. Noting significant edema and allergies to citrus, shellfish and lactose. Notable labs include glc 220, Na 134, Mg 1.3, prealbumin 4.8, alb 1.9 and tot pro 4.6. Pt recieved diet education on increasing protein needs. No intake to report on ECF unit. Will cont to monitor and encourage intake. 06/24 Pt cont on diabetic diet. Intake average 63% of small to regular portions with occasional nutr supplement consumed. Pt is on insulin. BG elevated rangeing 130's- 240's. Alb cont very low but has improved to 2.1. Pt cont with soft to liquid stools. Wt is up 29% since admission on 05/13, however has remained fairly stable past month iwth 2.9% increase. Pt does have 1-2+ LE edema. Pt is on K+ depleting duiretic and is on a K+ supplments. Anticipate wt loss when edema resolved. Will cont to monitor and encourage intake. ANGIE FARRELL Jun 24, 2017 11:19
[2017-06-24 15:20] VITALS: BP 146/85
[2017-06-24] MEDS: INSULIN HUM LISPRO 100 UN/ML 3 ML VIAL SUBQ PRN ×2 (17:30→21:22)
[2017-06-24] MEDS: INSULIN GLARGINE 100 U/ML 3 ML PEN SUBQ SCH (21:22)
[2017-06-25] MEDS: ACETAMINOPHEN 325 MG TAB PO PRN (02:41)
[2017-06-25] MEDS: CHOLESTYRAMINE 4 GM POWD PO SCH ×4 (06:11→20:37)
[2017-06-25 07:20] VITALS: BP 153/67
[2017-06-25] MEDS: NS(*) 0.9% 250 ML BAG 250 ML IVPB PRN (07:29)
[2017-06-25] MEDS ORDERED: MAGNESIUM SUL* 4 GM/100 ML BAG 100 ML IVPB ONE (08:00)
[2017-06-25] MEDS: POTASSIUM CHL 20 MEQ TABCR PO SCH ×3 (09:04→16:32)
[2017-06-25] MEDS: FUROSEMIDE 80 MG TAB PO SCH ×2 (09:04→13:27)
[2017-06-25] MEDS: ASPIRIN 81 MG CHEW CHEW SCH (09:04)
[2017-06-25] MEDS: INSULIN HUM LISPRO 100 UN/ML 3 ML VIAL SUBQ PRN ×3 (12:31→20:38)
[2017-06-25 18:20] VITALS: BP 135/85
[2017-06-25] MEDS: INSULIN GLARGINE 100 U/ML 3 ML PEN SUBQ SCH (20:37)
[2017-06-26] MEDS: CHOLESTYRAMINE 4 GM POWD PO SCH ×4 (05:59→20:38)
[2017-06-26 08:00] VITALS: BP 164/66
[2017-06-26] MEDS: FUROSEMIDE 80 MG TAB PO SCH ×2 (08:58→13:42)
[2017-06-26] MEDS: ASPIRIN 81 MG CHEW CHEW SCH (08:58)
[2017-06-26] MEDS: POTASSIUM CHL 20 MEQ TABCR PO SCH ×3 (08:58→16:32)
--- NOTE | 2017-06-26 09:24 | Hospitalist Progress Note ---
Subjective Progress Notes Subjective No new complaints. Physical Exam Vital Signs Date Time Temp Pulse Resp B/P (MAP) Pulse Ox O2 Delivery O2 Flow Rate FiO2 06/26/17 03:15 Nasal Cannula 2.0 06/25/17 18:20 97.9 111 20 135/85 (102) 91 General Appearance: Alert, Awake, No Acute Distress Neuro: No Gross deficits Eyes: PERRLA Cardiovascular: Regular Rate and Rhythm Respiratory: Clear to Auscultation GI: Soft and Non-Tender, Other (Abdominal wall edema noted. Wound vac in place at bottom of surgical wound. Upper part of wound well healed.) Result Diagram: 06/22/17 0555 06/25/17605 Item Value Date Time Calcium Level 7.8 mg/dl L 06/10/17632 Magnesium Level 1.4 mg/dl L 06/10/17632 Magnesium Level 1.4 mg/dl L 06/25/17605 Assessment and Plan Problems: (1) Protein malnutrition Status: Chronic Assessment & Plan: Due to resection of more than half of her small intestine which was ischemic. Her prealbumin was initially 4.8 and has increased to 9.2 with a high protein diet. She continues to have significant edema with this. (2) Hypervolemia Status: Acute Assessment & Plan: Due to fluid resuscitation with her ischemic bowel, sepsis and surgery. She has protein malnutrition (see above). Her weight is gradually decreasing with twice daily Lasix. (3) Hypomagnesemia Status: Acute Assessment & Plan: Due to malabsorption. She received a total of 54 grams of IV magnesium to get her magnesium into normal range at 1.7. She will likely be unable to tolerate oral magnesium due to her loose stools. She may not absorb oral magnesium efficiently as well. She will need to remain on oral Lasix for now which will also affect her level. Since her magnesium level has normalized, she has received 16g over 9 days which equals 2.2 grams daily to keep her level normal. 2.2 grams daily over a week would be 15.5g. So she will need 16g of IV magnesium weekly. So we will plan on 4g IV 4 days a week initially. Once her protein level is better and we are bale to decrease her daily Lasix dose, her need for magnesium will likely decrease. Will arrange for magnesium infusions through Home Health versus [facility]. She should be able to discharge once these arrangements are made. (4) Type 2 diabetes mellitus with hyperglycemia, with long-term current use of insulin Status: Chronic Assessment & Plan: Blood sugars continue to run a bit high but overall are improved. Will increase Lantus to 18u at HS. (5) Edema Status: Acute Assessment & Plan: Her weight has not decreased as much over the past week. Renal function remains normal. Will continue Lasix 80mg bid with close monitoring of her electrolytes and renal function. Consider increasing her am Lasix to 120mg. (6) SARI treated with BiPAP Status: Chronic (7) Chronic kidney disease, stage II (mild) Status: Chronic Assessment & Plan: Creatinine is currently 0.6. (8) Essential hypertension Onset Date: 11/18/2013 Status: Chronic Assessment & Plan: BP is controlled with Lasix. (9) Ischemia, bowel Status: Chronic Assessment & Plan: The patient had more than half of her small bowel removed due to ischemia. (10) Bacterial pneumonia Status: Resolved Assessment & Plan: The patient has finished a course of antibiotics. No further fever. Cough has resolved. WBC has normalized. Central Venous Access Medical Necessity for Access: Hemodynamic Monitoring, IV Access, Medication Administration Time Spent on Plan of Care: < 30 min Copies to: SHARIF FUENTES MD, JULIE A MD Jun 26, 2017 09:23
[2017-06-26] MEDS ORDERED: MAGNESIUM SUL* 4 GM/100 ML BAG 100 ML IVPB ONE (11:00)
[2017-06-26] MEDS: INSULIN HUM LISPRO 100 UN/ML 3 ML VIAL SUBQ PRN ×3 (12:08→20:39)
[2017-06-26 16:06] VITALS: BP 121/76
--- NOTE | 2017-06-26 18:13 | General Surgery Progress Note ---
Subjective Progress Notes Subjective Patient without complaints. Feeling good. Hoping to go home in the next few days. No abdominal pain. Eating without problems. Physical Exam Vital Signs Date Time Temp Pulse Resp B/P (MAP) Pulse Ox O2 Delivery O2 Flow Rate FiO2 06/26/17 16:06 98.4 103 20 121/76 (91) 96 Nasal Cannula 06/26/17 10:00 2.0 Intake and Output 06/27/17 07:00 Intake Total 320 ml Balance 320 ml Intake Oral 320 ml # Voids 3 # Bowel Movements 2 General Appearance: Alert, Awake, No Acute Distress, Afebrile GI: Soft and Non-Tender (Incision is healing well. Wound VAC is in position with a good seal on the lower portion of her abdominal wound.) Result Diagram: 06/22/17 0555 06/26/17 0905 Assessment and Plan Problems: (1) Open abdominal wall wound Status: Chronic Assessment & Plan: 06/18/17: Patient is doing well. We'll continue negative pressure wound therapy for her abdominal wounds. We will try cholestyramine for her diarrhea but will start with just one dose a day and see how she responds to this. This may help in absorption of nutrients and magnesium. 06/26/17: Patient is doing well from a surgical standpoint. Continuing issues with eating magnesium replacement and the hospitalists are working on facilitating this as an outpatient. We'll continue wound care on her abdomen. She is apparently expected to go home within the next 5 or 6 days. I will see her as an outpatient in my office. (2) Small bowel infarction Status: Resolved Central Venous Access Medical Necessity for Access: Hemodynamic Monitoring, IV Access, Medication Administration Condition Stable Time Spent: < 30 min Problem Qualifiers (1) Open abdominal wall wound: Encounter type: subsequent encounter Qualified Codes: S31.109D - Unspecified open wound of abdominal wall, unspecified quadrant without penetration into peritoneal cavity, subsequent encounter YARY TRIPLETT MD Jun 26, 2017 18:12
[2017-06-26] MEDS: INSULIN GLARGINE 100 U/ML 3 ML PEN SUBQ SCH (20:38)
[2017-06-27] MEDS: CHOLESTYRAMINE 4 GM POWD PO SCH ×4 (05:29→20:22)
[2017-06-27 08:00] VITALS: BP 140/78
[2017-06-27] MEDS: ASPIRIN 81 MG CHEW CHEW SCH (09:13)
[2017-06-27] MEDS: POTASSIUM CHL 20 MEQ TABCR PO SCH ×3 (09:14→16:34)
[2017-06-27] MEDS: FUROSEMIDE 80 MG TAB PO SCH ×2 (09:14→13:32)
[2017-06-27] MEDS: INSULIN HUM LISPRO 100 UN/ML 3 ML VIAL SUBQ PRN ×4 (09:15→20:22)
[2017-06-27 15:25] VITALS: BP 143/80
[2017-06-27] MEDS: INSULIN GLARGINE 100 U/ML 3 ML PEN SUBQ SCH (20:22)
[2017-06-28] MEDS: CHOLESTYRAMINE 4 GM POWD PO SCH ×4 (05:35→20:47)
[2017-06-28] MEDS ORDERED: INSU100I30 SUBQ (07:37)
[2017-06-28] MEDS ORDERED: FURO80TA70 PO (07:37)
[2017-06-28] MEDS ORDERED: ASPI-870 CHEW (07:37)
[2017-06-28] MEDS ORDERED: ACET-2007 PO (07:37)
[2017-06-28] MEDS ORDERED: CHOL4PAC16 PO (07:37)
[2017-06-28] MEDS ORDERED: POTA20TA94 PO (07:46)
[2017-06-28] MEDS ORDERED: INSU100I28 SQ (07:46)
[2017-06-28] MEDS ORDERED: MAGNESIUM SUL* 4 GM/100 ML BAG 100 ML IVPB ONE (08:00)
--- NOTE | 2017-06-28 08:25 | Hospitalist Depart ---
Discharge Summary Reason for Hosp/Final Diag: (1) Protein malnutrition Status: Chronic Hospital Course & Plan: The patient developed significant protein malnutrition due to resection of more than half of her small intestine which was ischemic. Her prealbumin was initially 4.8 but increased to 9.2 with a high protein diet. She developed significant edema with this and was placed on twice daily Lasix. A repeat prealbumin will be drawn on 06/29 prior to discharge on 06/30. Results will need to be followed up by Dr. Napier once available. The patient may benefit from GI consultation in the future. She would also benefit from ongoing consultation with a residential counselor to make sure she is getting enough protein in her diet. (2) Hypervolemia Status: Acute Hospital Course & Plan: Due to fluid resuscitation with her ischemic bowel, sepsis and surgery. She has protein malnutrition (see above). Her weight gradually decreased with twice daily Lasix. Her weight was 113.4kg on the day of discharge which is still significantly above her dry weight. She continues to have significant edema due to low protein. She will be discharged on Lasix 80mg bid. She will have her weight measured on SPU 4 days weekly. (3) Hypomagnesemia Status: Acute Hospital Course & Plan: Due to malabsorption and Lasix use. She received a total of 54 grams of IV magnesium after her surgery to get her magnesium into normal range at 1.7. She will likely be unable to tolerate oral magnesium due to her loose stools. She may not absorb oral magnesium efficiently as well. She will need to remain on oral Lasix for now which will also affect her magnesium level. After her magnesium level has normalized, she required 16g over 9 days which equals 2.2 grams daily to keep her level normal. 2.2 grams daily over a week would be 15.5g. So she will need 16g of IV magnesium weekly as an outpatient. She will receive 4g IV 4 days a week initially through SPU. Once her protein level has improved and her Lasix requirements have decreased, her need for magnesium will likely decrease. Arrangements for magnesium infusions through SPU have been arranged. (4) Type 2 diabetes mellitus with hyperglycemia, with long-term current use of insulin Status: Chronic Hospital Course & Plan: Blood sugars were reasonably well controlled on Lantus 18u at HS plus sliding scale with Humalog. (5) Edema Status: Acute Hospital Course & Plan: Multifactorial. See above. Renal function remained normal on Lasix 80mg bid. Will continue Lasix 80mg bid with close monitoring of her electrolytes and renal function after discharge. (6) SARI treated with BiPAP Status: Chronic (7) Chronic kidney disease, stage II (mild) Status: Chronic Hospital Course & Plan: Creatinine is currently 0.6. (8) Essential hypertension Onset Date: 11/18/2013 Status: Chronic Hospital Course & Plan: BP was reasonably well controlled with Lasix. (9) Ischemia, bowel Status: Chronic Hospital Course & Plan: The patient had more than half of her small bowel removed due to ischemia. She currently has a wound vac in place over her surgical wound. She will need to follow up with Dr. Triplett as an outpatient. (10) Bacterial pneumonia Status: Resolved Hospital Course & Plan: The patient finished a course of antibiotics. Cough and fever resolved. WBC normalized. Departure Weight (Pounds): 250 Weight (Ounces): 6.0 Result Diagram: 06/22/1755406/28/17621 Item Value Date Time Magnesium Level 1.6 mg/dl L 06/28/17621 Calcium Level 8.6 mg/dl 06/28/17621 Condition: Improved Discharge: Home, Home Health PT/OT Follow Up For: PT For Strengthening, OT For ADL's Home Health RN Follow Up For: Nursing Assessment, Wound [facility] LD TEACHER Follow Up For: ADL Assistance Time Spent: < 30 min Discharge Instructions Home Meds Active Scripts Potassium Chloride (POTASSIUM CHLORIDE) 20 Meq Tab.er.prt, 1 TAB PO TID, #90 TAB Prov:GEOVANNY NAPIER MD 07/04/17 Furosemide (FUROSEMIDE) 80 Mg Tablet, 1 TAB PO BID, #60 TAB Prov:GEOVANNY NAPIER MD 07/04/17 Pantoprazole Sodium (PANTOPRAZOLE SODIUM) 40 Mg Tablet.dr, 1 TAB PO QDAY, #30 TAB Prov:GEOVANNY NAPIER MD 07/04/17 Melatonin (MELATONIN) 3 Mg Tablet, 1 TAB PO HS Y for sleeplessness, #30 TAB Prov:GEOVANNY NAPIER MD 07/04/17 Diphenhydramine Hcl (DIPHENHYDRAMINE HCL) 25 Mg Capsule, 2 TAB PO BID, #120 CAPSULE Prov:GEOVANNY NAPIER MD 07/04/17 Acetaminophen (ACETAMINOPHEN) 500 Mg Tablet, 1-2 TAB PO Q6H Y for FEVER/PAIN, # 100 TAB Prov:GEOVANNY NAPIER MD 07/04/17 Pen Needle, Diabetic, Safety (PEN NEEDLE) 1 Each Dis.needle, EACH MC Q30D, #100 12 Refills use to administer insulin daily Prov:GEOVANNY NAPIER MD 07/01/17 Insulin Lispro 100 Un/Ml Pen (HUMALOG 3 ML PEN) 100 Unit/1 Ml Insuln.pen, 3-15 UNIT SQ prn sliding scale, #1 BOX Per sliding scale. Prov:TK ORTIZ MD 06/28/17 Insulin Glargine 100 Un/Ml Pen (LANTUS SOLOSTAR PEN) 100 Unit/1 Ml Insuln.pen, 18 UNIT SUBQ QHS, #1 BOX Prov:TK ORTIZ MD 06/28/17 Cholestyramine/Aspartame (PREVALITE PACKET) 4 Gm Powd.pack, 4 GM PO ACHS, #120 PACKET Prov:TK ORTIZ MD 06/28/17 Phe/Shark Liver Oil/Glycer/Pet (PREPARATION H CREAM) 27 Gm Cr, 0 GM LA PRN Y for HEMORRHOIDS, #1 TUBE Prov:TK ORTIZ MD 06/05/17 Blood Sugar Diagnostic (CONTOUR) 1 Each Strip, 100 EACH MC Q30D, #100 STRIP 12 Refills Use to test blood sugars twice daily Prov:GEOVANNY NAPIER MD 04/23/16 Lancets (BD ULTRA-FINE) 1 Each Each, 1 EACH MC DAILY, #100 12 Refills Use twice daily for insulin injections Prov:GEOVANNY NAPIER MD 10/04/15 Reported Medications Aspirin (ASPIR 81) 81 Mg Tablet.dr, 1 TAB PO QDAY, TAB 05/08/17 Bipap Home (BIPAP HOME) Inha, HS 09/07/15 Discontinued Scripts Aspirin (Children's Aspirin) 81 Mg Tab.chew, 81 MG CHEW QDAY, #90 TAB.CHEW Prov:TK ORTIZ MD 06/28/17 Acetaminophen (MAPAP) 325 Mg Tablet, 650 MG PO Q6H Y for FEVER/PAIN, #100 TAB Prov:TK ORTIZ MD 06/28/17 Potassium Chloride (POTASSIUM CHLORIDE) 20 Meq Tab.er.prt, 20 MEQ PO BIDBS, #60 TAB Prov:TK ORTIZ MD 06/05/17 Insulin Glargine (LANTUS) 100 Unit/Ml Soln, 13 UNIT SUBQ HS, #1 VIAL 8 Refills Prov:TK ORTIZ MD 06/05/17 Furosemide (FUROSEMIDE) 20 Mg Tablet, 1 TAB PO DAILY, #90 TAB 4 Refills Prov:GEOVANNY NAPIER MD 09/11/16 Syringe & Needle,Insulin,1 Ml (INSULIN SYRINGE) 1 Each Disp.syrin, 1 EACH MC DAILY, #100 11 Refills Use to inject insulin twice daily Prov:GEOVANNY NAPIER MD 01/10/16 Follow up Referrals: General Surgery - In One Week with Yary Triplett Md Internal Medicine - In One Week @ [facility] with Geovanny Napier Md Diet: Diabetic Activity: As Tolerated Special Instructions: The patient will need to follow a high protein, diabetic diet at home. The patient will receive magnesium infusions on SPU 4 days weekly. She will have blood work monitored 4 days weekly including a BMP and magnesium. She will have weights monitored 4 days weekly as well. Copies to: GEOVANNY NAPIER MD; YARY TRIPLETT MD Venous Thromboembolism Antithrombotics Is Pt On Any Antithrombotics?: No TK ORTIZ MD Jun 28, 2017 08:25
[2017-06-28 08:26] VITALS: BP 136/79
[2017-06-28] MEDS: ASPIRIN 81 MG CHEW CHEW SCH (09:27)
[2017-06-28] MEDS: POTASSIUM CHL 20 MEQ TABCR PO SCH ×3 (09:27→17:49)
[2017-06-28] MEDS: FUROSEMIDE 80 MG TAB PO SCH ×2 (09:27→13:23)
[2017-06-28 15:30] VITALS: BP 145/87
[2017-06-28] MEDS: INSULIN HUM LISPRO 100 UN/ML 3 ML VIAL SUBQ PRN ×2 (17:49→20:51)
[2017-06-28] MEDS: INSULIN GLARGINE 100 U/ML 3 ML PEN SUBQ SCH (20:47)
[2017-06-29] MEDS: ACETAMINOPHEN 325 MG TAB PO PRN (03:35)
[2017-06-29] MEDS: CHOLESTYRAMINE 4 GM POWD PO SCH ×4 (06:04→20:38)
[2017-06-29 08:45] VITALS: BP 139/86
[2017-06-29] MEDS: ASPIRIN 81 MG CHEW CHEW SCH (09:28)
[2017-06-29] MEDS: POTASSIUM CHL 20 MEQ TABCR PO SCH ×3 (09:28→17:44)
[2017-06-29] MEDS: FUROSEMIDE 80 MG TAB PO SCH ×2 (09:28→13:28)
[2017-06-29 17:30] VITALS: BP 128/70
[2017-06-29] MEDS: INSULIN HUM LISPRO 100 UN/ML 3 ML VIAL SUBQ PRN ×2 (17:45→20:39)
[2017-06-29] MEDS: INSULIN GLARGINE 100 U/ML 3 ML PEN SUBQ SCH (20:39)
[2017-06-30] MEDS: ACETAMINOPHEN 325 MG TAB PO PRN (00:31)
[2017-06-30] MEDS ORDERED: MAGNESIUM SUL* 4 GM/100 ML BAG 100 ML IVPB ONE ×2 (05:00→09:00)
[2017-06-30] MEDS: CHOLESTYRAMINE 4 GM POWD PO SCH ×2 (05:35→10:49)
[2017-06-30 07:25] VITALS: BP 148/79
[2017-06-30] MEDS: FUROSEMIDE 80 MG TAB PO SCH (08:51)
[2017-06-30] MEDS: POTASSIUM CHL 20 MEQ TABCR PO SCH (08:51)
[2017-06-30] MEDS: ASPIRIN 81 MG CHEW CHEW SCH (08:51)
--- NOTE | 2017-07-01 08:28 | OT ECF NOTE ---
Type of Note: Discharge Note Primary Medical Diagnosis: Generalized weakness s/p bowel resection (05/14/17) and hypervolemia Occupational Therapy Evaluation Date: 06/17/17 SUBJECTIVE: [facility] 05/13/17-05/24/17, [facility] ECF 05/24/17-06/09/17, [facility] med/surg 06/09/17-06/15/17 Prior Level of Function: Independent with all ADLs/IADLs. Has a cat "Nissa" Prior Living Status: Senior housing, Alone Community Services: Support adequate Home health care Meals on Wheels No known needs Home Accessibility: All needs on one level Tub/shower combination Equipment Owned: Rollator Toilet riser Tub/shower chair Extended tub bench Toilet aide Sockaide/fork lift mechanic Bed cane Medical Complications/Past Medical History: Extensive, please refer to EMR Psychosocial Support: Daughter in [place] and daughter in [place] Pain Scale (0-10): None reported at time of last tx OBJECTIVE: Strength: MMT: Right Left Shoulder Flexion WFL WFL Elbow Flexion WFL WFL Wrist Extension WFL WFL Insurance Agency Sales Manager WFL WFL (5= normal, 4= good, 3= fair, 2= poor, 1= trace) ROM: Both upper extremities, Minimally limited Functional Transfer: Assistive Device: Rollator Transfer Ability: Modified Independent ADL: Upper body dressing: Assistive device: Upper body dressing ability: Independent donning abdominal binder and UB clothing Lower body dressing: Assistive device: Client Representative Sock Aide Lower body dressing ability: Mod (I) Toileting: Assistive device: Toilet aide Toileting ability: Mod (I) Grooming/hygiene: Assistive device: Standing Grooming ability: Independent Bathing: Assistive device: Extended tub transfer bench Bathing ability: Min A in/out of tub with use of leg 3d modeler. Pt reports they will be remodeling her apartment in the next few days and replacing the bathtub with a walk-in shower. Recommend assist for bathing until this remodel occurs. Pt verbalizes understanding. Standardized Assessment: Jeannette Index of Activities of Daily Livin/20 upon initial evaluation (). 19/20 at discharge (06/28/17). ASSESSMENT: Aimee presented to [facility] with decreased activity tolerance s/p extensive hospitalization limiting independent engagement in ADLs/IADLs. She has improved her (I) with all ADLs, activity tolerance for ADLs/IADLs, and has obtained all recommended AE. She has met all skilled OT goals. Problem List/Current Limitations: Decreased activity tolerance Generalized weakness Short Term Goals: 1) Pt will be Mod (I) UB/LB dressing. GOAL MET 2) Pt will be Mod (I) toileting. GOAL MET 3) Pt will be Independent grooming/hygiene. GOAL MET 4) Pt Jeannette Index of ADLs score will improve by 2 points. GOAL MET 5) Pt will be SBA with good tolerance and safety during light meal prep task.GOAL MET Terrazzo Finisher Helper Goals: Return home with services Patient Goals: "Return home to [facility]" Rehabilitation Prognosis: Good Barriers to Discharge: Medical history PLAN: The patient discharged home with services and assist from daughter (). Thank you for this referral. If you have any questions, concerns, or comments about this report or plan, please contact me at . Kay Allen MS, OTR/L Occupational Therapist ELI
[2017-07-01] MEDS ORDERED: PEN1DIS. MC (12:06)
[2017-07-04] MEDS ORDERED: FURO80TA70 PO (16:10)
[2017-07-04] MEDS ORDERED: DIPH-464 PO (16:10)
[2017-07-04] MEDS ORDERED: PANT40TA65 PO (16:10)
[2017-07-04] MEDS ORDERED: MELA3TAB31 PO (16:10)
[2017-07-04] MEDS ORDERED: POTA20TA94 PO (16:10)
[2017-07-04] MEDS ORDERED: ACET-2043 PO (16:10)
== END 2017-06-30 11:30 | disposition home health service (06) | DRG 641 ==
LOC: ECF 13:30
PROVIDERS: ADMIT Family Medicine; ATTEND Family Medicine
PROC: 0JD83ZZ Extraction of Abdomen Subcutaneous Tissue and Fascia, Percutaneous Approach (ICD-10-PCS; principal; 2017-06-18)
PROC: 0JD83ZZ Extraction of Abdomen Subcutaneous Tissue and Fascia, Percutaneous Approach (ICD-10-PCS; 2017-06-21)
PROC: 0JD83ZZ Extraction of Abdomen Subcutaneous Tissue and Fascia, Percutaneous Approach (ICD-10-PCS; 2017-06-30)
PROC: 0JD83ZZ Extraction of Abdomen Subcutaneous Tissue and Fascia, Percutaneous Approach (ICD-10-PCS; 2017-06-30)
DX: E46 Unspecified protein-calorie malnutrition (principal); K91.2 Postsurgical malabsorption, not elsewhere classified; E83.42 Hypomagnesemia; I10 Essential (primary) hypertension; G47.33 Obstructive sleep apnea (adult) (pediatric); S31.109D Unspecified open wound of abdominal wall, unspecified quadrant without penetration into peritoneal cavity, subsequent encounter; E87.70 Fluid overload, unspecified; R53.1 Weakness; R60.0 Localized edema; E11.65 Type 2 diabetes mellitus with hyperglycemia; Z66 Do not resuscitate; Z79.4 Long term (current) use of insulin; Z90.49 Acquired absence of other specified parts of digestive tract; Z90.89 Acquired absence of other organs; Z79.82 Long term (current) use of aspirin; Z91.013 Allergy to seafood; Z88.2 Allergy status to sulfonamides; Z91.011 Allergy to milk products; Z91.018 Allergy to other foods; Z86.718 Personal history of other venous thrombosis and embolism; Z99.89 Dependence on other enabling machines and devices; Z87.440 Personal history of urinary (tract) infections; Z86.19 Personal history of other infectious and parasitic diseases; Z87.09 Personal history of other diseases of the respiratory system
CPT/HCPCS: 36415; 36416; 82040; 82247; 82310; 82374; 82435; 82565; 82947; 82948; 83735; 84075; 84132; 84134; 84155; 84295; 84450; 84460; 84520; 85025; 97161; 97165; 97605; J1815; J3475; J7050

== ENCOUNTER → 2017-08-08 | Outpatient (CLI) | payer MEDICARE ==
[2017-05-24 19:20] VITALS: BMI 39.6
[~2017-08-08] MED LIST changes: +ACET-2007 PO; +ASPI-870 CHEW; +BLOO-1318 MC; +BLOO-1623 MC; +CHOL4PAC16 PO; +FURO80TA70 PO; +INSU100I28 SQ; +INSU100I30 SUBQ; +LANC-1149 MC; +MAGN4PIG3 IVPB; +MULT1TAB64 PO; +OXYGENHOME INH; +PEN1DIS. MC
--- NOTE | 2017-08-08 09:34 | RADIOLOGY IMAGING REPORT ---
FACILITY: [facility] PATIENT NAME: Brandy Kathleen : 1940 MR: [id number] V: [id number] EXAM DATE: ORDERING PHYSICIAN: YARY TRIPLETT TECHNOLOGIST: Location: [facility] Patient: Brandy Kathleen : 1940 Visit/Account:[id number] Date of Sevice: 08/08/2017 VENOUS DOPP LOWER BILAT EXTREM HISTORY: Recent surgery with bilateral lower extremity edema COMPARISON: None. FINDINGS: Grayscale, duplex and color Doppler interrogation of the bilateral lower extremity deep veins from co mmon femoral vein to proximal calf was completed. The greater saphenous vein in the right and left pr oximal thigh was evaluated using similar technique. RIGHT lower extremity: Common femoral vein - Negative. Femoral vein - Negative. Deep femoral vein - Negative. Popliteal vein - Negative. Visualized deep calf veins - Negative. Popliteal fossa: Negative. Greater saphenous vein in the proximal thigh: Negative. LEFT lower extremity: Common femoral vein - Negative. Femoral vein - Negative. Deep femoral vein - Negative. Popliteal vein - Negative. Visualized deep calf veins - Negative. Popliteal fossa: Negative. Greater saphenous vein in the proximal thigh: Negative. IMPRESSION: Difficult exam secondary to body habitus however no visualized DVT. Report Dictated By: Uziel Marley MD at 08/08/2017 9:29 AM Report E-Signed By: Uziel Marley MD at 08/08/2017 9:30 AM WSN:[id number]
== END ==
LOC: US 07:05
PROVIDERS: ATTEND Surgery
DX: R60.0 Localized edema (principal); E66.9 Obesity, unspecified
CPT/HCPCS: 93970

== ENCOUNTER → 2017-08-15 | Outpatient (CLI) | payer MEDICARE ==
[2017-05-24 19:20] VITALS: BMI 39.6
== END ==
LOC: SPU 07:41
PROVIDERS: ATTEND Internal Medicine
DX: E11.65 Type 2 diabetes mellitus with hyperglycemia (principal)
CPT/HCPCS: 83036

== ENCOUNTER 2017-09-27 08:30 | Outpatient (RCR) | payer MEDICARE ==
[2017-05-24 19:20] VITALS: Wt 96.6 kg
[2017-07-01 11:54] VITALS: BP 128/80
[2017-07-01] MEDS: MAGNESIUM SULF 4 GM/100 ML BAG 100 ML IVPB PRN (13:02)
[2017-07-03 08:56] VITALS: BP 142/71
[2017-07-03] MEDS: MAGNESIUM SULF 4 GM/100 ML BAG 100 ML IVPB PRN (09:22)
[2017-07-03] MEDS: NS(*) 0.9% 100 ML BAG 100 ML IVPB PRN (11:00)
[2017-07-04 08:46] VITALS: BP 128/60
[2017-07-04] MEDS: MAGNESIUM SULF 4 GM/100 ML BAG 100 ML IVPB PRN (09:35)
[2017-07-05] MEDS: NS(*) 0.9% 100 ML BAG 100 ML IVPB PRN (09:17)
[2017-07-05] MEDS: MAGNESIUM SULF 4 GM/100 ML BAG 100 ML IVPB PRN (09:17)
[2017-07-05 09:24] VITALS: BP 149/86
[2017-07-05 13:30] VITALS: BP 146/78
[2017-07-08 08:54] VITALS: BP 136/69
[2017-07-08] MEDS: MAGNESIUM SULF 4 GM/100 ML BAG 100 ML IVPB PRN (09:14)
[2017-07-08] MEDS: NS(*) 0.9% 100 ML BAG 100 ML IVPB PRN (09:14)
[2017-07-08 13:21] VITALS: BP 154/86
[2017-07-09] MEDS: MAGNESIUM SULF 4 GM/100 ML BAG 100 ML IVPB PRN (09:16)
[2017-07-09] MEDS: NS(*) 0.9% 100 ML BAG 100 ML IVPB PRN (09:16)
[2017-07-09 11:24] VITALS: BP 148/80
[2017-07-09 13:20] VITALS: BP 159/86
[2017-07-11] MEDS: NS(*) 0.9% 100 ML BAG 100 ML IVPB PRN (08:36)
[2017-07-11 08:37] VITALS: BP 137/50
[2017-07-11] MEDS: MAGNESIUM SULF 4 GM/100 ML BAG 100 ML IVPB PRN (09:08)
[2017-07-12] MEDS: NS(*) 0.9% 100 ML BAG 100 ML IVPB PRN (08:39)
[2017-07-12 08:40] VITALS: BP 134/73
[2017-07-12] MEDS: MAGNESIUM SULF 4 GM/100 ML BAG 100 ML IVPB PRN (08:49)
[2017-07-15 08:48] VITALS: BP 154/70
[2017-07-15] MEDS: MAGNESIUM SULF 4 GM/100 ML BAG 100 ML IVPB PRN (09:14)
[2017-07-15] MEDS: NS(*) 0.9% 100 ML BAG 100 ML IVPB PRN (09:14)
[2017-07-16 08:53] VITALS: BP 146/74
[2017-07-16] MEDS: MAGNESIUM SULF 4 GM/100 ML BAG 100 ML IVPB PRN (09:21)
[2017-07-16] MEDS: NS(*) 0.9% 100 ML BAG 100 ML IVPB PRN (09:22)
[2017-07-18] MEDS: NS(*) 0.9% 100 ML BAG 100 ML IVPB PRN ×2 (08:59→09:32)
[2017-07-18 09:06] VITALS: BP 133/70
[2017-07-18] MEDS: MAGNESIUM SULF 4 GM/100 ML BAG 100 ML IVPB PRN (09:32)
[2017-07-19 08:19] VITALS: BP 154/87
[2017-07-19] MEDS: MAGNESIUM SULF 4 GM/100 ML BAG 100 ML IVPB PRN (08:56)
[2017-07-19] MEDS: NS(*) 0.9% 100 ML BAG 100 ML IVPB PRN (08:57)
[2017-07-19 14:02] VITALS: BP 147/90
[2017-07-22 08:54] VITALS: BP 155/92
[2017-07-22] MEDS: MAGNESIUM SULF 4 GM/100 ML BAG 100 ML IVPB PRN (09:58)
[2017-07-23 08:46] VITALS: BP 159/64
[2017-07-23] MEDS: NS(*) 0.9% 100 ML BAG 100 ML IVPB PRN (09:06)
[2017-07-23] MEDS: MAGNESIUM SULF 4 GM/100 ML BAG 100 ML IVPB PRN (09:06)
[2017-07-23 13:31] VITALS: BP 139/74
[2017-07-25 08:21] VITALS: BP 148/88
[2017-07-25 08:32] LABS: PLATELET COUNT, AUTOMATED 386 K/uL (150-450)
[2017-07-25] MEDS: MAGNESIUM SULF 4 GM/100 ML BAG 100 ML IVPB PRN (09:03)
[2017-07-25] MEDS: NS(*) 0.9% 100 ML BAG 100 ML IVPB PRN (09:03)
--- NOTE | 2017-07-25 16:37 | ONCOLOGY FOLLOW UP NOTE ---
EVENT DATE: July 25, 2017 DIAGNOSES 1. Secondary polycythemia. 2. Chronic kidney disease stage 3A. 3. Essential hypertension. 4. Type 2 diabetes. 5. Obstructive sleep apnea on BiPAP. CHIEF COMPLAINT Patient is here today for followup of her secondary polycythemia. HEMATOLOGY HISTORY The patient is a 77-year-old female, with multiple medical problems including stage 3A chronic kidney disease likely due to hypertensive nephrosclerosis superimposed on diabetic kidney disease. She has also hypertension, type 2 diabetes, and obstructive sleep apnea on nocturnal BiPAP. The patient has been followed by Dr. Kailash Velásquez for her kidney disease, and the patient was found lately on her labs to have a hemoglobin of 20.1, hematocrit of 61.8, white count 11,000, and platelet count of 219,000. The patient denies any constitutional symptoms. Erythropoietin level is normal at 22 and JAK2 mutation analysis came back negative. HISTORY OF PRESENT ILLNESS Patient is here today for followup of her secondary erythrocytosis. She is doing fine except for having swelling of her legs. She has occasional diarrhea. She has also cough and shortness of breath. PAST MEDICAL HISTORY 1. Stage 3 chronic kidney disease. 2. Hypertension. 3. Type 2 diabetes. 4. Obstructive sleep apnea. 5. Hypercholesterolemia. PAST SURGICAL HISTORY 1. Tubal ligation. 2. Appendectomy. 3. Surgical drainage for infection of the right lower extremity. FAMILY HISTORY Maternal great aunt with colon cancer. She has a granddaughter with leukemia. SOCIAL HISTORY The patient is with 4 children. 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 She has a glass of wine once a month and denies any abuse of tobacco or illicit drugs. She has never smoked. CURRENT MEDICATIONS 1. Lisinopril 5 mg daily. 2. Aspirin 81 mg daily. 3. Lasix 20 mg daily. 4. Glyburide/metformin 5/500 mg 2 tablets p.o. twice a day. 5. Insulin detemir (Levemir) 100 units injected into the skin nightly at bedtime. 6. Lovastatin 20 mg at bedtime. 7. Multivitamins. 8. Omeprazole 20 mg every morning. 9. Tramadol 50 mg p.r.n. pain as needed. ALLERGIES SHELLFISH causes anaphylaxis, and SULFA causes swelling. REVIEW OF SYSTEMS CONSTITUTIONAL: No appetite or weight change. No fever, chills or sweating. No recent infection. HEENT: Ears: No tinnitus or hearing problem. Nose: No nasal discharge or epistaxis. Throat: No sore throat or mouth ulcers. Eyes: No diplopia or visual changes. RESPIRATORY: Patient has cough with shortness of breath. CARDIOVASCULAR: She has swelling of the lower extremities. No chest pain, orthopnea, or paroxysmal nocturnal dyspnea (PND). No edema. No palpitations. GASTROINTESTINAL: No nausea or vomiting. She has diarrhea. No constipation. GENITOURINARY: No hematuria or dysuria. MUSCULOSKELETAL: She has pain in her hands. NEUROLOGICAL: No tingling or numbness in the hands or feet. No headaches or convulsions. HEMATOLOGIC/LYMPHATIC: No bleeding. She bruises easily. No weakness or fatigue. No enlarged lymph nodes. SKIN: No skin rash or lumps. PSYCHIATRIC: No anxiety or depression. PHYSICAL EXAMINATION GENERAL: Looks stable. Well-developed, well-nourished, and in no acute distress. VITAL SIGNS: Blood pressure 148/88, pulse 94 per minute, respirations 16 per minute, temperature 96.6, pulse ox 97% on 4L oxygen. HEENT: Head: Atraumatic. No sinus tenderness to palpation. Eyes: No icterus or conjunctivitis. Mouth and throat: No oral thrush or mucositis. NECK: Supple. No cervical or supraclavicular lymphadenopathy. LUNGS: Clear to auscultation and percussion bilaterally. HEART: Regular rate and rhythm. No gallops, murmurs, clicks or rubs. ABDOMEN: Soft and lax. No tenderness. No hepatosplenomegaly. No masses. EXTREMITIES: There is bilateral leg edema with oozing fluid from her legs. LYMPHATICS: No peripheral lymphadenopathy. NEUROLOGICAL: Conscious, alert and oriented times three. No focal motor or sensory deficits. PSYCHIATRIC: Mood and affect appear normal. SKIN: No skin rash, bruise or purpuric eruption. DIAGNOSTIC DATA CBC showed a white count of 11.4, hemoglobin 11.6, hematocrit 36.6, platelet count 386,000. ASSESSMENT 1. Secondary erythrocytosis given that JAK2 mutation analysis for [id number] mutation and Exon 12 mutation came back negative, and her erythropoietin level was normal at 22. Patient started BiPAP machine for her sleep apnea. Her current hematocrit is 36.6, and in April it was 57.6. I am planning to hold on phlebotomy this time. I will see her again in four months with CBC at that time. I will consider phlebotomy if the hematocrit is above 55%. 2. Chronic kidney disease stage 3A due to hypertension and diabetes. 3. Essential hypertension. 4. Type 2 diabetes mellitus. 5. Obstructive sleep apnea on BiPAP. PLAN 1. Consider phlebotomy of 500 mL blood if hematocrit above 55%. 2. Patient to return in four months with CBC. 3. Patient to contact us for any new concerns or complaints. ELI
[2017-07-26 08:34] VITALS: BP 160/78
[2017-07-26] MEDS: NS(*) 0.9% 100 ML BAG 100 ML IVPB PRN (09:19)
[2017-07-26] MEDS: MAGNESIUM SULF 4 GM/100 ML BAG 100 ML IVPB PRN (09:19)
[2017-07-26 13:50] VITALS: BP 139/81
[2017-07-30 08:34] VITALS: BP 138/74
[2017-07-30] MEDS: MAGNESIUM SULF 4 GM/100 ML BAG 100 ML IVPB PRN (08:54)
[2017-07-30] MEDS: NS(*) 0.9% 100 ML BAG 100 ML IVPB PRN (08:55)
[2017-07-31] MEDS: NS(*) 0.9% 100 ML BAG 100 ML IVPB PRN (09:09)
[2017-07-31] MEDS: MAGNESIUM SULF 4 GM/100 ML BAG 100 ML IVPB PRN (09:09)
[2017-07-31 09:10] VITALS: BP 118/88
[2017-08-01 08:32] VITALS: BP 141/80
[2017-08-01] MEDS: MAGNESIUM SULF 4 GM/100 ML BAG 100 ML IVPB PRN (09:01)
[2017-08-01] MEDS: NS(*) 0.9% 100 ML BAG 100 ML IVPB PRN (09:02)
[2017-08-02 09:39] VITALS: BP 147/88
[2017-08-02] MEDS: MAGNESIUM SULF 4 GM/100 ML BAG 100 ML IVPB PRN (09:50)
[2017-08-02] MEDS: NS(*) 0.9% 100 ML BAG 100 ML IVPB PRN (09:51)
[2017-08-05 08:29] VITALS: BP 141/79
[2017-08-05] MEDS: NS(*) 0.9% 100 ML BAG 100 ML IVPB PRN (09:12)
[2017-08-05] MEDS: MAGNESIUM SULF 4 GM/100 ML BAG 100 ML IVPB PRN (09:13)
[2017-08-06 08:43] VITALS: BP 135/76
[2017-08-06] MEDS: MAGNESIUM SULF 4 GM/100 ML BAG 100 ML IVPB PRN (09:15)
[2017-08-06] MEDS: NS(*) 0.9% 100 ML BAG 100 ML IVPB PRN (09:15)
[2017-08-08 08:56] VITALS: BP 127/70
[2017-08-08] MEDS: NS(*) 0.9% 100 ML BAG 100 ML IVPB PRN (09:14)
[2017-08-08] MEDS: MAGNESIUM SULF 4 GM/100 ML BAG 100 ML IVPB PRN (09:20)
[2017-08-09 08:39] VITALS: BP 127/70
[2017-08-09] MEDS: MAGNESIUM SULF 4 GM/100 ML BAG 100 ML IVPB PRN (09:05)
[2017-08-09] MEDS: NS(*) 0.9% 100 ML BAG 100 ML IVPB PRN (09:05)
[2017-08-12 08:35] VITALS: BP 137/81
[2017-08-12] MEDS: NS(*) 0.9% 100 ML BAG 100 ML IVPB PRN (08:45)
[2017-08-12] MEDS: MAGNESIUM SULF 4 GM/100 ML BAG 100 ML IVPB PRN (09:30)
[2017-08-13 08:27] VITALS: BP 119/81
[2017-08-13] MEDS: MAGNESIUM SULF 4 GM/100 ML BAG 100 ML IVPB PRN (08:48)
[2017-08-13] MEDS: NS(*) 0.9% 100 ML BAG 100 ML IVPB PRN (08:48)
[2017-08-15] MEDS: MAGNESIUM SULF 4 GM/100 ML BAG 100 ML IVPB PRN (09:35)
[2017-08-15 09:36] VITALS: BP 131/67
[2017-08-15] MEDS: NS(*) 0.9% 100 ML BAG 100 ML IVPB PRN (12:43)
[2017-08-15 14:21] VITALS: BP 123/58
[2017-08-16 08:32] VITALS: BP 133/96
[2017-08-16] MEDS: NS(*) 0.9% 100 ML BAG 100 ML IVPB PRN (09:20)
[2017-08-16] MEDS: MAGNESIUM SULF 4 GM/100 ML BAG 100 ML IVPB PRN (09:20)
[2017-08-19 08:49] VITALS: BP 135/71
[2017-08-19] MEDS: MAGNESIUM SULF 4 GM/100 ML BAG 100 ML IVPB PRN (09:13)
[2017-08-19] MEDS: NS(*) 0.9% 100 ML BAG 100 ML IVPB PRN (09:13)
[2017-08-19 16:07] VITALS: BP 135/71
[2017-08-20 08:30] VITALS: BP 136/80
[2017-08-20] MEDS: MAGNESIUM SULF 4 GM/100 ML BAG 100 ML IVPB PRN (09:01)
[2017-08-20] MEDS: NS(*) 0.9% 100 ML BAG 100 ML IVPB PRN (09:02)
[2017-08-22 08:21] VITALS: BP 122/84
[2017-08-22] MEDS: NS(*) 0.9% 100 ML BAG 100 ML IVPB PRN (08:26)
[2017-08-22] MEDS: MAGNESIUM SULF 4 GM/100 ML BAG 100 ML IVPB PRN (08:51)
[2017-08-23] MEDS: NS(*) 0.9% 100 ML BAG 100 ML IVPB PRN (08:40)
[2017-08-23 08:54] VITALS: BP 116/71
[2017-08-23] MEDS: MAGNESIUM SULF 4 GM/100 ML BAG 100 ML IVPB PRN (08:56)
[2017-08-26] MEDS: MAGNESIUM SULF 4 GM/100 ML BAG 100 ML IVPB PRN (09:13)
[2017-08-26] MEDS: NS(*) 0.9% 100 ML BAG 100 ML IVPB PRN (09:13)
[2017-08-26 10:07] VITALS: BP 137/73
[2017-08-27] MEDS: NS(*) 0.9% 100 ML BAG 100 ML IVPB PRN (08:58)
[2017-08-27] MEDS: MAGNESIUM SULF 4 GM/100 ML BAG 100 ML IVPB PRN (08:58)
[2017-08-27 09:52] VITALS: BP 113/89
[2017-08-29 08:29] VITALS: BP 118/84
[2017-08-29] MEDS: NS(*) 0.9% 100 ML BAG 100 ML IVPB PRN (09:22)
[2017-08-29] MEDS: MAGNESIUM SULF 4 GM/100 ML BAG 100 ML IVPB PRN (09:22)
[2017-08-30 08:28] VITALS: BP 142/71
[2017-08-30] MEDS: MAGNESIUM SULF 4 GM/100 ML BAG 100 ML IVPB PRN (08:57)
[2017-08-30] MEDS: NS(*) 0.9% 100 ML BAG 100 ML IVPB PRN (08:57)
[2017-09-02] MEDS: MAGNESIUM SULF 4 GM/100 ML BAG 100 ML IVPB PRN (08:56)
[2017-09-02] MEDS: NS(*) 0.9% 100 ML BAG 100 ML IVPB PRN (08:56)
[2017-09-02 10:35] VITALS: BP 143/75
[2017-09-03 08:43] VITALS: BP 131/78
[2017-09-03] MEDS: NS(*) 0.9% 100 ML BAG 100 ML IVPB PRN (08:45)
[2017-09-03] MEDS: MAGNESIUM SULF 4 GM/100 ML BAG 100 ML IVPB PRN (09:00)
[2017-09-06 08:27] VITALS: BP 146/78
[2017-09-09 08:30] VITALS: BP 130/76
[2017-09-09] MEDS: MAGNESIUM SULF 4 GM/100 ML BAG 100 ML IVPB PRN (09:06)
[2017-09-09] MEDS: NS(*) 0.9% 100 ML BAG 100 ML IVPB PRN (09:06)
[2017-09-10 08:27] VITALS: BP 157/87
[2017-09-10] MEDS: NS(*) 0.9% 100 ML BAG 100 ML IVPB PRN (08:57)
[2017-09-10] MEDS: MAGNESIUM SULF 4 GM/100 ML BAG 100 ML IVPB PRN (08:57)
[2017-09-12 08:45] VITALS: BP 138/92
[2017-09-12] MEDS: MAGNESIUM SULF 4 GM/100 ML BAG 100 ML IVPB PRN (09:07)
[2017-09-12] MEDS: NS(*) 0.9% 100 ML BAG 100 ML IVPB PRN (09:07)
[2017-09-12 13:37] VITALS: BP 146/74
[2017-09-12 14:30] VITALS: BP 147/77
[2017-09-13 08:51] VITALS: BP 130/71
[2017-09-13] MEDS: MAGNESIUM SULF 4 GM/100 ML BAG 100 ML IVPB PRN (09:10)
[2017-09-13] MEDS: NS(*) 0.9% 100 ML BAG 100 ML IVPB PRN (09:11)
[2017-09-16] MEDS: NS(*) 0.9% 100 ML BAG 100 ML IVPB PRN (08:35)
[2017-09-16 08:37] VITALS: BP 123/66
[2017-09-16] MEDS: MAGNESIUM SULF 4 GM/100 ML BAG 100 ML IVPB PRN (09:08)
[2017-09-17 08:41] VITALS: BP 137/64
[2017-09-17] MEDS: MAGNESIUM SULF 4 GM/100 ML BAG 100 ML IVPB PRN (09:06)
[2017-09-17] MEDS: NS(*) 0.9% 100 ML BAG 100 ML IVPB PRN (09:06)
[2017-09-19 08:25] VITALS: BP 147/83
[2017-09-19] MEDS: MAGNESIUM SULF 4 GM/100 ML BAG 100 ML IVPB PRN (09:15)
[2017-09-19] MEDS: NS(*) 0.9% 100 ML BAG 100 ML IVPB PRN (09:15)
[2017-09-20 08:32] VITALS: BP 138/87
[2017-09-20] MEDS: MAGNESIUM SULF 4 GM/100 ML BAG 100 ML IVPB PRN (09:24)
[2017-09-20] MEDS: NS(*) 0.9% 100 ML BAG 100 ML IVPB PRN (09:24)
[2017-09-20 13:30] VITALS: BP 135/64
[2017-09-23 09:06] VITALS: BP 139/73
[2017-09-23] MEDS: NS(*) 0.9% 100 ML BAG 100 ML IVPB PRN (09:28)
[2017-09-23] MEDS: MAGNESIUM SULF 4 GM/100 ML BAG 100 ML IVPB PRN (09:28)
[2017-09-23 13:03] VITALS: BP 128/68
[2017-09-24 08:33] VITALS: BP 141/77
[2017-09-24] MEDS: MAGNESIUM SULF 4 GM/100 ML BAG 100 ML IVPB PRN (08:56)
[2017-09-24] MEDS: NS(*) 0.9% 100 ML BAG 100 ML IVPB PRN (08:57)
[2017-09-26] MEDS: NS(*) 0.9% 100 ML BAG 100 ML IVPB PRN (08:38)
[2017-09-26 08:39] VITALS: BP 144/67
[2017-09-26] MEDS: MAGNESIUM SULF 4 GM/100 ML BAG 100 ML IVPB PRN (09:13)
[2017-09-26 14:00] VITALS: BP 140/68
[~2017-09-27 08:30] MED LIST changes: +ALTEPLASE RECOMB 2 MG VIAL IVP PRN; +DEXTROSE 5%(*) 100 ML BAG 100 ML IVPB PRN; +DOCU-416 PO; +NS(*) 0.9% 500 ML BAG 500 ML IV PRN; +WATER FOR INJ,STERILE 20 ML IVP PRN
[2017-09-27 08:37] VITALS: BP 133/74
[2017-09-27] MEDS: MAGNESIUM SULF 4 GM/100 ML BAG 100 ML IVPB PRN (09:10)
[2017-09-27] MEDS: NS(*) 0.9% 100 ML BAG 100 ML IVPB PRN (09:10)
== END 2017-09-29 ==
LOC: SPU 08:30
PROVIDERS: ATTEND Internal Medicine
DX: D75.1 Secondary polycythemia (principal); N18.3 Chronic kidney disease, stage 3 (moderate); I12.9 Hypertensive chronic kidney disease with stage 1 through stage 4 chronic kidney disease, or unspecified chronic kidney disease; G47.33 Obstructive sleep apnea (adult) (pediatric); R60.0 Localized edema; E11.65 Type 2 diabetes mellitus with hyperglycemia
CPT/HCPCS: 83735; 83880; 85025; 96365; 96366; J1642; J3475; J7050; 82040; 82247; 82310; 82374; 82435; 82565; 82947; 83036; 84075; 84132; 84155; 84295; 84450; 84460; 84520; 93970

== ENCOUNTER → 2017-10-10 | Outpatient (CLI) | payer MEDICARE ==
[2017-05-24 19:20] VITALS: BMI 39.6
[~2017-10-10] MED LIST changes: -ALTEPLASE RECOMB 2 MG VIAL IVP PRN; -DEXTROSE 5%(*) 100 ML BAG 100 ML IVPB PRN; -NS(*) 0.9% 500 ML BAG 500 ML IV PRN; -WATER FOR INJ,STERILE 20 ML IVP PRN
--- NOTE | 2017-10-11 08:39 | RADIOLOGY IMAGING REPORT ---
FACILITY: [facility] [place] PATIENT NAME: JOSE ROBERTO MARTINO : [id number] MR: [id number] V: [id number] EXAM DATE: [id number] ORDERING PHYSICIAN: SHARIF FUENTES TECHNOLOGIST: Key Chavarria PROCEDURE:BILATERAL DIGITAL SCREENING MAMMOGRAM WITH CAD ASSISTED INTERPRETATION & 3D TOMOSYNTHESIS COMPARISON:Prior mammograms 06/27/16, 10/04/15, 09/28/14, 09/25/13, 09/24/12, 09/24/11. INDICATIONS:SCREENING FINDINGS: Moderately heterogeneous fibroglandular tissue is seen throughout the breasts. The parenchymal pattern has remained stable allowing for difference in mammographic technique & patient positioning. There is no evidence of malignant appearing mass, malignant appearing calcifications or other secondary sign of malignancy in either breast. Numerous scattered calcifications throughout the breasts have remained stable. DIAGNOSTIC CATEGORY 2--BENIGN FINDING. RECOMMENDATIONS: ROUTINE MAMMOGRAM AND CLINICAL EVALUATION. IMPRESSION: BIRADS 2: Benign finding. No significant abnormality is seen. Dictated by: Aggie Felix M.D. on 10/10/2017 at 15:27 Transcribed by: GIULIA on 10/10/2017 at 15:35 Approved by: Aggie Felix M.D. on 10/11/2017 at 8:37 [facility]
== END ==
LOC: MAMO 01:24
PROVIDERS: ATTEND Internal Medicine
DX: Z12.31 Encounter for screening mammogram for malignant neoplasm of breast (principal); R92.1 Mammographic calcification found on diagnostic imaging of breast
CPT/HCPCS: 77063; 77067

== ENCOUNTER → 2017-10-17 | Outpatient (CLI) | payer MEDICARE ==
[2017-05-24 19:20] VITALS: BMI 39.6
[2017-10-17 09:54] LABS: PLATELET COUNT, AUTOMATED 184 K/uL (150-450)
== END ==
LOC: SPU 07:39
PROVIDERS: ATTEND Internal Medicine
DX: K91.2 Postsurgical malabsorption, not elsewhere classified (principal); R19.7 Diarrhea, unspecified
CPT/HCPCS: 82040; 82150; 82607; 83516; 83690; 83735; 84134; 85025

== ENCOUNTER 2017-10-18 11:15 | Outpatient (RCR) | payer MEDICARE ==
[2017-05-24 19:20] VITALS: BMI 39.6
--- NOTE | 2017-09-05 07:31 | PT INITIAL EVALUATION ---
MEDICAL DIAGNOSIS: Bilateral LE Lymphedema TREATMENT DIAGNOSIS: Bilateral LE Lymphedema/Phlebolymphedema DATE OF ONSET: 05/14/17 SUBJECTIVE: Brandy is a 77 year-old female presenting to physical therapy following a history of LE swelling secondary to abdominal surgery consisting of bowel resection on May 14, 2017. Pt reports that the swelling came on gradually and over the last month or two weeping in the medial thighs and shins has also started. Pt reports no pain but has occasional itch or tightness in her legs and they feel "very stiff." Pt denies any heart or kidney problems ( Chronic Renal Disease listed in EMR). Pt reports that the swelling goes down slightly with elevation, but not significantly. Pt is receiving weekly infusions of magnesium at this time 4 days a week. REHAB PROBLEM LIST: Decreased ROM Decreased Strength Decreased Endurance Decreased Function Decreased ADL's Decreased Mobility PREVIOUS MEDICAL HISTORY: Chronic Renal Disease, See EMR OCCUPATION: Retired OBJECTIVE: Pt presents with B LE edema with redness on medial thighs B as well as on R medial leg. Crusted scabs are present on B shins L>R with previous dressing showing evidence of weeping without any active drainage present. Pt has mild keratosis at the base of toes B. Strength: Pt able to perform a SLR for a short amount of time. Palpation: 3+ pitting of the shins. Special Tests: (+) Stemmer's sign B dorsum and 1st digit. Other Objective Findings: Circumferential Measures (L,R) in cm: 1st digit: 10, 9.7, 2nd digit: 6.7. 6.5, dorsum: 23.8, 24.7, heel: 32.5, 32.6, figure 8: 56.7 , 56, above malleoli: 27.3, 27.5, calf" 39.9, 40.3, below knee: 41.5, 43, above knee: 49.8, 49.2, thigh: 61.9, 64.2. ASSESSMENT: Pt shows signs and symptoms consistent with secondary stage 2 lymphedema as outlined by the above listed deficits. Physical therapy consisting of CDT is indicated for this patient to improve functional ability to perform ADL's as well as decrease for risk of infection. Short Term Goals In 3 weeks pt will have full healing of medial leg wounds without weeping for increased function with ADL's. In 6 weeks pt will decrease circumference of B calves to < 37 cm for improved function with ADL's. In 6 weeks pt will be compliant with HEP and self care of edema for increased function with ADL's Patient's Goals Decrease edema, decrease weeping. PLAN: Patient to be seen for Manual Therapy/STM/MET Strengthening/condition Ice/Heat Range of Motion Spinal Stabilization Ultrasound Stretching Neuromuscular Re-ed Closed Chain Program Electrical Stim Posture/Body mechanics Gait Trg/Balance Trg Home Exercise Program Mech./Manual Traction Therapeutic Activities Pelvic Floor 4x/Week for 6 Weeks If you have any questions, comments, or concerns about this report or plan, please contact me at . Thank you, Lucy Gresham, PT, DPT, CLT MTDD
--- NOTE | 2017-09-20 17:35 | PT PLAN OF CARE ---
Physician: AARON Glass Patient is being seen: 4x/Week Therapist: Lucy Gresham, PT, DPT, CLT Medical Diagnosis: Bilateral LE Lymphedema Treatment Diagnosis: Bilateral LE Lymphedema/Phlebolymphedema Date of Onset: 05/14/17 Date of Initial Evaluation: 09/03/17 Date patient was last seen: 09/20/17 Number of treatments: 10 Number of cancellations/No shows: 0 INTERVENTIONS: Manual Therapy/STM/MET Strengthening/condition Ice/Heat Range of Motion Spinal Stabilization Ultrasound Stretching Neuromuscular Re-ed Closed Chain Program Electrical Stim Posture/Body mechanics Gait Trg/Balance Trg Home Exercise Program Mech./Manual Traction Therapeutic Activities Pelvic Floor GOALS: In 3 weeks pt will have full healing of medial leg wounds without weeping for increased function with ADL's. MET In 6 weeks pt will decrease circumference of B calves to < 37 cm for improved function with ADL's. MET In 6 weeks pt will be compliant with HEP and self care of edema for increased function with ADL's PATIENT'S GOAL: Decrease edema, decrease weeping. Status of Patient's Goals: 2/3 Met, 1/3 In Progress Patient Compliance: Good Prognosis: Good Reasons for continuing therapy: Bradny shows excellent reductions in B leg volume as well as improved skin integrity without any weeping or wounds present any longer. Further PT to consist of progression towards independent management of edema with compression garments as well as performance of skin care and exercise program. OBJECTIVE: Pt presents with B LE edema with redness on medial thighs B as well as on R medial leg. Crusted scabs are present on B shins L>R with previous dressing showing evidence of weeping without any active drainage present. Pt has mild keratosis at the base of toes B. Strength: Pt able to perform a SLR for a short amount of time. Palpation: 3+ pitting of the shins. Special Tests: (-) Stemmer's sign B dorsum and 1st digit. Other Objective Findings: Eval Circumferential Measures (L,R) in cm: 1st digit: 10, 9.7, 2nd digit: 6.7. 6.5, dorsum: 23.8, 24.7, heel: 32.5, 32.6, figure 8: 56.7, 56, above malleoli: 27.3, 27.5, calf" 39.9, 40.3, below knee: 41.5, 43, above knee: 49.8, 49.2, thigh: 61.9, 64.2. 09/20/17 Circumferential Measures (L,R) in cm: 1st digit: 9.9, 8.9, 2nd digit : 5.9, 6.4, dorsum: 23.5, 23.4, heel: 30.5, 30.2, figure 8: 52.8, 50.3, above malleoli: 23.9, 24.3, calf" 31.3, 31.0, below knee: 34.9, 34.5, above knee: 46.2, 44.8, thigh: 59.8, 63.6. If you have any questions or concerns, please feel free to contact me at [phone]. Thank you, Lucy Gresham, PT, DPT, CLT MTDD
--- NOTE | 2017-10-15 12:44 | PT PLAN OF CARE ---
Physician: AARON Glass Patient is being seen: 4x/Week Therapist: Lucy Gresham, PT, DPT, CLT Medical Diagnosis: Bilateral LE Lymphedema Treatment Diagnosis: Bilateral LE Lymphedema/Phlebolymphedema Date of Onset: 05/14/17 Date of Initial Evaluation: 09/03/17 Date patient was last seen: 10/15/17 Number of treatments: 24 Number of cancellations/No shows: 0 INTERVENTIONS: Manual Therapy/STM/MET Strengthening/condition Ice/Heat Range of Motion Spinal Stabilization Ultrasound Stretching Neuromuscular Re-ed Closed Chain Program Electrical Stim Posture/Body mechanics Gait Trg/Balance Trg Home Exercise Program Mech./Manual Traction Therapeutic Activities Pelvic Floor GOALS: In 3 weeks pt will have full healing of medial leg wounds without weeping for increased function with ADL's. MET In 6 weeks pt will decrease circumference of B calves to < 37 cm for improved function with ADL's. MET In 6 weeks pt will be compliant with HEP and self care of edema for increased function with ADL's PATIENT'S GOAL: Decrease edema, decrease weeping. Status of Patient's Goals: 2/3 Met, 1/3 In Progress Patient Compliance: Good Prognosis: Good Reasons for continuing therapy: Brandy shows excellent reductions in B leg volume as well as improved skin integrity without any weeping or wounds present any longer. Pt had mild return in edema after progressing towards independent garment use with poor patient compliance with donning and doffing secondary to difficulty. With evaluation of garments pt was encouraged to order garments that were easier to apply independently. Further PT to consist of progression towards independent management of edema with compression garments as well as performance of skin care and exercise program. OBJECTIVE: Pt presents with B LE edema with redness on medial thighs B as well as on R medial leg. Crusted scabs are present on B shins L>R with previous dressing showing evidence of weeping without any active drainage present. Pt has mild keratosis at the base of toes B. Strength: Pt able to perform a SLR for a short amount of time. Palpation: 3+ pitting of the shins. Special Tests: (-) Stemmer's sign B dorsum and 1st digit. Other Objective Findings: Eval Circumferential Measures (L,R) in cm: 1st digit: 10, 9.7, 2nd digit: 6.7. 6.5, dorsum: 23.8, 24.7, heel: 32.5, 32.6, figure 8: 56.7, 56, above malleoli: 27.3, 27.5, calf" 39.9, 40.3, below knee: 41.5, 43, above knee: 49.8, 49.2, thigh: 61.9, 64.2. 09/20/17 Circumferential Measures (L,R) in cm: 1st digit: 9.9, 8.9, 2nd digit : 5.9, 6.4, dorsum: 23.5, 23.4, heel: 30.5, 30.2, figure 8: 52.8, 50.3, above malleoli: 23.9, 24.3, calf" 31.3, 31.0, below knee: 34.9, 34.5, above knee: 46.2, 44.8, thigh: 59.8, 63.6. 10/07/17 Circumferential Measures (L,R) in cm: 1st digit: 9.8, 8.9, 2nd digit: 5.9, 6.4, dorsum: 23.5, 23.4, heel: 30.5, 30.2, figure 8: 52.8, 50.3, above malleoli: 22.9, 24.0, calf" 31.3, 31.0, below knee: 34.9, 34.5, above knee: 46.2, 44.8, thigh: 53, 56.7. If you have any questions or concerns, please feel free to contact me at . Thank you, Lucy Gresham, PT, DPT, CLT MTDD
--- NOTE | 2017-10-18 12:01 | PT PLAN OF CARE ---
Physician: AARON Glass Patient is being seen: 4x/Week Therapist: Lucy Gresham, PT, DPT, CLT Medical Diagnosis: Bilateral LE Lymphedema Treatment Diagnosis: Bilateral LE Lymphedema/Phlebolymphedema Date of Onset: 05/14/17 Date of Initial Evaluation: 09/03/17 Date patient was last seen: 10/18/17 Number of treatments: 26 Number of cancellations/No shows: 0 INTERVENTIONS: Manual Therapy/STM/MET Strengthening/condition Ice/Heat Range of Motion Spinal Stabilization Ultrasound Stretching Neuromuscular Re-ed Closed Chain Program Electrical Stim Posture/Body mechanics Gait Trg/Balance Trg Home Exercise Program Mech./Manual Traction Therapeutic Activities Pelvic Floor GOALS: In 3 weeks pt will have full healing of medial leg wounds without weeping for increased function with ADL's. MET In 6 weeks pt will decrease circumference of B calves to < 37 cm for improved function with ADL's. MET In 6 weeks pt will be compliant with HEP and self care of edema for increased function with ADL's. MET PATIENT'S GOAL: Decrease edema, decrease weeping. Status of Patient's Goals: 3/3 MET Patient Compliance: Good Prognosis: Good Reasons for discharge from therapy: Brandy is to discharge from physical therapy at this time secondary towards progression towards independent maintenance phase of treatment. At this time Brandy has multiple garments for management of edema and also is compliant with HEP exercises. Pt has met 3/3 functional goals at this time with good reductions in circumferential volume and improved function with ADL's. Pt is to seek further PT for any further complications that arise or any increase in swelling. OBJECTIVE: Pt presents with B LE edema with redness on medial thighs B as well as on R medial leg. Crusted scabs are present on B shins L>R with previous dressing showing evidence of weeping without any active drainage present. Pt has mild keratosis at the base of toes B. Strength: Pt able to perform a SLR for a short amount of time. Palpation: 3+ pitting of the shins. Special Tests: (-) Stemmer's sign B dorsum and 1st digit. Other Objective Findings: Eval Circumferential Measures (L,R) in cm: 1st digit: 10, 9.7, 2nd digit: 6.7. 6.5, dorsum: 23.8, 24.7, heel: 32.5, 32.6, figure 8: 56.7, 56, above malleoli: 27.3, 27.5, calf" 39.9, 40.3, below knee: 41.5, 43, above knee: 49.8, 49.2, thigh: 61.9, 64.2. 09/20/17 Circumferential Measures (L,R) in cm: 1st digit: 9.9, 8.9, 2nd digit : 5.9, 6.4, dorsum: 23.5, 23.4, heel: 30.5, 30.2, figure 8: 52.8, 50.3, above malleoli: 23.9, 24.3, calf" 31.3, 31.0, below knee: 34.9, 34.5, above knee: 46.2, 44.8, thigh: 59.8, 63.6. 10/07/17 Circumferential Measures (L,R) in cm: 1st digit: 9.8, 8.9, 2nd digit: 5.9, 6.4, dorsum: 23.5, 23.4, heel: 30.5, 30.2, figure 8: 52.8, 50.3, above malleoli: 22.9, 24.0, calf" 31.3, 31.0, below knee: 34.9, 34.5, above knee: 46.2, 44.8, thigh: 53, 56.7. If you have any questions or concerns, please feel free to contact me at [phone]. Thank you, Lucy Gresham, PT, DPT, CLT MTDD
== END 2017-10-18 18:00 | disposition home or self-care (01) ==
LOC: PT 11:15
PROVIDERS: ATTEND Nurse Practitioner Family
DX: I89.0 Lymphedema, not elsewhere classified (principal); N18.9 Chronic kidney disease, unspecified; L57.0 Actinic keratosis
CPT/HCPCS: 97162

== ENCOUNTER 2017-11-18 13:53 | Outpatient (RCR) | payer MEDICARE ==
[2017-05-24 19:20] VITALS: BMI 39.6
[2017-11-19 12:01] LABS: PLATELET COUNT, AUTOMATED 276 K/uL (150-450)
[2017-11-21] MEDS ORDERED: BLOO-1318 MC (15:06)
== END 2017-12-03 08:53 | disposition home or self-care (01) ==
LOC: SPU 13:53
PROVIDERS: ATTEND Internal Medicine Hematology
DX: Z02.9 Encounter for administrative examinations, unspecified (principal)
CPT/HCPCS: 85025

== ENCOUNTER 2017-11-20 13:17 | Emergency (ER) | payer MEDICARE ==
[2017-05-24 19:20] VITALS: BMI 39.6
--- NOTE | 2017-11-20 13:22 | ER Report ---
History and Physical Time Seen By MD: 13:22 HPI/ROS CHIEF COMPLAINT: Fall, shortness of breath HISTORY OF PRESENT ILLNESS: 77-year-old female patient presents to the emergency room with complaint of a fall and shortness of breath. Patient states she has had increasing swelling to her legs, left arm, shortness of breath for the past several weeks. Patient states that she has noted that when she sitting down her oxygen will be good, then she'll get up and walk and her oxygen will dip down into the 60s. She states that she has been taking Lasix for this. She states she's been taking that as directed. Her primary care provider did receive a phone call from the patient's daughter who was concerned that the patient may not be taking her medication appropriately. Stating that she is not a significant amounts swelling to her lower extremities as well as her left arm. Patient denies having any fevers or chills. She states that today she was waiting for the past to go see her primary care provider. When she got up she tripped and fell onto her knees. She denies any loss of consciousness. Patient states that she has no significant pain at this time. She does have chronic hip pain. REVIEW OF SYSTEMS: Respiratory: As noted above Cardiovascular: As noted above. Gastrointestinal: No vomiting, no abdominal pain. Musculoskeletal: As noted above Allergies: Coded Allergies: Shellfish (Verified Allergy, Intermediate, SWELLING WITH SHRIMP, 05/13/17) Sulfa (Sulfonamide Antibiotics) (Verified Allergy, Intermediate, hives, 11/11/14) [place] And Derivatives (Verified Allergy, Unknown, HIVES, 11/11/14) lactose (Verified Adverse Reaction, Intermediate, rash, 11/18/14) Home Meds Active Scripts Blood Sugar Diagnostic (ONE TOUCH ULTRA TEST STRIPS) 1 Each Strip, 100 EACH MC Q30D, #100 STRIP 12 Refills Prov:SHARIF FUENTES MD 10/24/17 Insulin Glargine (LANTUS) 100 Unit/Ml Soln, 12 UNIT SUBQ QHS, #3 VIAL 3 Refills Prov:ANGEL ROA APRN [employer] 08/26/17 Pen Needle, Diabetic, Safety (PEN NEEDLE) 1 Each Dis.needle, EACH MC Q30D, #100 12 Refills use to administer insulin daily Prov:SHARIF FUENTES MD 08/23/17 Insulin Lispro 100 Un/Ml Vial (HUMALOG 100 U/ML VIAL) 100 Unit/1 Ml Vial, 3-15 UNIT SQ TID PRN for sliding scale, #2 VIAL 3 Refills Prov:SHARIF FUENTES MD 08/07/17 Potassium Chloride (POTASSIUM CHLORIDE) 20 Meq Tab.er.prt, 1 TAB PO TID, #90 TAB 11 Refills Prov:SHARIF FUENTES MD 07/31/17 Blood-Glucose Meter (BLOOD-GLUCOSE METER) 1 Each Kit, EACH ONCE, #1 Use to test BS TID and PRN Prov:SHARIF FUENTES MD 07/30/17 Lancets (ONE TOUCH LANCETS) 1 Each Each, EACH MC Q30D, #100 12 Refills Use to test BS TID Prov:SHARIF FUENTES MD 07/30/17 Cholestyramine/Aspartame (PREVALITE PACKET) 4 Gm Powd.pack, 4 GM PO TID, #120 PACKET 12 Refills Prov:SHARIF FUENTES MD 07/24/17 Furosemide (FUROSEMIDE) 80 Mg Tablet, 1 TAB PO BID, #180 TAB 3 Refills Prov:SHARIF FUENTES MD 07/24/17 Melatonin (MELATONIN) 3 Mg Tablet, 1 TAB PO HS PRN for sleeplessness, #30 TAB Prov:SHARIF FUENTES MD 07/04/17 Diphenhydramine Hcl (DIPHENHYDRAMINE HCL) 25 Mg Capsule, 2 TAB PO BID, #120 CAPSULE Prov:SHARIF FUENTES MD 07/04/17 Acetaminophen (ACETAMINOPHEN) 500 Mg Tablet, 1-2 TAB PO Q6H PRN for FEVER/PAIN, #100 TAB Prov:SHARIF FUENTES MD 07/04/17 Phe/Shark Liver Oil/Glycer/Pet (PREPARATION H CREAM) 27 Gm Cr, 0 GM LA PRN PRN for HEMORRHOIDS, #1 TUBE Prov:TK MATA MD 06/05/17 Reported Medications Docusate Sodium (COLACE) 100 Mg Capsule, 100 MG PO, CAPSULE 09/26/17 Magnesium Sulfate in Water (Magnesium Sulf 4 G/100 ml Bag) 4 Gram/100 Ml (4 %) Piggyback, 4 GM IVPB 4XW 07/14/17 Oxygen (OXYGEN) Inha, 3-5 L INH cont, 4 liters at hs and with activity, up to 5 liters based on oximeter 07/10/17 Multivitamin (MULTI VITAMIN DAILY) 1 Each Tablet, 1 TAB PO QDAY, TAB 07/10/17 Aspirin (ASPIR 81) 81 Mg Tablet.dr, 1 TAB PO QDAY, TAB 05/08/17 Bipap Home (BIPAP HOME) Inha, HS 09/07/15 Past Medical/Surgical History Patient has a past medical history of phlebitis, hypertension, hyperlipidemia, reflux, frequent UTI, arthritis to his left hip and leg, diabetes, DVT. Patient has surgical history of appendectomy, tubal ligation, carpal tunnel release bilaterally, tonsillectomy, bilateral cataract surgery. Reviewed Nurses Notes: Yes Hx Smoking: No Smoking Status: Never Smoker Exposure to Second Hand Smoke?: Yes Hx Substance Use Disorder: No Hx Alcohol Use: No Constitutional Vital Sign - Last 24 Hours 11/20/17 11/20/17 11/20/17 11/20/17 13:18 13:19 13:30 13:47 Temp 98.5 Pulse 85 75 Resp 24 B/P (MAP) 140/83 (102) 140/83 140/74 (96) Pulse Ox 99 O2 Delivery Nasal Cannula 11/20/17 11/20/17 11/20/17 11/20/17 14:00 14:08 14:17 15:06 Pulse 73 B/P (MAP) 123/68 (86) 130/65 (86) Pulse Ox 100 O2 Flow Rate 3.5 11/20/17 11/20/17 11/20/17 11/20/17 15:11 15:30 15:41 15:53 Pulse 85 ??? B/P (MAP) 140/76 (97) 147/93 (111) Pulse Ox 96 11/20/17 11/20/17 11/20/17 11/20/17 16:00 16:11 16:30 16:41 Pulse 82 69 B/P (MAP) 137/65 (89) 111/57 (75) Pulse Ox 97 99 11/20/17 11/20/17 17:30 18:00 Pulse 74 B/P (MAP) 120/85 (97) 124/64 (84) Pulse Ox 99 Physical Exam General Appearance: The patient is alert, has no immediate need for airway protection and no current signs of toxicity. Respiratory: Chest is non tender, lungs are clear to auscultation. Cardiac: regular rate and rhythm, patient has 3+ pitting edema to the left upper extremity, 2+ pitting edema to bilateral lower extremity. Gastrointestinal: Abdomen is distended with edema and non tender, no masses, bowel sounds normal. Musculoskeletal: Neck: Neck is supple and non tender. Extremities have full range of motion and are non tender. Skin: No rashes or lesions. DIFFERENTIAL DIAGNOSIS: After history and physical exam differential diagnosis was considered for shortness of breath including but not limited to pulmonary infectious process, COPD, asthma, pulmonary embolus and congestive heart failure. Included differential is knee contusion, knee pain, fracture. Medical Decision Making Data Points Result Diagram: 11/20/17 1402 11/20/17 1402 Laboratory Hematology Test 11/20/17 14:02 11/20/17 17:20 Red Blood Count 4.10 M/uL (4.17-5.56) Mean Corpuscular Volume 76.9 fL (80.0-96.0) Mean Corpuscular Hemoglobin 23.9 pg (26.0-33.0) Mean Corpuscular Hemoglobin Concent 31.0 g/dL (32.0-36.0) Red Cell Distribution Width 18.0 % (11.5-14.5) Mean Platelet Volume 8.1 fL (7.2-11.1) Neutrophils (%) (Auto) 75.5 % (39.4-72.5) Lymphocytes (%) (Auto) 13.9 % (17.6-49.6) Monocytes (%) (Auto) 8.6 % (4.1-12.4) Eosinophils (%) (Auto) 0.8 % (0.4-6.7) Basophils (%) (Auto) 1.2 % (0.3-1.4) Nucleated RBC Relative Count (auto) 0.0 /100WBC Neutrophils # (Auto) 4.4 K/uL (2.0-7.4) Lymphocytes # (Auto) 0.8 K/uL (1.3-3.6) Monocytes # (Auto) 0.5 K/uL (0.3-1.0) Eosinophils # (Auto) 0.0 K/uL (0.0-0.5) Basophils # (Auto) 0.1 K/uL (0.0-0.1) Nucleated RBC Absolute Count (auto) 0.00 K/uL Sodium Level 137 mmol/L (137-145) Potassium Level 4.0 mmol/L (3.5-5.0) Chloride Level 96 mmol/L (98-107) Carbon Dioxide Level 35 mmol/L (22-31) Blood Urea Nitrogen 10 mg/dl (7-18) Creatinine 0.60 mg/dl (0.52-1.04) Glomerular Filtration Rate Calc > 60.0 Random Glucose 189 mg/dl (75-110) Calcium Level 8.4 mg/dl (8.4-10.2) Total Bilirubin 0.3 mg/dl (0.2-1.3) Aspartate Amino Transf (AST/SGOT) 18 U/L (0-35) Alanine Aminotransferase (ALT/SGPT) 27 U/L (0-56) Alkaline Phosphatase 69 U/L (0-126) Troponin I < 0.012 ng/ml B-Type Natriuretic Peptide 92 pg/ml (0-100) Total Protein 5.8 g/dl (6.3-8.2) Albumin 2.6 g/dl (3.5-5.0) Body Fluid Type pleural fluid Body Fluid WBC 639 Body Fluid RBC 88804 Body Fluid Neutrophils 8 % Body Fluid Lymphocytes 84 % Body Fluid Monocytes 8 % Body Fluid Total Protein 2.2 G/dl Chemistry Test 11/20/17 14:02 11/20/17 17:20 White Blood Count 5.9 k/uL (4.5-11.0) Red Blood Count 4.10 M/uL (4.17-5.56) Hemoglobin 9.8 g/dL (12.0-16.0) Hematocrit 31.6 % (34.0-47.0) Mean Corpuscular Volume 76.9 fL (80.0-96.0) Mean Corpuscular Hemoglobin 23.9 pg (26.0-33.0) Mean Corpuscular Hemoglobin Concent 31.0 g/dL (32.0-36.0) Red Cell Distribution Width 18.0 % (11.5-14.5) Platelet Count 192 K/uL (150-450) Mean Platelet Volume 8.1 fL (7.2-11.1) Neutrophils (%) (Auto) 75.5 % (39.4-72.5) Lymphocytes (%) (Auto) 13.9 % (17.6-49.6) Monocytes (%) (Auto) 8.6 % (4.1-12.4) Eosinophils (%) (Auto) 0.8 % (0.4-6.7) Basophils (%) (Auto) 1.2 % (0.3-1.4) Nucleated RBC Relative Count (auto) 0.0 /100WBC Neutrophils # (Auto) 4.4 K/uL (2.0-7.4) Lymphocytes # (Auto) 0.8 K/uL (1.3-3.6) Monocytes # (Auto) 0.5 K/uL (0.3-1.0) Eosinophils # (Auto) 0.0 K/uL (0.0-0.5) Basophils # (Auto) 0.1 K/uL (0.0-0.1) Nucleated RBC Absolute Count (auto) 0.00 K/uL Glomerular Filtration Rate Calc > 60.0 Calcium Level 8.4 mg/dl (8.4-10.2) Total Bilirubin 0.3 mg/dl (0.2-1.3) Aspartate Amino Transf (AST/SGOT) 18 U/L (0-35) Alanine Aminotransferase (ALT/SGPT) 27 U/L (0-56) Alkaline Phosphatase 69 U/L (0-126) Troponin I < 0.012 ng/ml B-Type Natriuretic Peptide 92 pg/ml (0-100) Total Protein 5.8 g/dl (6.3-8.2) Albumin 2.6 g/dl (3.5-5.0) Body Fluid Type pleural fluid Body Fluid WBC 639 Body Fluid RBC 15209 Body Fluid Neutrophils 8 % Body Fluid Lymphocytes 84 % Body Fluid Monocytes 8 % Body Fluid Total Protein 2.2 G/dl Microbiology Microbiology Date/Time Source Procedure Growth Status 11/20/17 17:20 Pleural Fluid Gram Stain - Final Resulted 11/20/17 17:20 Pleural Fluid Body Fluid Culture Pending Resulted EKG/Imaging EKG Interpretation 12 lead EKG: Rhythm: normal sinus rhythm [place]: normal QRS: Low voltage QRS ST segments: normal Imaging Exam type: THORACENTESIS History: pleural effusion Comparison: Two view chest performed earlier in the day. Findings: Informed consent was obtained. The left-sided the patient's posterior thorax was prepped and draped in usual sterile fashion. Local anesthesia was accomplished with 1% lidocaine. Utilizing sonographic guidance a Yueh catheter was advanced percutaneously into the left pleural fluid collection. Approximately 375 mL of nhi-colored left pleural fluid was removed and sent to laboratory for evaluation. The postthoracentesis chest radiograph demonstrated no evidence of a pneumothorax. IMPRESSION: 1. Successful sonographically guided left-sided thoracentesis as described above Report Dictated By: Aggie Felix MD at 11/20/2017 5:42 PM Report E-Signed By: Aggie Felix MD at 11/20/2017 5:43 PM Study: CHEST SPECIAL VIEW Indication: Status post thoracentesis Comparison study: Today Findings: Inspiration and expiration upright AP chest films demonstrates decrease in the left pleural effusion. There is no evidence of pneumothorax. There is an ovoid density within the upper right chest without change. This likely represents fluid in the major fissure. There is density at the left base. This is likely due to infiltrate as well as pleural effusion. Again noted is the presence of a PICC line entering from the right upper extremity. The tip overlies the left subclavian vein. IMPRESSION: Status post left thoracentesis. There is no evidence of pneumothorax. Report Dictated By: Tomas Hurtado at 11/20/2017 5:36 PM Report E-Signed By: Tomas Hurtado at 11/20/2017 5:38 PM EXAMINATION: Chest 2 Views HISTORY: Respiratory distress COMPARISON: 06/14/2017. FINDINGS: Low lung volumes. Left basilar opacity may represent infiltrate or atelectasis, with a likely left pleural effusion. Mild right basilar atelectasis with stable mild parenchymal scarring in the upper right lung. No right-sided pleural effusion. No pneumothorax. Right-sided PICC present. Tip projects just lateral to the right first rib in the region of the proximal axillary vein. Stable cardiomediastinal silhouette, with normal heart size. IMPRESSION: 1. Left basilar infiltrate or atelectasis, with a likely left pleural effusion. 2. Mild right basilar atelectasis. No right-sided pleural effusion. 3. Right PICC tip terminates in the region of the proximal right axillary vein. Report Dictated By: Dima Ross MD at 11/20/2017 3:17 PM Report E-Signed By: Dima Ross MD at 11/20/2017 3:23 PM Exam type: KNEE 4 OR MORE VIEWS BILATERAL History: fall onto knees Comparison: None. Findings: Four views of the left knee demonstrates no evidence of acute fracture or dislocation. There is mild narrowing of the medial compartment. Osteophyte projects from the superior pole of the patella Four views of the right knee-8 mild narrowing of the medial compartment. There is no evidence of acute fracture or dislocation. And osteophyte projects from the superior pole of the patella IMPRESSION: 1. No evidence of acute fractures condition involving the knees Mild narrowing of the medial compartment of both knees Osteophytes project from the superior border of both patellas Report Dictated By: Aggie Felix MD at 11/20/2017 3:24 PM Report E-Signed By: Aggie Felix MD at 11/20/2017 3:26 PM Exam type: LUMBAR SPINE 4 VIEWS History: Fall Comparison: CT abdomen and pelvis May 14, 2017 Findings: There are five nonrib-bearing lumbar-type vertebral bodies present there is no evidence of acute fractures or subluxations the lumbar spine. Is moderate disc space narrowing at L4-5 and L5-S1. There is a mild to moderate compression fracture involving the super endplate of T12 and a mild compression fracture involving the superior endplate of T11. Soft tissue fullness in the pelvis may represent a distended urinary bladder although the differential diagnosis would include free pelvic fluid. Calcifications in the right-sided the pelvis are consistent with the previously described uterine fibroids as seen on the prior CT IMPRESSION: 1. There is a mild to moderate compression fracture involving the superior endplate of T12 which was present on prior CT of the abdomen and pelvis Mild compression fracture involving the superior endplate of T11 not seen on the prior CT Spondylotic changes lower lumbar spine Soft tissue fullness in the pelvis may represent a distended urinary bladder although the differential diagnosis would include free pelvic fluid Report Dictated By: Aggie Felix MD at 11/20/2017 3:26 PM Report E-Signed By: Aggie Felix MD at 11/20/2017 3:31 PM ED Course/Re-evaluation ED Course Patient was admitted to an exam room, history and physical were obtained. Di fferential diagnoses were considered. On examination patient had no tenderness to her knees, heart is regular, abdomen was distended with 2+ pitting edema to the abdomen, bilateral lower extremities as well as 3+ pitting edema to the left arm. An IV was started, CBC, CMP, urinalysis were obtained. I results were unremarkable. A BNP and troponin were also done which were negative. Chest x-ray showed a significant pleural effusion to the left lung, x-rays of the knee were negative and lumbar spine did show a compression fracture to T11. Patient was not complaining any back pain on evaluation. Patient did have episodes where she would desat with activity. I believe is likely secondary to the pleural effusion. I did call and speak with Dr. Gracia's nurse, Stormy, who discussed the case with Dr. Gracia. His recommendation was to either have the patient admitted and he would take care of it on an inpatient basis or to see if the radiologist would be able to do the thoracentesis. I did discuss the case with Dr. Mata, hospitalist, who agreed with me that with this going on for several weeks that he did not feel that patient needed to be admitted for any emergent interventions. I then called and spoke with Dr. Womack, radiologist, who was able to do the thoracentesis immediately. I did put in the order for the thoracentesis as well as the fluid analysis. That was done the patient tolerated procedure well. On reevaluation patient states she does feel as if she is breathing more easily. She would like to go home. We'll go ahead and discharge patient home at this time. She is follow-up with Dr. Murguia in the next week to discuss results of the thoracentesis fluid. I believe that is likely caused by the hypoproteinemia as well as the hypoalbuminemia. We will go ahead and dischar ge patient home at this time. She is to return to emergency room if condition worsens. I like her to go ahead and continue with the Lasix. Patient did receive a dose of 20 mg of IV Lasix here in the emergency room. Patient verbalized understanding and agreement with plan. Decision to Disposition Date: Nov 20, 2017 Decision to Disposition Time: 17:44 Depart Departure Latest Vital Signs Vital Signs Date Time Temp Pulse Resp B/P (MAP) Pulse Ox O2 Delivery O2 Flow Rate FiO2 11/20/17 18:00 74 124/64 (84) 99 11/20/17 14:08 3.5 11/20/17 13:19 98.5 24 Nasal Cannula Core Temperature (Celsius): 37.2 Impression: Primary Impression: Pleural effusion Additional Impressions: Fall Knee contusion Condition: Improved Disposition: HOME OR SELF-CARE Referrals: SHARIF FUENTES MD (PCP) Patient Instructions: Pleural Effusion (ED) Additional Instructions: Follow up with Dr. Murguia, call tomorrow to make an appointment for either tomorrow or next week. Return to the ER if condition worsens. Continue taking the Lasix. Continue with normal diet. You may need to follow up with Dr. Gracia as well. Continue to increase your protein intake. Problem Qualifiers Additional Impressions: Fall Encounter type: initial encounter Qualified Codes: W19.XXXA - Unspecified fall, initial encounter Knee contusion Encounter type: initial encounter Laterality: unspecified laterality Qualified Codes: S80.00XA - Contusion of unspecified knee, initial encounter MARILYN SANCHEZP Nov 20, 2017 13:22
[2017-11-20] MEDS ORDERED: FUROSEMIDE 20 MG/2 ML VIAL IVP ONE (13:40)
[2017-11-20 14:16] LABS: PLATELET COUNT, AUTOMATED 192 K/uL (150-450)
--- NOTE | 2017-11-20 14:24 | EKG ---
FACILITY: [facility] [place] PATIENT NAME: JOSE ROBERTO MARTINO : [id number] MR: [id number] V: [id number] EXAM DATE: ORDERING PHYSICIAN: MARILYN SANCHEZ TECHNOLOGIST: MAURA Arevalo Reason : FALL Blood Pressure : / mmHG Vent. Rate : 075 BPM Atrial Rate : 075 BPM P-R Int : 160 ms QRS Dur : 088 ms QT Int : 398 ms P-R-T Axes : 029 -52 022 degrees QTc Int : 444 ms Sinus rhythm Left axis Nonspecific interventricular conduction delay Unusual R wave progression through precordial leads - question lead placement Diffuse T wave flattening Abnormal ECG Confirmed by FAITH ORTIZ ([id number]) on 11/20/2017 3:15:18 PM Referred By: VICENTE Confirmed By:FAITH ORTIZ
--- NOTE | 2017-11-20 15:27 | RADIOLOGY IMAGING REPORT ---
FACILITY: [facility] - [place] PATIENT NAME: Brandy Kathleen : 1940 MR: [id number] V: [id number] EXAM DATE: ORDERING PHYSICIAN: MARILYN SANCHEZ TECHNOLOGIST: Location: [facility] [place] Patient: Brandy Kathleen : 1940 Visit/Account:[id number] Date of Sevice: 11/20/2017 EXAMINATION: Chest 2 Views HISTORY: Respiratory distress COMPARISON: 06/14/2017. FINDINGS: Low lung volumes. Left basilar opacity may represent infiltrate or atelectasis, with a likely left pl eural effusion. Mild right basilar atelectasis with stable mild parenchymal scarring in the upper right lung. No righ t-sided pleural effusion. No pneumothorax. Right-sided PICC present. Tip projects just lateral to the right first rib in the region of the proxi mal axillary vein. Stable cardiomediastinal silhouette, with normal heart size. IMPRESSION: 1. Left basilar infiltrate or atelectasis, with a likely left pleural effusion. 2. Mild right basilar atelectasis. No right-sided pleural effusion. 3. Right PICC tip terminates in the region of the proximal right axillary vein. Report Dictated By: Dima Ross MD at 11/20/2017 3:17 PM Report E-Signed By: Dima Ross MD at 11/20/2017 3:23 PM WSN:[id number]
--- NOTE | 2017-11-20 15:29 | RADIOLOGY IMAGING REPORT ---
FACILITY: [facility] - [place] PATIENT NAME: Brandy Kathleen : 1940 MR: [id number] V: [id number] EXAM DATE: ORDERING PHYSICIAN: MARILYN SANCHEZ TECHNOLOGIST: Location: [facility] [place] Patient: Brandy Kathleen : 1940 Visit/Account:[id number] Date of Sevice: 11/20/2017 Exam type: KNEE 4 OR MORE VIEWS BILATERAL History: fall onto knees Comparison: None. Findings: Four views of the left knee demonstrates no evidence of acute fracture or dislocation. There is mild narrowing of the medial compartment. Osteophyte projects from the superior pole of the patella Four views of the right knee-8 mild narrowing of the medial compartment. There is no evidence of acu te fracture or dislocation. And osteophyte projects from the superior pole of the patella IMPRESSION: 1. No evidence of acute fractures condition involving the knees Mild narrowing of the medial compartment of both knees Osteophytes project from the superior border of both patellas Report Dictated By: Aggie Felix MD at 11/20/2017 3:24 PM Report E-Signed By: Aggie Felix MD at 11/20/2017 3:26 PM WSN:[email or web address]
--- NOTE | 2017-11-20 15:35 | RADIOLOGY IMAGING REPORT ---
FACILITY: [facility] - [place] PATIENT NAME: Brandy Kathleen : 1940 MR: [id number] V: [id number] EXAM DATE: ORDERING PHYSICIAN: MARILYN SANCHEZ TECHNOLOGIST: [place] [facility] [place]andy Kathleen : 1940 Visit/Account:[id number] Date of Sevice: 11/20/2017 Exam type: LUMBAR SPINE 4 VIEWS History: Fall Comparison: CT abdomen and pelvis May 14, 2017 Findings: There are five nonrib-bearing lumbar-type vertebral bodies present there is no evidence of acute frac tures or subluxations the lumbar spine. Is moderate disc space narrowing at L4-5 and L5-S1. There is a mild to moderate compression fracture involving the super endplate of T12 and a mild compr ession fracture involving the superior endplate of T11. Soft tissue fullness in the pelvis may represent a distended urinary bladder although the differentia l diagnosis would include free pelvic fluid. Calcifications in the right-sided the pelvis are consis tent with the previously described uterine fibroids as seen on the prior CT IMPRESSION: 1. There is a mild to moderate compression fracture involving the superior endplate of T12 which was present on prior CT of the abdomen and pelvis Mild compression fracture involving the superior endplate of T11 not seen on the prior CT Spondylotic changes lower lumbar spine Soft tissue fullness in the pelvis may represent a distended urinary bladder although the differentia l diagnosis would include free pelvic fluid Report Dictated By: Aggie Felix MD at 11/20/2017 3:26 PM Report E-Signed By: Aggie Felix MD at 11/20/2017 3:31 PM WSN:[email or web address]
--- NOTE | 2017-11-20 17:43 | RADIOLOGY IMAGING REPORT ---
FACILITY: [facility] PATIENT NAME: Brandy Kathleen : 1940 MR: [id number] V: [id number] EXAM DATE: ORDERING PHYSICIAN: MARILYN SANCHEZ TECHNOLOGIST: Location: [facility] Patient: Brandy Kathleen : 1940 Visit/Account:[id number] Date of Sevice: 11/20/2017 Study: CHEST SPECIAL VIEW Indication: Status post thoracentesis Comparison study: Today Findings: Inspiration and expiration upright AP chest films demonstrates decrease in the left pleural effusion. There is no evidence of pneumothorax. There is an ovoid density within the upper right nicole st without change. This likely represents fluid in the major fissure. There is density at the left base. This is likely due to infiltrate as well as pleural effusion. Again noted is the presence of a PICC line entering from the right upper extremity. The tip overlies the left subclavian vein. IMPRESSION: Status post left thoracentesis. There is no evidence of pneumothorax. Report Dictated By: Tomas Hurtado at 11/20/2017 5:36 PM Report E-Signed By: Tomas Hurtado at 11/20/2017 5:38 PM WSN:[email or web address]
--- NOTE | 2017-11-20 17:48 | RADIOLOGY IMAGING REPORT ---
[place] [facility] [place] Brandy Kathleen : 1940 MR: [id number] V: [id number] EXAM DATE: ORDERING PHYSICIAN: MARILYN SANCHEZ TECHNOLOGIST: Location: [facility] [place] Patient: Brandy Kathleen : 1940 Visit/Account:[id number] Date of Sevice: 11/20/2017 Exam type: THORACENTESIS History: pleural effusion Comparison: Two view chest performed earlier in the day. Findings: Informed consent was obtained. The left-sided the patient's posterior thorax was prepped and draped in usual sterile fashion. Local anesthesia was accomplished with 1% lidocaine. Utilizing sonographi c guidance a [employer] catheter was advanced percutaneously into the left pleural fluid collection. Appro ximately 375 mL of nhi-colored left pleural fluid was removed and sent to laboratory for evaluation . The postthoracentesis chest radiograph demonstrated no evidence of a pneumothorax. IMPRESSION: 1. Successful sonographically guided left-sided thoracentesis as described above Report Dictated By: Aggie Felix MD at 11/20/2017 5:42 PM Report E-Signed By: Aggie Felix MD at 11/20/2017 5:43 PM WSN:[email or web address]
[2017-11-20 18:00] VITALS: BP 124/64
[2017-11-21] MEDS ORDERED: BLOO-1318 MC (15:06)
== END 2017-11-20 18:25 | disposition home or self-care (01) ==
LOC: ER 13:22
DX: J90 Pleural effusion, not elsewhere classified (principal); S80.00XA Contusion of unspecified knee, initial encounter
CPT/HCPCS: 32555; 71046; 72120; 73562; 82042; 82945; 83880; 84157; 84484; 85025; 87071; 87205; 89050; 93005; 96374; 99284; A7048; J1940; 82040; 82247; 82310; 82374; 82435; 82565; 82947; 84075; 84132; 84155; 84295; 84450; 84460; 84520

== ENCOUNTER → 2017-11-20 | Outpatient (CLI) | payer MEDICARE ==
[2017-05-24 19:20] VITALS: BMI 39.6
== END ==
LOC: AMB 13:05
PROVIDERS: ATTEND Nurse Practitioner
DX: M25.562 Pain in left knee (principal); M25.561 Pain in right knee; W18.30XA Fall on same level, unspecified, initial encounter
CPT/HCPCS: A0425; A0429

== ENCOUNTER 2017-11-26 11:51 | Outpatient (RCR) | payer MEDICARE ==
[2017-05-24 19:20] VITALS: Wt 111.9 kg
[2017-09-30 09:02] VITALS: BP 138/64
[2017-09-30] MEDS: MAGNESIUM SULF 4 GM/100 ML BAG 100 ML IVPB PRN (09:43)
[2017-09-30 12:30] VITALS: BP 130/63
[2017-10-01] MEDS: MAGNESIUM SULF 4 GM/100 ML BAG 100 ML IVPB PRN (09:01)
[2017-10-01] MEDS: NS(*) 0.9% 100 ML BAG 100 ML IVPB PRN (09:02)
[2017-10-03] MEDS: NS(*) 0.9% 100 ML BAG 100 ML IVPB PRN (09:16)
[2017-10-03 09:17] VITALS: BP 134/66
[2017-10-03] MEDS: MAGNESIUM SULF 4 GM/100 ML BAG 100 ML IVPB PRN (09:30)
[2017-10-03 14:30] VITALS: BP 125/80
[2017-10-04 08:34] VITALS: BP 144/71
[2017-10-04] MEDS: MAGNESIUM SULF 4 GM/100 ML BAG 100 ML IVPB PRN (09:05)
[2017-10-07 08:36] VITALS: BP 117/66
[2017-10-07] MEDS: MAGNESIUM SULF 4 GM/100 ML BAG 100 ML IVPB PRN (09:00)
[2017-10-07] MEDS: NS(*) 0.9% 100 ML BAG 100 ML IVPB PRN (09:00)
[2017-10-08 08:39] VITALS: BP 138/68
[2017-10-08] MEDS: MAGNESIUM SULF 4 GM/100 ML BAG 100 ML IVPB PRN (09:12)
[2017-10-08] MEDS: NS(*) 0.9% 100 ML BAG 100 ML IVPB PRN (09:12)
[2017-10-09 08:45] VITALS: BP 118/67
[2017-10-09] MEDS: MAGNESIUM SULF 4 GM/100 ML BAG 100 ML IVPB PRN (09:35)
[2017-10-09] MEDS: NS(*) 0.9% 100 ML BAG 100 ML IVPB PRN (09:35)
[2017-10-11 08:34] VITALS: BP 136/67
[2017-10-11] MEDS: MAGNESIUM SULF 4 GM/100 ML BAG 100 ML IVPB PRN (09:04)
[2017-10-11] MEDS: NS(*) 0.9% 100 ML BAG 100 ML IVPB PRN (09:04)
[2017-10-11 12:32] VITALS: BP 136/71
[2017-10-14] MEDS: NS(*) 0.9% 100 ML BAG 100 ML IVPB PRN (09:26)
[2017-10-14] MEDS: MAGNESIUM SULF 4 GM/100 ML BAG 100 ML IVPB PRN (09:26)
[2017-10-14 09:28] VITALS: BP 133/86
[2017-10-15 08:43] VITALS: BP 128/70
[2017-10-15] MEDS: MAGNESIUM SULF 4 GM/100 ML BAG 100 ML IVPB PRN (10:04)
[2017-10-15] MEDS: NS(*) 0.9% 100 ML BAG 100 ML IVPB PRN (10:05)
[2017-10-17 08:51] VITALS: BP 126/84
[2017-10-17] MEDS: NS(*) 0.9% 100 ML BAG 100 ML IVPB PRN (09:38)
[2017-10-17] MEDS: MAGNESIUM SULF 4 GM/100 ML BAG 100 ML IVPB PRN (09:38)
[2017-10-17 15:05] VITALS: BP 129/68
[2017-10-18] MEDS: MAGNESIUM SULF 4 GM/100 ML BAG 100 ML IVPB PRN (08:55)
[2017-10-18] MEDS: NS(*) 0.9% 100 ML BAG 100 ML IVPB PRN (08:56)
[2017-10-18 08:57] VITALS: BP 134/80
[2017-10-18 14:30] VITALS: BP 141/69
[2017-10-21] MEDS: MAGNESIUM SULF 4 GM/100 ML BAG 100 ML IVPB PRN (09:17)
[2017-10-21] MEDS: NS(*) 0.9% 100 ML BAG 100 ML IVPB PRN (09:17)
[2017-10-21 11:51] VITALS: BP 119/64
[2017-10-22 09:06] VITALS: BP 135/52
[2017-10-22] MEDS: NS(*) 0.9% 100 ML BAG 100 ML IVPB PRN (09:24)
[2017-10-22] MEDS: MAGNESIUM SULF 4 GM/100 ML BAG 100 ML IVPB PRN (09:24)
[2017-10-22 11:51] VITALS: BP 138/80
[2017-10-24 08:23] VITALS: BP 143/68
[2017-10-24] MEDS: MAGNESIUM SULF 4 GM/100 ML BAG 100 ML IVPB PRN (09:10)
[2017-10-24] MEDS: NS(*) 0.9% 100 ML BAG 100 ML IVPB PRN (09:10)
[2017-10-25] MEDS: MAGNESIUM SULF 4 GM/100 ML BAG 100 ML IVPB PRN (09:28)
[2017-10-25] MEDS: NS(*) 0.9% 100 ML BAG 100 ML IVPB PRN (09:28)
[2017-10-25 11:38] VITALS: BP 145/77
[2017-10-28 08:29] VITALS: BP 125/70
[2017-10-28] MEDS: MAGNESIUM SULF 4 GM/100 ML BAG 100 ML IVPB PRN (09:18)
[2017-10-28] MEDS: NS(*) 0.9% 100 ML BAG 100 ML IVPB PRN (09:18)
[2017-10-29 08:31] VITALS: BP 125/63
[2017-10-29] MEDS: MAGNESIUM SULF 4 GM/100 ML BAG 100 ML IVPB PRN (09:00)
[2017-10-29] MEDS: NS(*) 0.9% 100 ML BAG 100 ML IVPB PRN (09:00)
[2017-10-29 11:25] VITALS: BP 136/69
[2017-10-31 08:46] VITALS: BP 111/65
[2017-10-31] MEDS: NS(*) 0.9% 100 ML BAG 100 ML IVPB PRN (09:15)
[2017-10-31] MEDS: MAGNESIUM SULF 4 GM/100 ML BAG 100 ML IVPB PRN (09:15)
[2017-11-01 08:24] VITALS: BP 137/70
[2017-11-01] MEDS: NS(*) 0.9% 100 ML BAG 100 ML IVPB PRN (08:52)
[2017-11-01] MEDS: MAGNESIUM SULF 4 GM/100 ML BAG 100 ML IVPB PRN (08:52)
[2017-11-05 11:58] VITALS: BP 141/70
[2017-11-05] MEDS: MAGNESIUM SULF 4 GM/100 ML BAG 100 ML IVPB PRN (12:27)
[2017-11-05] MEDS: NS(*) 0.9% 100 ML BAG 100 ML IVPB PRN (12:30)
[2017-11-05 14:53] VITALS: BP 143/68
[2017-11-06 12:05] VITALS: BP 143/72
[2017-11-06] MEDS: NS(*) 0.9% 100 ML BAG 100 ML IVPB PRN (12:31)
[2017-11-06] MEDS: MAGNESIUM SULF 4 GM/100 ML BAG 100 ML IVPB PRN (12:31)
[2017-11-07 12:02] VITALS: BP 131/86
[2017-11-07] MEDS: MAGNESIUM SULF 4 GM/100 ML BAG 100 ML IVPB PRN (12:34)
[2017-11-07 14:59] VITALS: BP 121/94
[2017-11-08 12:00] VITALS: BP 120/90
[2017-11-08] MEDS: MAGNESIUM SULF 4 GM/100 ML BAG 100 ML IVPB PRN (12:20)
[2017-11-08] MEDS: NS(*) 0.9% 100 ML BAG 100 ML IVPB PRN (12:21)
[2017-11-08 14:26] VITALS: BP 136/72
[2017-11-11 11:59] VITALS: BP 144/74
[2017-11-11] MEDS: NS(*) 0.9% 100 ML BAG 100 ML IVPB PRN (13:27)
[2017-11-11] MEDS: MAGNESIUM SULF 4 GM/100 ML BAG 100 ML IVPB PRN (13:27)
[2017-11-12 11:43] VITALS: BP 140/83
[2017-11-12] MEDS: ALTEPLASE RECOMB 2 MG VIAL IVP PRN (12:15)
[2017-11-12] MEDS: NS(*) 0.9% 100 ML BAG 100 ML IVPB PRN ×2 (12:37→13:12)
[2017-11-12] MEDS: MAGNESIUM SULF 4 GM/100 ML BAG 100 ML IVPB PRN (13:07)
[2017-11-14 11:52] VITALS: BP 154/76
[2017-11-14] MEDS: MAGNESIUM SULF 4 GM/100 ML BAG 100 ML IVPB PRN (12:39)
[2017-11-14] MEDS: NS(*) 0.9% 100 ML BAG 100 ML IVPB PRN (12:41)
[2017-11-14 14:42] VITALS: BP 139/67
[2017-11-15 11:49] VITALS: BP 173/89
[2017-11-15] MEDS: ALTEPLASE RECOMB 2 MG VIAL IVP PRN (12:06)
[2017-11-15] MEDS: MAGNESIUM SULF 4 GM/100 ML BAG 100 ML IVPB PRN (13:38)
[2017-11-15] MEDS: NS(*) 0.9% 100 ML BAG 100 ML IVPB PRN (13:38)
[2017-11-15 15:51] VITALS: BP 173/89
[2017-11-18 12:12] VITALS: BP 129/68
[2017-11-18] MEDS: MAGNESIUM SULF 4 GM/100 ML BAG 100 ML IVPB PRN (12:32)
[2017-11-18] MEDS: NS(*) 0.9% 100 ML BAG 100 ML IVPB PRN (12:32)
[2017-11-18 15:06] VITALS: BP 136/75
[2017-11-19 11:46] VITALS: BP 158/80
[2017-11-19] MEDS: MAGNESIUM SULF 4 GM/100 ML BAG 100 ML IVPB PRN (12:32)
[2017-11-19] MEDS: NS(*) 0.9% 100 ML BAG 100 ML IVPB PRN (12:33)
[2017-11-21 12:20] VITALS: BP 126/84
[2017-11-21] MEDS: MAGNESIUM SULF 4 GM/100 ML BAG 100 ML IVPB PRN (12:44)
[2017-11-22 12:08] VITALS: BP 119/64
[2017-11-22] MEDS: NS(*) 0.9% 100 ML BAG 100 ML IVPB PRN (12:19)
[2017-11-22] MEDS: MAGNESIUM SULF 4 GM/100 ML BAG 100 ML IVPB PRN (12:19)
[2017-11-22 14:39] VITALS: BP 130/65
[2017-11-25 12:14] VITALS: BP 133/74
[2017-11-25] MEDS: MAGNESIUM SULF 4 GM/100 ML BAG 100 ML IVPB PRN (12:44)
[2017-11-25] MEDS: NS(*) 0.9% 100 ML BAG 100 ML IVPB PRN (12:44)
[2017-11-25 14:47] VITALS: BP 137/82
[~2017-11-26 11:51] MED LIST changes: +DEXTROSE 5%(*) 100 ML BAG 100 ML IVPB PRN; +NS(*) 0.9% 500 ML BAG 500 ML IV PRN; +WATER FOR INJ,STERILE 20 ML IVP PRN
[2017-11-26 12:00] VITALS: BP 149/82
[2017-12-06] MEDS ORDERED: SODCTAB PO (10:54)
== END 2017-12-11 ==
LOC: SPU 11:51
PROVIDERS: ATTEND Internal Medicine
DX: D75.1 Secondary polycythemia (principal); N18.3 Chronic kidney disease, stage 3 (moderate); I12.9 Hypertensive chronic kidney disease with stage 1 through stage 4 chronic kidney disease, or unspecified chronic kidney disease; G47.33 Obstructive sleep apnea (adult) (pediatric); R60.0 Localized edema; E11.65 Type 2 diabetes mellitus with hyperglycemia
CPT/HCPCS: 36592; 83735; 96365; 96366; 96375; J1642; J2997; J3475; J7050; 82040; 82150; 82247; 82310; 82374; 82435; 82565; 82570; 82607; 82947; 83516; 83690; 84075; 84132; 84134; 84155; 84295; 84450; 84460; 84520; 85025

== ENCOUNTER 2017-11-26 13:12 | Inpatient (IN) | payer MEDICARE ==
[2017-05-24 19:20] VITALS: Ht 162.6 cm; Wt 74.4 kg
[~2017-11-26] VITALS: Ht 162.6 cm; Wt 74.4 kg
[~2017-11-26 13:12] MED LIST changes: -DEXTROSE 5%(*) 100 ML BAG 100 ML IVPB PRN; -NS(*) 0.9% 500 ML BAG 500 ML IV PRN; -WATER FOR INJ,STERILE 20 ML IVP PRN
--- NOTE | 2017-11-26 13:27 | ER Report ---
History and Physical Time Seen By MD: 13:27 HPI/ROS CHIEF COMPLAINT: Dyspnea HISTORY OF PRESENT ILLNESS: This is a 77-year-old female who presents to the emergency department from the cancer center for increased dyspnea and abdominal distention. Patient was in the cancer Center today receiving magnesium effusions, she is chronically low for the last 3-4 months. Consideration of malabsorption. Patient had increased dyspnea while in the cancer center, they became concerned since: She was sent to the emergency department for further evaluation. Patient's primary care provider did stop by to evaluate her while in the emergency department, she did state that the patient has increased dyspnea today the left arm edema is roughly the same as it has been, there is some increased abdominal distention as well. Lower extremities are roughly the same size. Patient does live at home alone, states he's had increased dyspnea since last night, progressively getting worse. She denies fevers or chills. Denies chest pain. No headaches or visual changes. REVIEW OF SYSTEMS: Constitutional: No fever, no chills. Eyes: No discharge. ENT: No sore throat. Cardiovascular: No chest pain, no palpitations. Respiratory: As above. Gastrointestinal: As above. Genitourinary: No hematuria. Musculoskeletal: No back pain. Skin: No rashes. Neurological: No headache. Allergies: Coded Allergies: Shellfish (Verified Allergy, Intermediate, SWELLING WITH SHRIMP, 05/13/17) Sulfa (Sulfonamide Antibiotics) (Verified Allergy, Intermediate, hives, 11/11/14) [place] And Derivatives (Verified Allergy, Unknown, HIVES, 11/11/14) lactose (Verified Adverse Reaction, Intermediate, rash, 11/18/14) Home Meds Active Scripts Blood Sugar Diagnostic (ONE TOUCH ULTRA TEST STRIPS) 1 Each Strip, 100 EACH MC Q30D, #100 STRIP 12 Refills Use to test blood sugars three times daily and as needed. Prov:SHARIF FUENTES MD 11/21/17 Insulin Glargine (LANTUS) 100 Unit/Ml Soln, 12 UNIT SUBQ QHS, #3 VIAL 3 Refills Prov:ANGEL ROA APRN ASSURANCE ANALYST-C 08/26/17 Pen Needle, Diabetic, Safety (PEN NEEDLE) 1 Each Dis.needle, EACH MC Q30D, #100 12 Refills use to administer insulin daily Prov:SHARIF FUENTES MD 08/23/17 Insulin Lispro 100 Un/Ml Vial (HUMALOG 100 U/ML VIAL) 100 Unit/1 Ml Vial, 3-15 UNIT SQ TID PRN for sliding scale, #2 VIAL 3 Refills Prov:SHARIF FUENTES MD 08/07/17 Potassium Chloride (POTASSIUM CHLORIDE) 20 Meq Tab.er.prt, 1 TAB PO TID, #90 TAB 11 Refills Prov:SHARIF FUENTES MD 07/31/17 Blood-Glucose Meter (BLOOD-GLUCOSE METER) 1 Each Kit, EACH ONCE, #1 Use to test BS TID and PRN Prov:SHARIF FUENTES MD 07/30/17 Lancets (ONE TOUCH LANCETS) 1 Each Each, EACH MC Q30D, #100 12 Refills Use to test BS TID Prov:SHARIF FUENTES MD 07/30/17 Cholestyramine/Aspartame (PREVALITE PACKET) 4 Gm Powd.pack, 4 GM PO TID, #120 PACKET 12 Refills Prov:SHARIF FUENTES MD 07/24/17 Furosemide (FUROSEMIDE) 80 Mg Tablet, 1 TAB PO BID, #180 TAB 3 Refills Prov:SHARIF FUENTES MD 07/24/17 Melatonin (MELATONIN) 3 Mg Tablet, 1 TAB PO HS PRN for sleeplessness, #30 TAB Prov:SHARIF FUENTES MD 07/04/17 Diphenhydramine Hcl (DIPHENHYDRAMINE HCL) 25 Mg Capsule, 2 TAB PO BID, #120 CAPSULE Prov:SHARIF FUENTES MD 07/04/17 Acetaminophen (ACETAMINOPHEN) 500 Mg Tablet, 1-2 TAB PO Q6H PRN for FEVER/PAIN, #100 TAB Prov:SHARIF FUENTES MD 07/04/17 Phe/Shark Liver Oil/Glycer/Pet (PREPARATION H CREAM) 27 Gm Cr, 0 GM VA PRN PRN for HEMORRHOIDS, #1 TUBE Prov:TK MATA MD 06/05/17 Reported Medications Docusate Sodium (COLACE) 100 Mg Capsule, 100 MG PO, CAPSULE 09/26/17 Magnesium Sulfate in Water (Magnesium Sulf 4 G/100 ml Bag) 4 Gram/100 Ml (4 %) Piggyback, 4 GM IVPB 4XW 07/14/17 Oxygen (OXYGEN) Inha, 3-5 L INH cont, 4 liters at hs and with activity, up to 5 liters based on oximeter 07/10/17 Multivitamin (MULTI VITAMIN DAILY) 1 Each Tablet, 1 TAB PO QDAY, TAB 07/10/17 Aspirin (ASPIR 81) 81 Mg Tablet.dr, 1 TAB PO QDAY, TAB 05/08/17 Bipap Home (BIPAP HOME) Inha, HS 09/07/15 Past Medical/Surgical History The patient has a past medical and surgical history of phlebitis, hypertension, hypercholesterolemia, GERD, urinary tract infections, arthritis, diabetes, DVT, depression, appendectomy, tubal ligation, with peak surgeries, tonsillectomy, cataract surgery. Chronically low magnesium.Renal failure, azotemia, Reviewed Nurses Notes: Yes Hx Smoking: No Smoking Status: Never Smoker Exposure to Second Hand Smoke?: Yes Hx Substance Use Disorder: No Hx Alcohol Use: No Constitutional Vital Sign - Last 24 Hours 11/26/17 11/26/17 11/26/17 11/26/17 13:21 13:21 13:24 13:27 Temp 98.2 Pulse 102 Resp 24 B/P (MAP) 148/76 (100) 148/76 Pulse Ox 89 O2 Delivery Nasal Cannula O2 Flow Rate 5.0 11/26/17 11/26/17 11/26/17 11/26/17 13:30 13:42 13:45 14:00 Pulse 94 B/P (MAP) 145/71 (95) 142/72 (95) 143/76 (98) Pulse Ox 96 11/26/17 11/26/17 11/26/17 11/26/17 14:12 14:15 14:20 14:30 Pulse 93 80 B/P (MAP) 122/68 (86) 110/84 (93) Pulse Ox 96 98 11/26/17 11/26/17 11/26/17 11/26/17 14:45 14:50 15:00 15:20 Pulse 81 94 B/P (MAP) 103/67 (79) 139/73 (95) Pulse Ox 97 89 11/26/17 15:30 B/P (MAP) 138/72 (94) Physical Exam General Appearance: The patient is alert, has no immediate need for airway protection and no signs of toxicity, able to speak in 5-6 word sentences due to dyspnea. Eyes: Pupils equal and round no pallor or injection. ENT, Mouth: Mucous membranes are moist. Respiratory: There are no retractions, distant throughout, coarse in the right a nd left upper lobes. Cardiovascular: Regular rate and rhythm, distant, no murmurs, clicks or rubs. Gastrointestinal: Morbidly obese abdomen, very firm, nontender. no masses, distant and hypoactive bowel sounds. Neurological: Alert and oriented 4. Moving all extremities. Following all commands. No focal neuro deficits. Skin and Extremities: 2+ pitting edema to the left forearm, weeping serous flu id. 1-2+ pitting edema bilateral lower extremities. Active and full range of motion of extremities. Musculoskeletal: Neck is supple non tender. DIFFERENTIAL DIAGNOSIS: After history and physical exam differential diagnosis was considered for shortness of breath including but not limited to pulmonary infectious process, COPD, asthma, pulmonary embolus and congestive heart failure. Medical Decision Making Data Points Result Diagram: 11/26/17 1414 Laboratory Hematology Test 11/26/17 14:14 Red Blood Count 4.18 M/uL (4.17-5.56) Mean Corpuscular Volume 77.1 fL (80.0-96.0) Mean Corpuscular Hemoglobin 23.3 pg (26.0-33.0) Mean Corpuscular Hemoglobin Concent 30.3 g/dL (32.0-36.0) Red Cell Distribution Width 18.2 % (11.5-14.5) Mean Platelet Volume 8.1 fL (7.2-11.1) Neutrophils (%) (Auto) 70.9 % (39.4-72.5) Lymphocytes (%) (Auto) 19.0 % (17.6-49.6) Monocytes (%) (Auto) 9.1 % (4.1-12.4) Eosinophils (%) (Auto) 0.5 % (0.4-6.7) Basophils (%) (Auto) 0.5 % (0.3-1.4) Nucleated RBC Relative Count (auto) 0.0 /100WBC Neutrophils # (Auto) 4.8 K/uL (2.0-7.4) Lymphocytes # (Auto) 1.3 K/uL (1.3-3.6) Monocytes # (Auto) 0.6 K/uL (0.3-1.0) Eosinophils # (Auto) 0.0 K/uL (0.0-0.5) Basophils # (Auto) 0.0 K/uL (0.0-0.1) Nucleated RBC Absolute Count (auto) 0.00 K/uL Troponin I < 0.012 ng/ml B-Type Natriuretic Peptide 90 pg/ml (0-100) Chemistry Test 11/26/17 14:14 White Blood Count 6.8 k/uL (4.5-11.0) Red Blood Count 4.18 M/uL (4.17-5.56) Hemoglobin 9.8 g/dL (12.0-16.0) Hematocrit 32.3 % (34.0-47.0) Mean Corpuscular Volume 77.1 fL (80.0-96.0) Mean Corpuscular Hemoglobin 23.3 pg (26.0-33.0) Mean Corpuscular Hemoglobin Concent 30.3 g/dL (32.0-36.0) Red Cell Distribution Width 18.2 % (11.5-14.5) Platelet Count 199 K/uL (150-450) Mean Platelet Volume 8.1 fL (7.2-11.1) Neutrophils (%) (Auto) 70.9 % (39.4-72.5) Lymphocytes (%) (Auto) 19.0 % (17.6-49.6) Monocytes (%) (Auto) 9.1 % (4.1-12.4) Eosinophils (%) (Auto) 0.5 % (0.4-6.7) Basophils (%) (Auto) 0.5 % (0.3-1.4) Nucleated RBC Relative Count (auto) 0.0 /100WBC Neutrophils # (Auto) 4.8 K/uL (2.0-7.4) Lymphocytes # (Auto) 1.3 K/uL (1.3-3.6) Monocytes # (Auto) 0.6 K/uL (0.3-1.0) Eosinophils # (Auto) 0.0 K/uL (0.0-0.5) Basophils # (Auto) 0.0 K/uL (0.0-0.1) Nucleated RBC Absolute Count (auto) 0.00 K/uL Troponin I < 0.012 ng/ml B-Type Natriuretic Peptide 90 pg/ml (0-100) EKG/Imaging EKG Interpretation 12 lead EKG: Sinus EKG 1406. Rhythm: Normal sinus rhythm, ventricular rate 90 ppm. [place]: normal QRS: Low voltage. ST segments: No ST depression or elevation identified. Flattened T waves in the V leads. [place] [facility] [place] Brandy [place] : 1940 Visit/Account:[id number] Date of Sevice: 11/26/2017 ABDOMEN/PELVIS WITH CONTRAST HISTORY: Increasing abdomen distention TECHNIQUE: Following administration of IV contrast contiguous axial images acquired through the abdomen/pelvis. Coronal and sagittal reformatting also p erformed. CONTRAST: 75 mL Isovue-370 COMPARISON: CT abdomen and pelvis May 14, 2017 FINDINGS: Visualized lung bases: There has been development of a small to moderate posterior layering left pleural effusion with airspace consolidation left lower lobe which may represent atelectasis. Small amount of patchy airspace consolidation is seen in the right lower lobe which is new when compared to the prior studies. This will be discussed in today's CTA of the chest. Motion artifact is present Hepatobiliary: Liver appears small and slightly lobular which can be seen with cirrhosis Spleen: Accessory splenule Adrenals: Mild left adrenal thickening Pancreas: Negative. Kidneys ureters or bladder: Negative. Genitalia: Uterine calcifications are likely related to fibroids GI: Diverticulosis left-sided colon other small bowel anastomoses in the midabdomen Vessels/spaces/nodes: There is a large amount of abdominal and pelvic ascites. 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 The splenic vein and SMV are not well opacified with contrast Bones/soft tissues: There is diffuse anasarca There are chronic wedge fractures at L3 and T12 that appears similar to the prio r study Additional findings: None pertinent. IMPRESSION: There is a very large amount of abdominal and pelvic ascites and diffuse anasarca. There is been development of small to moderate posterior layering left pleural effusion with adjacent airspace consolidation which may represent atelectasis. Small amount of patchy airspace consolidation is also seen in the right lower lobe which is new when compared the prior study. This will be discussed in today's CT of the chest . Cirrhotic appearance to the liver Serpiginous vessels at the heriberto hepatis are likely related to cavernous t ransformation of the portal vein. Splenic vein and SMV are not well opacified with contrast therefore not ideally evaluated. Diverticulosis left-sided colon. There are postsurgical changes in the mid small bowel Additional chronic findings as described Report Dictated By: Aggie Felix MD at 11/26/2017 3:40 PM Report E-Signed By: Aggie Felix MD at 11/26/2017 3:57 PM WSN:[email or web address] [place] [facility] [place] Brandy [place] : 1940 Visit/Account:[id number] Date of Sevice: 11/26/2017 CT Angiogram Chest with IV contrast for pulmonary embolus detection History: Increased dyspnea. Comparison: None available Technique: Axial CT images through the chest were obtained in the pulmonary arterial phase of the contrast bolus during rapid administration of intravenous nonionic iodinated IV contrast. Reformatted coronal and sagittal images were reviewed as well as coronal MIP images. Contrast used: 75 mL Isovue 370 One of the following dose optimization techniques was utilized in the performance of this exam: Automated exposure control; adjustment of the mA and/or kV according to the patient's size; or use of an iterative reconstruction technique. Specific details can be referenced in the facility's radiology CT exam operational policy. FINDINGS: CTA chest: Pulmonary arteries: No pulmonary thromboembolism is observed from main pulmonary artery to the subsegmental level. Normal size pulmonary arteries. Heart, aorta, and great vessels: Heart is mildly enlarged. Normal size thoracic aorta is moderately calcified in the arch and descending segment. Lungs and pleura: Large left pleural effusion results in near complete left lower lobe collapse and partial progressive atelectasis of the left upper lobe. Right hemidiaphragm is displaced upwards, reducing the right aisha-thorax volume. There is fluid within the superior half of the right major fissure causing a pseudotumor appearance, and adjacent lung is atelectatic. Mediastinum and vibha: Mediastinum and vibha are normal. Chest wall: Diffuse, severe edema in the chest wall. Bones: Negative Upper Abdomen: Large volume of ascites in the abdomen. IMPRESSION: 1. Negative CTA for pulmonary embolus. 2. Fluid overload, including severe body wall edema, large left pleural effusion, and large volume of abdominal ascites. 3. Left lower lobe near complete collapse and partial atelectasis of the left upper lobe secondary to the pleural effusions. 4. Right upper lobe central consolidation abutting the major fissure could represent pneumonia. Report Dictated By: Glenny Castaneda MD at 11/26/2017 3:39 PM Report E-Signed By: Glenny Castaneda MD at 11/26/2017 3:56 PM WSN:[id number] ED Course/Re-evaluation Clinical Indication for ER IV: IV Access ED Course The patient was admitted to a room. A history and physical were obtained. Differential diagnoses were considered. An IV was started. A CBC was obtained. Chemistry had been drawn in the cancer center. CBC showing unchanged H&H at 32.3 and 77.1, platelets 199, chemistry showing sodium 135, calcium 8.3, total protein 5.7, albumin 2.6. Negative troponin. EKG negative for any acute findings. After my discussion with patient I did a CT of the chest abdomen and pelvis, CT of the chest is negative for pulmonary embolus, it does show fluid overload including severe body wall edema large left pleural effusion and large volume of abdominal ascites. Left lower lobe nearly complete collapse and parti al atelectasis of the left upper lobe secondary to the pleural effusions. CT of the abdomen and pelvis showing a very large amount of abdominal and pelvic ascites and diffuse anasarca. Among other findings. I did review the results with the patient as well as the laboratory studies, I did suggest admission to the hospital, the patient states she is in agreement with this, she is unable to sit up without becoming extremely short of breath. I did speak with Dr. Mj Mata as noted below, he has accepted the patient into the hospitalist services for ascites, pleural effusion and anasarca. 11/26/2017 4:39:01 pm I did speak with Dr. Mj Mata regarding the patient's case, he is accepted the patient in the hospitalist services, patient will be admitted to the medical floor. Decision to Disposition Date: Nov 26, 2017 Decision to Disposition Time: 16:38 Depart Departure Latest Vital Signs Vital Signs Date Time Temp Pulse Resp B/P (MAP) Pulse Ox O2 Delivery O2 Flow Rate FiO2 11/26/17 15:30 138/72 (94) 11/26/17 15:20 94 89 11/26/17 13:21 98.2 24 Nasal Cannula 11/26/17 13:21 5.0 Core Temperature (Celsius): 37.2 Impression: Primary Impression: Pleural effusion Additional Impressions: Pelvic ascites Anasarca Condition: Improved Disposition: Admitted from ER Referrals: SHARIF FUENTES MD (PCP) Problem Qualifiers MINERVA HERNANDEZ ASSURANCE ANALYST-BC Nov 26, 2017 13:27
--- NOTE | 2017-11-26 14:11 | EKG ---
FACILITY: [facility] PATIENT NAME: JOSE ROBERTO MARTINO : [id number] MR: [id number] V: [id number] EXAM DATE: ORDERING PHYSICIAN: MINERVA HERNANDEZ TECHNOLOGIST: RADHA Arevalo Reason : Blood Pressure : / mmHG Vent. Rate : 090 BPM Atrial Rate : 090 BPM P-R Int : 156 ms QRS Dur : 082 ms QT Int : 364 ms P-R-T Axes : 028 -53 008 degrees QTc Int : 445 ms Sinus rhythm Left axis Low voltage QRS Nonspecific interventricular conduction delay Unusual R wave progression anteriorly Diffuse T wave flattening Abnormal ECG Similar to previous Confirmed by FAITH ORTIZ ([id number]) on 11/26/2017 2:47:50 PM Referred By: Confirmed By:FAITH ORTIZ
[2017-11-26] MEDS ORDERED: NS(*) 0.9% 50 ML BAG 50 ML ONE (14:12)
[2017-11-26] MEDS ORDERED: NS(*) 0.9% 50 ML BAG 0 ML ONE (14:12)
[2017-11-26] MEDS ORDERED: IOPAMIDOL 76% 75 ML INFUS BTL 75 ML ONE (14:12)
[2017-11-26 14:28] LABS: PLATELET COUNT, AUTOMATED 199 K/uL (150-450)
--- NOTE | 2017-11-26 16:01 | RADIOLOGY IMAGING REPORT ---
FACILITY: [facility] PATIENT NAME: Brandy Kathleen : 1940 MR: [id number] V: [id number] EXAM DATE: ORDERING PHYSICIAN: MINERVA HERNANDEZ TECHNOLOGIST: Location: [facility] Patient: Brandy Kathleen : 1940 Visit/Account:[id number] Date of Sevice: 11/26/2017 CT Angiogram Chest with IV contrast for pulmonary embolus detection History: Increased dyspnea. Comparison: None available Technique: Axial CT images through the chest were obtained in the pulmonary arterial phase of the con trast bolus during rapid administration of intravenous nonionic iodinated IV contrast. Reformatted c oronal and sagittal images were reviewed as well as coronal MIP images. Contrast used: 75 mL Isovue 370 One of the following dose optimization techniques was utilized in the performance of this exam: Autom ated exposure control; adjustment of the mA and/or kV according to the patient's size; or use of an i terative reconstruction technique. Specific details can be referenced in the facility's radiology C T exam operational policy. FINDINGS: CTA chest: Pulmonary arteries: No pulmonary thromboembolism is observed from main pulmonary artery to the subse gmental level. Normal size pulmonary arteries. Heart, aorta, and great vessels: Heart is mildly enlarged. Normal size thoracic aorta is moderately calcified in the arch and descending segment. Lungs and pleura: Large left pleural effusion results in near complete left lower lobe collapse and partial progressive atelectasis of the left upper lobe. Right hemidiaphragm is displaced upwards, red ucing the right aisha-thorax volume. There is fluid within the superior half of the right major fissur e causing a pseudotumor appearance, and adjacent lung is atelectatic. Mediastinum and vibha: Mediastinum and vibha are normal. Chest wall: Diffuse, severe edema in the chest wall. Bones: Negative Upper Abdomen: Large volume of ascites in the abdomen. IMPRESSION: 1. Negative CTA for pulmonary embolus. 2. Fluid overload, including severe body wall edema, large left pleural effusion, and large volume of abdominal ascites. 3. Left lower lobe near complete collapse and partial atelectasis of the left upper lobe secondary to the pleural effusions. 4. Right upper lobe central consolidation abutting the major fissure could represent pneumonia. Report Dictated By: Glenny Castaneda MD at 11/26/2017 3:39 PM Report E-Signed By: Glenny Castaneda MD at 11/26/2017 3:56 PM WSN:[id number]
--- NOTE | 2017-11-26 16:01 | RADIOLOGY IMAGING REPORT ---
FACILITY: [facility] [place] PATIENT NAME: Brandy Kathleen : 1940 MR: [id number] V: [id number] EXAM DATE: ORDERING PHYSICIAN: MINERVA HERNANDEZ [place]CHN[place] [facility] [place] Brandy [place] : 1940 Visit/Account:[id number] Date of Sevice: 11/26/2017 ADDENDUM #1 Dose Lowering Technique One of the following dose optimization techniques was utilized in the performance of this exam: Autom ated exposure control; adjustment of the mA and/or kV according to the patient's size; or use of an i terative reconstruction technique. Specific details can be referenced in the facility's radiology C T exam operational policy. Report Dictated By: Aggie Felix MD at 12/09/2017 5:25 PM Report E-Signed By: Aggie Felix MD at 12/09/2017 5:26 PM ORIGINAL REPORT ABDOMEN/PELVIS WITH CONTRAST HISTORY: Increasing abdomen distention TECHNIQUE: Following administration of IV contrast contiguous axial images acquired through the abdom en/pelvis. Coronal and sagittal reformatting also performed. CONTRAST: 75 mL Isovue-370 COMPARISON: CT abdomen and pelvis May 14, 2017 FINDINGS: Visualized lung bases: There has been development of a small to moderate posterior layering left ple ural effusion with airspace consolidation left lower lobe which may represent atelectasis. Small anson unt of patchy airspace consolidation is seen in the right lower lobe which is new when compared to th e prior studies. This will be discussed in today's CTA of the chest. Motion artifact is present Hepatobiliary: Liver appears small and slightly lobular which can be seen with cirrhosis Spleen: Accessory splenule Adrenals: Mild left adrenal thickening Pancreas: Negative. Kidneys ureters or bladder: Negative. Genitalia: Uterine calcifications are likely related to fibroids GI: Diverticulosis left-sided colon other small bowel anastomoses in the midabdomen Vessels/spaces/nodes: There is a large amount of abdominal and pelvic ascites. 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 The splenic vein and SMV are not well opacified with contrast Bones/soft tissues: There is diffuse anasarca There are chronic wedge fractures at L3 and T12 that appears similar to the prior study Additional findings: None pertinent. IMPRESSION: There is a very large amount of abdominal and pelvic ascites and diffuse anasarca. There is been development of small to moderate posterior layering left pleural effusion with adjacent airspace consolidation which may represent atelectasis. Small amount of patchy airspace consolidati on is also seen in the right lower lobe which is new when compared the prior study. This will be dis cussed in today's CT of the chest . Cirrhotic appearance to the liver Serpiginous vessels at the heriberto hepatis are likely related to cavernous transformation of the portal vein. Splenic vein and SMV are not well opacified with contrast therefore not ideally evaluated. Diverticulosis left-sided colon. There are postsurgical changes in the mid small bowel Additional chronic findings as described Report Dictated By: Aggie Felix MD at 11/26/2017 3:40 PM Report E-Signed By: Aggie Felix MD at 11/26/2017 3:57 PM WSN:[id number]
[2017-11-26 17:10] VITALS: BP 135/75
[2017-11-26] MEDS ORDERED: SPIRONOLACTONE 25 MG TAB PO ONE (18:00)
--- NOTE | 2017-11-26 18:16 | History & Physical ---
History of Present Illness Chief Complaint Shortness of breath History of Present Illness She is a 77-year-old female who presented to the emergency department from the cancer center for increased dyspnea and abdominal distention. Patient was in the cancer Center today receiving magnesium infusion because she has been chronically low for the last 3-4 months. Consideration of malabsorption, secondary to short bowel syndrome. She did have thoracentesis 11/20. Patient's primary care provider did stop by to evaluate her while in the emergency de partment, she did state that the patient has increased dyspnea today the left arm edema is roughly the same as it has been, there is some increased abdominal distention as well. Lower extremities are roughly the same size. Patient does live at home alone, states he's had increased dyspnea since last night, progressively getting worse. She denies fevers or chills. Denies chest pain. No headaches or visual changes. She was recommended for admission. History Problems: (1) Type 2 diabetes mellitus with hyperglycemia, with long-term current use of insulin Status: Chronic (2) SARI treated with BiPAP Status: Chronic (3) Essential hypertension Onset Date: 11/18/2013 Status: Chronic (4) Anasarca Status: Acute (5) Pleural effusion Status: Acute (6) Pelvic ascites Status: Acute (7) Hypomagnesemia Status: Chronic (8) Protein malnutrition Status: Chronic Home Meds Active Scripts Blood Sugar Diagnostic (ONE TOUCH ULTRA TEST STRIPS) 1 Each Strip, 100 EACH MC Q30D, #100 STRIP 12 Refills Use to test blood sugars three times daily and as needed. Prov:SHARIF FUENTES MD 11/21/17 Insulin Glargine (LANTUS) 100 Unit/Ml Soln, 12 UNIT SUBQ QHS, #3 VIAL 3 Refills Prov:ANGEL ROA APRN SANITOR-C 08/26/17 Pen Needle, Diabetic, Safety (PEN NEEDLE) 1 Each Dis.needle, EACH MC Q30D, #100 12 Refills use to administer insulin daily Prov:SHARIF FUENTES MD 08/23/17 Insulin Lispro 100 Un/Ml Vial (HUMALOG 100 U/ML VIAL) 100 Unit/1 Ml Vial, 3-15 UNIT SQ TID PRN for sliding scale, #2 VIAL 3 Refills Prov:SHARIF FUENTES MD 08/07/17 Potassium Chloride (POTASSIUM CHLORIDE) 20 Meq Tab.er.prt, 1 TAB PO TID, #90 TAB 11 Refills Prov:SHARIF FUENTES MD 07/31/17 Blood-Glucose Meter (BLOOD-GLUCOSE METER) 1 Each Kit, EACH ONCE, #1 Use to test BS TID and PRN Prov:SHARIF FUENTES MD 07/30/17 Lancets (ONE TOUCH LANCETS) 1 Each Each, EACH MC Q30D, #100 12 Refills Use to test BS TID Prov:SHARIF FUENTES MD 07/30/17 Cholestyramine/Aspartame (PREVALITE PACKET) 4 Gm Powd.pack, 4 GM PO TID, #120 PACKET 12 Refills Prov:SHARIF FUENTES MD 07/24/17 Furosemide (FUROSEMIDE) 80 Mg Tablet, 1 TAB PO BID, #180 TAB 3 Refills Prov:SHARIF FUENTES MD 07/24/17 Melatonin (MELATONIN) 3 Mg Tablet, 1 TAB PO HS PRN for sleeplessness, #30 TAB Prov:SHARIF FUENTES MD 07/04/17 Diphenhydramine Hcl (DIPHENHYDRAMINE HCL) 25 Mg Capsule, 2 TAB PO BID, #120 CAPSULE Prov:SHARIF FUENTES MD 07/04/17 Acetaminophen (ACETAMINOPHEN) 500 Mg Tablet, 1-2 TAB PO Q6H PRN for FEVER/PAIN, #100 TAB Prov:SHARIF FUENTES MD 07/04/17 Phe/Shark Liver Oil/Glycer/Pet (PREPARATION H CREAM) 27 Gm Cr, 0 GM OH PRN PRN for HEMORRHOIDS, #1 TUBE Prov:TK ORTIZ MD 06/05/17 Reported Medications Docusate Sodium (COLACE) 100 Mg Capsule, 100 MG PO, CAPSULE 09/26/17 Magnesium Sulfate in Water (Magnesium Sulf 4 G/100 ml Bag) 4 Gram/100 Ml (4 %) Piggyback, 4 GM IVPB 4XW 07/14/17 Oxygen (OXYGEN) Inha, 3-5 L INH cont, 4 liters at hs and with activity, up to 5 liters based on oximeter 07/10/17 Multivitamin (MULTI VITAMIN DAILY) 1 Each Tablet, 1 TAB PO QDAY, TAB 07/10/17 Aspirin (ASPIR 81) 81 Mg Tablet.dr, 1 TAB PO QDAY, TAB 3/7/18 Bipap Home (BIPAP HOME) Inha, HS 09/07/15 Allergies: Coded Allergies: Shellfish (Verified Allergy, Intermediate, SWELLING WITH SHRIMP, 05/13/17) Sulfa (Sulfonamide Antibiotics) (Verified Allergy, Intermediate, hives, 11/11/14) [place] And Derivatives (Verified Allergy, Unknown, HIVES, 11/11/14) lactose (Verified Adverse Reaction, Intermediate, rash, 11/18/14) Patient History: FH: AR (myocardial infarction) PATERNAL GRANDFATHER (PGGF) MATERNAL UNCLE, , Age:50's - 60 BROTHER, , Age:73, Onset:72 FH: colon cancer PATERNAL AUNT, , Age:70 FH: congestive heart failure FH: coronary artery disease HALF-BROTHER, Age:64 HALF-BROTHER, Age:68 FH: diabetes mellitus BROTHER, , Age:73 FH: glaucoma MOTHER, , Age:83 FHx: stroke MOTHER, , Age:83 Pacemaker BROTHER, , Age:73 Stent HALF-BROTHER, Age:64 HALF-BROTHER, Age:68 Hx Smoking: No Smoking Status: Never Smoker Exposure to Second Hand Smoke?: Yes Caffeine Intake: Tea, Soda Caffeine/Cups Per Day: OCC-TEA, 8OZ SODA QDAY Hx Alcohol Use: No Hx Substance Use Disorder: No Review of Systems All Systems Reviewed/Normal: Yes, Except as Noted Respiratory: Shortness of Breath Exam Vital Signs Vital Signs Date Time Temp Pulse Resp B/P (MAP) Pulse Ox O2 Delivery O2 Flow Rate FiO2 11/26/17 17:10 98.2 89 26 135/75 (95) 93 Nasal Cannula 4.5 General Appearance: Alert, Awake, No Acute Distress, Afebrile Neuro: No Gross deficits Cardiovascular: Regular Rate and Rhythm Respiratory: No Respiratory Distress, Other (diminished throughout) GI: Other (abdomen has anasarca present, hard to the touch, pitting edema) Extremities: Edema (3+pitting edema bilaterally and left upper extremity) Psych: Alert & Oriented X3, Appropriate Mood & Affect Medical Decision Making Data Points Result Diagram: 11/26/17 1414 Item Value Date Time Troponin I < 0.012 ng/ml 11/26/17 1414 B-Type Natriuretic Peptide 90 pg/ml 11/26/17 1414 Magnesium Level 1.7 mg/dl 11/26/17 1240 EKG / Imaging Imaging FACILITY: [facility] PATIENT NAME: Brandy Kathleen : 1940 MR: [id number] V: [id number] EXAM DATE: ORDERING PHYSICIAN: MINERVA HERNANDEZ TECHNOLOGIST: Location: [facility] [place] Patient: Brandy Kathleen : 1940 Visit/Account:[id number] Date of Sevice: 11/26/2017 CT Angiogram Chest with IV contrast for pulmonary embolus detection History: Increased dyspnea. Comparison: None available Technique: Axial CT images through the chest were obtained in the pulmonary arterial phase of the contrast bolus during rapid administration of intravenous nonionic iodinated IV contrast. Reformatted coronal and sagittal images were reviewed as well as coronal MIP images. Contrast used: 75 mL Isovue 370 One of the following dose optimization techniques was utilized in the performance of this exam: Automated exposure control; adjustment of the mA and/or kV according to the patient's size; or use of an iterative reconstruction technique. Specific details can be referenced in the facility's radiology CT exam operational policy. FINDINGS: CTA chest: Pulmonary arteries: No pulmonary thromboembolism is observed from main pulmonary artery to the subsegmental level. Normal size pulmonary arteries. Heart, aorta, and great vessels: Heart is mildly enlarged. Normal size thoracic aorta is moderately calcified in the arch and descending segment. Lungs and pleura: Large left pleural effusion results in near complete left lower lobe collapse and partial progressive atelectasis of the left upper lobe. Right hemidiaphragm is displaced upwards, reducing the right aisha-thorax volume. There is fluid within the superior half of the right major fissure causing a pseudotumor appearance, and adjacent lung is atelectatic. Mediastinum and vibha: Mediastinum and vibha are normal. Chest wall: Diffuse, severe edema in the chest wall. Bones: Negative Upper Abdomen: Large volume of ascites in the abdomen. IMPRESSION: 1. Negative CTA for pulmonary embolus. 2. Fluid overload, including severe body wall edema, large left pleural effusion, and large volume of abdominal ascites. 3. Left lower lobe near complete collapse and partial atelectasis of the left upper lobe secondary to the pleural effusions. 4. Right upper lobe central consolidation abutting the major fissure could represent pneumonia. Report Dictated By: Glenny Castaneda MD at 11/26/2017 3:39 PM Report E-Signed By: Glenny Castaneda MD at 11/26/2017 3:56 PM FACILITY: [facility] PATIENT NAME: Brandy Kathleen : 1940 MR: [id number] V: [id number] EXAM DATE: ORDERING PHYSICIAN: MINERVA HERNANDEZ TECHNOLOGIST: Location: [facility] [place] Patient: Brandy Kathleen : 1940 Visit/Account:[id number] Date of Sevice: 11/26/2017 ABDOMEN/PELVIS WITH CONTRAST HISTORY: Increasing abdomen distention TECHNIQUE: Following administration of IV contrast contiguous axial images acquired through the abdomen/pelvis. Coronal and sagittal reformatting also performed. CONTRAST: 75 mL Isovue-370 COMPARISON: CT abdomen and pelvis May 14, 2017 FINDINGS: Visualized lung bases: There has been development of a small to moderate posterior layering left pleural effusion with airspace consolidation left lower lobe which may represent atelectasis. Small amount of patchy airspace con solidation is seen in the right lower lobe which is new when compared to the prior studies. This will be discussed in today's CTA of the chest. Motion artifact is present Hepatobiliary: Liver appears small and slightly lobular which can be seen with cirrhosis Spleen: Accessory splenule Adrenals: Mild left adrenal thickening Pancreas: Negative. Kidneys ureters or bladder: Negative. Genitalia: Uterine calcifications are likely related to fibroids GI: Diverticulosis left-sided colon other small bowel anastomoses in the midabdomen Vessels/spaces/nodes: There is a large amount of abdominal and pelvic ascites. 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 The splenic vein and SMV are not well opacified with contrast Bones/soft tissues: There is diffuse anasarca There are chronic wedge fractures at L3 and T12 that appears similar to the prior study Additional findings: None pertinent. IMPRESSION: There is a very large amount of abdominal and pelvic ascites and diffuse anasarca. There is been development of small to moderate posterior layering left pleural effusion with adjacent airspace consolidation which may represent atelectasis. Small amount of patchy airspace consolidation is also seen in the right lower lobe which is new when compared the prior study. This will be discussed in today's CT of the chest . Cirrhotic appearance to the liver Serpiginous vessels at the heriberto hepatis are likely related to cavernous transformation of the portal vein. Splenic vein and SMV are not well opacified with contrast therefore not ideally evaluated. Diverticulosis left-sided colon. There are postsurgical changes in the mid small bowel Additional chronic findings as described Report Dictated By: Aggie Felix MD at 11/26/2017 3:40 PM Report E-Signed By: Aggie Felix MD at 11/26/2017 3:57 PM Assessment and Plan Problems: (1) Pleural effusion Status: Acute Assessment & Plan: She presented with increased dyspnea. She did have thoracentesis 11/20. She will get chest x-ray in the morning. She may need a repeat thoracentesis in the morning. (2) Protein malnutrition Status: Chronic Assessment & Plan: She has protein malnutrition from a colon resection done in May. She has difficulty eating high amounts of protein. She will be placed on high protein diet during admission. She will meet with fugitive detective for high protein education. Prealbumin pending. (3) Pelvic ascites Status: Acute Assessment & Plan: She has ascites to her abdomen from protein malnutrition. She will get Spironolactone added to her usual Lasix regimen to help with excess fluid. (4) Anasarca Status: Acute Assessment & Plan: She has swelling throughout her body. She will get diuresed with Spironolactone and Lasix. Increase protein intake. (5) Hypomagnesemia Status: Chronic Assessment & Plan: She is on chronic treatment with magnesium infusions four times weekly. She will get repeat magnesium in the morning. (6) SARI treated with BiPAP Status: Chronic Assessment & Plan: She will be placed on BiPap while sleeping throughout admission. Venous Thromboembolism Antithrombotics Is Pt On Any Antithrombotics?: No Exam Sepsis Risk: No Definite Risk RENETTA ACE SANITOR Nov 26, 2017 18:16
[2017-11-26 21:24] VITALS: BP 139/77
[2017-11-26] MEDS: MELATONIN 3 MG TAB PO PRN (21:32)
[2017-11-27 01:07] VITALS: BP 132/64
[2017-11-27 06:07] LABS: PLATELET COUNT, AUTOMATED 184 K/uL (150-450)
--- NOTE | 2017-11-27 06:26 | RADIOLOGY IMAGING REPORT ---
FACILITY: [facility] PATIENT NAME: Brandy Kathleen : 1940 MR: [id number] V: [id number] EXAM DATE: ORDERING PHYSICIAN: FAITH ORTIZ TECHNOLOGIST: [facility] Patient: Brandy Kathleen : 1940 Visit/Account:[id number] Date of Sevice: 11/27/2017 CHEST SINGLE AP 11/27/2017 05:30 hours. HISTORY: Pleural effusion. COMPARISON: 11/26/2017 and studies dating to 08/12/2014. TECHNIQUE: Portable AP view of the chest. FINDINGS: Tubes/lines/hardware: The right upper extremity PICC terminates in the mid right subclavian vein, unc hanged. Pulmonary: Stable fluid along the right major fissure with adjacent consolidation in the right upper lobe, unchanged. Left pleural effusion and adjacent airspace opacity are unchanged. No pneumothorax. There is mild central vascular congestion. Cardiomediastinal: Cardiac and mediastinal silhouettes are within normal limits. There is mild aortic calcification. Bones/soft tissues: No acute osseous abnormality. The visible abdomen is normal. IMPRESSION: 1. No significant interval change. Report Dictated By: Lisandra Flor at 11/27/2017 6:18 AM Report E-Signed By: Lisandra Flor at 11/27/2017 6:22 AM WSN:[id number]
[2017-11-27 07:15] VITALS: BP 135/64
[2017-11-27] MEDS ORDERED: FUROSEMIDE 80 MG TAB PO SCH (09:00)
[2017-11-27] MEDS: ALBUMIN HUMAN 5% 250 ML BTL 250 ML IVPB SCH ×2 (10:28→17:35)
[2017-11-27] MEDS: FUROSEMIDE 40 MG/4 ML VIAL IVP SCH ×3 (10:40→21:25)
[2017-11-27] MEDS: MULTIVITAMINS TAB PO SCH (10:50)
--- NOTE | 2017-11-27 12:12 | Hospitalist Progress Note ---
Subjective Progress Notes Subjective This patient was admitted for increasing edema. She had no acute events overnight. Patient Complains of: Cardiovascular: No: Chest Pain Respiratory: No: Shortness of Breath Physical Exam Vital Signs Date Time Temp Pulse Resp B/P (MAP) Pulse Ox O2 Delivery O2 Flow Rate FiO2 11/27/17 07:15 97.8 83 14 135/64 (87) 95 Bi-PAP 40.0 11/27/17 00:42 12.0 Intake and Output 11/27/17 07:00 Output Total 400 ml Balance -400 ml Output Urine Total 400 ml Cardiovascular: Regular Rate and Rhythm Respiratory: Clear to Auscultation Extremities: Edema Result Diagram: 11/27/17 0540 11/27/[address] chest, abdomen, and pelvis reviewed. Assessment and Plan Problems: (1) Pleural effusion Status: Acute Assessment & Plan: She does have a significant left sided effusion. This was drained in the emergency department on 11/20, and his since reaccumulated. (2) Pelvic ascites Status: Acute Assessment & Plan: She does have significant ascites despite treatment with Lasix. (3) Protein malnutrition Status: Chronic Assessment & Plan: She did have a colon resection done in May. We do suspect that this is the cause of her fluid retention, ascites, and pleural e ffusions. We have started her on treatment with albumin and will convert her Lasix to IV. (4) Anasarca Status: Acute Assessment & Plan: As above. (5) Hypomagnesemia Status: Chronic Assessment & Plan: She is on chronic treatment with magnesium infusions four times weekly. A level has been ordered for the morning. (6) SARI treated with BiPAP Status: Chronic Assessment & Plan: She will be placed on BiPap while sleeping throughout admission. Exam Sepsis Risk: No Definite Risk YARY RAI DO Nov 27, 2017 12:12
[2017-11-27 12:28] VITALS: BP 152/81
[2017-11-27] MEDS: INSULIN HUM LISPRO 100 UN/ML 3 ML VIAL SUBQ PRN ×2 (12:38→21:35)
[2017-11-27 14:12] VITALS: BP 120/49
[2017-11-27] MEDS ORDERED: NS(*) 0.9% 250 ML BAG 250 ML ONE (17:36)
[2017-11-27 20:24] VITALS: BP 139/64
[2017-11-28] VITALS (17 sets, daily range): BP systolic 123–145; BP diastolic 51–81
[2017-11-28] MEDS: ALBUMIN HUMAN 5% 250 ML BTL 250 ML IVPB SCH ×3 (01:42→17:19)
[2017-11-28] MEDS: INSULIN HUM LISPRO 100 UN/ML 3 ML VIAL SUBQ PRN ×4 (08:14→21:00)
[2017-11-28] MEDS ORDERED: INFLUENZA VIRUS VAC 0.5ML SYR IM ONLY ONE (09:00)
[2017-11-28] MEDS: MULTIVITAMINS TAB PO SCH (09:39)
--- NOTE | 2017-11-28 09:58 | Medical Nutrition Therapy ---
Nutrition Anthropometrics Height (Inches): 64 Weight (Pounds): 246 BMI: 42 Homero Nutrition Score: Probably Inadequate Homero Nutrition Risk Score: 14 Dietary Referral Nutrition Risk Factors: Diff. Swallowing Nutrition Risk Comment: Prescribed high protein diet Physical Findings Physical Appearance: Morbidly Obese 40+ Skin Appearance Skin Appearance: Edema Edema Location Modifier: Both Edema Location: abdomen Type of Edema: Degree of Edema: 2+ Gastrointestinal Symptoms GI Symtoms: Appetite Changes, Hemorrhoids Tube Present: Bowel Sounds: Recent Bowel Pattern: Stool Characteristics: Nutritional Diagnosis Nutritional Risk Acuity 1: Malnutrition Nutritional Risk Acuity 2: GI Malabsorption Nutritional Risk Acuity 3: Morbid Obesity Nutritional Risk Acuity 4: Modified Diet Past Medical History: Hx of T2dm, SARI, HTN, plueral effusion, pelvic ascites, hypomagnesia, and protein malnutrition. Nutritional Acuity: 1-High Nutrition Diagnosis: Over-weight/Obesity Nutrition Etiology: Physiological Causes Nutrition Problem/Etiology/Sym: Overweight/obesity, as related to physiological causes, as evidenced by morbid obese BMI of 42 and edema 3+ pitting in BLE, 2+ abdominal, and 2+ general. Energy Requirement: 2000 ([place] 1.3) Protein Requirement: 88 (.8g/kg) Fluid Requirement: 2000 (1ml/kcal) Diet Type: High Protein Nutrition Intervention: Cont diet as ordered, Encourage intake Drug: Diuretics Diet Comment To RSA: ALLERGY: CITRUS AND LACTOSE Recommend protein powder and nutritional supplement Nutrition Monitoring & Eval RD Patient Assessment Time: [address] Assessment Type: RD Assessment Patient Nutrition Acuity: 1-High Follow Up Date: Dec 01, 2017 Nutritional Comment: 11/27. Pt admitted for pleural effusion, pelvic ascites, chronic protein malnutrition, anasarca,and chronic hypomagnesia. Pt has hx of T2DM, receiving 2-10 units humalog PRN. BG is elevated 148. Other notable labs include: low Hgb 9.2, Hct 29.8, sodium 135, total protein 5.3, and albumin 2.4. Pt also receiving 80mg potassium depleting diuretic. Potassium WNL, 4.8. Pt is experiencing edema. 3+ in BLE, 2+ in abdominal, and 2+ general. Pt is has BMI of 39.6. Recommend 2000 kcal, 88g each day, and additional protein powder to foods and nutritional supplement to increase protein intake. Have tried to meet with pt, but has been with MD or sleeping each time. Will cont to monitor. MR [id number] Nov 27, 2017 14:18
[2017-11-28] MEDS: FUROSEMIDE 40 MG/4 ML VIAL IVP SCH ×3 (10:49→21:01)
[2017-11-28] MEDS ORDERED: MAGNESIUM SUL* 4 GM/100 ML BAG 100 ML IVPB ONE (11:00)
[2017-11-28] MEDS ORDERED: KCL (*) 20 MEQ/100 ML PREMIX 100 ML IV ONE (11:00)
--- NOTE | 2017-11-28 12:20 | RADIOLOGY IMAGING REPORT ---
[place] [facility] [place] NAME: Brandy Kathleen : 1940 MR: [id number] V: [id number] EXAM DATE: ORDERING PHYSICIAN: RENETTA ACE TECHNOLOGIST: Location: [facility] Patient: Brandy Kathleen : 1940 Visit/Account:[id number] Date of Sevice: 11/28/2017 Exam type: CHEST SINGLE AP History: increased oxygen use, sob Comparison: November 27, 2017. Findings: Right PICC line again seen with the distal tip projecting over the right subclavian vein unchanged wh en compared the prior study. Loculated fluid in the right major fissure with adjacent consolidation in the right upper lobe and a small amount of right basilar atelectasis all appear unchanged. Air br onchograms in the lingula and left lower lobe are slightly more exaggerated when compared the prior s tudy suggesting increasing airspace consolidation. A left pleural effusion is also suspected cardiac silhouette is unchanged IMPRESSION: 1. Increasing airspace consolidation in the lingula and left lower lobe Suspected left pleural effusion unchanged Fluid loculated in the major fissure on the right and adjacent airspace consolidation right upper lob e appears unchanged Small band of subsegmental atelectasis the right lower lobe Report Dictated By: Aggie Felix MD at 11/28/2017 12:12 PM Report E-Signed By: Aggie Felix MD at 11/28/2017 12:16 PM WSN:[email or web address]
--- NOTE | 2017-11-28 13:32 | General Surgery Consultation ---
History of Present Illness Requesting Physician Dr. Dumont Reason for Consult Pleural effusion Chief Complaint Shortness of breath, hypoxia History of Present Illness 77yo female who presents with malnutrition, hypoalbuminemia and anasarca who has a large L pleural effusion causing SOB and hypoxemia. History Unable To Obtain Past Medical: see record Home Meds Active Scripts Blood Sugar Diagnostic (ONE TOUCH ULTRA TEST STRIPS) 1 Each Strip, 100 EACH MC Q30D, #100 STRIP 12 Refills Use to test blood sugars three times daily and as needed. Prov:SHARIF FUENTES MD 11/21/17 Insulin Glargine (LANTUS) 100 Unit/Ml Soln, 12 UNIT SUBQ QHS, #3 VIAL 3 Refills Prov:ANGEL ROA APRN DIRECTOR ENGINEERING-C 08/26/17 Pen Needle, Diabetic, Safety (PEN NEEDLE) 1 Each Dis.needle, EACH MC Q30D, #100 12 Refills use to administer insulin daily Prov:SHARIF FUENTES MD 08/23/17 Insulin Lispro 100 Un/Ml Vial (HUMALOG 100 U/ML VIAL) 100 Unit/1 Ml Vial, 3-15 UNIT SQ TID PRN for sliding scale, #2 VIAL 3 Refills Prov:SHARIF FUENTES MD 08/07/17 Potassium Chloride (POTASSIUM CHLORIDE) 20 Meq Tab.er.prt, 1 TAB PO TID, #90 TAB 11 Refills Prov:SHARIF UFENTES MD 07/31/17 Blood-Glucose Meter (BLOOD-GLUCOSE METER) 1 Each Kit, EACH MC ONCE, #1 Use to test BS TID and PRN Prov:SHARIF FUENTES MD 07/30/17 Lancets (ONE TOUCH LANCETS) 1 Each Each, EACH MC Q30D, #100 12 Refills Use to test BS TID Prov:SHARIF FUENTES MD 07/30/17 Cholestyramine/Aspartame (PREVALITE PACKET) 4 Gm Powd.pack, 4 GM PO TID, #120 PACKET 12 Refills Prov:SHARIF FUENTES MD 07/24/17 Furosemide (FUROSEMIDE) 80 Mg Tablet, 1 TAB PO BID, #180 TAB 3 Refills Prov:SHARIF FUENTES MD 07/24/17 Melatonin (MELATONIN) 3 Mg Tablet, 1 TAB PO HS PRN for sleeplessness, #30 TAB Prov:SHARIF FUENTES MD 07/04/17 Diphenhydramine Hcl (DIPHENHYDRAMINE HCL) 25 Mg Capsule, 2 TAB PO BID, #120 CAPSULE Prov:SHARIF FUENTES MD 07/04/17 Acetaminophen (ACETAMINOPHEN) 500 Mg Tablet, 1-2 TAB PO Q6H PRN for FEVER/PAIN, #100 TAB Prov:SHARIF FUENTES MD 07/04/17 Phe/Shark Liver Oil/Glycer/Pet (PREPARATION H CREAM) 27 Gm Cr, 0 GM GA PRN PRN for HEMORRHOIDS, #1 TUBE Prov:TK ORTIZ MD 06/05/17 Reported Medications Docusate Sodium (COLACE) 100 Mg Capsule, 100 MG PO, CAPSULE 09/26/17 Magnesium Sulfate in Water (Magnesium Sulf 4 G/100 ml Bag) 4 Gram/100 Ml (4 %) Piggyback, 4 GM IVPB 4XW 07/14/17 Oxygen (OXYGEN) Inha, 3-5 L INH cont, 4 liters at hs and with activity, up to 5 liters based on oximeter 07/10/17 Multivitamin (MULTI VITAMIN DAILY) 1 Each Tablet, 1 TAB PO QDAY, TAB 07/10/17 Aspirin (ASPIR 81) 81 Mg Tablet.dr, 1 TAB PO QDAY, TAB 05/08/17 Bipap Home (BIPAP HOME) Inha, HS 09/07/15 Allergies: Coded Allergies: Shellfish (Verified Allergy, Intermediate, SWELLING WITH SHRIMP, 05/13/17) Sulfa (Sulfonamide Antibiotics) (Verified Allergy, Intermediate, hives, 11/11/14) Leake And Derivatives (Verified Allergy, Unknown, HIVES, 11/11/14) lactose (Verified Adverse Reaction, Intermediate, rash, 11/18/14) Family History: FH: NC (myocardial infarction) PATERNAL GRANDFATHER (PGGF) MATERNAL UNCLE, , Age:50's - 60 BROTHER, , Age:73, Onset:72 FH: colon cancer PATERNAL AUNT, , Age:70 FH: congestive heart failure FH: coronary artery disease HALF-BROTHER, Age:64 HALF-BROTHER, Age:68 FH: diabetes mellitus BROTHER, , Age:73 FH: glaucoma MOTHER, , Age:83 FHx: stroke MOTHER, , Age:83 Pacemaker BROTHER, , Age:73 Stent HALF-BROTHER, Age:64 HALF-BROTHER, Age:68 Review of Systems All Systems Reviewed/Normal: Yes Constitutional: No Fever Neurological: No Confusion, No Weakness Cardiovascular: Chest Pain (With anxiety); No Palpitations Respiratory: Shortness of Breath Gastrointestinal: No Nausea, No Vomiting; Diarrhea Psychiatric: Anxiety Exam Vital Signs Vital Signs Date Time Temp Pulse Resp B/P (MAP) Pulse Ox O2 Delivery O2 Flow Rate FiO2 11/28/17 12:55 97.3 74 19 123/63 (83) 98 Bi-PAP 60.0 11/28/17 10:58 98.0 General Appearance: Alert, Awake, No Acute Distress Neuro: No Gross deficits Eyes: PERRLA ENT: Moist Mucous Membranes Cardiovascular: Regular Rate and Rhythm Respiratory: Other (Diminished breath sounds left side) Chest: No Masses, No Tenderness GI: Other (Distended, diffuse anasarca, previous midline incision well healed) : Other (Muse in place) Extremities: Edema Integumentary: Generalized Fragile Skin Psych: Alert & Oriented X3, Appropriate Mood & Affect Medical Decision Making Data Points Result Diagram: 11/27/17 0540 11/28/17 0526 EKG / Imaging Monitor Interpretation: Normal Sinus Rhythm Pre-Admit Course Medical Record Review: Yes Assessment and Plan Problems: (1) Pleural effusion Status: Acute Assessment & Plan: Large L sided pleural effusion with associated hypoxemia: will place L chest tube. Procedure explained to patient, informed consent obtained. Also discussed with daughter Luna. Time Spent: < 30 min Venous Thromboembolism VTE Risk Physician Assess for VTE Risk: Yes Patient's VTE Risk: High Antithrombotics Is Pt On Any Antithrombotics?: Yes KEENAN RAUSCH MD Nov 28, 2017 13:32
--- NOTE | 2017-11-28 13:59 | Hospitalist Progress Note ---
Subjective Progress Notes Subjective Patient has increased work of breathing today. She noticed a change after midnight, with increased oxygen use and SOB. Patient Complains of: Cardiovascular: No: Chest Pain Respiratory: Shortness of Breath Physical Exam Vital Signs Date Time Temp Pulse Resp B/P (MAP) Pulse Ox O2 Delivery O2 Flow Rate FiO2 11/28/17 12:55 97.3 74 19 123/63 (83) 98 Bi-PAP 60.0 11/28/17 10:58 98.0 Intake and Output 11/28/17 01:00 Intake Total 660 ml Output Total 3875 ml Balance -3215 ml Intake Oral 160 ml IV Total 500 ml Output Urine Total 3875 ml General Appearance: Alert, Awake, Afebrile Neuro: No Gross deficits Cardiovascular: Regular Rate and Rhythm Respiratory: Other (diminished lung sound in right side, no lung sounds heard in left) Chest: Other (breasts have edema) GI: Other (abdomen distended, hard to touch, 3+pitting edema) Extremities: Edema (3+pitting edema to left upper extremity, 4+pitting to b ilateral lower extremity), Other (extremities weeping from fluid) Psych: Alert & Oriented X3, Appropriate Mood & Affect Result Diagram: 11/27/17 0540 11/28/17 0526 Monitor Interpretation: Normal Sinus Rhythm Assessment and Plan Problems: (1) Pleural effusion Status: Acute Assessment & Plan: She does have a significant left sided effusion. This was drained in the emergency department on 11/20, and has since reaccumulated. Consulted general surgery about pleural effusion, secondary to increased SOB and oxygen use. She will have chest tube placed today. She will be transferred to ICU since she is requiring a high amount of oxygen. (2) Pelvic ascites Status: Acute Assessment & Plan: She does have significant ascites despite treatment with Lasix. (3) Protein malnutrition Status: Chronic Assessment & Plan: She did have a colon resection done in May. We do suspect that this is the cause of her fluid retention, ascites, and pleural effusions. We have started her on treatment with albumin and will convert her Lasix to IV. (4) Anasarca Status: Acute Assessment & Plan: As above. (5) Hypomagnesemia Status: Chronic Assessment & Plan: She is on chronic treatment with magnesium infusions four times weekly. A level has been ordered for the morning. (6) SARI treated with BiPAP Status: Chronic Assessment & Plan: She will be placed on BiPap as needed throughout admission. Exam Sepsis Risk: No Definite Risk RENETTA ACE RELAY MECHANIC Nov 28, 2017 13:59
--- NOTE | 2017-11-28 14:00 | Procedure Note ---
Chest Tube Procedure Note Reason for Chest Tube Left pleural effusion Consent Signed: Yes Chest Tube Location: Left Lung Complications: None Anesthesia Used: 1% Lidocaine CC's of Anesthesia: 30 Chest Tube Size Fr.: 24 Chest Tube Suction: Pleura-Vac Chest Tube Secured: 0 Silk Suture Post Procedure Xray Ordered: Yes Comment Time out performed to confirm patient and procedure. Area prepped and draped sterilely. 1% lidocaine injected subcutaneously. Incision made over 5/6th intercostal space. Soft tissues bluntly dissected, then rib space entered bluntly. Large volume serous fluid evacuated, ~1000mL. 24Fr chest tube placed, sutured in place with 0 silk suture. Sterile dressing applied. Chest x-ray ordered. Patient tolerated well, oxygen saturation improved from 92% to 100%. KEENAN RAUSCH MD Nov 28, 2017 14:00
--- NOTE | 2017-11-28 14:30 | RADIOLOGY IMAGING REPORT ---
FACILITY: [facility] - [place] PATIENT NAME: Brandy Kathleen : 1940 MR: [id number] V: [id number] EXAM DATE: ORDERING PHYSICIAN: KEENAN RAUSCH TECHNOLOGIST: Location: [facility] Patient: Brandy Kathleen : 1940 Visit/Account:[id number] Date of Sevice: 11/28/2017 Exam type: CHEST SINGLE AP History: s/p L chest tube placement Comparison: AP chest performed earlier in the day at 10:48 AM. Findings: There is been insertion of a left chest tube. The left pleural effusion is markedly decreased in siz e. No evidence of a pneumothorax There is better aeration of the left lung with moderate peribronch ial thickening and streaky consolidation now seen in the left lung base which represents an overall i mprovement. The loculated fluid in the major fissure on the right with adjacent airspace consolidati on right upper lobe again seen. There is slight increase in the atelectasis the right lung base. Th e cardiac silhouette is unchanged IMPRESSION: 1. Interval placement of a left-sided chest tube with marked decrease in size of left pleural effusi on and much better aeration of the left lung as described above. Loculated fluid in the major fissure on the right with adjacent airspace consolidation right upper lo be appears well totally unchanged. Increasing atelectasis in the right lung base Report Dictated By: Aggie Felix MD at 11/28/2017 2:23 PM Report E-Signed By: Aggie Felix MD at 11/28/2017 2:26 PM WSN:[email or web address]
[2017-11-28] MEDS: KCL (*) 20 MEQ/100 ML PREMIX 100 ML IV SCH ×3 (16:07→23:44)
[2017-11-28] MEDS: ACETAMINOPHEN 325 MG TAB PO PRN ×2 (16:47→23:46)
[2017-11-28] MEDS: NS(*) 0.9% 500 ML BAG 500 ML IV PRN (17:19)
--- NOTE | 2017-11-28 18:14 | RADIOLOGY IMAGING REPORT ---
FACILITY: [facility] - [place] PATIENT NAME: Brandy Kathleen : 1940 MR: [id number] V: [id number] EXAM DATE: ORDERING PHYSICIAN: YARY TRIPLETT TECHNOLOGIST: Location: [facility] Patient: Brandy Kathleen : 1940 Visit/Account:[id number] Date of Sevice: 11/28/2017 EXAMINATION: Portable chest radiograph single view at 5:22 PM. HISTORY: Hypoxia. COMPARISON: 11/28/2017 at 2:08 PM. FINDINGS: A single portable AP view of the chest is obtained. Lines/tubes: Right arm PICC with its tip terminating in the region of the right subclavian vein. Lungs/pleura: Confluent opacification at the left lung base, new since previous examination. Patchy opacifications in the right lung, similar to prior exam. No evidence of pneumothorax. Heart: Stable heart size. Mediastinum: Calcified plaque at the aortic arch. Bony structures/body wall: Negative. IMPRESSION: New confluent opacification at the left lung base which could represent left lower lobe atelectasis. Underlying infiltrate or increasing superimposed left pleural effusion are not excluded. Regions of atelectasis in the right lung are similar to the prior examination. Report Dictated By: Anthony Dixon MD at 11/28/2017 6:04 PM Report E-Signed By: Anthony Dixon MD at 11/28/2017 6:10 PM WSN:[id number]
--- NOTE | 2017-11-28 19:39 | Procedure Note ---
Paracentesis Procedure Note Reason for Paracentesis: Ascites Consent Signed: Yes Paracentesis Location: RLQ U/S Guided Paracentesis: No Blood Loss: None Complications: None Anesthesia Used: 1% Lidocaine CC's of Anesthesia: 5 Amount of Fluid - cc's: 9999 Fluid Characteristics: Clear, Serous Lab Analysis Ordered: No Comment 12F pigtail catheter left in place since attempted paracentesis with standard thoracentesis catheter kit wasn't successful due to thick edematous abdominal wall occluding the catheter. Will leave the pigtail catheter in place until output declines after patient's nutritional status improves. Removed over 10L of clear yellow ascitic fluid. YARY TRIPLETT MD Nov 28, 2017 19:39
[2017-11-28] MEDS: FAT EMULSION 20% 250 ML BAG 250 ML IVPB SCH (19:50)
[2017-11-28] MEDS ORDERED: INSULIN HUM REG 100 UN/ML 3 ML 10 UNIT, MULTIVITAMINS(*) 10 ML VIAL 10 ML, TRACE METALS... IV ONE (20:00)
[2017-11-29] VITALS (26 sets, daily range): BP systolic 80–131; BP diastolic 34–97
[2017-11-29] MEDS: KCL (*) 20 MEQ/100 ML PREMIX 100 ML IV SCH ×3 (02:00→10:53)
[2017-11-29] MEDS: HYDROCORTISONE 2.5% CR 30GM TB PR PRN ×3 (02:00→20:05)
[2017-11-29 06:16] LABS: PLATELET COUNT, AUTOMATED 171 K/uL (150-450)
--- NOTE | 2017-11-29 06:53 | General Surgery Progress Note ---
Subjective Progress Notes Subjective Pt feeling much better this morning after left chest tube placed by Dr. Simmons and I placed a peritoneal drain last night. She drained over 10L initially from her abdomen and then she's drained 8L overnight into the drainage bag. She feels like she can breath better and she's in no pain. Physical Exam Vital Signs Date Time Temp Pulse Resp B/P (MAP) Pulse Ox O2 Delivery O2 Flow Rate FiO2 11/29/17 05:56 67 11/29/17 05:00 98.5 16 105/45 (65) 97 High-Flow Nasal Cannula 4.0 11/28/17 19:00 50.0 Intake and Output 11/29/17 07:00 Intake Total 2788 ml Output Total 40276 ml Balance -23860 ml Intake Oral 1122 ml IV Total 1666 ml Output Urine Total 3475 ml Chest Tube Drainage Total 1850 ml Drainage Total 15759 ml General Appearance: Alert, Awake, No Acute Distress, Afebrile Neuro: No Gross deficits Eyes: PERRLA Chest: Other (Chest tube with serosanguinous drainage. No air leak.) GI: Soft and Non-Tender, Other (Drain with serous output.) Extremities: Warm, Perfused, Edema (3+ pitting edema bilaterally) Integumentary: Other (Anasarca) Result Diagram: 11/29/1751811/29/17518 Monitor Interpretation: Normal Sinus Rhythm Assessment and Plan Problems: (1) Pleural effusion Status: Acute Assessment & Plan: 11/28/17: Large L sided pleural effusion with associated hypoxemia: will place L chest tube. Procedure explained to patient, informed consent obtained. Also discussed with daughter Luna. 11/29/17: Doing much better this morning. Will place chest tube to water seal and follow output. Will continue peritoneal pigtail catheter until output decreases. TPN started yesterday. Will expect 3rd spaced fluid to decrease as her protein improves. Will need to follow her fluid status, electrolytes, and protein closely as she will certainly be losing electrolytes and protein from her pleural and ascitic fluid. 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 Will ask dietary to evaluate her to look for high protein, maximal absorption formula for PO intake as well. Continue PT/OT. May benefit from time on ECF while nutrition repleted so she can regain her strength. Condition Stable. Time Spent: < 30 min Exam Sepsis Risk: No Definite Risk YARY TRIPLETT MD Nov 29, 2017 06:53
--- NOTE | 2017-11-29 07:01 | RADIOLOGY IMAGING REPORT ---
FACILITY: [facility] PATIENT NAME: Brandy Kathleen : 1940 MR: [id number] V: [id number] EXAM DATE: ORDERING PHYSICIAN: RENETTA ACE TECHNOLOGIST: Location: [facility] Patient: Brandy Kathleen : 1940 Visit/Account:[id number] Date of Sevice: 11/29/2017 CHEST SINGLE AP 11/29/2017 06:00 hours. HISTORY: Chest tube. Pleural effusion. Follow-up. COMPARISON: 11/28/2017 and studies dating to 08/12/2014. TECHNIQUE: Portable AP view of the chest. FINDINGS: Tubes/lines/hardware: There are external chest leads. The right upper extremity PICC terminates in th e mid right subclavian vein, unchanged. There is a left chest tube. Pulmonary: There has been mild improvement in the bibasilar opacities. Left pleural effusion is uncha nged. Loculated fluid along the right major fissure has improved. No pneumothorax. Cardiomediastinal: Cardiac and mediastinal silhouettes are within normal limits. There is moderate ao rtic calcification. Bones/soft tissues: No acute osseous abnormality. The visible abdomen is normal. IMPRESSION: 1. Left pleural effusion is unchanged in size, but there has been improvement in the left basilar opa city, likely improving atelectasis. 2. Mild improvement in the right basilar opacity, although the difference may be due to the depth of inspiration. 3. Decrease in the loculated pleural fluid along the right major fissure. Report Dictated By: Lisandra Flor at 11/29/2017 6:53 AM Report E-Signed By: Lisandra Flor at 11/29/2017 6:56 AM WSN:[id number]
[2017-11-29] MEDS ORDERED: CALCIUM GLUC(*)10% 100MG/ML VL 1,000 MG in NS(*) 0.9% 100 ML BAG 100 ML IVPB ONE (07:15)
[2017-11-29] MEDS ORDERED: NS 0.9% IV ONE (08:00)
[2017-11-29] MEDS ORDERED: MAGNESIUM SU IV ONE (08:00)
[2017-11-29] MEDS: MULTIVITAMINS TAB PO SCH (08:33)
[2017-11-29] MEDS: PANTOPRAZOLE SOD 40 MG TABEC PO SCH (08:33)
[2017-11-29] MEDS: INSULIN HUM LISPRO 100 UN/ML 3 ML VIAL SUBQ PRN ×4 (08:41→21:31)
[2017-11-29] MEDS: FUROSEMIDE 40 MG/4 ML VIAL IVP SCH ×3 (09:05→21:31)
--- NOTE | 2017-11-29 09:55 | RADIOLOGY IMAGING REPORT ---
FACILITY: [facility] [place] PATIENT NAME: Brandy Kathleen : 1940 MR: [id number] V: [id number] EXAM DATE: ORDERING PHYSICIAN: TK ORTIZ TECHNOLOGIST: Location: [facility] [place] Patient: Brandy Kathleen : 1940 Visit/Account:[id number] Date of Sevice: 11/29/2017 Venous Doppler ultrasound left upper extremity Indication: Left arm swelling. Comparison: None available. Findings: There is normal compressibility and blood flow of the left internal jugular vein. There is normal blood flow to the left subclavian vein. There is normal compressibility and blood flow identified within the left axillary vein, brachial vei ns, basilic and cephalic veins. Subcutaneous tissues show edema. IMPRESSION: 1. No evidence of deep venous thrombosis of the left upper extremity. Report Dictated By: Jules George at 11/29/2017 9:48 AM Report E-Signed By: Jules George at 11/29/2017 9:50 AM WSN:[email or web address]
--- NOTE | 2017-11-29 12:13 | Hospitalist Progress Note ---
Subjective Progress Notes Subjective The patient states she feels better after having 18 liters of fluid removed from her abdomen per paracentesis yesterday. Her breathing is much improved. Physical Exam Vital Signs Date Time Temp Pulse Resp B/P (MAP) Pulse Ox O2 Delivery O2 Flow Rate FiO2 11/29/17 11:04 98 High-Flow Nasal Cannula 4.0 11/29/17 11:00 69 15 121/51 (74) 11/29/17 08:00 98.5 11/28/17 19:00 50.0 Intake and Output 11/29/17 06:59 Intake Total 2788 ml Output Total 04567 ml Balance -12083 ml Intake Oral 1122 ml IV Total 1666 ml Output Urine Total 3475 ml Chest Tube Drainage Total 1850 ml Drainage Total 68198 ml General Appearance: Alert, Awake, No Acute Distress, Afebrile Neuro: No Gross deficits Eyes: PERRLA Cardiovascular: Regular Rate and Rhythm, Other (LE edema bilaterally, 1-2+. R arm with 2+ pitting edema.) GI: Soft and Non-Tender, Other (Pigtail catheter in place R lower abdomen. Clear straw colored fluid visible in tubing and bag.) Extremities: Warm, Perfused Psych: Appropriate Mood & Affect Result Diagram: 11/29/1751811/29/17518 Monitor Interpretation: Normal Sinus Rhythm Assessment and Plan Problems: (1) Pleural effusion Status: Acute Assessment & Plan: She presented with a significant left sided effusion. This was drained in the emergency department on 11/20, and has since reaccumulated. Consulted general surgery about pleural effusion, secondary to increased SOB and oxygen use. She had a chest tube placed. She was transferred to ICU since as she was requiring a high amount of oxygen. She is better but still tenuous. Will watch in ICU today. (2) Pelvic ascites Status: Acute Assessment & Plan: She had significant ascites despite treatment with Lasix. Dr. Gracia drained over 10 liters off yesterday and left a catheter in place. It is reported that she has had about 18 liters drainage total from her abdomen. (3) Protein malnutrition Status: Chronic Assessment & Plan: She did have a colon resection done in May. This resulted in malabsorption and low protein/albumin. We do suspect that this is the cause of her fluid retention, ascites, and pleural effusions. We have star cory her on treatment with albumin and will convert her Lasix to IV. TPN has been started. (4) Anasarca Status: Acute Assessment & Plan: As above. (5) Hypomagnesemia Status: Chronic Assessment & Plan: She is on chronic treatment with magnesium infusions four times weekly. A level has been ordered for the morning. (6) SARI treated with BiPAP Status: Chronic Assessment & Plan: She was initially placed on BiPap as needed which will be continued prn. After her paracentesis, he O2 requirements decreased substantially. Will continue BiPAP prn. (7) Hypokalemia Status: Acute Assessment & Plan: She is receiving IV KCl replacement. Will repeat BMP and magnesium later today. Time Spent on Plan of Care: < 30 min Exam Sepsis Risk: No Definite Risk TK ORTIZ MD Nov 29, 2017 12:13
--- NOTE | 2017-11-29 12:16 | Medical Nutrition Therapy ---
Nutrition Anthropometrics Height (Inches): 64 Weight (Pounds): 194 Weight (Calculated Kilograms): 88.195 BMI: 33.4 Homero Nutrition Score: Probably Inadequate Homero Nutrition Risk Score: 13 Dietary Referral Nutrition Risk Factors: Nutrition Risk Comment: Prescribed high protein diet Physical Findings Physical Appearance: Obese BMI 30-39 Skin Appearance Skin Appearance: Edema Edema Location Modifier: Right Edema Location: Upper Extremity Type of Edema: Degree of Edema: 1+ Gastrointestinal Symptoms GI Symtoms: Appetite Changes, Hemorrhoids Tube Present: Bowel Sounds: Recent Bowel Pattern: Stool Characteristics: Nutritional Diagnosis Nutritional Risk Acuity 1: Malnutrition Nutritional Risk Acuity 2: GI Malabsorption Nutritional Risk Acuity 4: Modified Diet Past Medical History: Hx of T2dm, SARI, HTN, plueral effusion, pelvic ascites, hypomagnesia, short gut and protein malnutrition. Nutritional Acuity: 1-High Nutrition Diagnosis: Altered GI Function Nutrition Etiology: Malabsorption/Intolerance, Physiological Causes Nutrition Problem/Etiology/Sym: Altered GI function, as related to Malabsorption/Intolerance and physiological causes, as evidenced by short gut and low albumin of 2.3. Energy Requirement: 2000 ([place] 1.3) Protein Requirement: 120 (1.3-1.4g/kg) Fluid Requirement: 2000 (1ml/kcal) Diet Type: High Protein Nutrition Intervention: Cont diet as ordered, Encourage intake Drug: Diuretics Diet Comment To RSA: ALLERGY: SHELLFISH, CITRUS AND LACTOSE RECOMMEND 2oz OF ProT Gold WITH EACH MEAL~ 105g of protein Nutritional Support Current Enteral / Parental: TPN Rate: 42ml/hr + lipids Current Calories: 880 Current Protein: 50 Current Lipids Calories: 500 Total Current Calories: 1380 Recommended Enteral / Parental: Tube Feeding Recommended Tube Feeding Formu: Specialty Formula (Vital HP) Tube Feeding Supplement Streng: Full Recommended Feeding Route: PEG Recommended Rate: 125ml/hr x12 Recommended Duration: 12 Recommended Calories: 1500 Recommended Protein: 130 Total Recommended Calories: 1500 Nutritional Education Nutrition Education Topic: Other (High protein) Learning Readiness: Interested Teaching Methods: Discussion Response to Teaching: Reinforcement needed Teaching Recipient: Patient Nutrition Counseling: Reviewed high pro foods and encouraged pt to eat eat high pro foods plus supplements between meals. Nutrition Monitoring & Eval RD Patient Assessment Time: [address] Assessment Type: RD Re-Assessment Patient Nutrition Acuity: 1-High Follow Up Date: Nov 30, 2017 Nutritional Comment: 11/27. Pt admitted for pleural effusion, pelvic ascites, chronic protein malnutrition, anasarca,and chronic hypomagnesia. Pt has hx of T2DM, receiving 2-10 units humalog PRN. BG is elevated 148. Other notable labs include: low Hgb 9.2, Hct 29.8, sodium 135, total protein 5.3, preabumin 6.3 and albumin 2.4. Pt also receiving 80mg potassium depleting diuretic. Potassium WNL, 4.8. Pt is experiencing edema. 3+ in BLE, 2+ in abdominal, and 2+ general. Pt is has BMI of 39.6. Recommend 2000 kcal, 88g each day, and additional protein powder to foods and nutritional supplement to increase protein intake. Have tried to meet with pt, but has been with MD or sleeping each time. Will cont to monitor. MR 11/28. Edema fluid loss, pt is now 194lbs and was 244lbs on admission. Pt currently on TPN, receiving 880 kcal, 50g protein, and 500 lipids for a total of 1380 kcal. Meeting 42% of pro and 69% of kcal. Pt is consuming small amounts of oral intake but question how much is being absorbed. Recommend TF, Vital HP, full at 125ml/hr x12. This will provide 1500 kcal and 130 g of protein. Recommend PEG for long term care pharmacist solution. Noted to RSA to provide 2oz of ProT Gold (hyrodlyzed collagen protein) with each meal~ 105g of protein. Will cont to monitor. MR Copies To Copies to: SHARIF FUENTES MD; YARY TRIPLETT MD ; SUNDEEP MG Nov 29, 2017 08:58
--- NOTE | 2017-11-29 13:28 | Medical Nutrition Therapy ---
Nutrition Anthropometrics Height (Inches): 64 Weight (Pounds): 194 Weight (Calculated Kilograms): 88.195 BMI: 33.4 Homero Nutrition Score: Probably Inadequate Homero Nutrition Risk Score: 13 Dietary Referral Nutrition Risk Factors: Diff. Swallowing Nutrition Risk Comment: Prescribed high protein diet Nutritional Diagnosis Nutritional Risk Acuity 1: Malnutrition Nutritional Risk Acuity 2: GI Malabsorption Nutritional Risk Acuity 4: Modified Diet Past Medical History: Hx of T2dm, SARI, HTN, plueral effusion, pelvic ascites, hypomagnesia, short gut and protein malnutrition. Nutritional Acuity: 1-High Nutrition Diagnosis: Altered GI Function Nutrition Etiology: Malabsorption/Intolerance, Physiological Causes Nutrition Problem/Etiology/Sym: Altered GI function, as related to Malabsorption/Intolerance and physiological causes, as evidenced by short gut and low albumin of 2.3. Energy Requirement: 2000 ([place] 1.3) Protein Requirement: 120 (1.3-1.4g/kg) Fluid Requirement: 2000 (1ml/kcal) Diet Type: High Protein Nutrition Intervention: Cont diet as ordered, Encourage intake Drug: Diuretics Additional Diet Restrictions: PUT PROTEIN POWDER IN APPROPRIATE FOODS Diet Comment To RSA: ALLERGY: SHELLFISH, CITRUS AND LACTOSE Nutritional Support Current Enteral / Parental: TPN Rate: 42ml/hr + lipids Current Calories: 880 Current Protein: 50 Current Lipids Calories: 500 Total Current Calories: 1380 Recommended Enteral / Parental: Tube Feeding Recommended Tube Feeding Formu: Specialty Formula (Vital HP) Tube Feeding Supplement Streng: Full Recommended Feeding Route: PEG Recommended Rate: 125ml/hr x12 Recommended Duration: 12 Recommended Calories: 1500 Recommended Protein: 130 Total Recommended Calories: 1500 Nutrition Monitoring & Eval RD Patient Assessment Time: [address] Assessment Type: RD Re-Assessment Patient Nutrition Acuity: 1-High Follow Up Date: Dec 02, 2017 Nutritional Comment: 11/27. Pt admitted for pleural effusion, pelvic ascites, chronic protein malnutrition, anasarca,and chronic hypomagnesia. Pt has hx of T2DM, receiving 2-10 units humalog PRN. BG is elevated 148. Other notable labs include: low Hgb 9.2, Hct 29.8, sodium 135, total protein 5.3, preabumin 6.3 and albumin 2.4. Pt also receiving 80mg potassium depleting diuretic. Potassium WNL, 4.8. Pt is experiencing edema. 3+ in BLE, 2+ in abdominal, and 2+ general. Pt is has BMI of 39.6. Recommend 2000 kcal, 88g each day, and additional protein powder to foods and nutritional supplement to increase protein intake. Have tried to meet with pt, but has been with MD or sleeping each time. Will cont to monitor. MR 11/28. Edema fluid loss, pt is now 194lbs and was 244lbs on admission. Pt currently on TPN, receiving 880 kcal, 50g protein, and 500 lipids for a total of 1380 kcal. Meeting 42% of pro and 69% of kcal. Pt is consuming small amounts of oral intake but question how much is being absorbed. Recommend TF, Vital HP, full at 125ml/hr x12. This will provide 1500 kcal and 130 g of protein. Recommend PEG for jail solution. Noted to RSA to provide 2oz of ProT Gold (hyrodlyzed collagen protein) with each meal~ 105g of protein. Will cont to monitor. MR 11/29 Provided 20z ProTGold mixed with 4 oz apple juice. Pt was sipping on it and stated she could drink it. Left formula with ICU nurse with goal of dispensing 7oz/day which provides 122g protein. Goal is that the hydrolized collegen protein will be absorbed and improvement observed in alb, prealb and decreased 3rd spacing. If inprovement is not seen, pt may benefit from an peptide based enteral nutrition that is formulated to be used for malabsorption. BK Copies To Copies to: SHARIF FUENTES MD; YARY TRIPLETT MD ; ANGIE FARRELL Nov 29, 2017 13:28
[2017-11-29] MEDS: cefTRIAXone 1 GM VIAL IVP SCH (13:35)
[2017-11-29] MEDS ORDERED: DILTIAZEM 5 MG/ML 5ML IVPUSH IVP ONE (16:40)
[2017-11-29] MEDS ORDERED: DILTIAZEM(*) 5 MG/ML 5ML IVP 125 MG in NS(*) 0.9% 100 ML BAG 100 ML IV SCH ×2 (16:45→16:55)
[2017-11-29] MEDS ORDERED: NS 0.9% IVPB SCH (16:50)
[2017-11-29] MEDS ORDERED: DILTIAZEM HCL IVPB SCH (16:50)
[2017-11-29] MEDS ORDERED: ADDVIAL IVPB SCH (16:50)
[2017-11-29] MEDS: FAT EMULSION 20% 250 ML BAG 250 ML IVPB SCH (19:42)
[2017-11-29] MEDS ORDERED: [UNRECOGNIZED DRUG - OTHER] IV SCH (20:00)
[2017-11-29] MEDS ORDERED: INSULIN HUM REG IV SCH (20:00)
[2017-11-29] MEDS ORDERED: MULTIVITAMINS IV SCH (20:00)
[2017-11-29] MEDS ORDERED: INSULIN HUM REG 100 UN/ML 3 ML 20 UNIT, MULTIVITAMINS(*) 10 ML VIAL 10 ML, TRACE METALS... IV SCH (20:00)
[2017-11-29] MEDS: ACETAMINOPHEN 325 MG TAB PO PRN (21:32)
[2017-11-29] MEDS ORDERED: PROMETHAZINE 25 MG/ML 1 ML AMP IVP PRN (21:50)
[2017-11-30] VITALS (42 sets, daily range): BP systolic 95–125; BP diastolic 40–62
[2017-11-30 06:45] LABS: PLATELET COUNT, AUTOMATED 180 K/uL (150-450)
--- NOTE | 2017-11-30 07:50 | RADIOLOGY IMAGING REPORT ---
FACILITY: [facility] [place] PATIENT NAME: Brandy Kathleen : 1940 MR: [id number] V: [id number] EXAM DATE: [id number] ORDERING PHYSICIAN: TK ORTIZ TECHNOLOGIST: Location: [facility] Patient: Brandy Kathleen : 1940 Visit/Account:[id number] Date of Sevice: 11/30/2017 CHEST SINGLE AP History: Pleural Effusion FINDINGS: Comparison studies: Chest x-ray 11/29/2017 Tubes and Lines: Again seen is a PICC line from a right upper extremity approach with tip projectin g below the right medial clavicle and likely still in the axillary vein. Lungs and pleura: Persistent left basilar pulmonary consolidation with slight improvement. The left hemidiaphragm is now partially visualized. Fluid in the right major fissure again noted unchanged. Mediastinum: normal. Cardiac silhouette: Cardiac silhouette is prominent in size unchanged Osseous structures: Unremarkable for age . IMPRESSION: Slight improvement in left basilar pulmonary consolidation versus effusion. Exam otherwise unchanged. Right-sided PICC line remains malpositioned Report Dictated By: Eulalio Mckeon MD at 11/30/2017 7:45 AM Report E-Signed By: Eulalio Mckeon MD at 11/30/2017 7:47 AM WSN:[id number]
[2017-11-30] MEDS: INSULIN HUM LISPRO 100 UN/ML 3 ML VIAL SUBQ PRN ×4 (08:28→20:33)
[2017-11-30] MEDS: PANTOPRAZOLE SOD 40 MG TABEC PO SCH (08:34)
[2017-11-30] MEDS: FUROSEMIDE 40 MG/4 ML VIAL IVP SCH ×3 (08:35→20:33)
[2017-11-30] MEDS: DOCUSATE SODIUM 100 MG CAP PO SCH ×2 (08:38→20:31)
[2017-11-30] MEDS: MULTIVITAMINS TAB PO SCH (08:38)
[2017-11-30] MEDS: NS(*) 0.9% 500 ML BAG 500 ML IV PRN (08:46)
[2017-11-30] MEDS ORDERED: MAGNESIUM SUL* 2 GM/50 ML IVPB 50 ML IVPB ONE (09:00)
[2017-11-30] MEDS: HYDROCORTISONE 2.5% CR 30GM TB PR PRN ×2 (10:30→20:33)
--- NOTE | 2017-11-30 11:06 | Hospitalist Progress Note ---
Subjective Progress Notes Subjective This patient was admitted for pleural effusions and ascites. She developed atrial fibrillation last night and was transferred to the ICU. Patient Complains of: Cardiovascular: No: Chest Pain Respiratory: No: Shortness of Breath Physical Exam Vital Signs Date Time Temp Pulse Resp B/P (MAP) Pulse Ox O2 Delivery O2 Flow Rate FiO2 11/30/17 10:30 69 24 101/49 (66) 96 Nasal Cannula 6.0 11/30/17 07:30 97.8 11/28/17 19:00 50.0 Intake and Output 11/30/17 07:00 Intake Total 3913 ml Output Total 15209 ml Balance -9962 ml Intake Oral 1518 ml IV Total 2395 ml Output Urine Total 2120 ml Chest Tube Drainage Total 180 ml Drainage Total 85561 ml Cardiovascular: Regular Rate and Rhythm Respiratory: Other (Dimisihed on left.) Result Diagram: 11/30/17 0540 11/30/17 0540 Monitor Interpretation: Normal Sinus Rhythm Assessment and Plan Problems: (1) Pleural effusion Status: Acute Assessment & Plan: She presented with a significant left sided effusion. This was drained in the emergency department on 11/20, and had reaccumulated on admission. She now has a chest tube in place, which is producing significant output. (2) Pelvic ascites Status: Acute Assessment & Plan: She had significant ascites despite treatment with Lasix. She now has a peritoneal drain in place. This is also having copious output. (3) Protein malnutrition Status: Chronic Assessment & Plan: She did have a colon resection done in May. This resulted in malabsorption and low protein/albumin. We do suspect that this is the cause of her fluid retention, ascites, and pleural effusions. She is receiving Lasix. Her weights have decreased 28kgs. (4) Anasarca Status: Acute Assessment & Plan: As above. (5) Hypomagnesemia Status: Chronic Assessment & Plan: She is on chronic treatment with magnesium infusions four times weekly. Her level was normal this morning. (6) SARI treated with BiPAP Status: Chronic Assessment & Plan: She was initially placed on BiPap as needed which will be continued prn. After her paracentesis, her O2 requirements decreased substantially. (7) Hypokalemia Status: Acute Assessment & Plan: Improved with supplementation. (8) Afib Assessment & Plan: She developed atrial fibrillation and was started on a diltiazem infusion. She has now converted back to sinus. We will consider stopping the diltiazem later today. Exam Sepsis Risk: No Definite Risk YARY RAI DO Nov 30, 2017 11:06
[2017-11-30] MEDS ORDERED: DILTIAZEM(*) 5 MG/ML 5ML IVP 125 MG in NS(*) 0.9% 100 ML BAG 100 ML IV SCH (12:30)
[2017-11-30] MEDS: cefTRIAXone 1 GM VIAL IVP SCH (13:23)
[2017-11-30] MEDS: FAT EMULSION 20% 250 ML BAG 250 ML IVPB SCH (20:22)
[2017-11-30] MEDS: INSULIN HUM REG IV SCH (20:23)
[2017-11-30] MEDS: MULTIVITAMINS IV SCH (20:23)
[2017-11-30] MEDS: [UNRECOGNIZED DRUG - OTHER] IV SCH (20:23)
[2017-11-30] MEDS ORDERED: DIAZEPAM 5 MG TAB PO ONE (21:10)
[2017-12-01] VITALS (39 sets, daily range): BP systolic 92–130; BP diastolic 47–70
[2017-12-01 05:34] LABS: PLATELET COUNT, AUTOMATED 204 K/uL (150-450)
[2017-12-01] MEDS ORDERED: MAGNESIUM SUL* 4 GM/100 ML BAG 100 ML IVPB ONE (07:55)
[2017-12-01] MEDS: INSULIN HUM LISPRO 100 UN/ML 3 ML VIAL SUBQ PRN ×4 (08:04→20:56)
[2017-12-01] MEDS: FUROSEMIDE 40 MG TAB PO SCH ×2 (08:54→13:33)
[2017-12-01] MEDS: DOCUSATE SODIUM 100 MG CAP PO SCH ×2 (09:03→20:49)
[2017-12-01] MEDS: MULTIVITAMINS TAB PO SCH (09:03)
[2017-12-01] MEDS: PANTOPRAZOLE SOD 40 MG TABEC PO SCH (09:04)
--- NOTE | 2017-12-01 09:35 | Hospitalist Progress Note ---
Subjective Progress Notes Subjective Feeling weak today. Weight is down 35kg. Physical Exam Vital Signs Date Time Temp Pulse Resp B/P (MAP) Pulse Ox O2 Delivery O2 Flow Rate FiO2 12/01/17 08:30 75 16 119/48 (71) 97 Nasal Cannula 3.0 12/01/17 08:00 98.5 11/28/17 19:00 50.0 Intake and Output 12/01/17 06:59 Intake Total 2424 ml Output Total 8750 ml Balance -6326 ml Intake Oral 1063 ml IV Total 1361 ml Output Urine Total 1400 ml Chest Tube Drainage Total 100 ml Drainage Total 7250 ml General Appearance: Alert, Awake, No Acute Distress, Afebrile Neuro: No Gross deficits Eyes: PERRLA Cardiovascular: Regular Rate and Rhythm Respiratory: Clear to Auscultation GI: Soft and Non-Tender Extremities: Warm, Perfused, Edema Psych: Appropriate Mood & Affect Result Diagram: 12/01/17 0525 12/01/17 0525 Monitor Interpretation: Normal Sinus Rhythm Assessment and Plan Problems: (1) Pleural effusion Status: Acute Assessment & Plan: She presented with a significant left sided effusion. This was drained in the emergency department on 11/20, and had reaccumulated on admission. She now has a chest tube in place, which is producing significant output. (2) Pelvic ascites Status: Acute Assessment & Plan: She had significant ascites despite treatment with Lasix. She now has a peritoneal drain in place. This is also having copious output. (3) Protein malnutrition Status: Chronic Assessment & Plan: She did have a colon resection done in May. This resulted in malabsorption and low protein/albumin. We do suspect that this is the cause of her fluid retention, ascites, and pleural effusions. She is receiving Lasix. Her weights have decreased 35kgs. She is feeling weak and now is lightheaded with standing. Will hold Lasix today and monitor. She is now on TPN and also receiving an oral protein supplement. (4) Anasarca Status: Acute Assessment & Plan: As above. (5) Hypomagnesemia Status: Chronic Assessment & Plan: She is on chronic treatment with magnesium infusions four times weekly. Her level was low normal this morning after receiving replacement yesterday. Will give 4g IV and recheck in the am. (6) SARI treated with BiPAP Status: Chronic Assessment & Plan: She was initially placed on BiPap as needed which will be continued prn. After her paracentesis, her O2 requirements decreased substantially. (7) Hypokalemia Status: Acute Assessment & Plan: Improved with supplementation. (8) Afib Assessment & Plan: She developed atrial fibrillation and was started on a diltiazem infusion. She has now converted back to sinus. We will consider stopping the diltiazem later today. Time Spent on Plan of Care: < 30 min Exam Sepsis Risk: No Definite Risk TK ORTIZ MD Dec 01, 2017 09:35
[2017-12-01] MEDS: HYDROCORTISONE 2.5% CR 30GM TB PR PRN (10:21)
[2017-12-01] MEDS: cefTRIAXone 1 GM VIAL IVP SCH (13:23)
[2017-12-01] MEDS: ACETAMINOPHEN 325 MG TAB PO PRN (14:30)
[2017-12-01] MEDS: INSULIN HUM REG IV SCH (18:45)
[2017-12-01] MEDS: MULTIVITAMINS IV SCH (18:45)
[2017-12-01] MEDS: [UNRECOGNIZED DRUG - OTHER] IV SCH (18:45)
[2017-12-01] MEDS: FAT EMULSION 20% 250 ML BAG 250 ML IVPB SCH (20:49)
[2017-12-01] MEDS: INSULIN GLARGINE 100 U/ML 3 ML PEN SUBQ SCH (20:49)
[2017-12-02] VITALS (15 sets, daily range): BP systolic 103–126; BP diastolic 53–67
[2017-12-02 05:23] LABS: PLATELET COUNT, AUTOMATED 221 K/uL (150-450)
[2017-12-02] MEDS: INSULIN HUM LISPRO 100 UN/ML 3 ML VIAL SUBQ PRN ×4 (08:56→21:15)
[2017-12-02] MEDS: PANTOPRAZOLE SOD 40 MG TABEC PO SCH (08:57)
[2017-12-02] MEDS: MULTIVITAMINS TAB PO SCH (09:00)
[2017-12-02] MEDS: DOCUSATE SODIUM 100 MG CAP PO SCH ×2 (09:00→21:15)
--- NOTE | 2017-12-02 09:04 | Antimicrobial Stewardship ---
Antimicrobial Stewardship Empiricly appropriate: Yes Duplicate/overlapping Rx: No Support empiric regimen: Yes Comment UTI Approriate Cultures done: Yes Cultures need repeate: No Gram stain show Microbs: Yes Organism identified: Yes (ecoli- medina sensitive - >100,000cfu) Review the antibiotic sensitiv: Yes Renal/Hepatic dosing: Yes Appropriate dose for site: Yes Comment Ceftriaxone 1g IV Q24H x 3 days Reviewed for Drug Interaction: Yes Monitored for Toxicities: Yes Clinically stable/improving: Yes IV to PO Opportunity: No Determine cumulative duration: 3 days - uncomplicated UTI Determine standard duration: 3 days Verified plan for regimen: Yes Comment Completed 3 days IV Ceftriaxone 1g IV q24H for uncomplicated UTI SRINIVAS NIELSEN Dec 02, 2017 09:04
[2017-12-02] MEDS: ENOXAPARIN 40 MG/0.4ML SYR SC SCH (09:09)
--- NOTE | 2017-12-02 09:10 | Hospitalist Progress Note ---
Subjective Progress Notes Subjective She slept well. She was able to drink 6oz of the protein mix yesterday. Physical Exam Vital Signs Date Time Temp Pulse Resp B/P (MAP) Pulse Ox O2 Delivery O2 Flow Rate FiO2 12/02/17 06:00 90 16 115/53 (73) 95 12/02/17 05:00 98.6 12/02/17 04:59 High-Flow Nasal Cannula 3.0 11/28/17 19:00 50.0 Intake and Output 12/02/17 07:00 Intake Total 2907 ml Output Total 5550 ml Balance -2643 ml Intake Oral 200 ml IV Total 2707 ml Output Urine Total 1350 ml Chest Tube Drainage Total 0 ml Drainage Total 4200 ml General Appearance: Alert, Awake, No Acute Distress GI: Soft and Non-Tender Extremities: Edema (1+ pitting on abd/legs. ) Result Diagram: 12/02/17 0450 12/02/17 0509 Monitor Interpretation: Normal Sinus Rhythm Assessment and Plan Problems: (1) Pleural effusion Status: Acute Assessment & Plan: She presented with a significant left sided effusion. This was drained in the emergency department on 11/20, and had reaccumulated on admission. Consulted general surgery about pleural effusion, secondary to increased SOB and oxygen use. She had a chest tube placed. She was transferred to ICU since as she was requiring a high amount of oxygen. She is better and the output is slowing. Dr. Grcaia is managing. She will be moved to the medical floor. (2) Pelvic ascites Status: Acute Assessment & Plan: She had significant ascites despite treatment with Lasix. She now has a peritoneal drain in place. This is having copious output. The plan is to improve the protein malnutrition and then, hopefully, the ascites will improve. (3) Protein malnutrition Status: Chronic Assessment & Plan: She did have a colon resection done in May. This resulted in malabsorption and low protein/albumin. We do suspect that this is the cause of her fluid retention, ascites, and pleural effusions. Her weights have decreased about 37kgs. She is feeling weak and now is lightheaded with standing. Will stop Lasix today and monitor. She is now on TPN and also receiving an oral protein supplement. Prealbumin tomorrow. (4) Hyponatremia Status: Acute Assessment & Plan: Secondary to Lasix and massive amounts of fluid shifts. L asix stopped. Will check a sodium this morning. (5) Anasarca Status: Acute Assessment & Plan: As above. (6) Urinary tract infection Status: Resolved Assessment & Plan: She had pyuria and the culture has grown a medina-sensitive E. Coli. She has finished 3 days of Rocephin. (7) Hypomagnesemia Status: Chronic Assessment & Plan: She is on chronic treatment with magnesium infusions four times weekly. Her level was low normal this morning. Continue to follow daily. (8) SARI treated with BiPAP Status: Chronic Assessment & Plan: She was initially placed on BiPap as needed which will be continued prn. After her paracentesis, her O2 requirements decreased substantially. (9) Hypokalemia Status: Acute Assessment & Plan: Improved with supplementation. (10) Afib Assessment & Plan: She developed atrial fibrillation and was started on a diltiazem infusion. She has now converted back to sinus. Diltiazem stopped. She will be continued to be monitored on telemetry. She is on Lovenox 40mg a day. Exam Sepsis Risk: No Definite Risk KAILEE GARCIA MD Dec 02, 2017 09:10
--- NOTE | 2017-12-02 09:25 | General Surgery Progress Note ---
Subjective Progress Notes Subjective No complaints this morning. No problems breathing. Physical Exam Vital Signs Date Time Temp Pulse Resp B/P (MAP) Pulse Ox O2 Delivery O2 Flow Rate FiO2 12/02/17 06:00 90 16 115/53 (73) 95 12/02/17 05:00 98.6 12/02/17 04:59 High-Flow Nasal Cannula 3.0 11/28/17 19:00 50.0 Intake and Output 12/02/17 07:00 Intake Total 2907 ml Output Total 5550 ml Balance -2643 ml Intake Oral 200 ml IV Total 2707 ml Output Urine Total 1350 ml Chest Tube Drainage Total 0 ml Drainage Total 4200 ml General Appearance: Alert, Awake, No Acute Distress, Afebrile GI: Soft and Non-Tender Extremities: Warm, Perfused Result Diagram: 12/02/17 0450 12/02/17 0509 Monitor Interpretation: Normal Sinus Rhythm Assessment and Plan Problems: (1) Pleural effusion Status: Acute Assessment & Plan: 11/28/17: Large L sided pleural effusion with associated hypoxemia: will place L chest tube. Procedure explained to patient, informed consent obtained. Also discussed with daughter Luna. 11/29/17: Doing much better this morning. Will place chest tube to water seal and follow output. Will continue peritoneal pigtail catheter until output decreases. TPN started yesterday. Will expect 3rd spaced fluid to decrease as her protein improves. Will need to follow her fluid status, electrolytes, and protein closely as she will certainly be losing electrolytes and protein from her pleural and ascitic fluid. 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 Will ask dietary to evaluate her to look for high protein, maximal absorption formula for PO intake as well. Continue PT/OT. May benefit from time on ECF while nutrition repleted so she can regain her strength. 12/02/17: Patient seems to be doing well. She does have some electrolyte disturbances such as significant hyponatremia and hypochloremia and I discussed these with the hospitalist who is working on correcting these. They are stopping her diuretic. She has been essentially diuresing plenty of fluid via the peritoneal drain. The chest tube is not really putting much out full I will remove this later today. The plan will be to get her protein levels back to a normal level where she can retain fluid in her intravascular space and doesn't 3rd space all of her fluid. We will continue TPN as well as augmentation of oral protein intake. She will need extensive physical and occupational therapy and extensive attention to her electrolytes. She will likely be TPN dependent for the rest of her life based on her response after her extensive bowel resection due to necrotic bowel. The hope would be that ultimately we can put her on nocturnal TPN only and that this would be adequate to support her nutrition in addition to what she is able to eat. We will continue [id number] TPN until her protein levels improve. Condition Stable Time Spent: < 30 min Exam Sepsis Risk: No Definite Risk YARY TRIPLETT MD Dec 02, 2017 09:25
[2017-12-02] MEDS: HYDROCORTISONE 2.5% CR 30GM TB PR PRN (10:39)
[2017-12-02] MEDS: ACETAMINOPHEN 325 MG TAB PO PRN (12:14)
[2017-12-02] MEDS: oxyCODONE HCL 5 MG CAP PO PRN ×2 (13:10→21:37)
[2017-12-02] MEDS: INSULIN HUM REG IV SCH (18:34)
[2017-12-02] MEDS: MULTIVITAMINS IV SCH (18:34)
[2017-12-02] MEDS: [UNRECOGNIZED DRUG - OTHER] IV SCH (18:34)
[2017-12-02] MEDS: FAT EMULSION 20% 250 ML BAG 250 ML IVPB SCH (19:53)
[2017-12-02] MEDS: INSULIN GLARGINE 100 U/ML 3 ML PEN SUBQ SCH (21:15)
[2017-12-03 03:50] VITALS: BP 107/52
[2017-12-03 06:37] LABS: PLATELET COUNT, AUTOMATED 242 K/uL (150-450)
--- NOTE | 2017-12-03 07:25 | General Surgery Progress Note ---
Subjective Progress Notes Subjective No complaints this morning. Physical Exam Vital Signs Date Time Temp Pulse Resp B/P (MAP) Pulse Ox O2 Delivery O2 Flow Rate FiO2 12/03/17 04:00 95 12/03/17 03:50 98.5 16 107/52 (70) Nasal Cannula 3.0 12/02/17 19:35 99 50.0 Intake and Output 12/03/17 07:00 Intake Total 2255 ml Output Total 9115 ml Balance -6860 ml Intake Oral 675 ml IV Total 1580 ml Output Urine Total 2025 ml Chest Tube Drainage Total 165 ml Drainage Total 4775 ml Other 2150 ml # Bowel Movements 2 General Appearance: Alert, Awake, No Acute Distress, Afebrile Chest: Other (Left chest tube with 50mL out overnight, no air leak) GI: Soft and Non-Tender Extremities: Warm, Perfused Result Diagram: 12/03/1762312/03/17623 Monitor Interpretation: Normal Sinus Rhythm Assessment and Plan Problems: (1) Pleural effusion Status: Acute Assessment & Plan: 11/28/17: Large L sided pleural effusion with associated hypoxemia: will place L chest tube. Procedure explained to patient, informed consent obtained. Also discussed with daughter Luna. 11/29/17: Doing much better this morning. Will place chest tube to water seal and follow output. Will continue peritoneal pigtail catheter until output decreases. TPN started yesterday. Will expect 3rd spaced fluid to decrease as her protein improves. Will need to follow her fluid status, electrolytes, and protein closely as she will certainly be losing electrolytes and protein from her pleural and ascitic fluid. 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 Will ask dietary to evaluate her to look for high protein, maximal absorption formula for PO intake as well. Continue PT/OT. May benefit from time on ECF while nutrition repleted so she can regain her strength. 12/02/17: Patient seems to be doing well. She does have some electrolyte disturbances such as significant hyponatremia and hypochloremia and I discussed these with the hospitalist who is working on correcting these. They are stopping her diuretic. She has been essentially diuresing plenty of fluid via the peritoneal drain. The chest tube is not really putting much out full I will remove this later today. The plan will be to get her protein levels back to a normal level where she can retain fluid in her intravascular space and doesn't 3rd space all of her fluid. We will continue TPN as well as augmentation of oral protein intake. She will need extensive physical and occupational therapy and extensive attention to her electrolytes. She will likely be TPN dependent for the rest of her life based on her response after her extensive bowel resection due to necrotic bowel. The hope would be that ultimately we can put her on nocturnal TPN only and that this would be adequate to support her nutrition in addition to what she is able to eat. We will continue [id number] TPN until her protein levels improve. 12/03/17: Doing well. Chest tube output less than 100mL/24hours. Chest tube removed this morning. Peritoneal drain with over 4L out in the last 24 hours, will keep in until output decreases. Continue PO intake, encourage protein intake. Continue TPN [id number]. Will likely be dependent on TPN at night after discharge. Continue to monitor and replace electrolytes as needed. Will likely require a stay in ECF. Continue PT/OT. (2) Hypoproteinemia Status: Chronic (3) Hypoalbuminemia due to protein-calorie malnutrition Status: Chronic (4) Edema due to hypoalbuminemia Status: Chronic (5) Ascites Status: Chronic (6) Protein-calorie malnutrition, moderate Status: Chronic Condition Stable. Time Spent: < 30 min Exam Sepsis Risk: No Definite Risk YARY TRIPLETT MD Dec 03, 2017 07:25
[2017-12-03 10:00] VITALS: BP 110/97
[2017-12-03] MEDS: DOCUSATE SODIUM 100 MG CAP PO SCH ×2 (10:34→21:11)
[2017-12-03] MEDS: MULTIVITAMINS TAB PO SCH (10:34)
[2017-12-03] MEDS: PANTOPRAZOLE SOD 40 MG TABEC PO SCH (10:34)
[2017-12-03] MEDS: ENOXAPARIN 40 MG/0.4ML SYR SC SCH (10:35)
[2017-12-03] MEDS: INSULIN HUM LISPRO 100 UN/ML 3 ML VIAL SUBQ PRN ×3 (11:14→21:12)
--- NOTE | 2017-12-03 11:56 | RADIOLOGY IMAGING REPORT ---
FACILITY: [facility] [place] PATIENT NAME: Brandy Kathleen : 1940 MR: [id number] V: [id number] EXAM DATE: ORDERING PHYSICIAN: YARY TRIPLETT TECHNOLOGIST: Location: [facility] Patient: Brandy Kathleen : 1940 Visit/Account:[id number] Date of Sevice: 12/03/2017 Single view of the chest Indication: Left-sided chest tube has been removed. Comparison: X-ray examination chest November 30. Findings: Left-sided chest tube has been removed. There is a tiny left apical pneumothorax. Blunting is seen of the left costophrenic sulcus indicative of a trace left effusion. Ovoid fluid is noted along the minor fissure on the right with minimal interstitial opacity right upper lobe. Right-sided PICC line terminates in the midportion subclavian vein. Minimal linear opacity is noted lateral left midlung indicative of atelectasis. No evidence of new bony finding. IMPRESSION: 1. Left-sided chest tube has been removed. There is a tiny hydropneumothorax on the left. 2. Stable right-sided fissural fluid with minimal airspace opacity right upper lobe, unchanged 3. Right PICC line terminates in midportion subclavian vein Report Dictated By: Ty Fierro MD at 12/03/2017 11:48 AM Report E-Signed By: Ty Fierro MD at 12/03/2017 11:51 AM WSN:[id number]
--- NOTE | 2017-12-03 13:33 | Hospitalist Progress Note ---
Subjective Progress Notes Subjective She reports tolerating the high protein supplements fairly well. Chest tube has been removed by Dr. Gracia this AM. Physical Exam Vital Signs Date Time Temp Pulse Resp B/P (MAP) Pulse Ox O2 Delivery O2 Flow Rate FiO2 12/03/17 10:30 Nasal Cannula 2.5 12/03/17 10:00 98.1 97 22 110/97 (101) 98 12/02/17 19:35 50.0 Intake and Output 12/03/17 07:00 Intake Total 2255 ml Output Total 9115 ml Balance -6860 ml Intake Oral 675 ml IV Total 1580 ml Output Urine Total 2025 ml Chest Tube Drainage Total 165 ml Drainage Total 4775 ml Other 2150 ml # Bowel Movements 2 General Appearance: Alert, Awake Neuro: Other (generalized weakness) Cardiovascular: Regular Rate and Rhythm Respiratory: Clear to Auscultation GI: Soft and Non-Tender Extremities: Edema (both LE) Integumentary: Generalized Fragile Skin Result Diagram: 12/03/1762312/03/17623 Monitor Interpretation: Normal Sinus Rhythm Assessment and Plan Problems: (1) Ascites Status: Chronic Assessment & Plan: She had significant ascites despite treatment with Lasix. She now has a peritoneal drain in place, which is still having significant output. The plan is to hopefully improve her protein malnutrition and then, hopefully, the ascites will improve. (2) Pleural effusion Status: Acute Assessment & Plan: She presented with a significant left sided effusion. This was drained in the emergency department on 11/20, and had reaccumulated by this admission. Consulted general surgery about pleural effusion, secondary to increased SOB and oxygen use. She had a chest tube placed. She was transferred to ICU for a short time as she was requiring a high amount of oxygen. She is improved and the CT output slowed - Dr. Gracia removed CT this AM. Follow up CXR pending. 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 This has resulted in malabsorption and low protein/albumin. We do suspect that this is the cause of her fluid retention, ascites, and pleural effusions. Her weights have now decreased about 37Kgs. She was feeling weak and lightheaded with standing. We have stopped Lasix diuresis. She is now on TPN and also receiving an oral protein supplement. Prealbumin pending. (4) Hyponatremia Status: Acute Assessment & Plan: Secondary to Lasix and massive amounts of fluid shifts. Lasix stopped. Watch labs. (5) Urinary tract infection Status: Resolved Assessment & Plan: She had pyuria and the culture has grown a medina-sensitive E. Coli. She has finished 3 days of Rocephin. (6) Hypomagnesemia Status: Chronic Assessment & Plan: She is on chronic treatment with magnesium infusions four times weekly. Her level was normal this morning. Continue to follow daily. (7) SARI treated with BiPAP Status: Chronic Assessment & Plan: She was initially placed on BiPAP as needed which will be continued prn. After her CT drainage/paracentesis, her O2 requirements decreased substantially. (8) Hypokalemia Status: Acute Assessment & Plan: Improved with supplementation. (9) Afib Assessment & Plan: She developed atrial fibrillation and was started on a diltiazem infusion. She has now converted back to sinus. Diltiazem stopped. She will be continued to be monitored on telemetry. She is on Lovenox 40mg daily. Exam Sepsis Risk: No Definite Risk FAITH ORTIZ MD Dec 03, 2017 13:33
[2017-12-03 14:06] VITALS: BP 96/60
[2017-12-03] MEDS ORDERED: INFLUENZA VIRUS VAC 0.5ML SYR IM ONLY ONE (14:08)
--- NOTE | 2017-12-03 15:24 | Medical Nutrition Therapy ---
Nutrition Anthropometrics Height (Inches): 64 Weight (Pounds): 165 Weight (Calculated Kilograms): 74.843 BMI: 33.4 Homero Nutrition Score: Probably Inadequate Homero Nutrition Risk Score: 14 Dietary Referral Nutrition Risk Factors: Diff. Swallowing Nutrition Risk Comment: Prescribed high protein diet Nutritional Diagnosis Nutritional Risk Acuity 1: Malnutrition Nutritional Risk Acuity 2: GI Malabsorption Nutritional Risk Acuity 4: Modified Diet Past Medical History: Hx of T2dm, SARI, HTN, plueral effusion, pelvic ascites, hypomagnesia, short gut and protein malnutrition. Nutritional Acuity: 1-High Nutrition Diagnosis: Altered GI Function Nutrition Etiology: Malabsorption/Intolerance, Physiological Causes Nutrition Problem/Etiology/Sym: Altered GI function, as related to Malabsorption/Intolerance and physiological causes, as evidenced by short gut and low albumin of 2.1. Energy Requirement: 2000 ([place] 1.3) Protein Requirement: 120 (1.3-1.4g/kg) Fluid Requirement: 2000 (1ml/kcal) Diet Type: High Protein Nutrition Intervention: Cont diet as ordered, Encourage intake, Between meal escobar pplement Drug: Diuretics Food Dislikes: ALLERGY: SHELLFISH, CITRUS AND LACTOSE Additional Diet Restrictions: PUT PROTEIN POWDER IN APPROPRIATE FOODS Diet Comment To [facility]: PUT 2 OZ PROTGOLD IN CRANB SERGIO EACH MEAL, + OFFER COREPOWER PROTEIN Nutrition Monitoring & Eval Nutrition Goals: Eat 75-100% Meal Nutrition Follow-Up: Poor Intake RD Patient Assessment Time: [address] Assessment Type: RD Re-Assessment Patient Nutrition Acuity: 1-High Follow Up Date: Dec 05, 2017 Nutritional Comment: 11/27. Pt admitted for pleural effusion, pelvic ascites, chronic protein malnutrition, anasarca,and chronic hypomagnesia. Pt has hx of T2DM, receiving 2-10 units humalog PRN. BG is elevated 148. Other notable labs include: low Hgb 9.2, Hct 29.8, sodium 135, total protein 5.3, preabumin 6.3 and albumin 2.4. Pt also receiving 80mg potassium depleting diuretic. Potassium WNL, 4.8. Pt is experiencing edema. 3+ in BLE, 2+ in abdominal, and 2+ general. Pt is has BMI of 39.6. Recommend 2000 kcal, 88g each day, and additional protein powder to foods and nutritional supplement to increase protein intake. Have tried to meet with pt, but has been with MD or sleeping each time. Will cont to monitor. MR 11/28. Edema fluid loss, pt is now 194lbs and was 244lbs on admission. Pt currently on TPN, receiving 880 kcal, 50g protein, and 500 lipids for a total of 1380 kcal. Meeting 42% of pro and 69% of kcal. Pt is consuming small amounts of oral intake but question how much is being absorbed. Recommend TF, Vital HP, full at 125ml/hr x12. This will provide 1500 kcal and 130 g of protein. Recommend PEG for medical terminologist solution. Noted to [facility] to provide 2oz of ProT Gold (hyrodlyzed collagen protein) with each meal~ 105g of protein. Will cont to monitor. MR 11/29 Provided 20z ProTGold mixed with 4 oz apple juice. Pt was sipping on it and stated she could drink it. Left formula with ICU nurse with goal of dispensing 7oz/day which provides 122g protein. Goal is that the hydrolized collegen protein will be absorbed and improvement observed in alb, prealb and decreased 3rd spacing. If inprovement is not seen, pt may benefit from a peptide based enteral nutrition that is formulated to be used for malabsorption. BK 12/03 Pt cont on high protein diet bryn has only eating 12% of meals offered past 3 days. Pt cont to recieve hydrolized protein supplment mixed with cranb sergio plus is offered a whey protein nutr supplment. Nursing reported pt drank 7 oz of hydolized protein 12/01. Alb cont low at 2.1. Wt has declined from 244# to 165# in 5 days with edema decreased from 2-3+ to non-pitting. Will cont to monitor. ANGIE ALVARADO Dec 03, 2017 15:24
[2017-12-03] MEDS: INSULIN HUM REG IV SCH (18:30)
[2017-12-03] MEDS: [UNRECOGNIZED DRUG - OTHER] IV SCH (18:30)
[2017-12-03] MEDS: MULTIVITAMINS IV SCH (18:30)
[2017-12-03 20:04] VITALS: BP 104/50
[2017-12-03] MEDS: FAT EMULSION 20% 250 ML BAG 250 ML IVPB SCH (20:10)
[2017-12-03] MEDS: INSULIN GLARGINE 100 U/ML 3 ML PEN SUBQ SCH (21:11)
[2017-12-03] MEDS: oxyCODONE HCL 5 MG CAP PO PRN (21:12)
[2017-12-03 23:55] VITALS: BP 119/54
[2017-12-04] MEDS: oxyCODONE HCL 5 MG CAP PO PRN ×2 (03:08→22:23)
[2017-12-04 03:09] VITALS: BP 114/53
[2017-12-04 06:09] LABS: PLATELET COUNT, AUTOMATED 253 K/uL (150-450)
[2017-12-04 07:44] VITALS: BP 120/58
[2017-12-04] MEDS: INSULIN HUM LISPRO 100 UN/ML 3 ML VIAL SUBQ PRN ×2 (07:49→17:24)
[2017-12-04] MEDS: ENOXAPARIN 40 MG/0.4ML SYR SC SCH (08:47)
[2017-12-04] MEDS: PANTOPRAZOLE SOD 40 MG TABEC PO SCH (08:47)
[2017-12-04] MEDS: DOCUSATE SODIUM 100 MG CAP PO SCH ×2 (08:47→21:21)
[2017-12-04] MEDS: MULTIVITAMINS TAB PO SCH (08:47)
[2017-12-04 11:22] VITALS: BP 109/52
[2017-12-04] MEDS: SODIUM CHLORIDE 1 GR TAB PO SCH (13:32)
[2017-12-04] MEDS: LORazepam 2 MG/ML VIAL IVP PRN ×2 (13:32→21:22)
[2017-12-04 14:13] VITALS: BP 121/54
--- NOTE | 2017-12-04 16:52 | Hospitalist Progress Note ---
Subjective Progress Notes Subjective 77F admitted for respiratory failure. BRIA overnight, very slow progress. Discussed with family and she would like to stop aggressive treatment and discuss hospice and comfort care. Patient Complains of: Neurological: No: Syncope, Confusion, Weakness Cardiovascular: No: Chest Pain Respiratory: No: Cough, Congestion Gastrointestinal: No Nausea Musculoskeletal: Pain Physical Exam Vital Signs Date Time Temp Pulse Resp B/P (MAP) Pulse Ox O2 Delivery O2 Flow Rate FiO2 12/04/17 14:13 98.7 90 24 121/54 (76) 94 Nasal Cannula 2.0 12/03/17 20:07 50.0 Intake and Output 12/04/17 06:59 Intake Total 3372.6 ml Output Total 6400 ml Balance -3027.4 ml Intake Oral 1440 ml IV Total 872.6 ml Other 1060 ml Output Urine Total 1900 ml Stool Total 600 ml Drainage Total 2950 ml Other 950 ml # Bowel Movements 1 General Appearance: Alert, Awake, Afebrile Neuro: No Gross deficits ENT: Normal Neck: No Masses Cardiovascular: Normal Rhythm & Peripheral Pulses Respiratory: No Respiratory Distress (3L NC) GI: Soft and Non-Tender (+ drain) Lymph: Cervical Nodes Benign Extremities: Soft and Non Tender, Warm, Pulses, Perfused, Edema Integumentary: Skin Intact without Lesion / Mass Psych: Alert & Oriented X3 Result Diagram: 12/04/17 0536 12/04/17 0536 Monitor Interpretation: Normal Sinus Rhythm Assessment and Plan Problems: (1) Ascites Status: Chronic Assessment & Plan: She had significant ascites despite treatment with Lasix. She now has a peritoneal drain in place, which is still having significant output. Will discuss discontinuation of drain with surgery, plan to stop aggressive cares and focus on comfort. (2) Pleural effusion Status: Acute Assessment & Plan: She presented with a significant left sided effusion. This was drained in the emergency department on 11/20, and had reaccumulated by this admission. Consulted general surgery about pleural effusion, secondary to increased SOB and oxygen use. She had a chest tube placed. She was transferred to ICU for a short time as she was requiring a high amount of oxygen. She is improved and the CT output slowed, now removed. Will focus on comfort. 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 This has resulted in malabsorption and low protein/albumin. We do suspect that this is the cause of her fluid retention, ascites, and pleural effusions. Her weights have now decreased about 37Kgs. She was feeling weak and lightheaded with standing. Stopping TPN at patient request and will focus on comfort care. (4) Hyponatremia Status: Acute Assessment & Plan: Secondary to Lasix and massive amounts of fluid shifts. Lasix stopped. On NaCl tab. (5) Urinary tract infection Status: Resolved Assessment & Plan: Asymptomatic with pyuria and the culture has grown a medina- sensitive E. Coli. She has finished 3 days of Rocephin. (6) Hypomagnesemia Status: Chronic Assessment & Plan: She is on chronic treatment with magnesium infusions four times weekly. Her level was normal this morning. Continue to follow daily. (7) SARI treated with BiPAP Status: Chronic Assessment & Plan: She was initially placed on BiPAP as needed which will be continued prn. After her CT drainage/paracentesis, her O2 requirements decreased substantially. (8) Hypokalemia Status: Acute Assessment & Plan: Improved with supplementation. (9) Afib Assessment & Plan: She developed atrial fibrillation and was started on a diltiazem infusion. She has now converted back to sinus. Diltiazem stopped. She will be continued to be monitored on telemetry. She is on Lovenox 40mg jaren y. Exam Sepsis Risk: No Definite Risk LINDER DIAZ HIDALGO DO Dec 04, 2017 16:52
[2017-12-04] MEDS ORDERED: INSULIN HUM REG IV ONE (18:30)
[2017-12-04] MEDS ORDERED: [UNRECOGNIZED DRUG - OTHER] IV ONE (18:30)
[2017-12-04] MEDS ORDERED: MULTIVITAMINS IV ONE (18:30)
--- NOTE | 2017-12-04 19:27 | General Surgery Progress Note ---
Subjective Progress Notes Subjective No specific complaints today. Pt wishes to stop all interventions and she wishes to be made comfort measures only/hospice. I spoke with her a long time earlier today and then again this evening (daughter yash humphreys) and I made sure that she understands what this means. She seems very coherent and seems to understand that stopping all IV nutrition, IV fluids, electrolyte replacement, etc will likely result in her and she wishes to proceed with this. I also emphasized that her may not occur for several weeks or even months. She seems to understand this whole discussion but she reports to me that she is done trying to get well enough to go home and wishes now to focus all efforts on keeping her comfortable for whatever time she has left. I spoke with her daughter this evening as well and she thinks her mother is of sound mind and she respects her mother's wishes and agrees with making her comfort measures at this time. Physical Exam Vital Signs Date Time Temp Pulse Resp B/P (MAP) Pulse Ox O2 Delivery O2 Flow Rate FiO2 12/04/17 14:13 98.7 90 24 121/54 (76) 94 Nasal Cannula 2.0 12/03/17 20:07 50.0 Intake and Output 12/04/17 07:00 Intake Total 3372.6 ml Output Total 6400 ml Balance -3027.4 ml Intake Oral 1440 ml IV Total 872.6 ml Other 1060 ml Output Urine Total 1900 ml Stool Total 600 ml Drainage Total 2950 ml Other 950 ml # Bowel Movements 1 General Appearance: Alert, Awake, No Acute Distress, Afebrile GI: Soft and Non-Tender Extremities: Warm, Perfused Result Diagram: 12/04/17 0536 12/04/17 0536 Monitor Interpretation: Normal Sinus Rhythm Assessment and Plan Problems: (1) Comfort measures only status Status: Acute (2) Pleural effusion Status: Acute Assessment & Plan: 11/28/17: Large L sided pleural effusion with associated hypoxemia: will place L chest tube. Procedure explained to patient, informed consent obtained. Also discussed with daughter Luna. 11/29/17: Doing much better this morning. Will place chest tube to water seal and follow output. Will continue peritoneal pigtail catheter until output decreases. TPN started yesterday. Will expect 3rd spaced fluid to decrease as her protein improves. Will need to follow her fluid status, electrolytes, and protein closely as she will certainly be losing electrolytes and protein from her pleural and ascitic fluid. 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 Will ask dietary to evaluate her to look for high protein, maximal absorption formula for PO intake as well. Continue PT/OT. May benefit from time on ECF while nutrition repleted so she can regain her strength. 12/02/17: Patient seems to be doing well. She does have some electrolyte disturbances such as significant hyponatremia and hypochloremia and I discussed these with the hospitalist who is working on correcting these. They are stopping her diuretic. She has been essentially diuresing plenty of fluid via the peritoneal drain. The chest tube is not really putting much out full I will remove this later today. The plan will be to get her protein levels back to a normal level where she can retain fluid in her intravascular space and doesn't 3rd space all of her fluid. We will continue TPN as well as augmentation of oral protein intake. She will need extensive physical and occupational therapy and extensive attention to her electrolytes. She will likely be TPN dependent for the rest of her life based on her response after her extensive bowel resection due to necrotic bowel. The hope would be that ultimately we can put her on nocturnal TPN only and that this would be adequate to support her nutrition in addition to what she is able to eat. We will continue [id number] TPN until her protein levels improve. 12/03/17: Doing well. Chest tube output less than 100mL/24hours. Chest tube removed this morning. Peritoneal drain with over 4L out in the last 24 hours, will keep in until output decreases. Continue PO intake, encourage protein intake. Continue TPN [id number]. Will likely be dependent on TPN at night after discharge. Continue to monitor and replace electrolytes as needed. Will likely require a stay in ECF. Continue PT/OT. 12/04/17: Doing well but patient/family now wish to convert her to comfort measures. Will back off on all therapeutic efforts at this time and focus all efforts at minimizing suffering. I discussed leaving the peritoneal drain in or removing it with the resulting reaccumulation of fluid in her abdomen. She would like to keep the drain in place for now. (3) Hypoproteinemia Status: Chronic (4) Hypoalbuminemia due to protein-calorie malnutrition Status: Chronic (5) Edema due to hypoalbuminemia Status: Chronic (6) Ascites Status: Chronic (7) Protein-calorie malnutrition, moderate Status: Chronic Condition Stable. Time Spent: < 30 min Exam Sepsis Risk: No Definite Risk Problem Qualifiers (1) Ascites: Ascites type: other type Qualified Codes: R18.8 - Other ascites YARY TRIPLETT MD Dec 04, 2017 19:27
[2017-12-04 19:42] VITALS: BP 111/51
[2017-12-04] MEDS ORDERED: MORPHINE 2 MG/ML SYR IV PRN (20:45)
[2017-12-04] MEDS: INSULIN GLARGINE 100 U/ML 3 ML PEN SUBQ SCH (21:21)
[2017-12-05] MEDS: oxyCODONE HCL 5 MG CAP PO PRN (04:51)
[2017-12-05 07:16] VITALS: BP 118/51
[2017-12-05] MEDS: SODIUM CHLORIDE 1 GR TAB PO SCH (09:38)
[2017-12-05] MEDS: PANTOPRAZOLE SOD 40 MG TABEC PO SCH (09:38)
[2017-12-05] MEDS: MULTIVITAMINS TAB PO SCH (09:38)
[2017-12-05] MEDS: DOCUSATE SODIUM 100 MG CAP PO SCH ×2 (09:38→21:18)
--- NOTE | 2017-12-05 09:43 | Hospitalist Progress Note ---
Subjective Progress Notes Subjective She has no complaints this morning. Physical Exam Vital Signs Date Time Temp Pulse Resp B/P (MAP) Pulse Ox O2 Delivery O2 Flow Rate FiO2 12/05/17 07:16 94 Nasal Cannula 2.0 12/05/17 07:16 96.9 88 20 118/51 (73) 12/04/17 19:40 50.0 Intake and Output 12/05/17 07:00 Intake Total 1108 ml Output Total 6000 ml Balance -4892 ml Intake Oral 540 ml IV Total 568 ml Output Urine Total 1800 ml Drainage Total 3200 ml Other 1000 ml General Appearance: Alert, Awake, No Acute Distress, Afebrile Neuro: No Gross deficits Cardiovascular: Regular Rate and Rhythm Respiratory: No Respiratory Distress, Clear to Auscultation Psych: Alert & Oriented X3, Appropriate Mood & Affect Result Diagram: 12/04/1753512/04/17535 Monitor Interpretation: Normal Sinus Rhythm Assessment and Plan Problems: (1) Ascites Status: Chronic Assessment & Plan: She had significant ascites despite treatment with Lasix. She now has a peritoneal drain in place, which is still having significant output. Will discuss discontinuation of drain with surgery, plan to stop aggressive cares and focus on comfort. (2) Pleural effusion Status: Acute Assessment & Plan: She presented with a significant left sided effusion. This was drained in the emergency department on 11/20, and had reaccumulated by this admission. Consulted general surgery about pleural effusion, secondary to increased SOB and oxygen use. She had a chest tube placed. She was transferred to ICU for a short time as she was requiring a high amount of oxygen. She is improved and the CT output slowed, now removed. Will focus on comfort. 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 This has resulted in malabsorption and low protein/albumin. We do suspect that this is the cause of her fluid retention, ascites, and pleural effusions. Her weights have now decreased about 37Kgs. She was feeling weak and lightheaded with standing. Stopping TPN at patient request and will focus on comfort care. (4) Hyponatremia Status: Acute Assessment & Plan: Secondary to Lasix and massive amounts of fluid shifts. Lasix stopped. On NaCl tab. (5) Urinary tract infection Status: Resolved Assessment & Plan: Asymptomatic with pyuria and the culture has grown a medina-sensitive E. Coli. She has finished 3 days of Rocephin. (6) Hypomagnesemia Status: Chronic Assessment & Plan: She is on chronic treatment with magnesium infusions four times weekly. Her level was normal this morning. Continue to follow daily. (7) SARI treated with BiPAP Status: Chronic Assessment & Plan: She was initially placed on BiPAP as needed which will be continued prn. After her CT drainage/paracentesis, her O2 requirements decreased substantially. (8) Hypokalemia Status: Acute Assessment & Plan: Improved with supplementation. (9) Afib Assessment & Plan: She developed atrial fibrillation and was started on a diltiazem infusion. She has now converted back to sinus. Diltiazem stopped. Discontinued telemetry today, focus on comfort. She is on Lovenox 40mg daily. Exam Sepsis Risk: No Definite Risk Problem Qualifiers (1) Ascites: Ascites type: other type Qualified Codes: R18.8 - Other ascites RENETTA ACE Dec 05, 2017 09:43
--- NOTE | 2017-12-05 09:59 | Medical Nutrition Therapy ---
Nutrition Anthropometrics Height (Inches): 64 Weight (Pounds): 164 Weight (Calculated Kilograms): 74.389 BMI: 33.4 Homero Nutrition Score: Very Poor Homero Nutrition Risk Score: 13 Dietary Referral Nutrition Risk Factors: Diff. Swallowing Nutrition Risk Comment: Prescribed high protein diet Nutritional Diagnosis Nutritional Risk Acuity 1: Malnutrition Nutritional Risk Acuity 2: GI Malabsorption Nutritional Risk Acuity 4: Modified Diet Past Medical History: Hx of T2dm, SARI, HTN, plueral effusion, pelvic ascites, hypomagnesia, short gut and protein malnutrition. Nutritional Acuity: 1-High Nutrition Diagnosis: Altered GI Function Nutrition Etiology: Malabsorption/Intolerance, Physiological Causes Nutrition Problem/Etiology/Sym: Altered GI function, as related to Malabsorption/Intolerance and physiological causes, as evidenced by short gut and low albumin of 2.1. Energy Requirement: 2000 ([place] 1.3) Protein Requirement: 120 (1.3-1.4g/kg) Fluid Requirement: 2000 (1ml/kcal) Diet Type: Diet as Tolerated NICK/REG Nutrition Intervention: Cont diet as ordered Drug: Diuretics Food Dislikes: ALLERGY: SHELLFISH, CITRUS AND LACTOSE Diet Comment To [facility]: OFFER 2 OZ PROTGOLD IN CRANB SERGIO IF PT DESIRES Nutrition Monitoring & Eval Nutritional Goals Comment: Pt will consume food and fluids as desired for comfort care. Nutrition Follow-Up: Poor Intake RD Patient Assessment Time: [address] Assessment Type: RD Re-Assessment Patient Nutrition Acuity: 1-High Follow Up Date: Dec 08, 2017 Nutritional Comment: 11/27. Pt admitted for pleural effusion, pelvic ascites, chronic protein malnutrition, anasarca,and chronic hypomagnesia. Pt has hx of T2DM, receiving 2-10 units humalog PRN. BG is elevated 148. Other notable labs include: low Hgb 9.2, Hct 29.8, sodium 135, total protein 5.3, preabumin 6.3 and albumin 2.4. Pt also receiving 80mg potassium depleting diuretic. Potassium WNL, 4.8. Pt is experiencing edema. 3+ in BLE, 2+ in abdominal, and 2+ general. Pt is has BMI of 39.6. Recommend 2000 kcal, 88g each day, and additional protein powder to foods and nutritional supplement to increase protein intake. Have tried to meet with pt, but has been with MD or sleeping each time. Will cont to monitor. MR 11/28. Edema fluid loss, pt is now 194lbs and was 244lbs on admission. Pt currently on TPN, receiving 880 kcal, 50g protein, and 500 lipids for a total of 1380 kcal. Meeting 42% of pro and 69% of kcal. Pt is consuming small amounts of oral intake but question how much is being absorbed. Recommend TF, Vital HP, full at 125ml/hr x12. This will provide 1500 kcal and 130 g of protein. Recommend PEG for terminal worker solution. Noted to [facility] to provide 2oz of ProT Gold (hyrodlyzed collagen protein) with each meal~ 105g of protein. Will cont to monitor. MR 11/29 Provided 20z ProTGold mixed with 4 oz apple juice. Pt was sipping on it and stated she could drink it. Left formula with ICU nurse with goal of dispensing 7oz/day which provides 122g protein. Goal is that the hydrolized collegen protein will be absorbed and improvement observed in alb, prealb and decreased 3rd spacing. If inprovement is not seen, pt may benefit from a peptide based enteral nutrition that is formulated to be used for malabsorption. BK 10/ Pt cont on high protein diet bryn has only eating 12% of meals offered past 3 days. Pt cont to recieve hydrolized protein supplment mixed with cranb sergio plus is offered a whey protein nutr supplment. Nursing reported pt drank 7 oz of hydolized protein 12/01. Alb cont low at 2.1. Wt has declined from 244# to 165# in 5 days with edema decreased from 2-3+ to non-pitting. Will cont to monitor. BK 12/05 Pt changed to comfot care. Will cont to offer the hydrolized colligen protein if pt desires. Pt drank 4 oz of the colligen protein yesterday and refused all other foods and supplments. Alb increased slightly to 2.2 and prealb increased to 15. BG ranging 200-300's. Will cont to monitor and offer food and fluids as pt desires for comfort care. Copies To Copies to: YARY TRIPLETT MD ; ANGIE FARRELL Dec 05, 2017 09:59
[2017-12-05 21:13] VITALS: BP 103/56
[2017-12-05] MEDS: MELATONIN 3 MG TAB PO PRN (21:18)
[2017-12-06 07:35] VITALS: BP 116/64
[2017-12-06] MEDS: oxyCODONE HCL 5 MG CAP PO PRN (07:40)
[2017-12-06] MEDS: MULTIVITAMINS TAB PO SCH (07:40)
[2017-12-06] MEDS: DOCUSATE SODIUM 100 MG CAP PO SCH (07:40)
[2017-12-06] MEDS: PANTOPRAZOLE SOD 40 MG TABEC PO SCH (07:40)
[2017-12-06] MEDS ORDERED: SODCTAB PO (10:54)
--- NOTE | 2017-12-06 10:59 | Hospitalist Depart ---
Discharge Summary Reason for Hosp/Final Diag: (1) Ascites Status: Chronic Hospital Course & Plan: She had significant ascites despite treatment with Lasix. She now has a peritoneal drain in place, which is still having significant output. We did discuss discontinuation of drain with surgery and the patient, but we plan to keep the drain in place, as it could promote more comfort for patient. The patient did want to stop aggressive cares and focus on comfort. She will be [facility] for continued care. (2) Pleural effusion Status: Acute Hospital Course & Plan: She presented with a significant left sided effusion. This was drained in the emergency department on 11/20, and had reaccumulated by this admission. Consulted general surgery about pleural effusion, secondary to increased SOB and oxygen use. She had a chest tube placed. She was transferred to ICU for a short time as she was requiring a high amount of oxygen. She is improved and the CT output slowed, now removed. Will focus on comfort. 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 This has resulted in malabsorption and low protein/albumin. We do suspect that this is the cause of her fluid retention, ascites, and pleural effusions. Her weights have now decreased about 37Kgs. She was feeling weak and lightheaded with standing. Stopping TPN at patient request and will focus on comfort care. (4) Hyponatremia Status: Acute Hospital Course & Plan: Secondary to Lasix and massive amounts of fluid shifts. Lasix stopped. On NaCl tab. (5) Urinary tract infection Status: Resolved Hospital Course & Plan: Asymptomatic with pyuria and the culture has grown a medina-sensitive E. Coli. She has finished 3 days of Rocephin. (6) Hypomagnesemia Status: Chronic Hospital Course & Plan: She was on chronic treatment with magnesium infusions four times weekly. Monitoring levels of magnesium has been stopped secondary to comfort care. 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 After her CT drainage/paracentesis, her O2 requirements decreased substantially. (8) Hypokalemia Status: Acute Hospital Course & Plan: Improved with supplementation. (9) Afib Hospital Course & Plan: She developed atrial fibrillation and was started on a diltiazem infusion. She has now converted back to sinus. Diltiazem stopped. Discontinued telemetry today, focus on comfort. Departure Latest Vital Signs Vital Signs 12/04/17 12/06/17 12/06/17 19:40 07:35 10:00 Temp 98.8 Pulse 89 Resp 18 B/P (MAP) 116/64 (81) Pulse Ox 97 O2 Delivery Nasal Cannula O2 Flow Rate 2.0 FiO2 50.0 Weight (Pounds): 164 Weight (Ounces): 6.0 Result Diagram: 12/04/1753512/04/17535 Condition: Improved Discharge: Hospice Discharge Instructions Home Meds Active Scripts Sodium Chloride (SODIUM CHLORIDE) 1 Gm Tab, 1 GM PO QDAY, #30 TAB Prov:RENETTA ACE BI LEAD 12/06/17 Blood Sugar Diagnostic (ONE TOUCH ULTRA TEST STRIPS) 1 Each Strip, 100 EACH MC Q30D, #100 STRIP 12 Refills Use to test blood sugars three times daily and as needed. Prov:SHARIF FUENTES MD 11/21/17 Insulin Glargine (LANTUS) 100 Unit/Ml Soln, 12 UNIT SUBQ QHS, #3 VIAL 3 Refills Prov:ANGEL ROA APRN BI LEAD-C 08/26/17 Pen Needle, Diabetic, Safety (PEN NEEDLE) 1 Each Dis.needle, EACH MC Q30D, #100 12 Refills use to administer insulin daily Prov:SHARIF FUENTES MD 08/23/17 Insulin Lispro 100 Un/Ml Vial (HUMALOG 100 U/ML VIAL) 100 Unit/1 Ml Vial, 3-15 UNIT SQ TID PRN for sliding scale, #2 VIAL 3 Refills Prov:SHARIF FUENTES MD 08/07/17 Potassium Chloride (POTASSIUM CHLORIDE) 20 Meq Tab.er.prt, 1 TAB PO TID, #90 TAB 11 Refills Prov:SHARIF FUENTES MD 07/31/17 Blood-Glucose Meter (BLOOD-GLUCOSE METER) 1 Each Kit, EACH MC ONCE, #1 Use to test BS TID and PRN Prov:SHARIF FUENTES MD 07/30/17 Lancets (ONE TOUCH LANCETS) 1 Each Each, EACH MC Q30D, #100 12 Refills Use to test BS TID Prov:SHARIF FUENTES MD 07/30/17 Cholestyramine/Aspartame (PREVALITE PACKET) 4 Gm Powd.pack, 4 GM PO TID, #120 PACKET 12 Refills Prov:SHARIF FUENTES MD 07/24/17 Furosemide (FUROSEMIDE) 80 Mg Tablet, 1 TAB PO BID, #180 TAB 3 Refills Prov:SHARIF FUENTES MD 07/24/17 Melatonin (MELATONIN) 3 Mg Tablet, 1 TAB PO HS PRN for sleeplessness, #30 TAB Prov:SHARIF FUENTES MD 07/04/17 Diphenhydramine Hcl (DIPHENHYDRAMINE HCL) 25 Mg Capsule, 2 TAB PO BID, #120 CAPSULE Prov:SHARIF FUENTES MD 07/04/17 Acetaminophen (ACETAMINOPHEN) 500 Mg Tablet, 1-2 TAB PO Q6H PRN for FEVER/PAIN, #100 TAB Prov:SHARIF FUENTES MD 07/04/17 Phe/Shark Liver Oil/Glycer/Pet (PREPARATION H CREAM) 27 Gm Cr, 0 GM VT PRN PRN for HEMORRHOIDS, #1 TUBE Prov:TK ORTIZ MD 06/05/17 Reported Medications Docusate Sodium (COLACE) 100 Mg Capsule, 100 MG PO, CAPSULE 09/26/17 Magnesium Sulfate in Water (Magnesium Sulf 4 G/100 ml Bag) 4 Gram/100 Ml (4 %) Piggyback, 4 GM IVPB 4XW 07/14/17 Oxygen (OXYGEN) Inha, 3-5 L INH cont, 4 liters at hs and with activity, up to 5 liters based on oximeter 07/10/17 Multivitamin (MULTI VITAMIN DAILY) 1 Each Tablet, 1 TAB PO QDAY, TAB 07/10/17 Aspirin (ASPIR 81) 81 Mg Tablet.dr, 1 TAB PO QDAY, TAB 05/08/17 Bipap Home (BIPAP HOME) Inha, HS 09/07/15 Diet: Regular Activity: With Walker Special Instructions: Change gauze to drain site daily. Copies to: SHARIF FUENTES MD ; Venous Thromboembolism Antithrombotics Is Pt On Any Antithrombotics?: Yes Problem Qualifiers (1) Ascites: Ascites type: other type Qualified Codes: R18.8 - Other ascites RENETTA ACE [facility] Dec 06, 2017 10:59
== END 2017-12-06 12:20 | disposition hospice, inpatient (51) | DRG 392 ==
LOC: ER 13:22 → MED 16:43 → ICU 11-28 12:45 → MED 12-02 11:15
PROVIDERS: ADMIT Internal Medicine; ATTEND Internal Medicine
PROC: 0W9B30Z Drainage of Left Pleural Cavity with Drainage Device, Percutaneous Approach (ICD-10-PCS; principal; 2017-11-28)
PROC: 0W9G30Z Drainage of Peritoneal Cavity with Drainage Device, Percutaneous Approach (ICD-10-PCS; 2017-11-28)
PROC: 3E0336Z Introduction of Nutritional Substance into Peripheral Vein, Percutaneous Approach (ICD-10-PCS; 2017-11-28)
DX: K91.2 Postsurgical malabsorption, not elsewhere classified (principal); E44.0 Moderate protein-calorie malnutrition; R18.8 Other ascites; J90 Pleural effusion, not elsewhere classified; E87.1 Hypo-osmolality and hyponatremia; N39.0 Urinary tract infection, site not specified; I48.91 Unspecified atrial fibrillation; Z51.5 Encounter for palliative care; B96.20 Unspecified Escherichia coli [E. coli] as the cause of diseases classified elsewhere; E83.42 Hypomagnesemia; E73.9 Lactose intolerance, unspecified; I10 Essential (primary) hypertension; E87.6 Hypokalemia; E78.00 Pure hypercholesterolemia, unspecified; K21.9 Gastro-esophageal reflux disease without esophagitis; E11.9 Type 2 diabetes mellitus without complications; F32.9 Major depressive disorder, single episode, unspecified; G47.33 Obstructive sleep apnea (adult) (pediatric); Z68.28 Body mass index [BMI] 28.0-28.9, adult; Z88.2 Allergy status to sulfonamides; Z91.013 Allergy to seafood; Z86.718 Personal history of other venous thrombosis and embolism; Z79.4 Long term (current) use of insulin; Z99.81 Dependence on supplemental oxygen
CPT/HCPCS: 32554; 36415; 36416; 49082; 49083; 71045; 71275; 74177; 81001; 82040; 82247; 82310; 82374; 82435; 82565; 82607; 82746; 82947; 82948; 83735; 83880; 84075; 84100; 84132; 84134; 84155; 84295; 84450; 84460; 84484; 84520; 85025; 87077; 87088; 87186; 90471; 90674; 93005; 94660; 97162; 97165; 99284; A7048; C1729; J0610; J0696; J1650; J1815; J1940; J2060; J3475; J3480; J3490; J7040; J7050; P9045; Q9967

== ENCOUNTER → 2017-12-06 | Outpatient (CLI) | payer MEDICARE ==
[2017-05-24 19:20] VITALS: BMI 39.6
[~2017-12-06] MED LIST changes: +SODCTAB PO
== END ==
LOC: AMB 12:05
PROVIDERS: ATTEND Nurse Practitioner
DX: R10.84 Generalized abdominal pain (principal); Z96.89 Presence of other specified functional implants
CPT/HCPCS: A0425; A0426